=== PATIENT | female | born 1985 | race Caucasian/White ===

== ENCOUNTER → 2017-10-13 | Outpatient (CLI) | payer MEDICARE, OTHER ==
[~2017-10-13] MED LIST: ASPI-556 PO; ATOR40TA28 PO; DIVA500T52 PO; DSS100 PO; GLIP10 PO; LEVO200 PO; LISI-662 PO; LITH600 PO; METF500T4 PO; MULT1TAB69 PO; OLAN10TA3 PO; PANT40TA25 PO; PROP10TA73 PO; SITA100 PO
[2017-10-13 13:44] LABS: BASOPHILS % (AUTO) 0.2 % (0.0-2.0); EOSINOPHILS % (AUTO) 0.7 % (1.0-6.0); HEMATOCRIT 26.6 % (36-46); HEMOGLOBIN 8.9 g/dL (12.0-16.0); LYMPHOCYTES # (AUTO) 2.4 K/uL (1.0-4.8); LYMPHOCYTES % (AUTO) 23.2 % (22.0-44.0); MEAN CORPUSCULAR HEMOGLOBIN 29.6 pg (26.0-34.0); MEAN CORPUSCULAR HGB CONC 33.3 G/dL (31.0-37.0); MEAN CORPUSCULAR VOLUME 89 fL (80-100); MONOCYTES # (AUTO) 0.8 K/uL (0.1-1.0); MONOCYTES % (AUTO) 7.2 % (2.0-9.0); NEUTROPHILS # (AUTO) 7.2 K/uL (1.8-7.7); NEUTROPHILS % (AUTO) 68.7 % (40.0-70.0); PLATELET COUNT (AUTO) 332 K/uL (150-450); RED BLOOD CELL COUNT(AUTO) 2.99 MIL/uL (4.00-5.20); WHITE BLOOD COUNT (AUTO) 10.5 K/uL (4.5-11.0)
[2017-10-13 13:46] LABS: APPEARANCE,URINE CLEAR (CLEAR); GLUCOSE, URINE (UA) 100 mg/dL (NEGATIVE); KETONES,URINE NEGATIVE (NEGATIVE); LEUKOCYTE ESTERASE ,URINE NEGATIVE (NEGATIVE); OCCULT BLOOD,URINE MODERATE (NEGATIVE); PH,URINE 5.5 (5.0-8.0); PROTEIN,URINE SEE CONFIRM (NEGATIVE)
[2017-10-13 13:48] LABS: ADD UA MICROSCOPIC YES
[2017-10-13 14:01] LABS: SULFOSALICYLIC ACID,URINE 3+ (Negative)
[2017-10-13 14:02] LABS: SQUAMOUS EPITHELIAL CELL,UR Moderate /LPF (None Seen)
[2017-10-13 14:04] LABS: LITHIUM 0.94 mmol/L (0.60-1.20)
[2017-10-13 14:18] LABS: HEMOGLOBIN A1C 10.8 % (4.5-6.2)
[2017-10-13 15:00] LABS: ALANINE AMINOTRANSFERASE 11 U/L (12-78); ALBUMIN 2.5 g/dL (3.4-5.0); ANION GAP 7 mmol/L (8-16); ASPARTATE AMINOTRANSFERASE 11 U/L (15-37); BILIRUBIN,DIRECT < 0.05 mg/dL (0.00-0.20); BILIRUBIN,TOTAL 0.2 mg/dL (0.1-1.0); CARBON DIOXIDE 23 mmol/L (22-29); CHLORIDE 103 mmol/L (98-107); CHOL/HDL RATIO 3.7 (3.9-5.7); CREATININE 1.39 mg/dL (0.60-1.30); GLOMERULAR FILTR. RATE CALC 43 mL/min (>60); POTASSIUM 4.9 mmol/L (3.5-5.1); SODIUM SERUM 133 mmol/L (136-145); TOTAL PROTEIN, SERUM 6.6 g/dL (6.4-8.2); UREA NITROGEN, BLOOD 33 mg/dL (7-18); VALPROIC ACID 74 mcg/mL (50-100)
[2017-10-13 15:23] LABS: THYROID STIMULATING HORMONE 1.66 uIU/mL (0.36-3.74)
== END | disposition home or self-care (01) ==
LOC: LABPV 10:21
PROVIDERS: ATTEND Psychiatry & Neurology Psychiatry
DX: F31.9 Bipolar disorder, unspecified (principal)
CPT/HCPCS: 82248; 83036; 84443

== ENCOUNTER → 2018-04-07 | Outpatient (CLI) | payer MEDICARE, OTHER ==
[~2018-04-07] MED LIST changes: -METF500T4 PO; +METF500T6 PO
[2018-04-07 12:51] LABS: BASOPHILS % (AUTO) 0.3 % (0.0-2.0); EOSINOPHILS % (AUTO) 1.2 % (1.0-6.0); HEMATOCRIT 29.6 % (36-46); HEMOGLOBIN 9.8 g/dL (12.0-16.0); LYMPHOCYTES % (AUTO) 27.6 % (22.0-44.0); MEAN CORPUSCULAR HEMOGLOBIN 29.6 pg (26.0-34.0); MEAN CORPUSCULAR HGB CONC 33.1 G/dL (31.0-37.0); MEAN CORPUSCULAR VOLUME 89 fL (80-100); MONOCYTES # (AUTO) 0.8 K/uL (0.1-1.0); NEUTROPHILS % (AUTO) 63.9 % (40.0-70.0); PLATELET COUNT (AUTO) 292 K/uL (150-450); RED BLOOD CELL COUNT(AUTO) 3.32 MIL/uL (4.00-5.20); RED CELL DISTRIBUTION WIDTH 13.3 % (11.5-14.5)
[2018-04-07 12:59] LABS: HEMOGLOBIN A1C 8.8 % (4.5-6.2)
[2018-04-07 13:00] LABS: LITHIUM 0.57 mmol/L (0.60-1.20)
[2018-04-07 13:18] LABS: ALBUMIN 2.4 g/dL (3.4-5.0); BILIRUBIN,TOTAL 0.2 mg/dL (0.1-1.0); CALCIUM, TOTAL 8.9 mg/dL (8.8-10.5); CREATININE 1.56 mg/dL (0.60-1.30); POTASSIUM 4.9 mmol/L (3.5-5.1); THYROID STIMULATING HORMONE 1.33 uIU/mL (0.36-3.74); TOTAL PROTEIN, SERUM 6.7 g/dL (6.4-8.2)
[2018-04-07 13:30] LABS: CHOL/HDL RATIO 4.2 (3.9-5.7)
[2018-04-07 13:34] LABS: BILIRUBIN,DIRECT 0.1 mg/dL (0.00-0.20)
== END | disposition home or self-care (01) ==
LOC: LABPV 09:57
PROVIDERS: ATTEND Psychiatry & Neurology Psychiatry
DX: F31.9 Bipolar disorder, unspecified (principal); R79.89 Other specified abnormal findings of blood chemistry
CPT/HCPCS: 82248; 83036; 84443

== ENCOUNTER 2018-07-17 06:54 | Inpatient (IN) | payer MEDICARE, OTHER ==
[~2018-07-17] VITALS: Ht 165.1 cm; Wt 115.5 kg
[~2018-07-17 06:54] MED LIST changes: +METF-960 PO; -METF500T6 PO
[2018-07-17 07:13] LABS: GLUCOSE,POINT OF CARE 347 MG/DL (70-110)
[2018-07-17 07:42] LABS: BASOPHILS % (AUTO) 0.6 % (0.0-2.0); EOSINOPHILS % (AUTO) 0.5 % (1.0-6.0); LYMPHOCYTES # (AUTO) 2.7 K/uL (1.0-4.8); LYMPHOCYTES % (AUTO) 18.1 % (22.0-44.0); MEAN CORPUSCULAR HEMOGLOBIN 30.1 pg (26.0-34.0); MEAN CORPUSCULAR HGB CONC 32.3 G/dL (31.0-37.0); MEAN CORPUSCULAR VOLUME 93 fL (80-100); MONOCYTES # (AUTO) 1.9 K/uL (0.1-1.0); MONOCYTES % (AUTO) 12.9 % (2.0-9.0); NEUTROPHILS % (AUTO) 67.9 % (40.0-70.0); PLATELET COUNT (AUTO) 182 K/uL (150-450); RED CELL DISTRIBUTION WIDTH 14.4 % (11.5-14.5)
[2018-07-17] MEDS ORDERED: INSULIN REGULAR, HUMAN 100 UNITS/ML IVP ONE (07:45)
[2018-07-17 08:02] LABS: LITHIUM 1.73 mmol/L (0.60-1.20)
[2018-07-17 08:15] LABS: ALBUMIN 2.1 g/dL (3.4-5.0); BILIRUBIN,TOTAL 0.2 mg/dL (0.1-1.0); CALCIUM, TOTAL 8.7 mg/dL (8.8-10.5); CREATININE 2.21 mg/dL (0.60-1.30); POTASSIUM 5.3 mmol/L (3.5-5.1); TOTAL PROTEIN, SERUM 6.3 g/dL (6.4-8.2)
[2018-07-17 08:43] LABS: GLUCOSE,POINT OF CARE 291 MG/DL (70-110)
[2018-07-17] MEDS ORDERED: AZITHROMYCIN 500 MG/NS 250 ML IV ONE (08:45)
[2018-07-17] MEDS ORDERED: CefTRIAXone SODIUM 1 GM/VIAL IV ONE (08:45)
[2018-07-17] MEDS ORDERED: SODIUM CHLORIDE 0.9% 1,000 ML IV ONE (08:45)
[2018-07-17 09:58] LABS: BILIRUBIN,URINE NEGATIVE (NEGATIVE); GLUCOSE, URINE (UA) 250 mg/dL (NEGATIVE); KETONES,URINE NEGATIVE (NEGATIVE); LEUKOCYTE ESTERASE ,URINE NEGATIVE (NEGATIVE); NITRATE,URINE NEGATIVE (NEGATIVE); OCCULT BLOOD,URINE MODERATE (NEGATIVE); PROTEIN,URINE SEE CONFIRM (NEGATIVE); UROBILINOGEN,URINE 0.2 mg/dL (<=1.0)
[2018-07-17 10:02] LABS: APPEARANCE,URINE HAZY (CLEAR)
[2018-07-17 10:09] LABS: SULFOSALICYLIC ACID,URINE 3+ (Negative)
[2018-07-17 10:14] LABS: BACTERIA,URINE Rare /HPF (None Seen); SQUAMOUS EPITHELIAL CELL,UR Few /LPF (None Seen); WBC,URINE 0-2 /HPF (0-5)
[2018-07-17 10:15] LABS: AMORPHOUS SEDIMENT,UR Moderate /LPF (None Seen)
[2018-07-17 10:41] VITALS: BP 118/69
[2018-07-17] MEDS ORDERED: DEXTROSE 50%-WATER 25 GM/50 ML SYRINGE IVP PRN (12:00)
[2018-07-17] MEDS ORDERED: MAGNESIUM HYDROXIDE SUSPENSION 30 ML UDCUP PO PRN (12:00)
[2018-07-17] MEDS ORDERED: ONDANSETRON HCL 4 MG/2 ML VIAL IVP PRN (12:00)
[2018-07-17] MEDS ORDERED: BISACODYL 10 MG RECTAL RECTAL SUPPOSITORY PR PRN (12:00)
[2018-07-17] MEDS ORDERED: *CLINICAL-LEVOFLOXACIN IVPB DOSING CLINICAL ONE (12:00)
[2018-07-17] MEDS ORDERED: HYDROCODONE/ACETAMINOPHEN 5-325 MG TABLET PO PRN (12:00)
[2018-07-17] MEDS ORDERED: MORPHINE SULFATE 2 MG/ML SYRINGE IVP PRN (12:00)
[2018-07-17] MEDS ORDERED: ACET-784 PO (12:14)
[2018-07-17] MEDS ORDERED: SAXA2.5T PO (12:14)
[2018-07-17] MEDS ORDERED: LORA10TA7 PO (12:14)
[2018-07-17] MEDS ORDERED: FERR325T22 PO (12:14)
[2018-07-17] MEDS ORDERED: DIVA-78 PO (12:14)
[2018-07-17] MEDS: INSULIN LISPRO 100 UNITS/ML SQ PRN ×3 (12:18→22:18)
[2018-07-17] MEDS ORDERED: LEVOFLOXACIN 750 MG/D5% WATER 150 ML IV SCH (13:00)
[2018-07-17] MEDS: ACETAMINOPHEN 325 MG TABLET PO PRN (13:15)
[2018-07-17] MEDS: MULTIVITAMINS WITH MINERALS, THERAPEUTIC TABLET PO SCH (13:15)
[2018-07-17] MEDS ORDERED: SODIUM CHLORIDE 0.9% 100 ML ONE (13:21)
[2018-07-17 13:38] LABS: GLUCOMETER DEV NAME(LOC) 5S 2Q; GLUCOSE,POINT OF CARE 231 MG/DL (70-110)
[2018-07-17 15:09] VITALS: BP 131/66
[2018-07-17] MEDS ORDERED: HALOPERIDOL 5 MG TABLET PO ONE (15:15)
[2018-07-17] MEDS ORDERED: DiphenhydrAMINE HCL 25 MG CAPSULE PO ONE (15:15)
[2018-07-17] MEDS ORDERED: LORazepam 2 MG TABLET PO ONE (15:15)
[2018-07-17] MEDS: HEPARIN SODIUM,PORCINE 5,000 UNITS/ML VIAL SQ SCH ×2 (15:55→22:17)
[2018-07-17] MEDS: PROPRANOLOL HCL 10 MG TABLET PO SCH ×2 (15:55→20:37)
[2018-07-17 16:25] LABS: ABG A-A DIFF O2 100.6 mmHg (10-20.0); ABG BASE EXCESS -1.8 mmol/L (-2.0-3.0); ABG CARBOXYHEMOGLOBIN 0.9 % (0.0-1.5); ABG HCO3 22.9 mmol/L (22.0-26.0); ABG METHEMOGLOBIN 0.4 % (0.0-1.5); ABG OXYGEN SATURATION 93.7 % (95.0-98.0); ABG OXYHEMOGLOBIN 92.5 % (94.0-100.0); ABG PCO2 45 mmHg (35-45); ABG PH 7.346 (7.350-7.450); ABG TOTAL HEMOGLOBIN 8.4 G/dL (12.0-18.0); PO2, ARTERIAL BG 75.4 mmHg (92.0-100.0); SITE, BLOOD GAS RT RADIAL; SOURCE, BLOOD GAS ARTERIAL; TEMPERATURE, FAHRENHEIT, BG 98.6 FAHREN (96.0-98.6)
[2018-07-17 16:26] LABS: O2 DEVICE,BLOOD GAS CANNULA (ROOM AIR)
[2018-07-17] MEDS: GlipiZIDE 10 MG TABLET PO SCH (17:55)
[2018-07-17 19:13] VITALS: BP 132/71
[2018-07-17 20:13] LABS: GLUCOMETER DEV NAME(LOC) 5S 2Q; GLUCOSE,POINT OF CARE 251 MG/DL (70-110)
[2018-07-17] MEDS: DOCUSATE SODIUM 100 MG CAPSULE PO SCH (20:38)
[2018-07-17 23:26] VITALS: BP 140/70
[2018-07-18] MEDS: LORazepam 2 MG TABLET PO PRN ×3 (02:10→22:43)
[2018-07-18] MEDS: HALOPERIDOL 5 MG TABLET PO PRN ×2 (02:11→08:58)
[2018-07-18 03:36] VITALS: BP 135/79
[2018-07-18] MEDS: LEVOTHYROXINE SODIUM 125 MCG TABLET PO SCH (06:12)
[2018-07-18] MEDS: GlipiZIDE 10 MG TABLET PO SCH ×2 (06:12→17:52)
[2018-07-18] MEDS: INSULIN LISPRO 100 UNITS/ML SQ PRN ×4 (06:13→20:37)
[2018-07-18 06:48] LABS: BASOPHILS % (AUTO) 0.4 % (0.0-2.0); EOSINOPHILS % (AUTO) 0.2 % (1.0-6.0); HEMATOCRIT 24.8 % (36-46); HEMOGLOBIN 8.2 g/dL (12.0-16.0); LYMPHOCYTES # (AUTO) 1.9 K/uL (1.0-4.8); LYMPHOCYTES % (AUTO) 18.8 % (22.0-44.0); MEAN CORPUSCULAR HEMOGLOBIN 30.3 pg (26.0-34.0); MEAN CORPUSCULAR VOLUME 92 fL (80-100); MONOCYTES # (AUTO) 1.6 K/uL (0.1-1.0); MONOCYTES % (AUTO) 15.3 % (2.0-9.0); NEUTROPHILS # (AUTO) 6.6 K/uL (1.8-7.7); NEUTROPHILS % (AUTO) 65.3 % (40.0-70.0); PLATELET COUNT (AUTO) 145 K/uL (150-450); RED CELL DISTRIBUTION WIDTH 14.4 % (11.5-14.5)
[2018-07-18 07:05] LABS: CALCIUM, TOTAL 9.1 mg/dL (8.8-10.5); CREATININE 1.87 mg/dL (0.60-1.30); POTASSIUM 4.9 mmol/L (3.5-5.1)
[2018-07-18 07:29] LABS: HEMOGLOBIN A1C 10.7 % (4.5-6.2)
[2018-07-18 07:32] VITALS: BP 137/74
[2018-07-18] MEDS: PROPRANOLOL HCL 10 MG TABLET PO SCH ×3 (08:28→20:29)
[2018-07-18] MEDS: HEPARIN SODIUM,PORCINE 5,000 UNITS/ML VIAL SQ SCH ×3 (08:28→23:26)
[2018-07-18] MEDS: DOCUSATE SODIUM 100 MG CAPSULE PO SCH ×2 (08:28→20:29)
[2018-07-18] MEDS: ASPIRIN 81 MG CHEWABLE TABLET PO SCH (08:28)
[2018-07-18] MEDS: PANTOPRAZOLE SODIUM 40 MG DR TABLET PO SCH (08:28)
[2018-07-18] MEDS: ATORVASTATIN CALCIUM 40 MG TABLET PO SCH (08:28)
[2018-07-18] MEDS: MULTIVITAMINS WITH MINERALS, THERAPEUTIC TABLET PO SCH (08:28)
[2018-07-18] MEDS: LISINOPRIL 20 MG TABLET PO SCH (08:28)
[2018-07-18 11:32] VITALS: BP 141/63
[2018-07-18] MEDS ORDERED: HYDROCORTISONE 1% 30 GM OINTMENT TP PRN (13:00)
[2018-07-18] MEDS ORDERED: DEXTROSE 50%-WATER 25 GM/50 ML SYRINGE IVP PRN (13:00)
[2018-07-18] MEDS: LEVOFLOXACIN 750 MG/D5% WATER 150 ML IV SCH (13:12)
[2018-07-18 15:24] VITALS: BP 128/71
[2018-07-18 20:28] VITALS: BP 132/71
[2018-07-18] MEDS: DIVALPROEX SODIUM 500 MG ER TABLET PO SCH (20:29)
[2018-07-18 21:19] LABS: GLUCOMETER DEV NAME(LOC) 6N 2D; GLUCOSE,POINT OF CARE 229 MG/DL (70-110)
[2018-07-18] MEDS: ZOLPIDEM TARTRATE 5 MG TABLET PO PRN (22:43)
[2018-07-18 23:24] LABS: GLUCOMETER DEV NAME(LOC) 5S 2Q; GLUCOSE,POINT OF CARE 245 MG/DL (70-110)
[2018-07-18 23:24] LABS: GLUCOMETER DEV NAME(LOC) 5S 2Q; GLUCOSE,POINT OF CARE 221 MG/DL (70-110)
[2018-07-18 23:24] LABS: GLUCOMETER DEV NAME(LOC) 5S 2Q; GLUCOSE,POINT OF CARE 199 MG/DL (70-110)
[2018-07-18 23:40] VITALS: BP 145/80
[2018-07-19 04:16] VITALS: BP 154/82
[2018-07-19] MEDS: LORazepam 2 MG TABLET PO PRN ×2 (05:35→23:52)
[2018-07-19] MEDS: LEVOTHYROXINE SODIUM 125 MCG TABLET PO SCH (05:35)
[2018-07-19] MEDS: GlipiZIDE 10 MG TABLET PO SCH ×2 (05:36→17:32)
[2018-07-19] MEDS: INSULIN LISPRO 100 UNITS/ML SQ PRN ×4 (05:45→20:56)
[2018-07-19 06:49] LABS: GLUCOMETER DEV NAME(LOC) 6N 2D; GLUCOSE,POINT OF CARE 251 MG/DL (70-110)
[2018-07-19 07:21] VITALS: BP 144/74
[2018-07-19 07:23] LABS: BASOPHILS % (AUTO) 0.8 % (0.0-2.0); EOSINOPHILS % (AUTO) 0.7 % (1.0-6.0); HEMOGLOBIN 7.7 g/dL (12.0-16.0); LYMPHOCYTES # (AUTO) 2.1 K/uL (1.0-4.8); LYMPHOCYTES % (AUTO) 26.5 % (22.0-44.0); MEAN CORPUSCULAR HEMOGLOBIN 30.8 pg (26.0-34.0); MEAN CORPUSCULAR HGB CONC 33.5 G/dL (31.0-37.0); MEAN CORPUSCULAR VOLUME 92 fL (80-100); MONOCYTES % (AUTO) 12.6 % (2.0-9.0); NEUTROPHILS # (AUTO) 4.7 K/uL (1.8-7.7); NEUTROPHILS % (AUTO) 59.4 % (40.0-70.0); PLATELET COUNT (AUTO) 147 K/uL (150-450); RED CELL DISTRIBUTION WIDTH 14.6 % (11.5-14.5)
[2018-07-19] MEDS: HEPARIN SODIUM,PORCINE 5,000 UNITS/ML VIAL SQ SCH ×3 (09:12→23:52)
[2018-07-19] MEDS: PANTOPRAZOLE SODIUM 40 MG DR TABLET PO SCH (09:13)
[2018-07-19] MEDS: MULTIVITAMINS WITH MINERALS, THERAPEUTIC TABLET PO SCH (09:13)
[2018-07-19] MEDS: ATORVASTATIN CALCIUM 40 MG TABLET PO SCH (09:13)
[2018-07-19] MEDS: ASPIRIN 81 MG CHEWABLE TABLET PO SCH (09:15)
[2018-07-19] MEDS: PROPRANOLOL HCL 10 MG TABLET PO SCH ×3 (09:15→20:59)
[2018-07-19] MEDS: DOCUSATE SODIUM 100 MG CAPSULE PO SCH ×2 (09:15→20:58)
[2018-07-19] MEDS: LISINOPRIL 20 MG TABLET PO SCH (09:16)
[2018-07-19 11:32] VITALS: BP 137/88
[2018-07-19 12:58] LABS: GLUCOMETER DEV NAME(LOC) 6N 1E; GLUCOSE,POINT OF CARE 189 MG/DL (70-110)
[2018-07-19] MEDS: LEVOFLOXACIN 750 MG/D5% WATER 150 ML IV SCH (13:06)
[2018-07-19] MEDS ORDERED: SODIUM CHLORIDE 0.9% 500 ML IV ONE (14:23)
[2018-07-19 16:37] VITALS: BP 135/82
[2018-07-19] MEDS: HALOPERIDOL 5 MG TABLET PO PRN (18:46)
[2018-07-19 19:48] LABS: GLUCOMETER DEV NAME(LOC) 6N 1E; GLUCOSE,POINT OF CARE 383 MG/DL (70-110)
[2018-07-19 20:00] VITALS: BP 140/74
[2018-07-19] MEDS: DIVALPROEX SODIUM 500 MG ER TABLET PO SCH (20:59)
[2018-07-19] MEDS: ZOLPIDEM TARTRATE 5 MG TABLET PO PRN (21:02)
[2018-07-19 22:59] LABS: GLUCOMETER DEV NAME(LOC) 6N 1E; GLUCOSE,POINT OF CARE 358 MG/DL (70-110)
[2018-07-20] VITALS: BP 141/73
[2018-07-20] MEDS: HALOPERIDOL 5 MG TABLET PO PRN ×3 (01:30→20:26)
[2018-07-20 04:30] VITALS: BP 139/65
[2018-07-20 06:10] LABS: BASOPHILS % (AUTO) 0.7 % (0.0-2.0); EOSINOPHILS % (AUTO) 1.2 % (1.0-6.0); HEMATOCRIT 25.4 % (36-46); HEMOGLOBIN 8.4 g/dL (12.0-16.0); LYMPHOCYTES # (AUTO) 2.5 K/uL (1.0-4.8); LYMPHOCYTES % (AUTO) 29.1 % (22.0-44.0); MEAN CORPUSCULAR HEMOGLOBIN 30.7 pg (26.0-34.0); MEAN CORPUSCULAR HGB CONC 32.9 G/dL (31.0-37.0); MEAN CORPUSCULAR VOLUME 93 fL (80-100); MONOCYTES % (AUTO) 11.8 % (2.0-9.0); NEUTROPHILS # (AUTO) 4.8 K/uL (1.8-7.7); NEUTROPHILS % (AUTO) 57.2 % (40.0-70.0); PLATELET COUNT (AUTO) 183 K/uL (150-450); RED BLOOD CELL COUNT(AUTO) 2.72 MIL/uL (4.00-5.20); RED CELL DISTRIBUTION WIDTH 14.4 % (11.5-14.5)
[2018-07-20] MEDS: GlipiZIDE 10 MG TABLET PO SCH ×2 (06:23→17:12)
[2018-07-20] MEDS: LEVOTHYROXINE SODIUM 125 MCG TABLET PO SCH (06:23)
[2018-07-20] MEDS: INSULIN LISPRO 100 UNITS/ML SQ PRN ×4 (06:31→21:06)
[2018-07-20 07:49] VITALS: BP 151/83
[2018-07-20 08:19] LABS: GLUCOMETER DEV NAME(LOC) 6N 2D; GLUCOSE,POINT OF CARE 296 MG/DL (70-110)
[2018-07-20] MEDS: ASPIRIN 81 MG CHEWABLE TABLET PO SCH (09:21)
[2018-07-20] MEDS: ATORVASTATIN CALCIUM 40 MG TABLET PO SCH (09:21)
[2018-07-20] MEDS: DOCUSATE SODIUM 100 MG CAPSULE PO SCH ×2 (09:22→19:57)
[2018-07-20] MEDS: PANTOPRAZOLE SODIUM 40 MG DR TABLET PO SCH (09:22)
[2018-07-20] MEDS: PROPRANOLOL HCL 10 MG TABLET PO SCH ×3 (09:22→19:58)
[2018-07-20] MEDS: MULTIVITAMINS WITH MINERALS, THERAPEUTIC TABLET PO SCH (09:22)
[2018-07-20] MEDS: HEPARIN SODIUM,PORCINE 5,000 UNITS/ML VIAL SQ SCH ×2 (09:23→21:06)
[2018-07-20] MEDS: LEVOFLOXACIN 750 MG/D5% WATER 150 ML IV SCH (11:35)
[2018-07-20 12:03] VITALS: BP 144/79
[2018-07-20 13:23] LABS: GLUCOMETER DEV NAME(LOC) 6N 2D; GLUCOSE,POINT OF CARE 389 MG/DL (70-110)
[2018-07-20] MEDS ORDERED: SODIUM CHLORIDE 0.9% 500 ML IV ONE (13:31)
[2018-07-20] MEDS: LORazepam 2 MG TABLET PO PRN (14:40)
[2018-07-20 16:00] VITALS: BP 139/80
[2018-07-20 19:40] VITALS: BP 162/79
[2018-07-20] MEDS: DIVALPROEX SODIUM 500 MG ER TABLET PO SCH (19:58)
[2018-07-20] MEDS: ACETAMINOPHEN 325 MG TABLET PO PRN (20:04)
[2018-07-20 20:14] LABS: GLUCOMETER DEV NAME(LOC) 6N 2D; GLUCOSE,POINT OF CARE 383 MG/DL (70-110)
[2018-07-20] MEDS ORDERED: INSULIN GLARGINE,HUM.REC.ANLOG 100 UNITS/ML SQ SCH (21:30)
[2018-07-20 21:49] LABS: GLUCOMETER DEV NAME(LOC) 5N 2S; GLUCOSE,POINT OF CARE 239 MG/DL (70-110)
[2018-07-20 22:18] LABS: GLUCOMETER DEV NAME(LOC) 6N 2D; GLUCOSE,POINT OF CARE 523 MG/DL (70-110)
[2018-07-20] MEDS: ZOLPIDEM TARTRATE 5 MG TABLET PO PRN (22:49)
[2018-07-21] VITALS (7 sets, daily range): BP systolic 137–162; BP diastolic 72–97
[2018-07-21] MEDS: HALOPERIDOL 5 MG TABLET PO PRN ×3 (00:45→21:43)
[2018-07-21] MEDS: INSULIN LISPRO 100 UNITS/ML SQ PRN ×4 (06:09→20:21)
[2018-07-21] MEDS: GlipiZIDE 10 MG TABLET PO SCH (06:10)
[2018-07-21] MEDS: LEVOTHYROXINE SODIUM 125 MCG TABLET PO SCH (06:10)
[2018-07-21 06:49] LABS: GLUCOMETER DEV NAME(LOC) 6N 1E; GLUCOSE,POINT OF CARE 326 MG/DL (70-110)
[2018-07-21 07:19] LABS: BASOPHILS % (AUTO) 0.6 % (0.0-2.0); EOSINOPHILS % (AUTO) 1.1 % (1.0-6.0); HEMATOCRIT 23.2 % (36-46); HEMOGLOBIN 7.6 g/dL (12.0-16.0); LYMPHOCYTES # (AUTO) 2.8 K/uL (1.0-4.8); LYMPHOCYTES % (AUTO) 31.9 % (22.0-44.0); MEAN CORPUSCULAR HEMOGLOBIN 30.6 pg (26.0-34.0); MEAN CORPUSCULAR HGB CONC 32.9 G/dL (31.0-37.0); MEAN CORPUSCULAR VOLUME 93 fL (80-100); MONOCYTES % (AUTO) 11.5 % (2.0-9.0); NEUTROPHILS # (AUTO) 4.9 K/uL (1.8-7.7); NEUTROPHILS % (AUTO) 54.9 % (40.0-70.0); PLATELET COUNT (AUTO) 214 K/uL (150-450); RED BLOOD CELL COUNT(AUTO) 2.49 MIL/uL (4.00-5.20); RED CELL DISTRIBUTION WIDTH 14.5 % (11.5-14.5)
[2018-07-21 07:36] LABS: CALCIUM, TOTAL 9.1 mg/dL (8.8-10.5); CREATININE 2.07 mg/dL (0.60-1.30)
[2018-07-21] MEDS ORDERED: SODIUM POLYSTYRENE SULFONATE 15 GM/60 ML SUSPENSION BOTTLE PO ONE (08:00)
[2018-07-21] MEDS: PANTOPRAZOLE SODIUM 40 MG DR TABLET PO SCH (08:05)
[2018-07-21] MEDS: HEPARIN SODIUM,PORCINE 5,000 UNITS/ML VIAL SQ SCH ×2 (08:06→20:13)
[2018-07-21] MEDS: PROPRANOLOL HCL 10 MG TABLET PO SCH ×3 (08:06→20:13)
[2018-07-21] MEDS: LORazepam 2 MG TABLET PO PRN ×3 (08:06→23:48)
[2018-07-21] MEDS: MULTIVITAMINS WITH MINERALS, THERAPEUTIC TABLET PO SCH (08:06)
[2018-07-21] MEDS: ATORVASTATIN CALCIUM 40 MG TABLET PO SCH (08:13)
[2018-07-21] MEDS: DOCUSATE SODIUM 100 MG CAPSULE PO SCH ×2 (08:13→20:14)
[2018-07-21] MEDS: ASPIRIN 81 MG CHEWABLE TABLET PO SCH (08:13)
[2018-07-21] MEDS: INSULIN GLARGINE,HUM.REC.ANLOG 100 UNITS/ML SQ SCH ×2 (08:53→20:14)
[2018-07-21] MEDS: LEVOFLOXACIN 750 MG/D5% WATER 150 ML IV SCH (14:06)
[2018-07-21 18:09] LABS: GLUCOMETER DEV NAME(LOC) 6N 2D; GLUCOSE,POINT OF CARE 307 MG/DL (70-110)
[2018-07-21 18:09] LABS: GLUCOMETER DEV NAME(LOC) 6N 2D; GLUCOSE,POINT OF CARE 308 MG/DL (70-110)
[2018-07-21] MEDS: DIVALPROEX SODIUM 500 MG ER TABLET PO SCH (20:13)
[2018-07-21 21:09] LABS: GLUCOMETER DEV NAME(LOC) 6N 2D; GLUCOSE,POINT OF CARE 282 MG/DL (70-110)
[2018-07-22] MEDS: ZOLPIDEM TARTRATE 5 MG TABLET PO PRN
[2018-07-22 05:16] VITALS: BP 145/66
[2018-07-22] MEDS: INSULIN LISPRO 100 UNITS/ML SQ PRN ×2 (05:48→11:33)
[2018-07-22] MEDS: LEVOTHYROXINE SODIUM 125 MCG TABLET PO SCH (05:48)
[2018-07-22 06:32] LABS: CREATININE 1.93 mg/dL (0.60-1.30); POTASSIUM 5.2 mmol/L (3.5-5.1)
[2018-07-22 07:10] VITALS: BP 146/77
[2018-07-22] MEDS: MULTIVITAMINS WITH MINERALS, THERAPEUTIC TABLET PO SCH (08:44)
[2018-07-22] MEDS: DOCUSATE SODIUM 100 MG CAPSULE PO SCH (08:44)
[2018-07-22] MEDS: HEPARIN SODIUM,PORCINE 5,000 UNITS/ML VIAL SQ SCH (08:45)
[2018-07-22] MEDS: ASPIRIN 81 MG CHEWABLE TABLET PO SCH (08:45)
[2018-07-22] MEDS: ATORVASTATIN CALCIUM 40 MG TABLET PO SCH (08:45)
[2018-07-22] MEDS: PROPRANOLOL HCL 10 MG TABLET PO SCH ×2 (08:45→15:11)
[2018-07-22] MEDS: PANTOPRAZOLE SODIUM 40 MG DR TABLET PO SCH (08:45)
[2018-07-22] MEDS: INSULIN GLARGINE,HUM.REC.ANLOG 100 UNITS/ML SQ SCH (08:46)
[2018-07-22 10:55] LABS: THYROID STIMULATING HORMONE 10.91 uIU/mL (0.36-3.74)
[2018-07-22 12:28] VITALS: BP 131/87
[2018-07-22] MEDS: LEVOFLOXACIN 750 MG/D5% WATER 150 ML IV SCH (13:46)
[2018-07-22] MEDS: LORazepam 2 MG TABLET PO PRN (15:11)
[2018-07-22 16:05] VITALS: BP 112/57
[2018-07-22] MEDS ORDERED: INSULIN LISPRO 100 UNITS/ML SQ ONE (17:45)
[2018-07-22 19:20] VITALS: BP 145/67
[2018-07-22 20:03] LABS: GLUCOMETER DEV NAME(LOC) 6N 1E; GLUCOSE,POINT OF CARE 409 MG/DL (70-110)
[2018-07-22 20:14] LABS: GLUCOMETER DEV NAME(LOC) 6N 2D; GLUCOSE,POINT OF CARE 455 MG/DL (70-110)
[2018-07-22 20:14] LABS: GLUCOMETER DEV NAME(LOC) 6N 2D; GLUCOSE,POINT OF CARE 468 MG/DL (70-110)
[2018-07-22 20:14] LABS: GLUCOMETER DEV NAME(LOC) 6N 2D; GLUCOSE,POINT OF CARE 288 MG/DL (70-110)
[2018-07-22 20:14] LABS: GLUCOMETER DEV NAME(LOC) 6N 2D; GLUCOSE,POINT OF CARE 350 MG/DL (70-110)
[2018-07-22] MEDS ORDERED: INSULIN GLARGINE,HUM.REC.ANLOG 100 UNITS/ML SQ SCH ×2 (21:00)
== END 2018-07-22 19:38 | DRG 682 ==
LOC: EMS 06:54 → 5S 08:54 → 6N 07-18 18:40
PROVIDERS: ADMIT Internal Medicine; ATTEND Internal Medicine
DX: N17.9 Acute kidney failure, unspecified (principal); J18.9 Pneumonia, unspecified organism; J96.01 Acute respiratory failure with hypoxia; Z68.41 Body mass index [BMI] 40.0-44.9, adult; E78.5 Hyperlipidemia, unspecified; E11.65 Type 2 diabetes mellitus with hyperglycemia; D63.8 Anemia in other chronic diseases classified elsewhere; E03.9 Hypothyroidism, unspecified; E11.22 Type 2 diabetes mellitus with diabetic chronic kidney disease; E66.01 Morbid (severe) obesity due to excess calories; E78.00 Pure hypercholesterolemia, unspecified; E86.0 Dehydration; F25.9 Schizoaffective disorder, unspecified; F31.9 Bipolar disorder, unspecified; F41.9 Anxiety disorder, unspecified; I12.9 Hypertensive chronic kidney disease with stage 1 through stage 4 chronic kidney disease, or unspecified chronic kidney disease; N18.9 Chronic kidney disease, unspecified; R62.50 Unspecified lack of expected normal physiological development in childhood; Z79.4 Long term (current) use of insulin; Z79.899 Other long term (current) drug therapy
CPT/HCPCS: 82805; 83036; 83605; 84443; 87040; 93005; 93306; 93308; 96365; 96366; 96375; 97116; 97162; 97530; 99291; J0456; J0696; J1644; J1815; J1956; J7030; J7040; J7050

== ENCOUNTER 2018-07-29 12:33 | Inpatient (IN) | payer MEDICARE, MEDICAID ==
[~2018-07-29] VITALS: Ht 162.6 cm; Wt 111.6 kg
[~2018-07-29 12:33] MED LIST changes: +ACET-784 PO; +DIVA-78 PO; +FERR325T22 PO; -LISI-662 PO; +LORA10TA7 PO; -MULT1TAB69 PO; -PANT40TA25 PO; +SAXA2.5T PO; -SITA100 PO
[2018-07-29 13:24] LABS: GLUCOSE,POINT OF CARE 328 MG/DL (70-110)
[2018-07-29 13:54] LABS: BASOPHILS % (AUTO) 0.5 % (0.0-2.0); EOSINOPHILS % (AUTO) 0.5 % (1.0-6.0); HEMATOCRIT 29.2 % (36-46); HEMOGLOBIN 9.5 g/dL (12.0-16.0); LYMPHOCYTES # (AUTO) 2.5 K/uL (1.0-4.8); LYMPHOCYTES % (AUTO) 21.2 % (22.0-44.0); MEAN CORPUSCULAR HEMOGLOBIN 30.5 pg (26.0-34.0); MEAN CORPUSCULAR HGB CONC 32.5 G/dL (31.0-37.0); MEAN CORPUSCULAR VOLUME 94 fL (80-100); MONOCYTES % (AUTO) 8.3 % (2.0-9.0); NEUTROPHILS # (AUTO) 8.3 K/uL (1.8-7.7); NEUTROPHILS % (AUTO) 69.5 % (40.0-70.0); PLATELET COUNT (AUTO) 333 K/uL (150-450); RED BLOOD CELL COUNT(AUTO) 3.12 MIL/uL (4.00-5.20); RED CELL DISTRIBUTION WIDTH 15.8 % (11.5-14.5)
[2018-07-29 14:06] LABS: ANION GAP 10 mmol/L (8-16); CARBON DIOXIDE 23 mmol/L (22-29); CHLORIDE 99 mmol/L (98-107); CREATININE 2.53 mg/dL (0.60-1.30); GLOMERULAR FILTR. RATE CALC 22 mL/min (>60); GLUCOSE,RANDOM 323 mg/dL (70-110); POTASSIUM 5.3 mmol/L (3.5-5.1); SODIUM SERUM 132 mmol/L (136-145); UREA NITROGEN, BLOOD 52 mg/dL (7-18)
[2018-07-29 14:13] LABS: ALANINE AMINOTRANSFERASE 26 U/L (12-78); ALBUMIN 2.8 g/dL (3.4-5.0); ALKALINE PHOSPHATASE 91 U/L (46-116); ASPARTATE AMINOTRANSFERASE 26 U/L (15-37); BILIRUBIN,TOTAL 0.4 mg/dL (0.1-1.0); LITHIUM 0.71 mmol/L (0.60-1.20); TOTAL PROTEIN, SERUM 6.4 g/dL (6.4-8.2)
[2018-07-29] MEDS ORDERED: LORazepam 2 MG/ML VIAL IM ONE ×2 (14:15→16:45)
[2018-07-29] MEDS ORDERED: DiphenhydrAMINE HCL 50 MG/ML VIAL IM ONE (14:15)
[2018-07-29 14:29] LABS: VALPROIC ACID 40 mcg/mL (50-100)
[2018-07-29] MEDS ORDERED: SODIUM CHLORIDE 0.9% 1,000 ML IV ONE ×2 (16:15→22:30)
[2018-07-29 16:59] LABS: GLUCOSE,POINT OF CARE 290 MG/DL (70-110)
[2018-07-29 19:34] LABS: GLUCOSE,POINT OF CARE 331 MG/DL (70-110)
[2018-07-29] MEDS: ZOLPIDEM TARTRATE 10 MG TABLET PO PRN (20:55)
[2018-07-29] MEDS ORDERED: INSULIN REGULAR, HUMAN 100 UNITS/ML SQ ONE (21:15)
[2018-07-29 21:16] LABS: APPEARANCE,URINE CLOUDY (CLEAR); BILIRUBIN,URINE NEGATIVE (NEGATIVE); GLUCOSE, URINE (UA) 250 mg/dL (NEGATIVE); KETONES,URINE NEGATIVE (NEGATIVE); LEUKOCYTE ESTERASE ,URINE NEGATIVE (NEGATIVE); NITRATE,URINE NEGATIVE (NEGATIVE); OCCULT BLOOD,URINE LARGE (NEGATIVE); PROTEIN,URINE SEE CONFIRM (NEGATIVE); UROBILINOGEN,URINE 0.2 mg/dL (<=1.0)
[2018-07-29 21:22] LABS: AMPHET/METH SCREEN,URINE NEGATIVE (NEGATIVE); BARBITURATE SCREEN, URINE NEGATIVE (NEGATIVE); BENZODIAZEPINES SCREEN,URINE NEGATIVE (NEGATIVE); CANNABINOID SCREEN,URINE NEGATIVE (NEGATIVE); COCAINE SCREEN,URINE NEGATIVE (NEGATIVE); METHADONE SCREEN, URINE NEGATIVE (NEGATIVE); OPIATE SCREEN,URINE NEGATIVE (NEGATIVE)
[2018-07-29 21:28] LABS: GLUCOSE,POINT OF CARE 357 MG/DL (70-110)
[2018-07-29 21:29] LABS: PHENCYCLIDINE SCREEN,URINE NEGATIVE (NEGATIVE)
[2018-07-29 21:35] LABS: SULFOSALICYLIC ACID,URINE 4+ (Negative)
[2018-07-29 21:36] LABS: RBC,URINE 0-2 /HPF (0-2)
[2018-07-29 21:37] LABS: AMORPHOUS SEDIMENT,UR Few /LPF (None Seen); BACTERIA,URINE Moderate /HPF (None Seen); SQUAMOUS EPITHELIAL CELL,UR Rare /LPF (None Seen); WBC,URINE None Seen /HPF (0-5)
[2018-07-29 22:19] LABS: GLUCOSE,POINT OF CARE 381 MG/DL (70-110)
[2018-07-29] MEDS ORDERED: INSULIN REGULAR, HUMAN 100 UNITS/ML IVP ONE (22:30)
[2018-07-29 23:13] LABS: GLUCOSE,POINT OF CARE 297 MG/DL (70-110)
[2018-07-29] MEDS: HALOPERIDOL 5 MG TABLET PO PRN (23:41)
[2018-07-30 00:19] LABS: GLUCOSE,POINT OF CARE 244 MG/DL (70-110)
[2018-07-30 04:08] VITALS: BP 111/57
[2018-07-30] MEDS ORDERED: PNEUMOCOCCAL VACCINE POLYVALENT 0.5 ML VIAL [PPSV23] IM ONE (05:30)
[2018-07-30 05:49] LABS: GLUCOMETER DEV NAME(LOC) 3EI C; GLUCOSE,POINT OF CARE 214 MG/DL (70-110)
[2018-07-30] MEDS: LORazepam 2 MG TABLET PO PRN ×3 (06:48→16:24)
[2018-07-30] MEDS: HALOPERIDOL 5 MG TABLET PO PRN ×2 (06:48→12:15)
[2018-07-30] MEDS ORDERED: ACETAMINOPHEN 325 MG TABLET PO PRN (07:15)
[2018-07-30] MEDS ORDERED: MetFORMIN HCL 500 MG TABLET PO SCH (07:30)
[2018-07-30] MEDS ORDERED: DEXTROSE 50%-WATER 25 GM/50 ML SYRINGE IVP PRN (07:30)
[2018-07-30 08:30] VITALS: BP 122/84
[2018-07-30] MEDS ORDERED: DIVALPROEX SODIUM 500 MG DR TABLET PO SCH (09:00)
[2018-07-30] MEDS: ASPIRIN 81 MG CHEWABLE TABLET PO SCH (09:00)
[2018-07-30] MEDS: FERROUS SULFATE 325 MG EC TABLET PO SCH (10:16)
[2018-07-30] MEDS: LEVOTHYROXINE SODIUM 125 MCG TABLET PO SCH (10:16)
[2018-07-30] MEDS: PROPRANOLOL HCL 10 MG TABLET PO SCH ×3 (10:16→16:22)
[2018-07-30] MEDS: ATORVASTATIN CALCIUM 40 MG TABLET PO SCH (10:17)
[2018-07-30] MEDS: LORATADINE 10 MG TABLET PO SCH (10:17)
[2018-07-30] MEDS ORDERED: MAGNESIUM HYDROXIDE SUSPENSION 30 ML UDCUP PO PRN (10:30)
[2018-07-30] MEDS ORDERED: MAG HYDROX/AL HYDROX/SIMETH ES 30 ML SUSPENSION UDCUP PO PRN (10:30)
[2018-07-30] MEDS ORDERED: PETROLATUM,WHITE 71 GM JELLY TP PRN (10:30)
[2018-07-30] MEDS ORDERED: ALBUTEROL SULFATE HFA 90 MCG/PUFF 8 GM INHALER IH PRN (10:30)
[2018-07-30] MEDS ORDERED: IBUPROFEN 400 MG TABLET PO PRN (10:30)
[2018-07-30] MEDS ORDERED: LOPERAMIDE HCL 2 MG CAPSULE PO PRN (10:30)
[2018-07-30] MEDS ORDERED: ONDANSETRON HCL 4 MG TABLET PO PRN (10:30)
[2018-07-30] MEDS ORDERED: NICOTINE 14 MG/24 HOUR PATCH TD PRN (10:30)
[2018-07-30] MEDS ORDERED: GuaiFENesin/D-METHORPHAN [SUGAR-FREE] 200-20MG/10 ML SYRUP UDCUP PO PRN (10:30)
[2018-07-30] MEDS ORDERED: DOCUSATE SODIUM 100 MG CAPSULE PO PRN (10:30)
[2018-07-30] MEDS ORDERED: CloNIDine HCL 0.1 MG TABLET PO PRN (10:30)
[2018-07-30] MEDS ORDERED: LEVO125 PO (10:55)
[2018-07-30 11:45] LABS: GLUCOMETER DEV NAME(LOC) 3EX 1; GLUCOSE,POINT OF CARE 383 MG/DL (70-110)
[2018-07-30] MEDS: INSULIN LISPRO 100 UNITS/ML SQ PRN ×3 (11:47→22:10)
[2018-07-30 14:12] LABS: CALCIUM, TOTAL 9.3 mg/dL (8.8-10.5); CREATININE 2.27 mg/dL (0.60-1.30); POTASSIUM 5.1 mmol/L (3.5-5.1)
[2018-07-30 14:17] LABS: ALBUMIN 2.7 g/dL (3.4-5.0); BILIRUBIN,TOTAL 0.4 mg/dL (0.1-1.0); TOTAL PROTEIN, SERUM 6.8 g/dL (6.4-8.2)
[2018-07-30 16:17] VITALS: BP 119/78
[2018-07-30] MEDS: GlipiZIDE 10 MG TABLET PO SCH (16:22)
[2018-07-30 16:43] LABS: GLUCOMETER DEV NAME(LOC) 3EX 1; GLUCOSE,POINT OF CARE 377 MG/DL (70-110)
[2018-07-30] MEDS: INSULIN GLARGINE,HUM.REC.ANLOG 100 UNITS/ML SQ SCH (17:02)
[2018-07-30] MEDS: DIVALPROEX SODIUM 500 MG ER TABLET PO SCH (20:31)
[2018-07-30] MEDS: ZOLPIDEM TARTRATE 10 MG TABLET PO PRN (20:32)
[2018-07-30] MEDS: OLANZapine 7.5 MG TABLET PO SCH (20:32)
[2018-07-30 20:58] LABS: GLUCOMETER DEV NAME(LOC) 3EX 1; GLUCOSE,POINT OF CARE 281 MG/DL (70-110)
[2018-07-31] MEDS: LORazepam 2 MG TABLET PO PRN ×3 (04:07→20:22)
[2018-07-31 06:09] LABS: GLUCOMETER DEV NAME(LOC) 3EI C; GLUCOSE,POINT OF CARE 132 MG/DL (70-110)
[2018-07-31 06:24] LABS: CALCIUM, TOTAL 9.1 mg/dL (8.8-10.5); CREATININE 1.94 mg/dL (0.60-1.30); POTASSIUM 4.1 mmol/L (3.5-5.1); THYROID STIMULATING HORMONE 29.92 uIU/mL (0.36-3.74)
[2018-07-31] MEDS: FERROUS SULFATE 325 MG EC TABLET PO SCH (07:08)
[2018-07-31] MEDS: LEVOTHYROXINE SODIUM 125 MCG TABLET PO SCH (07:08)
[2018-07-31] MEDS: GlipiZIDE 10 MG TABLET PO SCH ×2 (07:08→16:07)
[2018-07-31] MEDS: ASPIRIN 81 MG CHEWABLE TABLET PO SCH (09:52)
[2018-07-31] MEDS: ATORVASTATIN CALCIUM 40 MG TABLET PO SCH (09:52)
[2018-07-31] MEDS: PROPRANOLOL HCL 10 MG TABLET PO SCH ×3 (09:52→16:07)
[2018-07-31] MEDS: LORATADINE 10 MG TABLET PO SCH (09:52)
[2018-07-31] MEDS: HALOPERIDOL 5 MG TABLET PO PRN (09:53)
[2018-07-31] MEDS: INSULIN GLARGINE,HUM.REC.ANLOG 100 UNITS/ML SQ SCH ×2 (10:11→17:14)
[2018-07-31 11:53] LABS: GLUCOMETER DEV NAME(LOC) 3EX 1; GLUCOSE,POINT OF CARE 216 MG/DL (70-110)
[2018-07-31] MEDS: INSULIN LISPRO 100 UNITS/ML SQ PRN ×3 (12:08→20:51)
[2018-07-31 13:26] VITALS: BP 145/69
[2018-07-31 14:27] LABS: FREE T4 (FREE THYROXINE) 0.79 ng/dL (0.76-1.46)
[2018-07-31 16:02] VITALS: BP 142/82
[2018-07-31 16:19] LABS: GLUCOMETER DEV NAME(LOC) 3EX 1; GLUCOSE,POINT OF CARE 212 MG/DL (70-110)
[2018-07-31] MEDS: ZOLPIDEM TARTRATE 10 MG TABLET PO PRN (20:22)
[2018-07-31] MEDS: OLANZapine 7.5 MG TABLET PO SCH (20:22)
[2018-07-31] MEDS: DIVALPROEX SODIUM 500 MG ER TABLET PO SCH (20:22)
[2018-07-31 20:34] LABS: GLUCOMETER DEV NAME(LOC) 3EX 1; GLUCOSE,POINT OF CARE 259 MG/DL (70-110)
[2018-08-01] MEDS: LORazepam 2 MG TABLET PO PRN ×4 (00:45→21:06)
[2018-08-01] MEDS: HALOPERIDOL 5 MG TABLET PO PRN ×3 (00:45→15:30)
[2018-08-01 06:19] LABS: GLUCOMETER DEV NAME(LOC) 3EI C; GLUCOSE,POINT OF CARE 159 MG/DL (70-110)
[2018-08-01] MEDS: FERROUS SULFATE 325 MG EC TABLET PO SCH (07:15)
[2018-08-01] MEDS: GlipiZIDE 10 MG TABLET PO SCH ×3 (07:15→16:27)
[2018-08-01] MEDS: LEVOTHYROXINE SODIUM 125 MCG TABLET PO SCH (07:15)
[2018-08-01] MEDS: LEVOTHYROXINE SODIUM 75 MCG TABLET PO SCH (07:15)
[2018-08-01] MEDS: INSULIN LISPRO 100 UNITS/ML SQ PRN ×5 (07:16→21:42)
[2018-08-01 08:35] VITALS: BP 135/73
[2018-08-01] MEDS: ASPIRIN 81 MG CHEWABLE TABLET PO SCH (08:41)
[2018-08-01] MEDS: ATORVASTATIN CALCIUM 40 MG TABLET PO SCH (08:42)
[2018-08-01] MEDS: PROPRANOLOL HCL 10 MG TABLET PO SCH ×3 (08:42→16:27)
[2018-08-01] MEDS: LORATADINE 10 MG TABLET PO SCH (08:42)
[2018-08-01] MEDS: INSULIN GLARGINE,HUM.REC.ANLOG 100 UNITS/ML SQ SCH ×2 (08:56→16:41)
[2018-08-01 11:24] LABS: GLUCOMETER DEV NAME(LOC) 3EX 1; GLUCOSE,POINT OF CARE 233 MG/DL (70-110)
[2018-08-01 16:25] VITALS: BP 138/84
[2018-08-01 16:39] LABS: GLUCOMETER DEV NAME(LOC) 3EX 1; GLUCOSE,POINT OF CARE 261 MG/DL (70-110)
[2018-08-01] MEDS: DIVALPROEX SODIUM 500 MG ER TABLET PO SCH (21:05)
[2018-08-01] MEDS: OLANZapine 7.5 MG TABLET PO SCH (21:06)
[2018-08-01] MEDS: ZOLPIDEM TARTRATE 10 MG TABLET PO PRN (21:06)
[2018-08-01] MEDS: NYSTATIN 30 GM CREAM TP SCH (21:20)
[2018-08-01 21:34] LABS: GLUCOMETER DEV NAME(LOC) 3EX 1; GLUCOSE,POINT OF CARE 286 MG/DL (70-110)
[2018-08-02 00:22] VITALS: BP 155/63
[2018-08-02] MEDS: LORazepam 2 MG TABLET PO PRN ×3 (01:20→17:08)
[2018-08-02] MEDS: HALOPERIDOL 5 MG TABLET PO PRN ×4 (01:20→21:43)
[2018-08-02 05:44] LABS: GLUCOMETER DEV NAME(LOC) 3EI C; GLUCOSE,POINT OF CARE 283 MG/DL (70-110)
[2018-08-02 06:02] LABS: BASOPHILS % (AUTO) 0.4 % (0.0-2.0); EOSINOPHILS % (AUTO) 2.6 % (1.0-6.0); HEMATOCRIT 27.3 % (36-46); HEMOGLOBIN 9.1 g/dL (12.0-16.0); LYMPHOCYTES # (AUTO) 2.4 K/uL (1.0-4.8); LYMPHOCYTES % (AUTO) 34.9 % (22.0-44.0); MEAN CORPUSCULAR HEMOGLOBIN 30.9 pg (26.0-34.0); MEAN CORPUSCULAR HGB CONC 33.3 G/dL (31.0-37.0); MEAN CORPUSCULAR VOLUME 93 fL (80-100); MONOCYTES # (AUTO) 0.4 K/uL (0.1-1.0); MONOCYTES % (AUTO) 6.3 % (2.0-9.0); NEUTROPHILS # (AUTO) 3.9 K/uL (1.8-7.7); NEUTROPHILS % (AUTO) 55.8 % (40.0-70.0); PLATELET COUNT (AUTO) 227 K/uL (150-450); RED BLOOD CELL COUNT(AUTO) 2.94 MIL/uL (4.00-5.20); RED CELL DISTRIBUTION WIDTH 15.5 % (11.5-14.5)
[2018-08-02 06:17] LABS: CALCIUM, TOTAL 9.2 mg/dL (8.8-10.5); CREATININE 1.6 mg/dL (0.60-1.30); POTASSIUM 4.3 mmol/L (3.5-5.1)
[2018-08-02 06:20] LABS: % IRON SATURATION 17.9 % (22-44)
[2018-08-02] MEDS: INSULIN LISPRO 100 UNITS/ML SQ PRN ×3 (06:28→17:27)
[2018-08-02] MEDS: LEVOTHYROXINE SODIUM 75 MCG TABLET PO SCH (06:35)
[2018-08-02] MEDS: LEVOTHYROXINE SODIUM 125 MCG TABLET PO SCH (06:35)
[2018-08-02] MEDS: GlipiZIDE 10 MG TABLET PO SCH ×2 (06:35→17:29)
[2018-08-02] MEDS: FERROUS SULFATE 325 MG EC TABLET PO SCH (06:35)
[2018-08-02 08:00] VITALS: BP 98/61
[2018-08-02] MEDS: ASPIRIN 81 MG CHEWABLE TABLET PO SCH (08:11)
[2018-08-02] MEDS: NYSTATIN 30 GM CREAM TP SCH ×2 (08:11→17:14)
[2018-08-02] MEDS: ATORVASTATIN CALCIUM 40 MG TABLET PO SCH (08:11)
[2018-08-02] MEDS: LORATADINE 10 MG TABLET PO SCH (08:11)
[2018-08-02] MEDS: PROPRANOLOL HCL 10 MG TABLET PO SCH ×4 (08:11→17:08)
[2018-08-02] MEDS: INSULIN GLARGINE,HUM.REC.ANLOG 100 UNITS/ML SQ SCH ×2 (09:45→17:28)
[2018-08-02 11:13] LABS: GLUCOMETER DEV NAME(LOC) 3EX 1; GLUCOSE,POINT OF CARE 303 MG/DL (70-110)
[2018-08-02 16:15] VITALS: BP 137/74
[2018-08-02 17:09] LABS: GLUCOMETER DEV NAME(LOC) 3EX 1; GLUCOSE,POINT OF CARE 415 MG/DL (70-110)
[2018-08-02] MEDS: ZINC OXIDE 16% PASTE 57 GM TUBE TP SCH (17:14)
[2018-08-02 17:24] LABS: GLUCOMETER DEV NAME(LOC) 3EX 1; GLUCOSE,POINT OF CARE 362 MG/DL (70-110)
[2018-08-02] MEDS: OLANZapine 7.5 MG TABLET PO SCH (21:04)
[2018-08-02] MEDS: DIVALPROEX SODIUM 500 MG ER TABLET PO SCH (21:04)
[2018-08-02] MEDS: ZOLPIDEM TARTRATE 10 MG TABLET PO PRN (21:06)
[2018-08-03] MEDS: LORazepam 2 MG TABLET PO PRN ×4 (02:17→23:02)
[2018-08-03 02:20] VITALS: BP 140/74
[2018-08-03 05:44] LABS: GLUCOMETER DEV NAME(LOC) 3EI C; GLUCOSE,POINT OF CARE 321 MG/DL (70-110)
[2018-08-03] MEDS: INSULIN LISPRO 100 UNITS/ML SQ PRN ×4 (06:40→23:05)
[2018-08-03] MEDS: GlipiZIDE 10 MG TABLET PO SCH ×2 (06:42→17:19)
[2018-08-03] MEDS: FERROUS SULFATE 325 MG EC TABLET PO SCH (06:43)
[2018-08-03] MEDS: LEVOTHYROXINE SODIUM 125 MCG TABLET PO SCH (06:43)
[2018-08-03] MEDS: LEVOTHYROXINE SODIUM 75 MCG TABLET PO SCH (06:43)
[2018-08-03] MEDS: LORATADINE 10 MG TABLET PO SCH (08:52)
[2018-08-03] MEDS: ATORVASTATIN CALCIUM 40 MG TABLET PO SCH (08:52)
[2018-08-03] MEDS: PROPRANOLOL HCL 10 MG TABLET PO SCH ×3 (08:52→17:19)
[2018-08-03] MEDS: ZINC OXIDE 16% PASTE 57 GM TUBE TP SCH (08:53)
[2018-08-03] MEDS: ASPIRIN 81 MG CHEWABLE TABLET PO SCH (08:53)
[2018-08-03] MEDS: NYSTATIN 30 GM CREAM TP SCH ×2 (08:54→17:20)
[2018-08-03] MEDS: HALOPERIDOL 5 MG TABLET PO PRN ×3 (08:56→23:02)
[2018-08-03] MEDS: INSULIN GLARGINE,HUM.REC.ANLOG 100 UNITS/ML SQ SCH ×2 (09:02→17:20)
[2018-08-03 10:52] VITALS: BP 125/67
[2018-08-03 11:34] LABS: GLUCOMETER DEV NAME(LOC) 3EX 1; GLUCOSE,POINT OF CARE 312 MG/DL (70-110)
[2018-08-03 16:12] VITALS: BP 133/78
[2018-08-03 16:19] LABS: GLUCOMETER DEV NAME(LOC) 3EX 1; GLUCOSE,POINT OF CARE 306 MG/DL (70-110)
[2018-08-03] MEDS: DIVALPROEX SODIUM 500 MG ER TABLET PO SCH (20:17)
[2018-08-03] MEDS: OLANZapine 7.5 MG TABLET PO SCH (20:17)
[2018-08-03 20:39] LABS: GLUCOMETER DEV NAME(LOC) 3EX 1; GLUCOSE,POINT OF CARE 347 MG/DL (70-110)
[2018-08-03] MEDS: ZOLPIDEM TARTRATE 10 MG TABLET PO PRN (21:06)
[2018-08-04 06:28] LABS: GLUCOMETER DEV NAME(LOC) 3EI C; GLUCOSE,POINT OF CARE 271 MG/DL (70-110)
[2018-08-04] MEDS: GlipiZIDE 10 MG TABLET PO SCH ×2 (06:58→17:00)
[2018-08-04] MEDS: LEVOTHYROXINE SODIUM 75 MCG TABLET PO SCH (06:58)
[2018-08-04] MEDS: LEVOTHYROXINE SODIUM 125 MCG TABLET PO SCH (06:58)
[2018-08-04] MEDS: FERROUS SULFATE 325 MG EC TABLET PO SCH (06:59)
[2018-08-04] MEDS: INSULIN LISPRO 100 UNITS/ML SQ PRN ×4 (07:13→21:08)
[2018-08-04 08:00] VITALS: BP 146/63
[2018-08-04] MEDS: LORATADINE 10 MG TABLET PO SCH (08:36)
[2018-08-04] MEDS: PROPRANOLOL HCL 10 MG TABLET PO SCH ×3 (08:36→18:38)
[2018-08-04] MEDS: ASPIRIN 81 MG CHEWABLE TABLET PO SCH (08:36)
[2018-08-04] MEDS: LORazepam 2 MG TABLET PO PRN (08:37)
[2018-08-04] MEDS: ATORVASTATIN CALCIUM 40 MG TABLET PO SCH (08:37)
[2018-08-04] MEDS: HALOPERIDOL 5 MG TABLET PO PRN (08:37)
[2018-08-04] MEDS: NYSTATIN 30 GM CREAM TP SCH ×2 (08:40→18:38)
[2018-08-04] MEDS: ZINC OXIDE 16% PASTE 57 GM TUBE TP SCH (08:40)
[2018-08-04] MEDS: INSULIN GLARGINE,HUM.REC.ANLOG 100 UNITS/ML SQ SCH ×2 (08:47→17:00)
[2018-08-04 11:33] LABS: GLUCOMETER DEV NAME(LOC) 3EX 1; GLUCOSE,POINT OF CARE 378 MG/DL (70-110)
[2018-08-04] MEDS: ACETAMINOPHEN 325 MG TABLET PO PRN (14:27)
[2018-08-04 14:28] VITALS: BP 138/69
[2018-08-04 17:40] LABS: GLUCOMETER DEV NAME(LOC) 3EX 1; GLUCOSE,POINT OF CARE 259 MG/DL (70-110)
[2018-08-04 18:36] VITALS: BP 145/65
[2018-08-04] MEDS: OLANZapine 7.5 MG TABLET PO SCH (20:07)
[2018-08-04] MEDS: DIVALPROEX SODIUM 500 MG ER TABLET PO SCH (20:08)
[2018-08-04 21:04] LABS: GLUCOMETER DEV NAME(LOC) 3EX 1; GLUCOSE,POINT OF CARE 264 MG/DL (70-110)
[2018-08-05] MEDS: ZOLPIDEM TARTRATE 10 MG TABLET PO PRN ×2 (03:04→20:36)
[2018-08-05] MEDS: LORazepam 2 MG TABLET PO PRN (03:40)
[2018-08-05 05:22] VITALS: BP 154/69
[2018-08-05 05:29] LABS: GLUCOMETER DEV NAME(LOC) 3EX 1; GLUCOSE,POINT OF CARE 209 MG/DL (70-110)
[2018-08-05 06:55] LABS: CALCIUM, TOTAL 9.3 mg/dL (8.8-10.5); CREATININE 1.7 mg/dL (0.60-1.30); POTASSIUM 4.9 mmol/L (3.5-5.1)
[2018-08-05] MEDS: FERROUS SULFATE 325 MG EC TABLET PO SCH (07:08)
[2018-08-05] MEDS: LEVOTHYROXINE SODIUM 125 MCG TABLET PO SCH (07:08)
[2018-08-05] MEDS: LEVOTHYROXINE SODIUM 75 MCG TABLET PO SCH (07:08)
[2018-08-05] MEDS: GlipiZIDE 10 MG TABLET PO SCH ×2 (07:08→18:39)
[2018-08-05] MEDS: INSULIN LISPRO 100 UNITS/ML SQ PRN ×3 (07:18→21:23)
[2018-08-05] MEDS: PROPRANOLOL HCL 10 MG TABLET PO SCH ×3 (08:49→18:40)
[2018-08-05] MEDS: ASPIRIN 81 MG CHEWABLE TABLET PO SCH (08:49)
[2018-08-05] MEDS: ATORVASTATIN CALCIUM 40 MG TABLET PO SCH (08:49)
[2018-08-05] MEDS: LORATADINE 10 MG TABLET PO SCH (08:49)
[2018-08-05] MEDS: ZINC OXIDE 16% PASTE 57 GM TUBE TP SCH (08:50)
[2018-08-05] MEDS: NYSTATIN 30 GM CREAM TP SCH ×2 (08:50→18:40)
[2018-08-05] MEDS: INSULIN GLARGINE,HUM.REC.ANLOG 100 UNITS/ML SQ SCH (08:52)
[2018-08-05 10:40] VITALS: BP 128/75
[2018-08-05] MEDS: ACETAMINOPHEN 325 MG TABLET PO PRN (10:40)
[2018-08-05 11:39] LABS: GLUCOMETER DEV NAME(LOC) 3EX 1; GLUCOSE,POINT OF CARE 364 MG/DL (70-110)
[2018-08-05 16:13] VITALS: BP 123/78
[2018-08-05 17:14] LABS: GLUCOMETER DEV NAME(LOC) 3EX 1; GLUCOSE,POINT OF CARE 406 MG/DL (70-110)
[2018-08-05] MEDS ORDERED: INSULIN LISPRO 100 UNITS/ML SQ ONE (17:30)
[2018-08-05] MEDS: DIVALPROEX SODIUM 500 MG ER TABLET PO SCH (20:34)
[2018-08-05] MEDS: OLANZapine 7.5 MG TABLET PO SCH (20:36)
[2018-08-05 21:03] LABS: GLUCOMETER DEV NAME(LOC) 3EX 1; GLUCOSE,POINT OF CARE 353 MG/DL (70-110)
[2018-08-06 00:15] VITALS: BP 126/82
[2018-08-06] MEDS: LORazepam 2 MG TABLET PO PRN ×2 (00:29→12:53)
[2018-08-06 05:59] LABS: GLUCOMETER DEV NAME(LOC) 3EI C; GLUCOSE,POINT OF CARE 229 MG/DL (70-110)
[2018-08-06] MEDS: INSULIN LISPRO 100 UNITS/ML SQ PRN ×4 (06:46→20:38)
[2018-08-06] MEDS: GlipiZIDE 10 MG TABLET PO SCH ×2 (07:07→16:29)
[2018-08-06] MEDS: LEVOTHYROXINE SODIUM 125 MCG TABLET PO SCH (07:07)
[2018-08-06] MEDS: LEVOTHYROXINE SODIUM 75 MCG TABLET PO SCH (07:07)
[2018-08-06 08:07] VITALS: BP 116/67
[2018-08-06 08:15] VITALS: BP 116/67
[2018-08-06] MEDS: ASPIRIN 81 MG CHEWABLE TABLET PO SCH (08:57)
[2018-08-06] MEDS: FERROUS SULFATE 325 MG EC TABLET PO SCH (08:58)
[2018-08-06] MEDS: ZINC OXIDE 16% PASTE 57 GM TUBE TP SCH (08:58)
[2018-08-06] MEDS: PROPRANOLOL HCL 10 MG TABLET PO SCH ×3 (08:58→16:29)
[2018-08-06] MEDS: LORATADINE 10 MG TABLET PO SCH (08:58)
[2018-08-06] MEDS: ATORVASTATIN CALCIUM 40 MG TABLET PO SCH (08:58)
[2018-08-06] MEDS: NYSTATIN 30 GM CREAM TP SCH ×2 (08:59→17:00)
[2018-08-06] MEDS ORDERED: INSULIN GLARGINE,HUM.REC.ANLOG 100 UNITS/ML SQ SCH (09:00)
[2018-08-06] MEDS: ACETAMINOPHEN 325 MG TABLET PO PRN (09:01)
[2018-08-06 11:18] LABS: GLUCOMETER DEV NAME(LOC) 3EX 1; GLUCOSE,POINT OF CARE 323 MG/DL (70-110)
[2018-08-06 13:08] VITALS: BP 123/73
[2018-08-06 16:14] VITALS: BP 144/76
[2018-08-06 16:17] VITALS: BP 144/76
[2018-08-06 16:34] LABS: GLUCOMETER DEV NAME(LOC) 3EX 1; GLUCOSE,POINT OF CARE 328 MG/DL (70-110)
[2018-08-06] MEDS: INSULIN GLARGINE,HUM.REC.ANLOG 100 UNITS/ML SQ SCH (16:57)
[2018-08-06] MEDS: DIVALPROEX SODIUM 500 MG ER TABLET PO SCH (20:32)
[2018-08-06] MEDS: OLANZapine 7.5 MG TABLET PO SCH (20:32)
[2018-08-06 20:39] LABS: GLUCOMETER DEV NAME(LOC) 3EX 1; GLUCOSE,POINT OF CARE 257 MG/DL (70-110)
[2018-08-06] MEDS: ZOLPIDEM TARTRATE 10 MG TABLET PO PRN (21:33)
[2018-08-07 00:39] VITALS: BP 153/96
[2018-08-07] MEDS: LORazepam 2 MG TABLET PO PRN ×3 (00:42→13:03)
[2018-08-07] MEDS: HALOPERIDOL 5 MG TABLET PO PRN (00:43)
[2018-08-07 05:34] LABS: GLUCOMETER DEV NAME(LOC) 3EI C; GLUCOSE,POINT OF CARE 136 MG/DL (70-110)
[2018-08-07] MEDS: FERROUS SULFATE 325 MG EC TABLET PO SCH (06:43)
[2018-08-07] MEDS: LEVOTHYROXINE SODIUM 75 MCG TABLET PO SCH (06:43)
[2018-08-07] MEDS: LEVOTHYROXINE SODIUM 125 MCG TABLET PO SCH (06:43)
[2018-08-07] MEDS: GlipiZIDE 10 MG TABLET PO SCH ×2 (06:43→16:43)
[2018-08-07 08:30] VITALS: BP_SYST 134; BP_DIAS 91; BP_DIAS 94
[2018-08-07] MEDS: ASPIRIN 81 MG CHEWABLE TABLET PO SCH (08:41)
[2018-08-07] MEDS: LORATADINE 10 MG TABLET PO SCH (08:41)
[2018-08-07] MEDS: ATORVASTATIN CALCIUM 40 MG TABLET PO SCH (08:41)
[2018-08-07] MEDS: PROPRANOLOL HCL 10 MG TABLET PO SCH ×3 (08:41→16:43)
[2018-08-07] MEDS: NYSTATIN 30 GM CREAM TP SCH ×2 (08:42→16:46)
[2018-08-07] MEDS: ZINC OXIDE 16% PASTE 57 GM TUBE TP SCH (08:42)
[2018-08-07 11:28] LABS: GLUCOMETER DEV NAME(LOC) 3EX 1; GLUCOSE,POINT OF CARE 233 MG/DL (70-110)
[2018-08-07] MEDS: INSULIN LISPRO 100 UNITS/ML SQ PRN ×3 (11:28→20:02)
[2018-08-07] MEDS: INSULIN GLARGINE,HUM.REC.ANLOG 100 UNITS/ML SQ SCH ×2 (11:37→16:45)
[2018-08-07 17:06] VITALS: BP 143/87
[2018-08-07 17:14] LABS: GLUCOMETER DEV NAME(LOC) 3EX 1; GLUCOSE,POINT OF CARE 274 MG/DL (70-110)
[2018-08-07 20:14] LABS: GLUCOMETER DEV NAME(LOC) 3EX 1; GLUCOSE,POINT OF CARE 252 MG/DL (70-110)
[2018-08-07] MEDS: DIVALPROEX SODIUM 500 MG ER TABLET PO SCH (20:27)
[2018-08-07] MEDS: OLANZapine 7.5 MG TABLET PO SCH (20:30)
[2018-08-07] MEDS: ZOLPIDEM TARTRATE 10 MG TABLET PO PRN (21:37)
[2018-08-07] MEDS ORDERED: GLIP10 PO (22:15)
[2018-08-07] MEDS ORDERED: INSLAN SQ (22:15)
[2018-08-07] MEDS ORDERED: FERR-89 PO (22:15)
[2018-08-07] MEDS ORDERED: OLAN7.5T2 PO (22:15)
[2018-08-07] MEDS ORDERED: NYST30CR9 TP (22:19)
[2018-08-07] MEDS ORDERED: ZINC28OI TP (22:19)
[2018-08-08 00:05] VITALS: BP 152/91
[2018-08-08] MEDS: LORazepam 2 MG TABLET PO PRN (00:17)
[2018-08-08] MEDS: ACETAMINOPHEN 325 MG TABLET PO PRN (00:17)
[2018-08-08] MEDS: HALOPERIDOL 5 MG TABLET PO PRN (01:51)
[2018-08-08 06:40] LABS: GLUCOMETER DEV NAME(LOC) 3EI C; GLUCOSE,POINT OF CARE 100 MG/DL (70-110)
[2018-08-08] MEDS: FERROUS SULFATE 325 MG EC TABLET PO SCH (06:48)
[2018-08-08] MEDS: GlipiZIDE 10 MG TABLET PO SCH (06:48)
[2018-08-08] MEDS: LEVOTHYROXINE SODIUM 125 MCG TABLET PO SCH (06:48)
[2018-08-08] MEDS: LEVOTHYROXINE SODIUM 75 MCG TABLET PO SCH (06:48)
[2018-08-08 08:00] VITALS: BP 125/79
[2018-08-08] MEDS: ATORVASTATIN CALCIUM 40 MG TABLET PO SCH (08:23)
[2018-08-08] MEDS: ASPIRIN 81 MG CHEWABLE TABLET PO SCH (08:23)
[2018-08-08] MEDS: PROPRANOLOL HCL 10 MG TABLET PO SCH (08:23)
[2018-08-08] MEDS: LORATADINE 10 MG TABLET PO SCH (08:23)
[2018-08-08] MEDS: ZINC OXIDE 16% PASTE 57 GM TUBE TP SCH (08:24)
[2018-08-08] MEDS: NYSTATIN 30 GM CREAM TP SCH (08:24)
[2018-08-08] MEDS: INSULIN GLARGINE,HUM.REC.ANLOG 100 UNITS/ML SQ SCH (09:55)
[2018-08-08] MEDS: INSULIN LISPRO 100 UNITS/ML SQ PRN (11:21)
[2018-08-08 11:34] LABS: GLUCOMETER DEV NAME(LOC) 3EX 1; GLUCOSE,POINT OF CARE 198 MG/DL (70-110)
== END 2018-08-08 12:15 | disposition home or self-care (01) | DRG 885 ==
LOC: EMS 12:35 → UNDOADMIN 22:00 → 3EX 22:00
PROVIDERS: ATTEND Psychiatry & Neurology Psychiatry
DX: F31.9 Bipolar disorder, unspecified (principal); N17.9 Acute kidney failure, unspecified; E11.65 Type 2 diabetes mellitus with hyperglycemia; Z68.41 Body mass index [BMI] 40.0-44.9, adult; F20.9 Schizophrenia, unspecified; K59.09 Other constipation; E03.9 Hypothyroidism, unspecified; B37.9 Candidiasis, unspecified; B36.9 Superficial mycosis, unspecified; E78.5 Hyperlipidemia, unspecified; F41.9 Anxiety disorder, unspecified; E66.3 Overweight; I10 Essential (primary) hypertension; J30.9 Allergic rhinitis, unspecified; D72.829 Elevated white blood cell count, unspecified; D64.9 Anemia, unspecified; Z79.899 Other long term (current) drug therapy; Z79.1 Long term (current) use of non-steroidal anti-inflammatories (NSAID); Z79.2 Long term (current) use of antibiotics
CPT/HCPCS: 82728; 83036; 83540; 83550; 84439; 84443; 87081; 87086; 96372; 97110; 97116; 97162; 97530; 99285; G0480; J1200; J1815; J2060; J7030

== ENCOUNTER 2021-12-15 11:11 | Inpatient (IN) | payer MEDICARE, OTHER ==
[~2021-12-15] VITALS: Ht 162.6 cm; Wt 114.0 kg
[~2021-12-15 11:11] MED LIST changes: -ACET-784 PO; -DIVA-78 PO; +DIVA-80 PO; -DIVA500T52 PO; -DSS100 PO; +FERR-89 PO; -FERR325T22 PO; +INSLAN SQ; +LEVO125 PO; -LEVO200 PO; -LITH600 PO; -METF-960 PO; +NYST30CR9 TP; -OLAN10TA3 PO; +OLAN7.5T22 PO; -SAXA2.5T PO; +ZINC28OI TP
[2021-12-15] MEDS ORDERED: ATOR20TA86 PO (11:50)
[2021-12-15] MEDS ORDERED: LEVO200 PO (11:51)
[2021-12-15] MEDS ORDERED: LOSA-370 PO (11:51)
[2021-12-15] MEDS ORDERED: GLIP10 PO (11:52)
[2021-12-15] MEDS ORDERED: VALP250S23 PO (11:55)
[2021-12-15] MEDS ORDERED: METF-1211 PO (11:55)
[2021-12-15] MEDS ORDERED: OLAN7.5T22 PO (11:56)
[2021-12-15] MEDS ORDERED: FERR-89 PO (11:57)
[2021-12-15] MEDS ORDERED: SODIUM CHLORIDE 0.9% 1,000 ML IV ONE (12:00)
[2021-12-15 12:25] LABS: BASOPHILS % (AUTO) 0.9 % (0.0-2.0); EOSINOPHILS % (AUTO) 3.3 % (1.0-6.0); HEMOGLOBIN 7.1 g/dL (12.0-16.0); LYMPHOCYTES # (AUTO) 1.2 K/uL (1.0-4.8); LYMPHOCYTES % (AUTO) 22.5 % (22.0-44.0); MEAN CORPUSCULAR HEMOGLOBIN 29.8 pg (26.0-34.0); MEAN CORPUSCULAR HGB CONC 32.2 G/dL (31.0-37.0); MEAN CORPUSCULAR VOLUME 93 fL (80-100); MONOCYTES # (AUTO) 0.8 K/uL (0.1-1.0); MONOCYTES % (AUTO) 14.6 % (2.0-9.0); NEUTROPHILS % (AUTO) 58.7 % (40.0-70.0); PLATELET COUNT (AUTO) 235 K/uL (150-450); RED BLOOD CELL COUNT(AUTO) 2.38 MIL/uL (4.00-5.20); RED CELL DISTRIBUTION WIDTH 14.8 % (11.5-14.5)
[2021-12-15 12:48] LABS: ALBUMIN 1.6 g/dL (3.4-5.0); BILIRUBIN,TOTAL 0.3 mg/dL (0.1-1.0); CALCIUM, TOTAL 8.7 mg/dL (8.8-10.5); CREATININE 4.46 mg/dL (0.60-1.30); TOTAL PROTEIN, SERUM 6.3 g/dL (6.4-8.2)
[2021-12-15 12:53] LABS: POTASSIUM 6.1 mmol/L (3.5-5.1)
[2021-12-15] MEDS ORDERED: INSULIN REGULAR, HUMAN 100 UNITS/ML IVP ONE (13:00)
[2021-12-15] MEDS ORDERED: ACETAMINOPHEN 325 MG TABLET PO PRN (13:15)
[2021-12-15] MEDS ORDERED: BISACODYL 10 MG RECTAL RECTAL SUPPOSITORY PR PRN (13:15)
[2021-12-15] MEDS ORDERED: DEXTROSE 50%-WATER 25 GM/50 ML SYRINGE IVP PRN (13:15)
[2021-12-15] MEDS ORDERED: ONDANSETRON HCL 4 MG/2 ML VIAL IVP PRN (13:15)
[2021-12-15] MEDS ORDERED: SODIUM ZIRCONIUM CYCLOSILICATE 5 GM POWDER PACKET PO ONE (14:00)
[2021-12-15] MEDS: SODIUM CHLORIDE 0.9% 1,000 ML IV SCH ×2 (14:07→22:51)
[2021-12-15] MEDS: INSULIN GLARGINE,HUM.REC.ANLOG 100 UNITS/ML SQ SCH (14:08)
[2021-12-15] MEDS: OxyCODONE HCL/ACETAMINOPHEN 5-325 MG TABLET PO PRN (14:09)
[2021-12-15 15:36] LABS: COVID AG,FIA SOURCE NASOPHARYNGEAL
[2021-12-15 16:51] LABS: CALCIUM, TOTAL 8.7 mg/dL (8.8-10.5); CREATININE 4.32 mg/dL (0.60-1.30)
[2021-12-15 16:59] LABS: POTASSIUM 5.8 mmol/L (3.5-5.1)
[2021-12-15 19:36] LABS: APPEARANCE,URINE CLEAR (CLEAR); BILIRUBIN,URINE NEGATIVE (NEGATIVE); GLUCOSE, URINE (UA) >=1000 mg/dL (NEGATIVE); KETONES,URINE NEGATIVE (NEGATIVE); LEUKOCYTE ESTERASE ,URINE NEGATIVE (NEGATIVE); NITRATE,URINE NEGATIVE (NEGATIVE); OCCULT BLOOD,URINE MODERATE (NEGATIVE); PH,URINE 5.5 (5.0-8.0); PROTEIN,URINE SEE CONFIRM (NEGATIVE); UROBILINOGEN,URINE 0.2 mg/dL (<=1.0)
[2021-12-15 19:39] LABS: SULFOSALICYLIC ACID,URINE 4+ (Negative)
[2021-12-15 19:40] LABS: BACTERIA,URINE Rare /HPF (None Seen); WBC,URINE 0-2 /HPF (0-5)
[2021-12-15] MEDS: HEPARIN SODIUM,PORCINE 5,000 UNITS/ML VIAL SQ SCH (20:28)
[2021-12-15] MEDS: INSULIN LISPRO 100 UNITS/ML SQ PRN (20:28)
[2021-12-15 20:41] LABS: GLUCOMETER DEV NAME(LOC) ERT.5; GLUCOSE,POINT OF CARE 344 MG/DL (70-110)
[2021-12-15] MEDS: DOCUSATE SODIUM 100 MG CAPSULE PO SCH (21:00)
[2021-12-15] MEDS: LORazepam 1 MG TABLET PO PRN (22:51)
[2021-12-15 23:08] LABS: CREATININE,URINE RANDOM 27.3 mg/dL (30.0-125.0)
[2021-12-16 07:07] LABS: % IRON SATURATION 22.4 % (22-44)
[2021-12-16 07:18] LABS: CALCIUM, TOTAL 8.9 mg/dL (8.8-10.5); CREATININE 4.01 mg/dL (0.60-1.30); POTASSIUM 5.2 mmol/L (3.5-5.1)
[2021-12-16 07:46] LABS: BASOPHILS % (AUTO) 0.8 % (0.0-2.0); EOSINOPHILS % (AUTO) 4.7 % (1.0-6.0); HEMATOCRIT 22.4 % (36-46); HEMOGLOBIN 7.5 g/dL (12.0-16.0); LYMPHOCYTES # (AUTO) 1.5 K/uL (1.0-4.8); LYMPHOCYTES % (AUTO) 26.4 % (22.0-44.0); MEAN CORPUSCULAR HEMOGLOBIN 30.1 pg (26.0-34.0); MEAN CORPUSCULAR HGB CONC 33.4 G/dL (31.0-37.0); MEAN CORPUSCULAR VOLUME 90 fL (80-100); MONOCYTES # (AUTO) 0.8 K/uL (0.1-1.0); MONOCYTES % (AUTO) 14.1 % (2.0-9.0); NEUTROPHILS # (AUTO) 3.1 K/uL (1.8-7.7); PLATELET COUNT (AUTO) 250 K/uL (150-450); RED BLOOD CELL COUNT(AUTO) 2.48 MIL/uL (4.00-5.20); RED CELL DISTRIBUTION WIDTH 15.2 % (11.5-14.5)
[2021-12-16] MEDS: DOCUSATE SODIUM 100 MG CAPSULE PO SCH ×2 (08:36→21:21)
[2021-12-16] MEDS: FAMOTIDINE 20 MG TABLET PO SCH (08:37)
[2021-12-16] MEDS: HEPARIN SODIUM,PORCINE 5,000 UNITS/ML VIAL SQ SCH ×2 (08:37→21:21)
[2021-12-16] MEDS: INSULIN GLARGINE,HUM.REC.ANLOG 100 UNITS/ML SQ SCH (09:14)
[2021-12-16] MEDS: INSULIN LISPRO 100 UNITS/ML SQ PRN ×4 (09:14→21:22)
[2021-12-16 09:16] LABS: GLUCOMETER DEV NAME(LOC) ERT.5; GLUCOSE,POINT OF CARE 205 MG/DL (70-110)
[2021-12-16] MEDS: SODIUM CHLORIDE 0.9% 1,000 ML IV SCH ×2 (09:30→21:25)
[2021-12-16 13:31] LABS: GLUCOMETER DEV NAME(LOC) 5S.2B; GLUCOSE,POINT OF CARE 210 MG/DL (70-110)
[2021-12-16 15:22] VITALS: BP 152/89
[2021-12-16] MEDS ORDERED: EPOETIN ALFA 10,000 UNITS/ML VIAL SQ ONE (17:00)
[2021-12-16 20:00] VITALS: BP 157/85
[2021-12-16] MEDS: CITRIC ACID/SODIUM CITRATE 30 ML SOLUTION UDCUP PO SCH (21:21)
[2021-12-16] MEDS: OxyCODONE HCL/ACETAMINOPHEN 5-325 MG TABLET PO PRN (21:21)
[2021-12-16] MEDS ORDERED: HydrALAZINE HCL 20 MG/ML VIAL IVP PRN (22:00)
[2021-12-16] MEDS: LORazepam 1 MG TABLET PO PRN (22:11)
[2021-12-16 23:17] LABS: GLUCOMETER DEV NAME(LOC) 5S.2B; GLUCOSE,POINT OF CARE 217 MG/DL (70-110)
[2021-12-16 23:25] VITALS: BP 150/79
[2021-12-17 00:37] LABS: GLUCOMETER DEV NAME(LOC) 5N.1C; GLUCOSE,POINT OF CARE 241 MG/DL (70-110)
[2021-12-17 04:30] VITALS: BP 125/72
[2021-12-17] MEDS: LEVOTHYROXINE SODIUM 200 MCG TABLET PO SCH (06:01)
[2021-12-17] MEDS: SODIUM CHLORIDE 0.9% 1,000 ML IV SCH ×2 (06:01→15:24)
[2021-12-17] MEDS: INSULIN LISPRO 100 UNITS/ML SQ PRN ×4 (06:06→20:24)
[2021-12-17 07:25] VITALS: BP 132/77
[2021-12-17] MEDS: DOCUSATE SODIUM 100 MG CAPSULE PO SCH ×2 (08:10→20:18)
[2021-12-17] MEDS: HEPARIN SODIUM,PORCINE 5,000 UNITS/ML VIAL SQ SCH ×2 (08:10→20:18)
[2021-12-17] MEDS: SODIUM ZIRCONIUM CYCLOSILICATE 5 GM POWDER PACKET PO SCH (08:10)
[2021-12-17] MEDS: FAMOTIDINE 20 MG TABLET PO SCH (08:10)
[2021-12-17] MEDS: INSULIN GLARGINE,HUM.REC.ANLOG 100 UNITS/ML SQ SCH (08:12)
[2021-12-17] MEDS: CITRIC ACID/SODIUM CITRATE 30 ML SOLUTION UDCUP PO SCH ×2 (08:20→20:18)
[2021-12-17 11:18] VITALS: BP 142/70
[2021-12-17 11:47] LABS: BASOPHILS % (AUTO) 0.6 % (0.0-2.0); EOSINOPHILS % (AUTO) 3.6 % (1.0-6.0); HEMATOCRIT 24.1 % (36-46); HEMOGLOBIN 7.9 g/dL (12.0-16.0); LYMPHOCYTES # (AUTO) 1.5 K/uL (1.0-4.8); LYMPHOCYTES % (AUTO) 21.3 % (22.0-44.0); MEAN CORPUSCULAR HEMOGLOBIN 29.9 pg (26.0-34.0); MEAN CORPUSCULAR HGB CONC 32.7 G/dL (31.0-37.0); MEAN CORPUSCULAR VOLUME 92 fL (80-100); MONOCYTES # (AUTO) 0.9 K/uL (0.1-1.0); MONOCYTES % (AUTO) 13.1 % (2.0-9.0); NEUTROPHILS # (AUTO) 4.2 K/uL (1.8-7.7); NEUTROPHILS % (AUTO) 61.4 % (40.0-70.0); PLATELET COUNT (AUTO) 274 K/uL (150-450); RED BLOOD CELL COUNT(AUTO) 2.63 MIL/uL (4.00-5.20); RED CELL DISTRIBUTION WIDTH 15.4 % (11.5-14.5)
[2021-12-17 12:17] LABS: GLUCOMETER DEV NAME(LOC) 5S.1; GLUCOSE,POINT OF CARE 222 MG/DL (70-110)
[2021-12-17 12:39] LABS: CREATININE 4.03 mg/dL (0.60-1.30); POTASSIUM 5.4 mmol/L (3.5-5.1)
[2021-12-17 12:47] LABS: GLUCOMETER DEV NAME(LOC) 5S.2B; GLUCOSE,POINT OF CARE 179 MG/DL (70-110)
[2021-12-17 15:56] VITALS: BP 148/69
[2021-12-17 19:31] VITALS: BP 140/76
[2021-12-17] MEDS: LORazepam 1 MG TABLET PO PRN (20:18)
[2021-12-18] VITALS (7 sets, daily range): BP systolic 103–158; BP diastolic 58–87
[2021-12-18] MEDS: SODIUM CHLORIDE 0.9% 1,000 ML IV SCH ×2 (04:25→13:59)
[2021-12-18] MEDS: LORazepam 1 MG TABLET PO PRN (04:25)
[2021-12-18] MEDS: OxyCODONE HCL/ACETAMINOPHEN 5-325 MG TABLET PO PRN (04:25)
[2021-12-18] MEDS: LEVOTHYROXINE SODIUM 200 MCG TABLET PO SCH (06:02)
[2021-12-18] MEDS: INSULIN LISPRO 100 UNITS/ML SQ PRN ×4 (06:04→20:16)
[2021-12-18 07:17] LABS: GLUCOMETER DEV NAME(LOC) 5S.1; GLUCOSE,POINT OF CARE 219 MG/DL (70-110)
[2021-12-18 07:17] LABS: GLUCOMETER DEV NAME(LOC) 5S.1; GLUCOSE,POINT OF CARE 227 MG/DL (70-110)
[2021-12-18 07:17] LABS: GLUCOMETER DEV NAME(LOC) 5S.1; GLUCOSE,POINT OF CARE 182 MG/DL (70-110)
[2021-12-18 07:53] LABS: BASOPHILS % (AUTO) 0.7 % (0.0-2.0); EOSINOPHILS % (AUTO) 3.2 % (1.0-6.0); HEMATOCRIT 24.5 % (36-46); HEMOGLOBIN 8.2 g/dL (12.0-16.0); LYMPHOCYTES # (AUTO) 2.5 K/uL (1.0-4.8); LYMPHOCYTES % (AUTO) 25.6 % (22.0-44.0); MEAN CORPUSCULAR HEMOGLOBIN 30.4 pg (26.0-34.0); MEAN CORPUSCULAR HGB CONC 33.3 G/dL (31.0-37.0); MEAN CORPUSCULAR VOLUME 92 fL (80-100); MONOCYTES # (AUTO) 1.3 K/uL (0.1-1.0); MONOCYTES % (AUTO) 13.8 % (2.0-9.0); NEUTROPHILS # (AUTO) 5.5 K/uL (1.8-7.7); NEUTROPHILS % (AUTO) 56.7 % (40.0-70.0); PLATELET COUNT (AUTO) 325 K/uL (150-450); RED BLOOD CELL COUNT(AUTO) 2.68 MIL/uL (4.00-5.20); RED CELL DISTRIBUTION WIDTH 15.9 % (11.5-14.5)
[2021-12-18 08:12] LABS: PHOSPHORUS 3.9 mg/dL (2.5-4.9)
[2021-12-18 08:42] LABS: CALCIUM, TOTAL 9.2 mg/dL (8.8-10.5); CREATININE 3.86 mg/dL (0.60-1.30)
[2021-12-18] MEDS: DOCUSATE SODIUM 100 MG CAPSULE PO SCH ×3 (09:00→20:14)
[2021-12-18] MEDS: CITRIC ACID/SODIUM CITRATE 30 ML SOLUTION UDCUP PO SCH ×2 (09:46→20:14)
[2021-12-18] MEDS: FAMOTIDINE 20 MG TABLET PO SCH (09:46)
[2021-12-18] MEDS: HEPARIN SODIUM,PORCINE 5,000 UNITS/ML VIAL SQ SCH ×2 (09:47→20:14)
[2021-12-18] MEDS: INSULIN GLARGINE,HUM.REC.ANLOG 100 UNITS/ML SQ SCH (09:49)
[2021-12-18] MEDS: SODIUM ZIRCONIUM CYCLOSILICATE 5 GM POWDER PACKET PO SCH (11:52)
[2021-12-18 17:52] LABS: GLUCOMETER DEV NAME(LOC) 5N.3; GLUCOSE,POINT OF CARE 169 MG/DL (70-110)
[2021-12-18 23:36] LABS: GLUCOMETER DEV NAME(LOC) 5S.1; GLUCOSE,POINT OF CARE 215 MG/DL (70-110)
[2021-12-19] MEDS: LORazepam 1 MG TABLET PO PRN (00:01)
[2021-12-19] MEDS: SODIUM CHLORIDE 0.9% 1,000 ML IV SCH ×2 (00:01→10:50)
[2021-12-19] MEDS: LEVOTHYROXINE SODIUM 200 MCG TABLET PO SCH (05:49)
[2021-12-19] MEDS: OxyCODONE HCL/ACETAMINOPHEN 5-325 MG TABLET PO PRN (05:50)
[2021-12-19] MEDS: INSULIN LISPRO 100 UNITS/ML SQ PRN ×4 (06:09→21:59)
[2021-12-19 06:10] VITALS: BP 149/85
[2021-12-19 07:32] VITALS: BP 138/76
[2021-12-19] MEDS: SODIUM ZIRCONIUM CYCLOSILICATE 5 GM POWDER PACKET PO SCH (10:01)
[2021-12-19] MEDS: HEPARIN SODIUM,PORCINE 5,000 UNITS/ML VIAL SQ SCH ×2 (10:02→21:48)
[2021-12-19] MEDS: FAMOTIDINE 20 MG TABLET PO SCH (10:02)
[2021-12-19] MEDS: CITRIC ACID/SODIUM CITRATE 30 ML SOLUTION UDCUP PO SCH ×2 (10:02→21:48)
[2021-12-19] MEDS: DOCUSATE SODIUM 100 MG CAPSULE PO SCH ×2 (10:02→21:50)
[2021-12-19] MEDS: INSULIN GLARGINE,HUM.REC.ANLOG 100 UNITS/ML SQ SCH (10:05)
[2021-12-19 12:27] LABS: GLUCOMETER DEV NAME(LOC) 5N.3; GLUCOSE,POINT OF CARE 184 MG/DL (70-110)
[2021-12-19 12:27] LABS: GLUCOMETER DEV NAME(LOC) 5N.3; GLUCOSE,POINT OF CARE 174 MG/DL (70-110)
[2021-12-19 12:44] VITALS: BP 142/78
[2021-12-19 17:12] VITALS: BP 144/88
[2021-12-19 18:16] LABS: GLUCOMETER DEV NAME(LOC) 5S.1; GLUCOSE,POINT OF CARE 192 MG/DL (70-110)
[2021-12-19 18:17] LABS: GLUCOMETER DEV NAME(LOC) 5S.1; GLUCOSE,POINT OF CARE 208 MG/DL (70-110)
[2021-12-19] MEDS ORDERED: VALPROIC ACID 250 MG CAPSULE PO SCH (21:00)
[2021-12-19] MEDS ORDERED: OLANZapine 5 MG RAPDIS TABLET PO SCH (21:00)
[2021-12-19 21:46] VITALS: BP 147/76
[2021-12-20 05:30] VITALS: BP 128/77
[2021-12-20] MEDS: LEVOTHYROXINE SODIUM 200 MCG TABLET PO SCH (06:27)
[2021-12-20] MEDS: INSULIN LISPRO 100 UNITS/ML SQ PRN (06:33)
[2021-12-20 06:40] LABS: CALCIUM, TOTAL 8.7 mg/dL (8.8-10.5); CREATININE 3.96 mg/dL (0.60-1.30); MAGNESIUM 1.8 mg/dL (1.80-2.40); PHOSPHORUS 3.8 mg/dL (2.5-4.9); POTASSIUM 4.4 mmol/L (3.5-5.1)
[2021-12-20 06:52] LABS: HEMATOCRIT 21.2 % (36-46); MEAN CORPUSCULAR HEMOGLOBIN 29.9 pg (26.0-34.0); MEAN CORPUSCULAR HGB CONC 32.9 G/dL (31.0-37.0); MEAN CORPUSCULAR VOLUME 91 fL (80-100); PLATELET COUNT (AUTO) 339 K/uL (150-450); RED BLOOD CELL COUNT(AUTO) 2.33 MIL/uL (4.00-5.20); RED CELL DISTRIBUTION WIDTH 15.5 % (11.5-14.5)
[2021-12-20] MEDS: DOCUSATE SODIUM 100 MG CAPSULE PO SCH (07:59)
[2021-12-20] MEDS: FAMOTIDINE 20 MG TABLET PO SCH (07:59)
[2021-12-20 08:00] VITALS: BP 126/65
[2021-12-20] MEDS: CITRIC ACID/SODIUM CITRATE 30 ML SOLUTION UDCUP PO SCH (08:00)
[2021-12-20] MEDS: HEPARIN SODIUM,PORCINE 5,000 UNITS/ML VIAL SQ SCH (08:00)
[2021-12-20] MEDS: SODIUM ZIRCONIUM CYCLOSILICATE 5 GM POWDER PACKET PO SCH (08:00)
[2021-12-20] MEDS: INSULIN GLARGINE,HUM.REC.ANLOG 100 UNITS/ML SQ SCH (08:02)
[2021-12-20 08:11] LABS: GLUCOMETER DEV NAME(LOC) 5N.1C; GLUCOSE,POINT OF CARE 168 MG/DL (70-110)
[2021-12-20 08:11] LABS: GLUCOMETER DEV NAME(LOC) 5N.1C; GLUCOSE,POINT OF CARE 186 MG/DL (70-110)
[2021-12-20 08:58] LABS: BAND NEUTROPHILS % (MANUAL) 4 % (0-5); EOSINOPHILS % (MANUAL) 1 % (1-6); LYMPHOCYTES % (MANUAL) 28 % (22-44); MONOCYTES % (MANUAL) 8 % (2-9); SEGMENTED NEUTROPHILS % 59 % (40-70)
[2021-12-20 11:44] VITALS: BP 139/74
[2021-12-21 06:07] LABS: GLUCOMETER DEV NAME(LOC) 5N.1C; GLUCOSE,POINT OF CARE 201 MG/DL (70-110)
== END 2021-12-20 14:40 | DRG 683 ==
LOC: EMS 11:24 → 5S 12-16 10:35
PROVIDERS: ADMIT Internal Medicine; ATTEND Internal Medicine
DX: N17.9 Acute kidney failure, unspecified (principal); E87.2 Acidosis; Z68.41 Body mass index [BMI] 40.0-44.9, adult; E87.5 Hyperkalemia; E88.09 Other disorders of plasma-protein metabolism, not elsewhere classified; F31.9 Bipolar disorder, unspecified; I12.9 Hypertensive chronic kidney disease with stage 1 through stage 4 chronic kidney disease, or unspecified chronic kidney disease; N18.9 Chronic kidney disease, unspecified; G40.909 Epilepsy, unspecified, not intractable, without status epilepticus; E66.01 Morbid (severe) obesity due to excess calories; E78.5 Hyperlipidemia, unspecified; E11.22 Type 2 diabetes mellitus with diabetic chronic kidney disease; E11.65 Type 2 diabetes mellitus with hyperglycemia; E03.9 Hypothyroidism, unspecified; D63.1 Anemia in chronic kidney disease; F22 Delusional disorders; E78.00 Pure hypercholesterolemia, unspecified; Z20.822 Contact with and (suspected) exposure to COVID-19; N11.9 Chronic tubulo-interstitial nephritis, unspecified; Z82.49 Family history of ischemic heart disease and other diseases of the circulatory system; Z83.3 Family history of diabetes mellitus; Z82.5 Family history of asthma and other chronic lower respiratory diseases; Z91.19 Patient's noncompliance with other medical treatment and regimen
CPT/HCPCS: 76770; 80048; 80053; 80164; 81001; 81002; 82570; 82728; 82962; 83540; 83550; 83735; 83970; 84100; 84156; 84300; 84443; 84540; 85007; 85025; 85027; 97116; 97162; 97530; 99285; J0360; J0885; J1644; J1815; J7030; Q9967

== ENCOUNTER 2022-03-11 11:39 | Inpatient (IN) | payer MEDICARE, OTHER ==
[~2022-03-11] VITALS: Ht 165.1 cm; Wt 98.6 kg
[2022-03-11] VITALS (14 sets, daily range): BP systolic 155–190; BP diastolic 70–101
[~2022-03-11 11:39] MED LIST changes: +ACET-2247 PO; +ASPI-1444 PO; -ASPI-556 PO; +ASPI81 PO; +ATOR20TA86 PO; -ATOR40TA28 PO; +BICIT30L PO; -DIVA-80 PO; +EPOE10003 SQ; -FERR-89 PO; +FERR325T27 PO; +GABA-1216 PO; -GLIP10 PO; +INSU100V SQ; +LABE100T51 PO; -LEVO125 PO; +LEVO75 PO; +LORA-999 PO; +MELA3TAB89 PO; +NACL1 PO; -NYST30CR9 TP; +VALP250C48 PO; -ZINC28OI TP; +ZINC56.713 TP
[2022-03-11 13:09] LABS: BASOPHILS % (AUTO) 0.6 % (0.0-2.0); EOSINOPHILS % (AUTO) 2.2 % (1.0-6.0); HEMATOCRIT 21.6 % (36-46); LYMPHOCYTES % (AUTO) 29.3 % (22.0-44.0); MEAN CORPUSCULAR HGB CONC 31.7 G/dL (31.0-37.0); MEAN CORPUSCULAR VOLUME 88 fL (80-100); MONOCYTES # (AUTO) 0.7 K/uL (0.1-1.0); MONOCYTES % (AUTO) 9.5 % (2.0-9.0); NEUTROPHILS % (AUTO) 58.4 % (40.0-70.0); PLATELET COUNT (AUTO) 360 K/uL (150-450); RED BLOOD CELL COUNT(AUTO) 2.44 MIL/uL (4.00-5.20); RED CELL DISTRIBUTION WIDTH 15.8 % (11.5-14.5)
[2022-03-11 13:12] LABS: CALCIUM, TOTAL 9.4 mg/dL (8.8-10.5); CREATININE 5.24 mg/dL (0.60-1.30); HEMOGLOBIN 6.8 g/dL (12.0-16.0); POTASSIUM 5.1 mmol/L (3.5-5.1)
[2022-03-11 13:19] LABS: ALBUMIN 2.1 g/dL (3.4-5.0); BILIRUBIN,TOTAL 0.2 mg/dL (0.1-1.0); TOTAL PROTEIN, SERUM 6.6 g/dL (6.4-8.2)
[2022-03-11] MEDS ORDERED: ACETAMINOPHEN 325 MG TABLET PO PRN (14:00)
[2022-03-11] MEDS ORDERED: ONDANSETRON HCL 4 MG/2 ML VIAL IVP PRN (14:15)
[2022-03-11] MEDS ORDERED: AmLODIPine BESYLATE 10 MG TABLET PO SCH (14:30)
[2022-03-11] MEDS ORDERED: LOSARTAN POTASSIUM 25 MG TABLET PO SCH (14:30)
[2022-03-11] MEDS ORDERED: DEXTROSE 50%-WATER 25 GM/50 ML SYRINGE IVP PRN (14:30)
[2022-03-11] MEDS ORDERED: CloNIDine HCL 0.1 MG TABLET PO PRN (14:30)
[2022-03-11 14:35] LABS: % IRON SATURATION 9.2 % (22-44)
[2022-03-11 14:43] LABS: COVID AG,FIA SOURCE NASAL SWAB
[2022-03-11] MEDS: FUROSEMIDE 20 MG/2 ML VIAL IVP SCH (15:50)
[2022-03-11] MEDS ORDERED: LOSARTAN POTASSIUM 50 MG TABLET PO ONE (18:00)
[2022-03-11] MEDS: AmLODIPine BESYLATE 10 MG TABLET PO SCH (20:02)
[2022-03-11] MEDS: LOSARTAN POTASSIUM 50 MG TABLET PO SCH (20:03)
[2022-03-11] MEDS: DOCUSATE SODIUM 100 MG CAPSULE PO SCH (20:43)
[2022-03-11] MEDS: ACETAMINOPHEN 325 MG TABLET PO PRN (20:52)
[2022-03-11] MEDS ORDERED: HEPARIN SODIUM,PORCINE 5,000 UNITS/ML VIAL SQ SCH (21:00)
[2022-03-11] MEDS ORDERED: SODIUM CHLORIDE 0.9% 250 ML IV ONE (21:41)
[2022-03-11] MEDS: SOD FERRIC GLUC COMPLX/SUCROSE 125 MG in SODIUM CHLORIDE 0.9% 100 ML IV SCH (22:25)
[2022-03-11 23:12] LABS: HEMATOCRIT 26.6 % (36-46); HEMOGLOBIN 8.6 g/dL (12.0-16.0)
[2022-03-11] MEDS: OLANZapine 5 MG TABLET PO SCH (23:40)
[2022-03-12] MEDS: ACETAMINOPHEN 325 MG TABLET PO PRN ×3 (02:35→16:46)
[2022-03-12] MEDS: PANTOPRAZOLE SODIUM 80 MG in SODIUM CHLORIDE 0.9% 100 ML IV SCH ×2 (02:43→05:17)
[2022-03-12 03:11] VITALS: BP 148/82
[2022-03-12 08:27] VITALS: BP 161/79
[2022-03-12] MEDS: INSULIN GLARGINE,HUM.REC.ANLOG 100 UNITS/ML SQ SCH (08:49)
[2022-03-12] MEDS: FAMOTIDINE 20 MG TABLET PO SCH (08:50)
[2022-03-12] MEDS: LOSARTAN POTASSIUM 50 MG TABLET PO SCH ×2 (08:50→20:56)
[2022-03-12] MEDS: DOCUSATE SODIUM 100 MG CAPSULE PO SCH ×2 (08:50→20:55)
[2022-03-12] MEDS: AmLODIPine BESYLATE 10 MG TABLET PO SCH ×2 (08:50→20:56)
[2022-03-12] MEDS: FUROSEMIDE 20 MG/2 ML VIAL IVP SCH (08:51)
[2022-03-12 09:47] LABS: BASOPHILS % (AUTO) 0.7 % (0.0-2.0); EOSINOPHILS % (AUTO) 2.2 % (1.0-6.0); HEMATOCRIT 29.2 % (36-46); HEMOGLOBIN 9.4 g/dL (12.0-16.0); LYMPHOCYTES # (AUTO) 1.7 K/uL (1.0-4.8); LYMPHOCYTES % (AUTO) 25.4 % (22.0-44.0); MEAN CORPUSCULAR HEMOGLOBIN 28.4 pg (26.0-34.0); MEAN CORPUSCULAR HGB CONC 32.2 G/dL (31.0-37.0); MEAN CORPUSCULAR VOLUME 88 fL (80-100); MONOCYTES # (AUTO) 0.5 K/uL (0.1-1.0); MONOCYTES % (AUTO) 7.6 % (2.0-9.0); NEUTROPHILS # (AUTO) 4.4 K/uL (1.8-7.7); NEUTROPHILS % (AUTO) 64.1 % (40.0-70.0); PLATELET COUNT (AUTO) 391 K/uL (150-450); RED BLOOD CELL COUNT(AUTO) 3.31 MIL/uL (4.00-5.20); RED CELL DISTRIBUTION WIDTH 15.7 % (11.5-14.5)
[2022-03-12] MEDS: INSULIN LISPRO 100 UNITS/ML SQ PRN ×3 (12:04→21:09)
[2022-03-12 15:00] VITALS: BP 147/63
[2022-03-12] MEDS: SOD FERRIC GLUC COMPLX/SUCROSE 125 MG in SODIUM CHLORIDE 0.9% 100 ML IV SCH (16:46)
[2022-03-12 17:44] LABS: HEMATOCRIT 26.2 % (36-46); HEMOGLOBIN 8.6 g/dL (12.0-16.0)
[2022-03-12] MEDS ORDERED: EPOETIN ALFA 10,000 UNITS/ML VIAL SQ ONE (18:00)
[2022-03-12 19:52] VITALS: BP 129/52
[2022-03-12] MEDS: OLANZapine 5 MG TABLET PO SCH (20:55)
[2022-03-12] MEDS: PANTOPRAZOLE SODIUM 40 MG DR TABLET PO SCH (20:56)
[2022-03-12] MEDS: SODIUM BICARBONATE 650 MG TABLET PO SCH (20:56)
[2022-03-12 23:46] LABS: GLUCOMETER DEV NAME(LOC) 6N.1; GLUCOSE,POINT OF CARE 251 MG/DL (70-110)
[2022-03-12 23:46] LABS: GLUCOMETER DEV NAME(LOC) 6N.1; GLUCOSE,POINT OF CARE 233 MG/DL (70-110)
[2022-03-12 23:46] LABS: GLUCOMETER DEV NAME(LOC) 6N.2; GLUCOSE,POINT OF CARE 203 MG/DL (70-110)
[2022-03-13] MEDS: ACETAMINOPHEN 325 MG TABLET PO PRN (03:48)
[2022-03-13 04:07] VITALS: BP 129/59
[2022-03-13] MEDS: INSULIN LISPRO 100 UNITS/ML SQ PRN ×4 (06:02→20:20)
[2022-03-13 07:46] LABS: GLUCOMETER DEV NAME(LOC) 6N.2; GLUCOSE,POINT OF CARE 163 MG/DL (70-110)
[2022-03-13 08:53] LABS: HEMOGLOBIN 8.2 g/dL (12.0-16.0)
[2022-03-13] MEDS: PANTOPRAZOLE SODIUM 40 MG DR TABLET PO SCH ×2 (09:52→20:08)
[2022-03-13] MEDS: SODIUM BICARBONATE 650 MG TABLET PO SCH ×2 (09:52→20:07)
[2022-03-13] MEDS: DOCUSATE SODIUM 100 MG CAPSULE PO SCH ×2 (09:52→20:07)
[2022-03-13] MEDS: AmLODIPine BESYLATE 10 MG TABLET PO SCH ×2 (09:52→20:08)
[2022-03-13] MEDS: FAMOTIDINE 20 MG TABLET PO SCH (09:53)
[2022-03-13] MEDS: FUROSEMIDE 20 MG/2 ML VIAL IVP SCH (09:53)
[2022-03-13] MEDS: LOSARTAN POTASSIUM 50 MG TABLET PO SCH (09:53)
[2022-03-13] MEDS: INSULIN GLARGINE,HUM.REC.ANLOG 100 UNITS/ML SQ SCH (09:55)
[2022-03-13 11:33] VITALS: BP 147/71
[2022-03-13 12:51] LABS: GLUCOMETER DEV NAME(LOC) 6N.1; GLUCOSE,POINT OF CARE 201 MG/DL (70-110)
[2022-03-13] MEDS: GABAPENTIN 100 MG CAPSULE PO SCH ×2 (13:51→20:07)
[2022-03-13 16:14] VITALS: BP 147/79
[2022-03-13] MEDS: SOD FERRIC GLUC COMPLX/SUCROSE 125 MG in SODIUM CHLORIDE 0.9% 100 ML IV SCH (18:07)
[2022-03-13 19:28] VITALS: BP 136/70
[2022-03-13 19:56] LABS: GLUCOMETER DEV NAME(LOC) 6N.2; GLUCOSE,POINT OF CARE 247 MG/DL (70-110)
[2022-03-13] MEDS: OLANZapine 5 MG TABLET PO SCH (20:08)
[2022-03-14 04:45] VITALS: BP 146/68
[2022-03-14] MEDS: ACETAMINOPHEN 325 MG TABLET PO PRN ×3 (05:50→16:32)
[2022-03-14] MEDS: INSULIN LISPRO 100 UNITS/ML SQ PRN ×4 (05:51→21:02)
[2022-03-14 06:06] LABS: GLUCOMETER DEV NAME(LOC) 6N.1; GLUCOSE,POINT OF CARE 253 MG/DL (70-110)
[2022-03-14 07:20] LABS: BASOPHILS % (AUTO) 0.9 % (0.0-2.0); EOSINOPHILS % (AUTO) 1.8 % (1.0-6.0); HEMATOCRIT 26.3 % (36-46); HEMOGLOBIN 8.7 g/dL (12.0-16.0); LYMPHOCYTES # (AUTO) 1.9 K/uL (1.0-4.8); MEAN CORPUSCULAR HEMOGLOBIN 29.1 pg (26.0-34.0); MEAN CORPUSCULAR HGB CONC 33.1 G/dL (31.0-37.0); MEAN CORPUSCULAR VOLUME 88 fL (80-100); MONOCYTES # (AUTO) 0.8 K/uL (0.1-1.0); MONOCYTES % (AUTO) 8.1 % (2.0-9.0); NEUTROPHILS # (AUTO) 7.1 K/uL (1.8-7.7); NEUTROPHILS % (AUTO) 70.2 % (40.0-70.0); PLATELET COUNT (AUTO) 413 K/uL (150-450); RED BLOOD CELL COUNT(AUTO) 2.99 MIL/uL (4.00-5.20); RED CELL DISTRIBUTION WIDTH 15.9 % (11.5-14.5)
[2022-03-14 08:44] VITALS: BP 140/82
[2022-03-14] MEDS: SODIUM BICARBONATE 650 MG TABLET PO SCH ×2 (09:40→20:51)
[2022-03-14] MEDS: DOCUSATE SODIUM 100 MG CAPSULE PO SCH ×2 (09:40→20:51)
[2022-03-14] MEDS: FAMOTIDINE 20 MG TABLET PO SCH (09:40)
[2022-03-14] MEDS: FUROSEMIDE 20 MG/2 ML VIAL IVP SCH ×2 (09:40→20:52)
[2022-03-14] MEDS: AmLODIPine BESYLATE 10 MG TABLET PO SCH ×2 (09:40→20:51)
[2022-03-14] MEDS: PANTOPRAZOLE SODIUM 40 MG DR TABLET PO SCH ×2 (09:40→20:51)
[2022-03-14] MEDS: GABAPENTIN 100 MG CAPSULE PO SCH ×2 (09:41→20:52)
[2022-03-14] MEDS: DIVALPROEX SODIUM 250 MG DR TABLET PO SCH ×2 (09:42→20:52)
[2022-03-14] MEDS: INSULIN GLARGINE,HUM.REC.ANLOG 100 UNITS/ML SQ SCH (09:49)
[2022-03-14 09:51] LABS: CALCIUM, TOTAL 9.8 mg/dL (8.8-10.5); CREATININE 5.04 mg/dL (0.60-1.30); POTASSIUM 5.2 mmol/L (3.5-5.1)
[2022-03-14] MEDS: SODIUM ZIRCONIUM CYCLOSILICATE 5 GM POWDER PACKET PO SCH (12:08)
[2022-03-14 15:30] VITALS: BP 138/80
[2022-03-14 15:41] LABS: GLUCOMETER DEV NAME(LOC) 6N.1; GLUCOSE,POINT OF CARE 150 MG/DL (70-110)
[2022-03-14] MEDS: SOD FERRIC GLUC COMPLX/SUCROSE 125 MG in SODIUM CHLORIDE 0.9% 100 ML IV SCH (17:12)
[2022-03-14 19:56] LABS: GLUCOMETER DEV NAME(LOC) 6N.2; GLUCOSE,POINT OF CARE 193 MG/DL (70-110)
[2022-03-14 19:56] LABS: GLUCOMETER DEV NAME(LOC) 6N.2; GLUCOSE,POINT OF CARE 159 MG/DL (70-110)
[2022-03-14 20:00] VITALS: BP 140/75
[2022-03-14] MEDS: OLANZapine 5 MG TABLET PO SCH (20:51)
[2022-03-14 23:46] LABS: GLUCOMETER DEV NAME(LOC) 6N.2; GLUCOSE,POINT OF CARE 197 MG/DL (70-110)
[2022-03-15 05:00] VITALS: BP 142/74
[2022-03-15] MEDS: INSULIN LISPRO 100 UNITS/ML SQ PRN ×2 (06:09→12:10)
[2022-03-15 06:41] LABS: GLUCOMETER DEV NAME(LOC) 6N.2; GLUCOSE,POINT OF CARE 156 MG/DL (70-110)
[2022-03-15 09:02] VITALS: BP 155/77
[2022-03-15] MEDS: DIVALPROEX SODIUM 250 MG DR TABLET PO SCH (09:38)
[2022-03-15] MEDS: AmLODIPine BESYLATE 10 MG TABLET PO SCH (09:38)
[2022-03-15] MEDS: GABAPENTIN 100 MG CAPSULE PO SCH (09:38)
[2022-03-15] MEDS: FUROSEMIDE 20 MG/2 ML VIAL IVP SCH (09:38)
[2022-03-15] MEDS: SODIUM ZIRCONIUM CYCLOSILICATE 5 GM POWDER PACKET PO SCH (09:38)
[2022-03-15] MEDS: DOCUSATE SODIUM 100 MG CAPSULE PO SCH (09:38)
[2022-03-15] MEDS: SODIUM BICARBONATE 650 MG TABLET PO SCH (09:38)
[2022-03-15] MEDS: PANTOPRAZOLE SODIUM 40 MG DR TABLET PO SCH (09:39)
[2022-03-15] MEDS: FAMOTIDINE 20 MG TABLET PO SCH (09:42)
[2022-03-15] MEDS: INSULIN GLARGINE,HUM.REC.ANLOG 100 UNITS/ML SQ SCH (10:03)
[2022-03-15 13:46] LABS: GLUCOMETER DEV NAME(LOC) 6N.2; GLUCOSE,POINT OF CARE 190 MG/DL (70-110)
[2022-03-15 15:01] VITALS: BP 137/79
== END 2022-03-15 15:05 | DRG 683 ==
LOC: EMS 11:45 → 6N 16:17
PROVIDERS: ADMIT Internal Medicine; ATTEND Internal Medicine
PROC: 30233N1 Transfusion of Nonautologous Red Blood Cells into Peripheral Vein, Percutaneous Approach (ICD-10-PCS; principal; 2022-03-11)
DX: I12.0 Hypertensive chronic kidney disease with stage 5 chronic kidney disease or end stage renal disease (principal); E44.0 Moderate protein-calorie malnutrition; N11.9 Chronic tubulo-interstitial nephritis, unspecified; N17.9 Acute kidney failure, unspecified; N18.5 Chronic kidney disease, stage 5; E87.5 Hyperkalemia; E11.65 Type 2 diabetes mellitus with hyperglycemia; Z68.36 Body mass index [BMI] 36.0-36.9, adult; E03.9 Hypothyroidism, unspecified; E78.00 Pure hypercholesterolemia, unspecified; F31.9 Bipolar disorder, unspecified; M79.89 Other specified soft tissue disorders; R62.50 Unspecified lack of expected normal physiological development in childhood; E11.22 Type 2 diabetes mellitus with diabetic chronic kidney disease; D63.1 Anemia in chronic kidney disease; E11.40 Type 2 diabetes mellitus with diabetic neuropathy, unspecified; E66.01 Morbid (severe) obesity due to excess calories; Z20.822 Contact with and (suspected) exposure to COVID-19; Z82.49 Family history of ischemic heart disease and other diseases of the circulatory system; Z82.5 Family history of asthma and other chronic lower respiratory diseases; Z83.3 Family history of diabetes mellitus; Z79.4 Long term (current) use of insulin; Z79.82 Long term (current) use of aspirin
CPT/HCPCS: 36430; 71045; 80048; 80053; 80164; 82271; 82962; 83540; 83550; 84443; 84703; 85014; 85018; 85025; 86850; 86900; 86901; 86923; 87081; 93970; 97116; 97162; 97530; 99291; C9113; G0238; J0885; J1815; J1940; J2916; J7050; P9016; Q9967; 36415-L1; 36415-TC

== ENCOUNTER 2022-07-15 21:19 | Inpatient (IN) | payer MEDICARE, OTHER ==
[~2022-07-15] VITALS: Ht 165.1 cm; Wt 101.9 kg
[~2022-07-15 21:19] MED LIST changes: +AMLO-257 PO; -ASPI81 PO; -ATOR20TA86 PO; -BICIT30L PO; +CLON-441 PO; +DOCU50LI25 RC; -EPOE10003 SQ; +FAMO10TA39 PO; -FERR325T27 PO; +HEPA500018 SQ; -INSLAN SQ; -LABE100T51 PO; +LACT10SO10 PO; -LORA10TA7 PO; -MELA3TAB89 PO; -NACL1 PO; -OLAN7.5T22 PO; -PROP10TA73 PO; -ZINC56.713 TP
[2022-07-15] MEDS ORDERED: SENN8.6T90 PO (21:48)
[2022-07-15 22:22] LABS: BASOPHILS % (AUTO) 0.9 % (0.0-2.0); EOSINOPHILS % (AUTO) 3.3 % (1.0-6.0); HEMATOCRIT 24.2 % (36-46); LYMPHOCYTES # (AUTO) 1.2 K/uL (1.0-4.8); LYMPHOCYTES % (AUTO) 20.7 % (22.0-44.0); MEAN CORPUSCULAR HEMOGLOBIN 27.5 pg (26.0-34.0); MEAN CORPUSCULAR HGB CONC 32.9 G/dL (31.0-37.0); MEAN CORPUSCULAR VOLUME 84 fL (80-100); MONOCYTES # (AUTO) 0.7 K/uL (0.1-1.0); MONOCYTES % (AUTO) 12.2 % (2.0-9.0); NEUTROPHILS # (AUTO) 3.7 K/uL (1.8-7.7); NEUTROPHILS % (AUTO) 62.9 % (40.0-70.0); PLATELET COUNT (AUTO) 409 K/uL (150-450); RED BLOOD CELL COUNT(AUTO) 2.89 MIL/uL (4.00-5.20); RED CELL DISTRIBUTION WIDTH 17.8 % (11.5-14.5)
[2022-07-15 22:32] LABS: ANION GAP 13 mmol/L (8-16); CALCIUM, TOTAL 8.9 mg/dL (8.8-10.5); CARBON DIOXIDE 22 mmol/L (22-29); CHLORIDE 100 mmol/L (98-107); CREATININE 5.56 mg/dL (0.60-1.30); GLUCOSE,RANDOM 165 mg/dL (70-110); POTASSIUM 3.5 mmol/L (3.5-5.1); SODIUM SERUM 135 mmol/L (136-145); UREA NITROGEN, BLOOD 65 mg/dL (7-18)
[2022-07-15 22:33] LABS: GLOMERULAR FILTR. RATE CALC 9 mL/min (>60)
[2022-07-15 22:48] LABS: ALANINE AMINOTRANSFERASE 13 U/L (12-78); ALBUMIN 2.4 g/dL (3.4-5.0); ALKALINE PHOSPHATASE 85 U/L (46-116); ASPARTATE AMINOTRANSFERASE 12 U/L (15-37); BILIRUBIN,TOTAL 0.2 mg/dL (0.1-1.0); HCG,QUANTITATIVE < 1 mIU/mL (0-6); THYROID STIMULATING HORMONE 42.82 uIU/mL (0.36-3.74); VALPROIC ACID 16 mcg/mL (50-100)
[2022-07-15 23:18] LABS: COVID AG,FIA SOURCE NASOPHARYNGEAL
[2022-07-16] MEDS ORDERED: ONDANSETRON HCL 4 MG/2 ML VIAL IVP PRN (00:15)
[2022-07-16] MEDS ORDERED: ACETAMINOPHEN 325 MG TABLET PO PRN (00:15)
[2022-07-16] MEDS ORDERED: 0.9% SODIUM CHLORIDE 10 ML SYRINGE IVP PRN (00:15)
[2022-07-16 01:25] VITALS: BP 142/72
[2022-07-16 04:13] VITALS: BP 124/67
[2022-07-16] MEDS ORDERED: DEXTROSE 50%-WATER 25 GM/50 ML SYRINGE IVP PRN (07:45)
[2022-07-16] MEDS ORDERED: ALBUTEROL SULFATE 2.5 MG/0.5 ML NEB SOLUTION NEB PRN (07:45)
[2022-07-16 08:00] VITALS: BP 135/65
[2022-07-16] MEDS: LEVOTHYROXINE SODIUM 125 MCG TABLET PO SCH (08:17)
[2022-07-16] MEDS: HEPARIN SODIUM,PORCINE 5,000 UNITS/ML VIAL SQ SCH ×2 (08:17→15:30)
[2022-07-16] MEDS: FAMOTIDINE 20 MG TABLET PO SCH (08:18)
[2022-07-16] MEDS: DOCUSATE SODIUM 100 MG CAPSULE PO SCH ×2 (08:18→20:09)
[2022-07-16] MEDS: ACETAMINOPHEN 325 MG TABLET PO PRN ×3 (08:20→20:09)
[2022-07-16] MEDS: INSULIN LISPRO 100 UNITS/ML SQ PRN ×3 (11:48→20:10)
[2022-07-16 15:47] VITALS: BP 156/78
[2022-07-16 16:21] LABS: GLUCOMETER DEV NAME(LOC) 6N.2; GLUCOSE,POINT OF CARE 222 MG/DL (70-110)
[2022-07-16 19:35] VITALS: BP 159/74
[2022-07-16 20:06] LABS: GLUCOMETER DEV NAME(LOC) 6N.2; GLUCOSE,POINT OF CARE 156 MG/DL (70-110)
[2022-07-16 23:36] LABS: GLUCOMETER DEV NAME(LOC) 6N.1; GLUCOSE,POINT OF CARE 200 MG/DL (70-110)
[2022-07-16 23:59] LABS: APPEARANCE,URINE CLEAR (CLEAR); BILIRUBIN,URINE NEGATIVE (NEGATIVE); GLUCOSE, URINE (UA) TRACE mg/dL (NEGATIVE); KETONES,URINE NEGATIVE (NEGATIVE); LEUKOCYTE ESTERASE ,URINE NEGATIVE (NEGATIVE); NITRATE,URINE NEGATIVE (NEGATIVE); OCCULT BLOOD,URINE MODERATE (NEGATIVE); PROTEIN,URINE 100-200,SEE CONFIRM mg/dL (NEGATIVE); SPECIFIC GRAVITIY, URINE 1.006 (1.003-1.030); UROBILINOGEN,URINE <=1.0 mg/dL (<=1.0)
[2022-07-17 00:09] LABS: SULFOSALICYLIC ACID,URINE 2+ (Negative)
[2022-07-17 00:10] LABS: BACTERIA,URINE None Seen /HPF (None Seen); SQUAMOUS EPITHELIAL CELL,UR Rare /LPF (None Seen); WBC,URINE 0-2 /HPF (0-5)
[2022-07-17] MEDS ORDERED: PIPERACILLIN SODIUM/TAZOBACTAM 2.25 GM in DEXTROSE 5%-WATER 50 ML IV ONE (01:00)
[2022-07-17] MEDS ORDERED: SODIUM CHLORIDE 0.9% 500 ML IV ONE (01:15)
[2022-07-17] MEDS: HEPARIN SODIUM,PORCINE 5,000 UNITS/ML VIAL SQ SCH ×3 (01:42→17:35)
[2022-07-17] MEDS: ACETAMINOPHEN 325 MG TABLET PO PRN ×2 (01:42→10:31)
[2022-07-17] MEDS: ONDANSETRON HCL 4 MG/2 ML VIAL IVP PRN (01:42)
[2022-07-17 04:00] VITALS: BP 142/67
[2022-07-17] MEDS: LEVOTHYROXINE SODIUM 125 MCG TABLET PO SCH (05:56)
[2022-07-17 05:57] LABS: CALCIUM, TOTAL 8.2 mg/dL (8.8-10.5); CREATININE 5.7 mg/dL (0.60-1.30); PHOSPHORUS 4.3 mg/dL (2.5-4.9); POTASSIUM 3.5 mmol/L (3.5-5.1)
[2022-07-17 06:04] LABS: % IRON SATURATION 16.6 % (22-44)
[2022-07-17 06:42] LABS: GLUCOMETER DEV NAME(LOC) 6N.1; GLUCOSE,POINT OF CARE 129 MG/DL (70-110)
[2022-07-17 08:43] VITALS: BP 170/77
[2022-07-17] MEDS: EPOETIN ALFA 10,000 UNITS/ML VIAL SQ SCH (08:54)
[2022-07-17] MEDS: FAMOTIDINE 20 MG TABLET PO SCH (08:54)
[2022-07-17] MEDS: DOCUSATE SODIUM 100 MG CAPSULE PO SCH ×2 (08:58→21:00)
[2022-07-17] MEDS: CloNIDine HCL 0.1 MG TABLET PO PRN (10:33)
[2022-07-17] MEDS: INSULIN LISPRO 100 UNITS/ML SQ PRN ×3 (12:14→20:24)
[2022-07-17] MEDS ORDERED: SENN8.6T90 PO (12:17)
[2022-07-17] MEDS ORDERED: DOCU-385 PO (12:18)
[2022-07-17] MEDS: SOD FERRIC GLUC COMPLX/SUCROSE 125 MG in SODIUM CHLORIDE 0.9% 100 ML IV SCH (13:56)
[2022-07-17] MEDS: FUROSEMIDE 40 MG/4 ML VIAL IVP SCH (13:56)
[2022-07-17 15:21] LABS: GLUCOMETER DEV NAME(LOC) 6N.1; GLUCOSE,POINT OF CARE 160 MG/DL (70-110)
[2022-07-17 16:48] VITALS: BP 142/84
[2022-07-17 19:41] VITALS: BP 142/71
[2022-07-17 23:56] LABS: GLUCOMETER DEV NAME(LOC) 6N.1; GLUCOSE,POINT OF CARE 145 MG/DL (70-110)
[2022-07-17 23:57] LABS: GLUCOMETER DEV NAME(LOC) 6N.1; GLUCOSE,POINT OF CARE 150 MG/DL (70-110)
[2022-07-18] MEDS: MELATONIN 5 MG TABLET PO PRN ×2 (00:12→20:51)
[2022-07-18] MEDS: HEPARIN SODIUM,PORCINE 5,000 UNITS/ML VIAL SQ SCH ×4 (00:12→23:12)
[2022-07-18] MEDS ORDERED: BENZONATATE 100 MG CAPSULE PO PRN (05:00)
[2022-07-18 05:01] VITALS: BP 164/73
[2022-07-18] MEDS: LEVOTHYROXINE SODIUM 125 MCG TABLET PO SCH (05:36)
[2022-07-18] MEDS: CloNIDine HCL 0.1 MG TABLET PO PRN ×2 (05:37→09:16)
[2022-07-18 06:51] LABS: BASOPHILS % (AUTO) 0.4 % (0.0-2.0); EOSINOPHILS % (AUTO) 0.4 % (1.0-6.0); HEMATOCRIT 21.7 % (36-46); HEMOGLOBIN 7.1 g/dL (12.0-16.0); LYMPHOCYTES # (AUTO) 1.9 K/uL (1.0-4.8); LYMPHOCYTES % (AUTO) 28.6 % (22.0-44.0); MEAN CORPUSCULAR HEMOGLOBIN 27.9 pg (26.0-34.0); MEAN CORPUSCULAR HGB CONC 32.8 G/dL (31.0-37.0); MEAN CORPUSCULAR VOLUME 85 fL (80-100); MONOCYTES % (AUTO) 14.4 % (2.0-9.0); NEUTROPHILS # (AUTO) 3.7 K/uL (1.8-7.7); NEUTROPHILS % (AUTO) 56.2 % (40.0-70.0); PLATELET COUNT (AUTO) 335 K/uL (150-450); RED BLOOD CELL COUNT(AUTO) 2.55 MIL/uL (4.00-5.20)
[2022-07-18 07:06] LABS: GLUCOMETER DEV NAME(LOC) 6N.1; GLUCOSE,POINT OF CARE 120 MG/DL (70-110)
[2022-07-18 07:12] LABS: CALCIUM, TOTAL 8.6 mg/dL (8.8-10.5); CREATININE 5.89 mg/dL (0.60-1.30); MAGNESIUM 2.1 mg/dL (1.80-2.40); PHOSPHORUS 4.9 mg/dL (2.5-4.9); POTASSIUM 3.7 mmol/L (3.5-5.1)
[2022-07-18 08:00] VITALS: BP 156/79
[2022-07-18] MEDS: DOCUSATE SODIUM 100 MG CAPSULE PO SCH ×3 (09:00→21:00)
[2022-07-18] MEDS: FAMOTIDINE 20 MG TABLET PO SCH (09:16)
[2022-07-18] MEDS: FUROSEMIDE 40 MG/4 ML VIAL IVP SCH (09:16)
[2022-07-18] MEDS: ACETAMINOPHEN 325 MG TABLET PO PRN (12:39)
[2022-07-18] MEDS: INSULIN LISPRO 100 UNITS/ML SQ PRN ×3 (12:44→20:54)
[2022-07-18 13:36] LABS: GLUCOMETER DEV NAME(LOC) 6N.2; GLUCOSE,POINT OF CARE 207 MG/DL (70-110)
[2022-07-18] MEDS: SOD FERRIC GLUC COMPLX/SUCROSE 125 MG in SODIUM CHLORIDE 0.9% 100 ML IV SCH (15:21)
[2022-07-18 15:36] VITALS: BP 149/71
[2022-07-18 18:56] LABS: GLUCOMETER DEV NAME(LOC) 6N.2; GLUCOSE,POINT OF CARE 177 MG/DL (70-110)
[2022-07-18 20:00] VITALS: BP 141/73
[2022-07-19 04:09] VITALS: BP 145/69
[2022-07-19] MEDS: LEVOTHYROXINE SODIUM 125 MCG TABLET PO SCH (06:21)
[2022-07-19 06:43] LABS: BASOPHILS % (AUTO) 0.7 % (0.0-2.0); EOSINOPHILS % (AUTO) 1.9 % (1.0-6.0); HEMATOCRIT 22.3 % (36-46); HEMOGLOBIN 7.3 g/dL (12.0-16.0); LYMPHOCYTES # (AUTO) 2.2 K/uL (1.0-4.8); LYMPHOCYTES % (AUTO) 34.9 % (22.0-44.0); MEAN CORPUSCULAR HEMOGLOBIN 27.9 pg (26.0-34.0); MEAN CORPUSCULAR HGB CONC 32.7 G/dL (31.0-37.0); MEAN CORPUSCULAR VOLUME 85 fL (80-100); MONOCYTES # (AUTO) 0.7 K/uL (0.1-1.0); MONOCYTES % (AUTO) 11.5 % (2.0-9.0); NEUTROPHILS # (AUTO) 3.2 K/uL (1.8-7.7); PLATELET COUNT (AUTO) 319 K/uL (150-450); RED BLOOD CELL COUNT(AUTO) 2.61 MIL/uL (4.00-5.20); RED CELL DISTRIBUTION WIDTH 18.3 % (11.5-14.5)
[2022-07-19 06:59] LABS: BILIRUBIN,TOTAL 0.2 mg/dL (0.1-1.0); CALCIUM, TOTAL 8.5 mg/dL (8.8-10.5); CREATININE 5.9 mg/dL (0.60-1.30); POTASSIUM 3.6 mmol/L (3.5-5.1); TOTAL PROTEIN, SERUM 5.9 g/dL (6.4-8.2)
[2022-07-19 07:36] LABS: GLUCOMETER DEV NAME(LOC) 6N.1; GLUCOSE,POINT OF CARE 169 MG/DL (70-110)
[2022-07-19 07:36] LABS: GLUCOMETER DEV NAME(LOC) 6N.2; GLUCOSE,POINT OF CARE 138 MG/DL (70-110)
[2022-07-19 08:19] VITALS: BP 161/71
[2022-07-19] MEDS: FUROSEMIDE 40 MG/4 ML VIAL IVP SCH (08:44)
[2022-07-19] MEDS: HEPARIN SODIUM,PORCINE 5,000 UNITS/ML VIAL SQ SCH ×3 (08:44→23:47)
[2022-07-19] MEDS: FAMOTIDINE 20 MG TABLET PO SCH (08:45)
[2022-07-19] MEDS: DOCUSATE SODIUM 100 MG CAPSULE PO SCH ×2 (08:45→21:00)
[2022-07-19] MEDS: CloNIDine HCL 0.1 MG TABLET PO PRN ×2 (08:47→17:46)
[2022-07-19] MEDS: ACETAMINOPHEN 325 MG TABLET PO PRN ×2 (09:12→14:53)
[2022-07-19] MEDS: INSULIN LISPRO 100 UNITS/ML SQ PRN ×3 (11:10→20:26)
[2022-07-19 12:55] LABS: GLUCOMETER DEV NAME(LOC) 6N.1; GLUCOSE,POINT OF CARE 195 MG/DL (70-110)
[2022-07-19] MEDS: SOD FERRIC GLUC COMPLX/SUCROSE 125 MG in SODIUM CHLORIDE 0.9% 100 ML IV SCH (14:52)
[2022-07-19 15:47] VITALS: BP 166/82
[2022-07-19 19:51] VITALS: BP 158/75
[2022-07-19] MEDS: MELATONIN 5 MG TABLET PO PRN (20:35)
[2022-07-20 03:41] LABS: GLUCOMETER DEV NAME(LOC) 6N.2; GLUCOSE,POINT OF CARE 178 MG/DL (70-110)
[2022-07-20 03:41] LABS: GLUCOMETER DEV NAME(LOC) 6N.2; GLUCOSE,POINT OF CARE 203 MG/DL (70-110)
[2022-07-20 05:00] VITALS: BP 145/82
[2022-07-20 05:38] LABS: CREATININE,URINE 24.5 mg/dL (30.0-125.0)
[2022-07-20] MEDS: LEVOTHYROXINE SODIUM 125 MCG TABLET PO SCH (05:52)
[2022-07-20] MEDS: INSULIN LISPRO 100 UNITS/ML SQ PRN ×4 (05:56→21:10)
[2022-07-20 07:21] LABS: BASOPHILS % (AUTO) 0.4 % (0.0-2.0); EOSINOPHILS % (AUTO) 2.5 % (1.0-6.0); HEMATOCRIT 22.4 % (36-46); HEMOGLOBIN 7.3 g/dL (12.0-16.0); LYMPHOCYTES # (AUTO) 1.7 K/uL (1.0-4.8); LYMPHOCYTES % (AUTO) 29.2 % (22.0-44.0); MEAN CORPUSCULAR HEMOGLOBIN 27.7 pg (26.0-34.0); MEAN CORPUSCULAR HGB CONC 32.6 G/dL (31.0-37.0); MEAN CORPUSCULAR VOLUME 85 fL (80-100); MONOCYTES # (AUTO) 0.6 K/uL (0.1-1.0); MONOCYTES % (AUTO) 9.5 % (2.0-9.0); NEUTROPHILS # (AUTO) 3.5 K/uL (1.8-7.7); NEUTROPHILS % (AUTO) 58.4 % (40.0-70.0); PLATELET COUNT (AUTO) 362 K/uL (150-450); RED BLOOD CELL COUNT(AUTO) 2.64 MIL/uL (4.00-5.20); RED CELL DISTRIBUTION WIDTH 18.4 % (11.5-14.5)
[2022-07-20 07:41] LABS: CALCIUM, TOTAL 8.7 mg/dL (8.8-10.5); CREATININE 5.59 mg/dL (0.60-1.30); MAGNESIUM 2.2 mg/dL (1.80-2.40); PHOSPHORUS 4.3 mg/dL (2.5-4.9); POTASSIUM 3.7 mmol/L (3.5-5.1)
[2022-07-20 07:47] LABS: CREATININE,SERUM FOR CRCL 5.9 mg/dL (0.60-1.30)
[2022-07-20 08:00] VITALS: BP 184/85
[2022-07-20] MEDS: HEPARIN SODIUM,PORCINE 5,000 UNITS/ML VIAL SQ SCH ×3 (09:03→23:48)
[2022-07-20] MEDS: DOCUSATE SODIUM 100 MG CAPSULE PO SCH ×2 (09:03→20:53)
[2022-07-20] MEDS: FAMOTIDINE 20 MG TABLET PO SCH (09:03)
[2022-07-20] MEDS: FUROSEMIDE 40 MG/4 ML VIAL IVP SCH (09:03)
[2022-07-20] MEDS: ACETAMINOPHEN 325 MG TABLET PO PRN (09:04)
[2022-07-20] MEDS: EPOETIN ALFA 10,000 UNITS/ML VIAL SQ SCH (09:04)
[2022-07-20] MEDS: CloNIDine HCL 0.1 MG TABLET PO PRN (09:19)
[2022-07-20 13:56] LABS: GLUCOMETER DEV NAME(LOC) 6N.2; GLUCOSE,POINT OF CARE 143 MG/DL (70-110)
[2022-07-20 13:56] LABS: GLUCOMETER DEV NAME(LOC) 6N.2; GLUCOSE,POINT OF CARE 218 MG/DL (70-110)
[2022-07-20] MEDS ORDERED: SODIUM CHLORIDE 0.9% 250 ML IV ONE (14:55)
[2022-07-20] MEDS: SOD FERRIC GLUC COMPLX/SUCROSE 125 MG in SODIUM CHLORIDE 0.9% 100 ML IV SCH ×2 (15:07→17:16)
[2022-07-20] MEDS: ONDANSETRON HCL 4 MG/2 ML VIAL IVP PRN (15:08)
[2022-07-20 16:00] VITALS: BP 173/83
[2022-07-20 20:56] VITALS: BP 168/81
[2022-07-20] MEDS ORDERED: OLANZapine 7.5 MG TABLET PO SCH (21:00)
[2022-07-20 22:21] LABS: GLUCOMETER DEV NAME(LOC) 6N.2; GLUCOSE,POINT OF CARE 158 MG/DL (70-110)
[2022-07-20 23:41] LABS: GLUCOMETER DEV NAME(LOC) 6N.1; GLUCOSE,POINT OF CARE 207 MG/DL (70-110)
[2022-07-21] MEDS: CloNIDine HCL 0.1 MG TABLET PO PRN (00:10)
[2022-07-21] MEDS: MELATONIN 5 MG TABLET PO PRN (02:03)
[2022-07-21 05:28] VITALS: BP 181/79
[2022-07-21] MEDS ORDERED: AmLODIPine BESYLATE 10 MG TABLET PO ONE (06:00)
[2022-07-21] MEDS: HydrALAZINE HCL 25 MG TABLET PO SCH ×2 (06:11→16:58)
[2022-07-21] MEDS: LEVOTHYROXINE SODIUM 125 MCG TABLET PO SCH (06:12)
[2022-07-21] MEDS: INSULIN LISPRO 100 UNITS/ML SQ PRN ×3 (06:23→17:15)
[2022-07-21 07:06] LABS: GLUCOMETER DEV NAME(LOC) 6N.2; GLUCOSE,POINT OF CARE 180 MG/DL (70-110)
[2022-07-21 08:00] VITALS: BP 154/78
[2022-07-21] MEDS: FAMOTIDINE 20 MG TABLET PO SCH (08:52)
[2022-07-21] MEDS: HEPARIN SODIUM,PORCINE 5,000 UNITS/ML VIAL SQ SCH ×2 (08:52→16:58)
[2022-07-21] MEDS: DOCUSATE SODIUM 100 MG CAPSULE PO SCH (08:52)
[2022-07-21] MEDS: FUROSEMIDE 40 MG/4 ML VIAL IVP SCH (08:52)
[2022-07-21] MEDS: ACETAMINOPHEN 325 MG TABLET PO PRN (11:40)
[2022-07-21 13:16] LABS: GLUCOMETER DEV NAME(LOC) 6N.2; GLUCOSE,POINT OF CARE 221 MG/DL (70-110)
[2022-07-21] MEDS ORDERED: SODI650T33 PO (13:17)
[2022-07-21] MEDS ORDERED: OLAN7.5T22 PO (13:18)
[2022-07-21] MEDS ORDERED: ACET-2247 PO (13:18)
[2022-07-21] MEDS ORDERED: CLON0.1T2 PO (13:19)
[2022-07-21] MEDS ORDERED: MELA5TAB40 PO (13:19)
[2022-07-21] MEDS ORDERED: AUD NEB (13:19)
[2022-07-21] MEDS ORDERED: INSU100V SQ (13:20)
[2022-07-21 16:00] VITALS: BP 148/74
[2022-07-21 17:25] VITALS: BP 148/74
[2022-07-21] MEDS ORDERED: SODIUM BICARBONATE 650 MG TABLET PO SCH (21:00)
[2022-07-21 22:31] LABS: GLUCOMETER DEV NAME(LOC) 6N.2; GLUCOSE,POINT OF CARE 249 MG/DL (70-110)
[2022-07-22] MEDS ORDERED: AmLODIPine BESYLATE 10 MG TABLET PO SCH (09:00)
[2022-07-22] MEDS ORDERED: FUROSEMIDE 40 MG TABLET PO SCH (09:00)
== END 2022-07-21 17:30 | DRG 177 ==
LOC: EMS 21:21 → 6N 07-16 01:06 → EMS 07-16 01:10
PROVIDERS: ADMIT Internal Medicine; ATTEND Internal Medicine
DX: U07.1 COVID-19 (principal); N18.6 End stage renal disease; N17.9 Acute kidney failure, unspecified; I12.0 Hypertensive chronic kidney disease with stage 5 chronic kidney disease or end stage renal disease; E44.0 Moderate protein-calorie malnutrition; D63.1 Anemia in chronic kidney disease; E03.9 Hypothyroidism, unspecified; E11.22 Type 2 diabetes mellitus with diabetic chronic kidney disease; E11.319 Type 2 diabetes mellitus with unspecified diabetic retinopathy without macular edema; E78.00 Pure hypercholesterolemia, unspecified; F20.9 Schizophrenia, unspecified; F31.9 Bipolar disorder, unspecified; E66.01 Morbid (severe) obesity due to excess calories; F99 Mental disorder, not otherwise specified; G40.909 Epilepsy, unspecified, not intractable, without status epilepticus; Z79.4 Long term (current) use of insulin; Z79.82 Long term (current) use of aspirin; Z82.49 Family history of ischemic heart disease and other diseases of the circulatory system; Z82.5 Family history of asthma and other chronic lower respiratory diseases; Z83.3 Family history of diabetes mellitus; Z68.37 Body mass index [BMI] 37.0-37.9, adult
CPT/HCPCS: 71045; 80048; 80053; 80164; 81001; 81002; 81050; 82575; 82962; 83540; 83550; 83735; 84100; 84156; 84166; 84300; 84439; 84443; 84540; 84702; 85025; 87040; 87081; 93970; 97116; 97162; 97530; 99285; J0885; J1644; J1940; J2405; J2543; J2916; J7040; J7050; J7060; Q9967; 36415-L1; 36415-TC

== ENCOUNTER 2022-08-10 10:18 | Inpatient (IN) | payer MEDICARE, OTHER ==
[~2022-08-10] VITALS: Ht 165.1 cm; Wt 91.4 kg
[~2022-08-10 10:18] MED LIST changes: -AMLO-257 PO; -ASPI-1444 PO; +AUD NEB; -DOCU50LI25 RC; -FAMO10TA39 PO; -GABA-1216 PO; -HEPA500018 SQ; -LACT10SO10 PO; -LEVO75 PO; -LORA-999 PO; +MELA5TAB40 PO; +OLAN7.5T22 PO; +SODI650T33 PO; -VALP250C48 PO
[2022-08-10 10:46] LABS: GLUCOMETER DEV NAME(LOC) ERT.5; GLUCOSE,POINT OF CARE 203 MG/DL (70-110)
[2022-08-10 11:56] LABS: BASOPHILS % (AUTO) 0.7 % (0.0-2.0); EOSINOPHILS % (AUTO) 1.5 % (1.0-6.0); HEMOGLOBIN 10.1 g/dL (12.0-16.0); LYMPHOCYTES # (AUTO) 1.5 K/uL (1.0-4.8); LYMPHOCYTES % (AUTO) 15.2 % (22.0-44.0); MEAN CORPUSCULAR HEMOGLOBIN 27.7 pg (26.0-34.0); MEAN CORPUSCULAR HGB CONC 31.4 G/dL (31.0-37.0); MEAN CORPUSCULAR VOLUME 88 fL (80-100); MONOCYTES # (AUTO) 0.5 K/uL (0.1-1.0); MONOCYTES % (AUTO) 5.2 % (2.0-9.0); NEUTROPHILS # (AUTO) 7.5 K/uL (1.8-7.7); NEUTROPHILS % (AUTO) 77.4 % (40.0-70.0); PLATELET COUNT (AUTO) 278 K/uL (150-450); RED BLOOD CELL COUNT(AUTO) 3.64 MIL/uL (4.00-5.20); RED CELL DISTRIBUTION WIDTH 18.8 % (11.5-14.5)
[2022-08-10 12:11] LABS: ANION GAP 11 mmol/L (8-16); CALCIUM, TOTAL 9.3 mg/dL (8.8-10.5); CARBON DIOXIDE 26 mmol/L (22-29); CHLORIDE 101 mmol/L (98-107); CREATININE 5.69 mg/dL (0.60-1.30); GLOMERULAR FILTR. RATE CALC 8 mL/min (>60); GLUCOSE,RANDOM 244 mg/dL (70-110); POTASSIUM 4.5 mmol/L (3.5-5.1); SODIUM SERUM 138 mmol/L (136-145); UREA NITROGEN, BLOOD 65 mg/dL (7-18)
[2022-08-10 12:26] LABS: APPEARANCE,URINE CLEAR (CLEAR); BILIRUBIN,URINE NEGATIVE (NEGATIVE); GLUCOSE, URINE (UA) 150-200 mg/dL (NEGATIVE); KETONES,URINE NEGATIVE (NEGATIVE); LEUKOCYTE ESTERASE ,URINE NEGATIVE (NEGATIVE); NITRATE,URINE NEGATIVE (NEGATIVE); OCCULT BLOOD,URINE SMALL (NEGATIVE); PROTEIN,URINE 300-600,SEE CONFIRM mg/dL (NEGATIVE); SPECIFIC GRAVITIY, URINE 1.008 (1.003-1.030); UROBILINOGEN,URINE <=1.0 mg/dL (<=1.0)
[2022-08-10] MEDS ORDERED: ONDANSETRON HCL 4 MG/2 ML VIAL IVP ONE (12:30)
[2022-08-10] MEDS ORDERED: ACETAMINOPHEN 1000 MG/ISO-OSM 100 ML IV ONE (12:30)
[2022-08-10 12:31] LABS: AMPHET/METH SCREEN,URINE NEGATIVE (NEGATIVE); BARBITURATE SCREEN, URINE NEGATIVE (NEGATIVE); BENZODIAZEPINES SCREEN,URINE NEGATIVE (NEGATIVE); CANNABINOID SCREEN,URINE NEGATIVE (NEGATIVE); COCAINE SCREEN,URINE NEGATIVE (NEGATIVE); METHADONE SCREEN, URINE NEGATIVE (NEGATIVE); OPIATE SCREEN,URINE NEGATIVE (NEGATIVE)
[2022-08-10 12:32] LABS: PHENCYCLIDINE SCREEN,URINE NEGATIVE (NEGATIVE)
[2022-08-10 12:36] LABS: ALANINE AMINOTRANSFERASE 10 U/L (12-78); ALBUMIN 2.4 g/dL (3.4-5.0); ALKALINE PHOSPHATASE 96 U/L (46-116); ASPARTATE AMINOTRANSFERASE 13 U/L (15-37); BILIRUBIN,TOTAL 0.3 mg/dL (0.1-1.0); CREATINE KINASE, TOTAL ONLY 221 U/L (26-192); TOTAL PROTEIN, SERUM 6.6 g/dL (6.4-8.2)
[2022-08-10 12:47] LABS: BACTERIA,URINE Few /HPF (None Seen); RBC,URINE 0-2 /HPF (0-2); SQUAMOUS EPITHELIAL CELL,UR Few /LPF (None Seen); SULFOSALICYLIC ACID,URINE 3+ (Negative); WBC,URINE None Seen /HPF (0-5)
[2022-08-10] MEDS ORDERED: PROP10TA72 PO (12:59)
[2022-08-10] MEDS ORDERED: VALP250S10 PO (12:59)
[2022-08-10] MEDS ORDERED: INSU100I26 SQ (12:59)
[2022-08-10] MEDS ORDERED: LOSA-381 PO (12:59)
[2022-08-10] MEDS ORDERED: LEVO150T11 PO (12:59)
[2022-08-10] MEDS ORDERED: ATOR20TA65 PO (12:59)
[2022-08-10] MEDS ORDERED: ASPI-1444 PO (12:59)
[2022-08-10] MEDS ORDERED: SODI10PO2 PO (12:59)
[2022-08-10] MEDS ORDERED: ACETAMINOPHEN 325 MG TABLET PO PRN (13:00)
[2022-08-10] MEDS ORDERED: ONDANSETRON HCL 4 MG/2 ML VIAL IVP PRN (13:00)
[2022-08-10 13:17] LABS: COVID AG,FIA SOURCE NASOPHARYNGEAL
[2022-08-10] MEDS ORDERED: CloNIDine HCL 0.1 MG TABLET PO PRN (15:45)
[2022-08-10] MEDS ORDERED: DOXY-354 PO (16:22)
[2022-08-10] MEDS ORDERED: LACT10SO10 PO (16:22)
[2022-08-10] MEDS ORDERED: BACL10TA PO (16:22)
[2022-08-10] MEDS ORDERED: DOCU-385 PO (16:22)
[2022-08-10] MEDS ORDERED: SENN8.8S18 PO (16:24)
[2022-08-10] MEDS ORDERED: FOLI0.8T22 PO (16:24)
[2022-08-10] MEDS ORDERED: HYDR25TA84 PO (16:24)
[2022-08-10] MEDS ORDERED: TRAM50TA4 PO (16:24)
[2022-08-10 20:37] VITALS: BP 161/89
[2022-08-10] MEDS: SODIUM BICARBONATE 650 MG TABLET PO SCH (21:40)
[2022-08-10] MEDS: PROPRANOLOL HCL 10 MG TABLET PO SCH (21:40)
[2022-08-10 23:35] VITALS: BP 146/90
[2022-08-11 04:12] VITALS: BP 156/84
[2022-08-11] MEDS: LEVOTHYROXINE SODIUM 150 MCG TABLET PO SCH (06:22)
[2022-08-11 07:15] VITALS: BP 126/90
[2022-08-11] MEDS: SODIUM BICARBONATE 650 MG TABLET PO SCH ×2 (08:41→21:36)
[2022-08-11] MEDS: ATORVASTATIN CALCIUM 20 MG TABLET PO SCH (08:42)
[2022-08-11] MEDS: PROPRANOLOL HCL 10 MG TABLET PO SCH ×3 (08:42→21:35)
[2022-08-11] MEDS: LOSARTAN POTASSIUM 25 MG TABLET PO SCH (08:42)
[2022-08-11] MEDS: ASPIRIN 81 MG DR TABLET PO SCH (08:42)
[2022-08-11 14:20] VITALS: BP 156/90
[2022-08-11 15:05] VITALS: BP 150/87
[2022-08-11] MEDS ORDERED: DEXTROSE 50%-WATER 25 GM/50 ML SYRINGE IVP PRN (17:15)
[2022-08-11] MEDS ORDERED: EPOETIN ALFA 10,000 UNITS/ML VIAL SQ SCH (17:30)
[2022-08-11] MEDS: INSULIN LISPRO 100 UNITS/ML SQ PRN ×2 (17:36→21:40)
[2022-08-11 17:51] LABS: GLUCOMETER DEV NAME(LOC) 5S.2B; GLUCOSE,POINT OF CARE 344 MG/DL (70-110)
[2022-08-11] MEDS: IRON SUCROSE COMPLEX 100 MG in SODIUM CHLORIDE 0.9% 100 ML IV SCH (18:20)
[2022-08-11 20:15] VITALS: BP 151/79
[2022-08-11] MEDS: DIVALPROEX SODIUM 250 MG ER TABLET PO SCH (21:35)
[2022-08-11] MEDS: GABAPENTIN 100 MG CAPSULE PO SCH (21:36)
[2022-08-11] MEDS: INSULIN GLARGINE,HUM.REC.ANLOG 100 UNITS/ML SQ SCH (21:39)
[2022-08-11 22:46] LABS: GLUCOMETER DEV NAME(LOC) 5S.2B; GLUCOSE,POINT OF CARE 300 MG/DL (70-110)
[2022-08-12] VITALS (7 sets, daily range): BP systolic 136–161; BP diastolic 60–76
[2022-08-12] MEDS: LEVOTHYROXINE SODIUM 150 MCG TABLET PO SCH (06:00)
[2022-08-12] MEDS: INSULIN LISPRO 100 UNITS/ML SQ PRN ×3 (06:01→20:39)
[2022-08-12 07:03] LABS: CALCIUM, TOTAL 8.5 mg/dL (8.8-10.5); CREATININE 5.73 mg/dL (0.60-1.30); POTASSIUM 4.1 mmol/L (3.5-5.1)
[2022-08-12 07:23] LABS: HEMOGLOBIN A1C 6.7 % (3.8-5.6)
[2022-08-12] MEDS: ATORVASTATIN CALCIUM 20 MG TABLET PO SCH (09:03)
[2022-08-12] MEDS: SODIUM BICARBONATE 650 MG TABLET PO SCH ×2 (09:03→20:29)
[2022-08-12] MEDS: DIVALPROEX SODIUM 250 MG ER TABLET PO SCH ×3 (09:03→20:29)
[2022-08-12] MEDS: PROPRANOLOL HCL 10 MG TABLET PO SCH ×3 (09:03→20:29)
[2022-08-12] MEDS: LOSARTAN POTASSIUM 25 MG TABLET PO SCH (09:03)
[2022-08-12] MEDS: ASPIRIN 81 MG DR TABLET PO SCH (09:04)
[2022-08-12] MEDS: LACTULOSE 20 GM/30 ML SOLUTION UDCUP PO SCH (11:34)
[2022-08-12] MEDS: IRON SUCROSE COMPLEX 100 MG in SODIUM CHLORIDE 0.9% 100 ML IV SCH (18:19)
[2022-08-12] MEDS: GABAPENTIN 100 MG CAPSULE PO SCH (20:29)
[2022-08-12] MEDS: OLANZapine 7.5 MG TABLET PO SCH (20:29)
[2022-08-12] MEDS: MELATONIN 5 MG TABLET PO PRN (20:29)
[2022-08-12] MEDS: INSULIN GLARGINE,HUM.REC.ANLOG 100 UNITS/ML SQ SCH (20:38)
[2022-08-13 00:36] LABS: GLUCOMETER DEV NAME(LOC) 5S.1B; GLUCOSE,POINT OF CARE 234 MG/DL (70-110)
[2022-08-13 00:36] LABS: GLUCOMETER DEV NAME(LOC) 5S.2B; GLUCOSE,POINT OF CARE 240 MG/DL (70-110)
[2022-08-13 00:36] LABS: GLUCOMETER DEV NAME(LOC) 5S.1B; GLUCOSE,POINT OF CARE 234 MG/DL (70-110)
[2022-08-13 00:36] LABS: GLUCOMETER DEV NAME(LOC) 5S.2B; GLUCOSE,POINT OF CARE 156 MG/DL (70-110)
[2022-08-13 04:59] VITALS: BP 141/79
[2022-08-13] MEDS: LEVOTHYROXINE SODIUM 150 MCG TABLET PO SCH (06:20)
[2022-08-13] MEDS: INSULIN LISPRO 100 UNITS/ML SQ PRN ×3 (06:22→21:05)
[2022-08-13 07:30] VITALS: BP 158/80
[2022-08-13 08:16] LABS: GLUCOMETER DEV NAME(LOC) 5S.2B; GLUCOSE,POINT OF CARE 180 MG/DL (70-110)
[2022-08-13] MEDS: ASPIRIN 81 MG DR TABLET PO SCH (09:07)
[2022-08-13] MEDS: LACTULOSE 20 GM/30 ML SOLUTION UDCUP PO SCH (09:07)
[2022-08-13] MEDS: SODIUM BICARBONATE 650 MG TABLET PO SCH ×2 (09:07→21:08)
[2022-08-13] MEDS: ATORVASTATIN CALCIUM 20 MG TABLET PO SCH (09:09)
[2022-08-13] MEDS: PROPRANOLOL HCL 10 MG TABLET PO SCH ×3 (09:09→21:07)
[2022-08-13] MEDS: DIVALPROEX SODIUM 250 MG ER TABLET PO SCH ×3 (09:09→21:08)
[2022-08-13] MEDS: LOSARTAN POTASSIUM 25 MG TABLET PO SCH (09:09)
[2022-08-13] MEDS ORDERED: ETHYL ALCOHOL 62% ANTISEPTIC NASAL SANITIZER 0.6 ML AMPUL NASAL ONE (10:15)
[2022-08-13] MEDS ORDERED: SODIUM CHLORIDE 0.9% 1,000 ML ONE (10:18)
[2022-08-13] MEDS ORDERED: SODIUM CHLORIDE 0.9% 1,000 ML IV ONE (10:30)
[2022-08-13 11:16] VITALS: BP 149/69
[2022-08-13] MEDS ORDERED: KETAMINE HCL 50 MG/ML 10 ML VIAL IVP ONE (12:00)
[2022-08-13] MEDS ORDERED: HEPARIN SODIUM,PORCINE 1,000 UNITS/ML 10 ML VIAL IVP ONE (12:00)
[2022-08-13] MEDS ORDERED: FentaNYL CITRATE PF 100 MCG/2 ML VIAL IVP ONE (12:00)
[2022-08-13] MEDS ORDERED: PROPOFOL 1% 20 ML VIAL IVP ONE (12:00)
[2022-08-13] MEDS ORDERED: MIDAZOLAM HCL 2 MG/2 ML VIAL IVP ONE (12:00)
[2022-08-13] MEDS ORDERED: LIDOCAINE/PF 1% 30 ML VIAL ONE (12:10)
[2022-08-13 12:26] LABS: GLUCOMETER DEV NAME(LOC) SDS.; GLUCOSE,POINT OF CARE 176 MG/DL (70-110)
[2022-08-13] MEDS ORDERED: HYDROmorphone 2 MG/ML VIAL IVP PRN ×2 (13:30→21:00)
[2022-08-13] MEDS ORDERED: MEPERIDINE-PF 25 MG/ML VIAL IVP PRN (13:30)
[2022-08-13] MEDS ORDERED: FentaNYL CITRATE PF 100 MCG/2 ML VIAL IVP PRN (13:30)
[2022-08-13 15:15] VITALS: BP 158/83
[2022-08-13] MEDS ORDERED: ONDANSETRON HCL 4 MG/2 ML VIAL IVP PRN (16:15)
[2022-08-13 17:16] LABS: GLUCOMETER DEV NAME(LOC) 5S.2B; GLUCOSE,POINT OF CARE 179 MG/DL (70-110)
[2022-08-13] MEDS: IRON SUCROSE COMPLEX 100 MG in SODIUM CHLORIDE 0.9% 100 ML IV SCH (17:34)
[2022-08-13 19:26] VITALS: BP 144/77
[2022-08-13] MEDS: OXYGEN THERAPY IH SCH (20:02)
[2022-08-13 20:46] LABS: GLUCOMETER DEV NAME(LOC) 5S.1B; GLUCOSE,POINT OF CARE 172 MG/DL (70-110)
[2022-08-13] MEDS ORDERED: HYDROCODONE/ACETAMINOPHEN 5-325 MG TABLET PO PRN (21:00)
[2022-08-13] MEDS ORDERED: NALOXONE HCL 1 MG/ML 2 ML SYRINGE IVP PRN (21:00)
[2022-08-13] MEDS ORDERED: ACETAMINOPHEN 325 MG TABLET PO PRN (21:00)
[2022-08-13] MEDS: INSULIN GLARGINE,HUM.REC.ANLOG 100 UNITS/ML SQ SCH (21:05)
[2022-08-13] MEDS: OLANZapine 7.5 MG TABLET PO SCH (21:08)
[2022-08-13] MEDS: GABAPENTIN 100 MG CAPSULE PO SCH (21:08)
[2022-08-13] MEDS: MELATONIN 5 MG TABLET PO PRN (21:10)
[2022-08-13 22:01] LABS: GLUCOMETER DEV NAME(LOC) 5S.2B; GLUCOSE,POINT OF CARE 189 MG/DL (70-110)
[2022-08-14 00:22] VITALS: BP 138/76
[2022-08-14 04:05] VITALS: BP 121/68
[2022-08-14] MEDS: LEVOTHYROXINE SODIUM 150 MCG TABLET PO SCH (06:09)
[2022-08-14] MEDS: INSULIN LISPRO 100 UNITS/ML SQ PRN ×2 (06:11→12:21)
[2022-08-14] MEDS: OXYGEN THERAPY IH SCH (08:00)
[2022-08-14 08:20] VITALS: BP 126/75
[2022-08-14] MEDS: ASPIRIN 81 MG DR TABLET PO SCH (08:20)
[2022-08-14] MEDS: SODIUM BICARBONATE 650 MG TABLET PO SCH (08:20)
[2022-08-14] MEDS: PROPRANOLOL HCL 10 MG TABLET PO SCH (08:20)
[2022-08-14] MEDS: LOSARTAN POTASSIUM 25 MG TABLET PO SCH (08:20)
[2022-08-14] MEDS: LACTULOSE 20 GM/30 ML SOLUTION UDCUP PO SCH (08:20)
[2022-08-14] MEDS: DIVALPROEX SODIUM 250 MG ER TABLET PO SCH (08:20)
[2022-08-14] MEDS: ATORVASTATIN CALCIUM 20 MG TABLET PO SCH (08:21)
[2022-08-14 11:52] VITALS: BP 138/75
[2022-08-14 12:54] LABS: BASOPHILS % (AUTO) 0.4 % (0.0-2.0); EOSINOPHILS % (AUTO) 2.9 % (1.0-6.0); HEMATOCRIT 29.4 % (36-46); HEMOGLOBIN 9.2 g/dL (12.0-16.0); LYMPHOCYTES # (AUTO) 2.5 K/uL (1.0-4.8); LYMPHOCYTES % (AUTO) 26.1 % (22.0-44.0); MEAN CORPUSCULAR HEMOGLOBIN 27.6 pg (26.0-34.0); MEAN CORPUSCULAR HGB CONC 31.2 G/dL (31.0-37.0); MEAN CORPUSCULAR VOLUME 89 fL (80-100); MONOCYTES # (AUTO) 0.4 K/uL (0.1-1.0); MONOCYTES % (AUTO) 4.6 % (2.0-9.0); NEUTROPHILS # (AUTO) 6.4 K/uL (1.8-7.7); PLATELET COUNT (AUTO) 325 K/uL (150-450); RED BLOOD CELL COUNT(AUTO) 3.32 MIL/uL (4.00-5.20); RED CELL DISTRIBUTION WIDTH 18.5 % (11.5-14.5)
[2022-08-14 13:02] LABS: CALCIUM, TOTAL 8.9 mg/dL (8.8-10.5); CREATININE 5.9 mg/dL (0.60-1.30)
[2022-08-14 13:15] LABS: ALBUMIN 1.9 g/dL (3.4-5.0); BILIRUBIN,TOTAL 0.2 mg/dL (0.1-1.0); FREE T4 (FREE THYROXINE) 0.6 ng/dL (0.76-1.46); TOTAL PROTEIN, SERUM 6.6 g/dL (6.4-8.2)
[2022-08-14 14:24] LABS: THYROID STIMULATING HORMONE 327.05 uIU/mL (0.36-3.74)
[2022-08-14] MEDS ORDERED: ASPI-1450 PO (15:29)
[2022-08-14] MEDS ORDERED: ATOR20TA86 PO (15:29)
[2022-08-14] MEDS ORDERED: DIVA-85 PO (15:38)
[2022-08-14] MEDS ORDERED: EPOE10003 SQ (15:39)
[2022-08-14] MEDS ORDERED: GABA-1216 PO (15:39)
[2022-08-14] MEDS ORDERED: INSLAN SQ (15:40)
[2022-08-14] MEDS ORDERED: LOSA-381 PO (15:41)
[2022-08-14] MEDS ORDERED: LEVO150 PO (15:41)
[2022-08-14] MEDS ORDERED: PROP10TA73 PO (15:42)
[2022-08-14] MEDS ORDERED: INSU100V SQ (15:45)
[2022-08-14 17:26] LABS: GLUCOMETER DEV NAME(LOC) 5S.1B; GLUCOSE,POINT OF CARE 233 MG/DL (70-110)
[2022-08-14 17:31] LABS: GLUCOMETER DEV NAME(LOC) 5S.2B; GLUCOSE,POINT OF CARE 172 MG/DL (70-110)
== END 2022-08-14 17:27 | DRG 673 ==
LOC: EMS 10:23 → 5S 18:46
PROVIDERS: ADMIT Hospitalist; ATTEND Hospitalist
PROC: 03180ZD Bypass Left Brachial Artery to Upper Arm Vein, Open Approach (ICD-10-PCS; principal; 2022-08-13 13:00)
DX: I12.0 Hypertensive chronic kidney disease with stage 5 chronic kidney disease or end stage renal disease (principal); N18.6 End stage renal disease; G40.909 Epilepsy, unspecified, not intractable, without status epilepticus; E11.22 Type 2 diabetes mellitus with diabetic chronic kidney disease; D63.1 Anemia in chronic kidney disease; Z20.822 Contact with and (suspected) exposure to COVID-19; E03.9 Hypothyroidism, unspecified; E78.00 Pure hypercholesterolemia, unspecified; F20.9 Schizophrenia, unspecified; F31.9 Bipolar disorder, unspecified; E11.65 Type 2 diabetes mellitus with hyperglycemia; N25.0 Renal osteodystrophy; E11.319 Type 2 diabetes mellitus with unspecified diabetic retinopathy without macular edema; E78.5 Hyperlipidemia, unspecified; E11.21 Type 2 diabetes mellitus with diabetic nephropathy; Z82.49 Family history of ischemic heart disease and other diseases of the circulatory system; Z82.5 Family history of asthma and other chronic lower respiratory diseases; Z83.3 Family history of diabetes mellitus; Z99.2 Dependence on renal dialysis; Z91.013 Allergy to seafood
CPT/HCPCS: 51701; 70450; 71045; 80048; 80053; 81001; 81002; 82140; 82550; 82948; 82962; 83036; 83970; 84100; 84439; 84443; 84484; 84703; 85025; 87081; 93005; 95816; 99291; G0480; J0131; J0690; J0885; J1644; J1756; J1815; J2250; J2405; J2704; J3010; J3490; J7030; J7050; Q9967; 36415-L1; 36415-TC; Z7610

== ENCOUNTER 2022-08-17 10:17 | Emergency (ER) | payer MEDICARE, OTHER ==
[~2022-08-17] VITALS: Ht 167.6 cm; Wt 106.8 kg
[~2022-08-17 10:17] MED LIST changes: +ASPI-1450 PO; +ATOR20TA86 PO; +BACL10TA PO; +DIVA-85 PO; +DOCU-385 PO; +EPOE10003 SQ; +FOLI0.8T22 PO; +GABA-1216 PO; +HYDR25TA84 PO; +INSLAN SQ; +LACT10SO10 PO; +LEVO150 PO; +LOSA-381 PO; +PROP10TA73 PO; +SENN8.8S18 PO; +TRAM50TA4 PO
[2022-08-17 13:03] LABS: BASOPHILS % (AUTO) 0.8 % (0.0-2.0); EOSINOPHILS % (AUTO) 2.5 % (1.0-6.0); HEMATOCRIT 32.7 % (36-46); HEMOGLOBIN 10.2 g/dL (12.0-16.0); LYMPHOCYTES # (AUTO) 1.9 K/uL (1.0-4.8); LYMPHOCYTES % (AUTO) 23.5 % (22.0-44.0); MEAN CORPUSCULAR HEMOGLOBIN 27.5 pg (26.0-34.0); MEAN CORPUSCULAR HGB CONC 31.2 G/dL (31.0-37.0); MEAN CORPUSCULAR VOLUME 88 fL (80-100); MONOCYTES # (AUTO) 0.3 K/uL (0.1-1.0); MONOCYTES % (AUTO) 3.7 % (2.0-9.0); NEUTROPHILS # (AUTO) 5.7 K/uL (1.8-7.7); NEUTROPHILS % (AUTO) 69.5 % (40.0-70.0); PLATELET COUNT (AUTO) 412 K/uL (150-450); RED CELL DISTRIBUTION WIDTH 18.1 % (11.5-14.5)
[2022-08-17 13:22] LABS: BILIRUBIN,TOTAL 0.2 mg/dL (0.1-1.0); CALCIUM, TOTAL 9.1 mg/dL (8.8-10.5); CREATININE 5.53 mg/dL (0.60-1.30); TOTAL PROTEIN, SERUM 6.7 g/dL (6.4-8.2)
[2022-08-17 13:24] LABS: POTASSIUM 6.2 mmol/L (3.5-5.1)
[2022-08-17] MEDS ORDERED: SODIUM POLYSTYRENE SULFONATE 15 GM/60 ML SUSPENSION BOTTLE PO ONE (13:45)
[2022-08-17] MEDS ORDERED: DEXTROSE 50%-WATER 25 GM/50 ML SYRINGE IVP ONE (13:45)
[2022-08-17] MEDS ORDERED: INSULIN REGULAR, HUMAN 100 UNITS/ML IVP ONE (13:45)
[2022-08-17 15:48] VITALS: BP 120/76
[2022-08-17 16:49] LABS: CALCIUM, TOTAL 9.1 mg/dL (8.8-10.5); CREATININE 5.59 mg/dL (0.60-1.30); POTASSIUM 5.6 mmol/L (3.5-5.1)
== END 2022-08-17 17:55 | disposition home or self-care (01) ==
LOC: EMS 10:41
DX: E87.5 Hyperkalemia (principal); E11.22 Type 2 diabetes mellitus with diabetic chronic kidney disease; N18.5 Chronic kidney disease, stage 5; F31.9 Bipolar disorder, unspecified; E78.00 Pure hypercholesterolemia, unspecified; E03.9 Hypothyroidism, unspecified; R62.50 Unspecified lack of expected normal physiological development in childhood; F20.9 Schizophrenia, unspecified; Z91.018 Allergy to other foods
CPT/HCPCS: 99285; 96374; 71045; 96375; 80053; 83880; 84484; 85025; 36415; 93005; 80048; J1815

== ENCOUNTER 2022-08-22 11:40 | Inpatient (IN) | payer MEDICARE, OTHER ==
[~2022-08-22] VITALS: Ht 167.6 cm; Wt 93.0 kg
[~2022-08-22 11:40] MED LIST changes: +TRAM-559 PO; -TRAM50TA4 PO
[2022-08-22 13:13] LABS: BASOPHILS % (AUTO) 0.7 % (0.0-2.0); HEMATOCRIT 32.2 % (36-46); HEMOGLOBIN 10.3 g/dL (12.0-16.0); LYMPHOCYTES # (AUTO) 1.4 K/uL (1.0-4.8); LYMPHOCYTES % (AUTO) 12.7 % (22.0-44.0); MEAN CORPUSCULAR HEMOGLOBIN 27.9 pg (26.0-34.0); MEAN CORPUSCULAR HGB CONC 32.1 G/dL (31.0-37.0); MEAN CORPUSCULAR VOLUME 87 fL (80-100); MONOCYTES # (AUTO) 0.3 K/uL (0.1-1.0); NEUTROPHILS # (AUTO) 9.3 K/uL (1.8-7.7); NEUTROPHILS % (AUTO) 82.6 % (40.0-70.0); PLATELET COUNT (AUTO) 398 K/uL (150-450); RED BLOOD CELL COUNT(AUTO) 3.71 MIL/uL (4.00-5.20)
[2022-08-22 14:34] LABS: ALBUMIN 2.3 g/dL (3.4-5.0); BILIRUBIN,TOTAL 0.2 mg/dL (0.1-1.0); CALCIUM, TOTAL 8.5 mg/dL (8.8-10.5); CREATININE 5.11 mg/dL (0.60-1.30); POTASSIUM 5.6 mmol/L (3.5-5.1); TOTAL PROTEIN, SERUM 6.7 g/dL (6.4-8.2)
[2022-08-22] MEDS ORDERED: LORazepam 2 MG/ML VIAL IVP ONE (14:45)
[2022-08-22 14:55] LABS: COVID AG,FIA SOURCE NASAL SWAB
[2022-08-22] MEDS ORDERED: DEXTROSE 50%-WATER 25 GM/50 ML SYRINGE IVP ONE (15:00)
[2022-08-22] MEDS ORDERED: SODIUM ZIRCONIUM CYCLOSILICATE 5 GM POWDER PACKET PO ONE (15:00)
[2022-08-22] MEDS ORDERED: CALCIUM GLUCONATE 1,000 MG in DEXTROSE 5%-WATER 50 ML IV ONE (15:00)
[2022-08-22] MEDS ORDERED: INSULIN REGULAR, HUMAN 100 UNITS/ML IVP ONE (15:00)
[2022-08-22] MEDS ORDERED: SODIUM CHLORIDE 0.9% 1,000 ML IV ONE (15:00)
[2022-08-22] MEDS ORDERED: OxyCODONE HCL/ACETAMINOPHEN 5-325 MG TABLET PO PRN (15:30)
[2022-08-22] MEDS ORDERED: ONDANSETRON HCL 4 MG/2 ML VIAL IVP PRN (15:30)
[2022-08-22] MEDS ORDERED: DEXTROSE 50%-WATER 25 GM/50 ML SYRINGE IVP PRN (15:30)
[2022-08-22] MEDS ORDERED: HEPARIN SODIUM,PORCINE 5,000 UNITS/ML VIAL SQ SCH (16:00)
[2022-08-22] MEDS ORDERED: PANTOPRAZOLE SODIUM 40 MG DR TABLET PO SCH (21:00)
[2022-08-22] MEDS: PANTOPRAZOLE SODIUM 40 MG/VIAL IVP SCH (21:23)
[2022-08-22] MEDS: LORazepam 1 MG TABLET PO PRN (21:23)
[2022-08-22] MEDS: DOCUSATE SODIUM 100 MG CAPSULE PO SCH (21:24)
[2022-08-22 22:11] LABS: GLUCOMETER DEV NAME(LOC) ERT.5; GLUCOSE,POINT OF CARE 159 MG/DL (70-110)
[2022-08-22 22:53] VITALS: BP 164/86
[2022-08-22] MEDS: LORazepam 2 MG/ML VIAL IVP PRN (23:55)
[2022-08-23 04:15] VITALS: BP 100/69
[2022-08-23] MEDS: INSULIN LISPRO 100 UNITS/ML SQ PRN ×3 (07:03→22:30)
[2022-08-23 07:41] VITALS: BP 124/68
[2022-08-23] MEDS ORDERED: EPOETIN ALFA 10,000 UNITS/ML VIAL SQ ONE (08:00)
[2022-08-23] MEDS ORDERED: SODIUM ZIRCONIUM CYCLOSILICATE 5 GM POWDER PACKET PO ONE (08:00)
[2022-08-23] MEDS: DOCUSATE SODIUM 100 MG CAPSULE PO SCH ×2 (08:11→20:29)
[2022-08-23] MEDS: LEVOTHYROXINE SODIUM 200 MCG TABLET PO SCH (08:11)
[2022-08-23] MEDS: PANTOPRAZOLE SODIUM 40 MG/VIAL IVP SCH ×2 (08:28→21:00)
[2022-08-23 08:41] LABS: GLUCOMETER DEV NAME(LOC) 5N.1C; GLUCOSE,POINT OF CARE 146 MG/DL (70-110)
[2022-08-23] MEDS: LORazepam 1 MG TABLET PO PRN ×2 (10:35→17:13)
[2022-08-23 14:51] LABS: CALCIUM, TOTAL 8.2 mg/dL (8.8-10.5); CREATININE 5.34 mg/dL (0.60-1.30); MAGNESIUM 2.3 mg/dL (1.80-2.40); POTASSIUM 5.8 mmol/L (3.5-5.1)
[2022-08-23] MEDS ORDERED: ONDANSETRON HCL 4 MG/2 ML VIAL PO PRN (15:30)
[2022-08-23 15:32] VITALS: BP 99/60
[2022-08-23] MEDS: SODIUM BICARBONATE 650 MG TABLET PO SCH ×2 (15:39→20:29)
[2022-08-23 20:00] VITALS: BP 105/66
[2022-08-24] VITALS (9 sets, daily range): BP systolic 91–126; BP diastolic 46–71
[2022-08-24 03:06] LABS: GLUCOMETER DEV NAME(LOC) 5N.3; GLUCOSE,POINT OF CARE 167 MG/DL (70-110)
[2022-08-24 03:06] LABS: GLUCOMETER DEV NAME(LOC) 5N.3; GLUCOSE,POINT OF CARE 140 MG/DL (70-110)
[2022-08-24] MEDS: LORazepam 1 MG TABLET PO PRN (04:30)
[2022-08-24 06:16] LABS: GLUCOMETER DEV NAME(LOC) 5N.3; GLUCOSE,POINT OF CARE 105 MG/DL (70-110)
[2022-08-24] MEDS: LEVOTHYROXINE SODIUM 200 MCG TABLET PO SCH (06:16)
[2022-08-24 06:51] LABS: GLUCOMETER DEV NAME(LOC) 5S.1B; GLUCOSE,POINT OF CARE 145 MG/DL (70-110)
[2022-08-24] MEDS: PANTOPRAZOLE SODIUM 40 MG/VIAL IVP SCH ×2 (09:54→21:48)
[2022-08-24] MEDS: SODIUM BICARBONATE 650 MG TABLET PO SCH ×2 (09:54→21:48)
[2022-08-24] MEDS: DOCUSATE SODIUM 100 MG CAPSULE PO SCH ×2 (09:55→21:48)
[2022-08-24] MEDS: SODIUM CHLORIDE 1 GM TABLET PO SCH ×3 (10:00→21:48)
[2022-08-24] MEDS: SODIUM ZIRCONIUM CYCLOSILICATE 5 GM POWDER PACKET PO SCH (10:00)
[2022-08-24] MEDS: LORazepam 2 MG/ML VIAL IVP PRN ×2 (13:06→21:49)
[2022-08-24 16:17] LABS: PROTHROMBIN TIME 10.7 SEC (9.4-11.6)
[2022-08-24 17:29] LABS: PLATELET COUNT (AUTO) 172 K/uL (150-450)
[2022-08-24 17:31] LABS: MEAN CORPUSCULAR HEMOGLOBIN 29.2 pg (26.0-34.0); MEAN CORPUSCULAR HGB CONC 32.7 G/dL (31.0-37.0); MEAN CORPUSCULAR VOLUME 89 fL (80-100); RED BLOOD CELL COUNT(AUTO) 1.45 MIL/uL (4.00-5.20); RED CELL DISTRIBUTION WIDTH 18.7 % (11.5-14.5)
[2022-08-24 17:42] LABS: CALCIUM, TOTAL 7.5 mg/dL (8.8-10.5); CREATININE 5.54 mg/dL (0.60-1.30); POTASSIUM 4.6 mmol/L (3.5-5.1)
[2022-08-24 17:50] LABS: HEMATOCRIT 12.9 % (36-46); HEMOGLOBIN 4.2 g/dL (12.0-16.0)
[2022-08-24 18:04] LABS: BAND NEUTROPHILS % (MANUAL) 9 % (0-5); EOSINOPHILS % (MANUAL) 1 % (1-6); LYMPHOCYTES % (MANUAL) 30 % (22-44); MONOCYTES % (MANUAL) 4 % (2-9); SEGMENTED NEUTROPHILS % 56 % (40-70)
[2022-08-24 19:01] LABS: GLUCOMETER DEV NAME(LOC) 5S.1B; GLUCOSE,POINT OF CARE 139 MG/DL (70-110)
[2022-08-24 21:51] LABS: GLUCOMETER DEV NAME(LOC) 5S.1B; GLUCOSE,POINT OF CARE 164 MG/DL (70-110)
[2022-08-24] MEDS: INSULIN LISPRO 100 UNITS/ML SQ PRN (22:03)
[2022-08-24] MEDS ORDERED: SODIUM CHLORIDE 0.9% 250 ML IV ONE (22:22)
[2022-08-25] VITALS (20 sets, daily range): BP systolic 67–144; BP diastolic 38–79
[2022-08-25 01:06] LABS: GLUCOMETER DEV NAME(LOC) 5N.3; GLUCOSE,POINT OF CARE 134 MG/DL (70-110)
[2022-08-25] MEDS: LEVOTHYROXINE SODIUM 200 MCG TABLET PO SCH (05:49)
[2022-08-25 06:11] LABS: GLUCOMETER DEV NAME(LOC) 5N.3; GLUCOSE,POINT OF CARE 123 MG/DL (70-110)
[2022-08-25 07:29] LABS: CREATININE,URINE RANDOM 165.7 mg/dL (30.0-125.0)
[2022-08-25] MEDS: SODIUM CHLORIDE 1 GM TABLET PO SCH (08:48)
[2022-08-25] MEDS: DOCUSATE SODIUM 100 MG CAPSULE PO SCH ×2 (08:49→21:00)
[2022-08-25] MEDS: PANTOPRAZOLE SODIUM 40 MG/VIAL IVP SCH ×2 (08:49→21:29)
[2022-08-25] MEDS: SODIUM ZIRCONIUM CYCLOSILICATE 5 GM POWDER PACKET PO SCH (08:49)
[2022-08-25] MEDS: SODIUM BICARBONATE 650 MG TABLET PO SCH ×2 (08:50→21:00)
[2022-08-25 09:27] LABS: BASOPHILS % (AUTO) 0.6 % (0.0-2.0); EOSINOPHILS % (AUTO) 0.1 % (1.0-6.0); LYMPHOCYTES # (AUTO) 1.2 K/uL (1.0-4.8); LYMPHOCYTES % (AUTO) 11.7 % (22.0-44.0); MEAN CORPUSCULAR HEMOGLOBIN 28.3 pg (26.0-34.0); MEAN CORPUSCULAR HGB CONC 32.9 G/dL (31.0-37.0); MEAN CORPUSCULAR VOLUME 86 fL (80-100); MONOCYTES # (AUTO) 0.5 K/uL (0.1-1.0); MONOCYTES % (AUTO) 4.5 % (2.0-9.0); NEUTROPHILS # (AUTO) 8.7 K/uL (1.8-7.7); NEUTROPHILS % (AUTO) 83.1 % (40.0-70.0); PLATELET COUNT (AUTO) 168 K/uL (150-450); RED BLOOD CELL COUNT(AUTO) 1.84 MIL/uL (4.00-5.20); RED CELL DISTRIBUTION WIDTH 17.6 % (11.5-14.5)
[2022-08-25 09:31] LABS: HEMATOCRIT 15.8 % (36-46); HEMOGLOBIN 5.2 g/dL (12.0-16.0)
[2022-08-25 09:38] LABS: BILIRUBIN,TOTAL 0.3 mg/dL (0.1-1.0); CALCIUM, TOTAL 7.6 mg/dL (8.8-10.5); CREATININE 5.6 mg/dL (0.60-1.30); POTASSIUM 4.9 mmol/L (3.5-5.1); TOTAL PROTEIN, SERUM 5.3 g/dL (6.4-8.2)
[2022-08-25] MEDS: SODIUM CHLORIDE 3% 500 ML IV SCH (10:00)
[2022-08-25] MEDS: ALBUMIN HUMAN 25%-25GM/100ML 100 ML IV SCH ×2 (11:28→22:32)
[2022-08-25] MEDS: INSULIN LISPRO 100 UNITS/ML SQ PRN (11:58)
[2022-08-25 12:11] LABS: GLUCOMETER DEV NAME(LOC) 5S.1B; GLUCOSE,POINT OF CARE 148 MG/DL (70-110)
[2022-08-25] MEDS ORDERED: SODIUM CHLORIDE 0.9% 250 ML IV ONE ×2 (14:05→14:15)
[2022-08-25] MEDS ORDERED: HEPARIN SODIUM,PORCINE 1,000 UNITS/ML VIAL IVP ONE (17:32)
[2022-08-25] MEDS ORDERED: SODIUM CHLORIDE 0.9% 500 ML IV ONE (17:52)
[2022-08-25] MEDS: OLANZapine 10 MG TABLET PO SCH (21:29)
[2022-08-25] MEDS: LORazepam 2 MG/ML VIAL IVP PRN (21:29)
[2022-08-26] VITALS (13 sets, daily range): BP systolic 79–133; BP diastolic 36–60
[2022-08-26 00:01] LABS: GLUCOSE,POINT OF CARE 130 MG/DL (70-110)
[2022-08-26 00:02] LABS: GLUCOSE,POINT OF CARE 130 MG/DL (70-110)
[2022-08-26 05:43] LABS: BASOPHILS % (AUTO) 0.3 % (0.0-2.0); EOSINOPHILS % (AUTO) 0.2 % (1.0-6.0); LYMPHOCYTES # (AUTO) 1.3 K/uL (1.0-4.8); LYMPHOCYTES % (AUTO) 13.9 % (22.0-44.0); MEAN CORPUSCULAR HEMOGLOBIN 29.9 pg (26.0-34.0); MEAN CORPUSCULAR HGB CONC 34.4 G/dL (31.0-37.0); MEAN CORPUSCULAR VOLUME 87 fL (80-100); MONOCYTES # (AUTO) 0.6 K/uL (0.1-1.0); MONOCYTES % (AUTO) 6.8 % (2.0-9.0); NEUTROPHILS # (AUTO) 7.1 K/uL (1.8-7.7); NEUTROPHILS % (AUTO) 78.8 % (40.0-70.0); PLATELET COUNT (AUTO) 121 K/uL (150-450); RED BLOOD CELL COUNT(AUTO) 2.05 MIL/uL (4.00-5.20); RED CELL DISTRIBUTION WIDTH 16.1 % (11.5-14.5)
[2022-08-26] MEDS ORDERED: SODIUM CHLORIDE 0.9% 500 ML IV ONE (05:48)
[2022-08-26 05:55] LABS: HEMATOCRIT 17.8 % (36-46); HEMOGLOBIN 6.1 g/dL (12.0-16.0)
[2022-08-26] MEDS: SODIUM CHLORIDE 3% 500 ML IV SCH (06:09)
[2022-08-26] MEDS: LEVOTHYROXINE SODIUM 200 MCG TABLET PO SCH (06:20)
[2022-08-26 08:10] LABS: GLUCOSE,POINT OF CARE 96 MG/DL (70-110)
[2022-08-26] MEDS: ALBUMIN HUMAN 25%-25GM/100ML 100 ML IV SCH ×2 (08:59→22:10)
[2022-08-26] MEDS: SODIUM BICARBONATE 650 MG TABLET PO SCH ×2 (09:00→21:00)
[2022-08-26] MEDS: SODIUM ZIRCONIUM CYCLOSILICATE 5 GM POWDER PACKET PO SCH (09:00)
[2022-08-26] MEDS: PANTOPRAZOLE SODIUM 40 MG/VIAL IVP SCH (09:00)
[2022-08-26] MEDS: DOCUSATE SODIUM 100 MG CAPSULE PO SCH ×2 (09:00→21:00)
[2022-08-26] MEDS: LORazepam 2 MG/ML VIAL IVP PRN ×2 (09:00→17:09)
[2022-08-26] MEDS ORDERED: SODIUM CHLORIDE 0.9% 250 ML IV ONE ×3 (11:14→12:26)
[2022-08-26] MEDS ORDERED: DESMOPRESSIN ACETATE 4 MCG/ML VIAL IVP ONE (11:15)
[2022-08-26] MEDS ORDERED: DESMOPRESSIN ACETATE 20 MCG in SODIUM CHLORIDE 0.9% 50 ML IV ONE (11:30)
[2022-08-26] MEDS: IRON DEXTRAN COMPLEX 100 MG in SODIUM CHLORIDE 0.9% 100 ML IV SCH (11:45)
[2022-08-26] MEDS ORDERED: PROPOFOL 1% 20 ML VIAL IVP ONE (12:00)
[2022-08-26] MEDS ORDERED: LIDOCAINE/PF 2% 5 ML VIAL IM ONE (12:00)
[2022-08-26 16:15] LABS: BILIRUBIN,DIRECT 0.1 mg/dL (0.00-0.20); BILIRUBIN,TOTAL 0.4 mg/dL (0.1-1.0); CALCIUM, TOTAL 7.2 mg/dL (8.8-10.5); CREATININE 5.63 mg/dL (0.60-1.30); POTASSIUM 4.7 mmol/L (3.5-5.1)
[2022-08-26] MEDS ORDERED: BUMETANIDE 0.25 MG/ML 4 ML VIAL IVP ONE (16:45)
[2022-08-26 18:31] LABS: GLUCOSE,POINT OF CARE 86 MG/DL (70-110)
[2022-08-26 18:31] LABS: GLUCOSE,POINT OF CARE 81 MG/DL (70-110)
[2022-08-26 19:44] LABS: BASOPHILS % (AUTO) 0.4 % (0.0-2.0); EOSINOPHILS % (AUTO) 0.1 % (1.0-6.0); LYMPHOCYTES # (AUTO) 0.4 K/uL (1.0-4.8); LYMPHOCYTES % (AUTO) 12.7 % (22.0-44.0); MEAN CORPUSCULAR HEMOGLOBIN 29.3 pg (26.0-34.0); MEAN CORPUSCULAR HGB CONC 33.3 G/dL (31.0-37.0); MEAN CORPUSCULAR VOLUME 88 fL (80-100); MONOCYTES # (AUTO) 0.2 K/uL (0.1-1.0); NEUTROPHILS # (AUTO) 2.6 K/uL (1.8-7.7); NEUTROPHILS % (AUTO) 81.8 % (40.0-70.0); PLATELET COUNT (AUTO) 118 K/uL (150-450); RED BLOOD CELL COUNT(AUTO) 2.35 MIL/uL (4.00-5.20); RED CELL DISTRIBUTION WIDTH 16.9 % (11.5-14.5)
[2022-08-26 20:25] LABS: HEMATOCRIT 20.7 % (36-46); HEMOGLOBIN 6.9 g/dL (12.0-16.0)
[2022-08-26] MEDS: OLANZapine 10 MG TABLET PO SCH (21:00)
[2022-08-26 23:31] LABS: GLUCOSE,POINT OF CARE 84 MG/DL (70-110)
[2022-08-27] VITALS (21 sets, daily range): BP systolic 93–166; BP diastolic 48–98
[2022-08-27 06:02] LABS: BASOPHILS % (AUTO) 0.2 % (0.0-2.0); EOSINOPHILS % (AUTO) 0.2 % (1.0-6.0); LYMPHOCYTES # (AUTO) 0.7 K/uL (1.0-4.8); LYMPHOCYTES % (AUTO) 14.4 % (22.0-44.0); MEAN CORPUSCULAR HEMOGLOBIN 29.1 pg (26.0-34.0); MEAN CORPUSCULAR HGB CONC 33.8 G/dL (31.0-37.0); MEAN CORPUSCULAR VOLUME 86 fL (80-100); MONOCYTES # (AUTO) 0.2 K/uL (0.1-1.0); MONOCYTES % (AUTO) 4.4 % (2.0-9.0); NEUTROPHILS # (AUTO) 3.9 K/uL (1.8-7.7); NEUTROPHILS % (AUTO) 80.8 % (40.0-70.0); PLATELET COUNT (AUTO) 104 K/uL (150-450); RED BLOOD CELL COUNT(AUTO) 2.42 MIL/uL (4.00-5.20); RED CELL DISTRIBUTION WIDTH 16.6 % (11.5-14.5)
[2022-08-27 06:05] LABS: INR 1.2 (0.9-1.1); PROTHROMBIN TIME 12.4 SEC (9.4-11.6)
[2022-08-27 06:15] LABS: HEMATOCRIT 20.8 % (36-46)
[2022-08-27] MEDS: LEVOTHYROXINE SODIUM 200 MCG TABLET PO SCH (06:30)
[2022-08-27] MEDS: PANTOPRAZOLE SODIUM 40 MG/VIAL IVP SCH (08:30)
[2022-08-27] MEDS: DOCUSATE SODIUM 100 MG CAPSULE PO SCH ×2 (08:32→21:00)
[2022-08-27] MEDS: SODIUM ZIRCONIUM CYCLOSILICATE 5 GM POWDER PACKET PO SCH (08:32)
[2022-08-27] MEDS: SODIUM BICARBONATE 650 MG TABLET PO SCH ×2 (08:33→21:00)
[2022-08-27 09:12] LABS: CALCIUM, TOTAL 7.1 mg/dL (8.8-10.5); CREATININE 5.78 mg/dL (0.60-1.30); POTASSIUM 4.9 mmol/L (3.5-5.1)
[2022-08-27] MEDS ORDERED: FentaNYL CITRATE PF 100 MCG/2 ML VIAL IVP ONE ×2 (09:15→10:15)
[2022-08-27] MEDS ORDERED: MIDAZOLAM HCL 2 MG/2 ML VIAL IVP ONE ×2 (09:15→10:15)
[2022-08-27] MEDS ORDERED: KETAMINE HCL 50 MG/ML 10 ML VIAL IVP ONE (09:15)
[2022-08-27] MEDS ORDERED: LEVOTHYROXINE SODIUM 100 MCG VIAL IVP ONE (10:30)
[2022-08-27] MEDS: ALBUMIN HUMAN 25%-25GM/100ML 100 ML IV SCH ×2 (10:48→22:31)
[2022-08-27] MEDS ORDERED: SODIUM CHLORIDE 0.9% 250 ML IV ONE (11:05)
[2022-08-27] MEDS: IRON DEXTRAN COMPLEX 100 MG in SODIUM CHLORIDE 0.9% 100 ML IV SCH (11:08)
[2022-08-27 11:11] LABS: GLUCOSE,POINT OF CARE 80 MG/DL (70-110)
[2022-08-27 18:26] LABS: GLUCOSE,POINT OF CARE 76 MG/DL (70-110)
[2022-08-27] MEDS: VALPROATE SODIUM 250 MG in DEXTROSE 5%-WATER 50 ML IV SCH (18:39)
[2022-08-27 19:21] LABS: GLUCOSE,POINT OF CARE 84 MG/DL (70-110)
[2022-08-27] MEDS: OLANZapine 10 MG TABLET PO SCH (21:00)
[2022-08-27 21:45] LABS: BASOPHILS % (AUTO) 0.3 % (0.0-2.0); EOSINOPHILS % (AUTO) 0.5 % (1.0-6.0); LYMPHOCYTES # (AUTO) 0.7 K/uL (1.0-4.8); LYMPHOCYTES % (AUTO) 12.8 % (22.0-44.0); MEAN CORPUSCULAR HEMOGLOBIN 29.2 pg (26.0-34.0); MEAN CORPUSCULAR HGB CONC 33.5 G/dL (31.0-37.0); MEAN CORPUSCULAR VOLUME 87 fL (80-100); MONOCYTES # (AUTO) 0.2 K/uL (0.1-1.0); MONOCYTES % (AUTO) 3.8 % (2.0-9.0); NEUTROPHILS # (AUTO) 4.5 K/uL (1.8-7.7); NEUTROPHILS % (AUTO) 82.6 % (40.0-70.0); PLATELET COUNT (AUTO) 96 K/uL (150-450); RED BLOOD CELL COUNT(AUTO) 2.25 MIL/uL (4.00-5.20)
[2022-08-27 21:46] LABS: GLUCOSE,POINT OF CARE 80 MG/DL (70-110)
[2022-08-27 21:58] LABS: HEMATOCRIT 19.5 % (36-46); HEMOGLOBIN 6.6 g/dL (12.0-16.0)
[2022-08-28] VITALS (18 sets, daily range): BP systolic 122–175; BP diastolic 59–98
[2022-08-28] MEDS: VALPROATE SODIUM 250 MG in DEXTROSE 5%-WATER 50 ML IV SCH ×3 (02:26→18:12)
[2022-08-28 05:26] LABS: BASOPHILS % (AUTO) 0.4 % (0.0-2.0); EOSINOPHILS % (AUTO) 0.6 % (1.0-6.0); HEMATOCRIT 21.6 % (36-46); HEMOGLOBIN 7.3 g/dL (12.0-16.0); LYMPHOCYTES # (AUTO) 0.9 K/uL (1.0-4.8); LYMPHOCYTES % (AUTO) 14.7 % (22.0-44.0); MEAN CORPUSCULAR HEMOGLOBIN 29.1 pg (26.0-34.0); MEAN CORPUSCULAR HGB CONC 33.9 G/dL (31.0-37.0); MEAN CORPUSCULAR VOLUME 86 fL (80-100); MONOCYTES # (AUTO) 0.2 K/uL (0.1-1.0); MONOCYTES % (AUTO) 3.6 % (2.0-9.0); NEUTROPHILS # (AUTO) 4.9 K/uL (1.8-7.7); NEUTROPHILS % (AUTO) 80.7 % (40.0-70.0); PLATELET COUNT (AUTO) 106 K/uL (150-450); RED BLOOD CELL COUNT(AUTO) 2.52 MIL/uL (4.00-5.20); RED CELL DISTRIBUTION WIDTH 16.6 % (11.5-14.5)
[2022-08-28 05:37] LABS: CALCIUM, TOTAL 7.8 mg/dL (8.8-10.5); CREATININE 4.13 mg/dL (0.60-1.30)
[2022-08-28 07:06] LABS: GLUCOSE,POINT OF CARE 84 MG/DL (70-110)
[2022-08-28] MEDS: DOCUSATE SODIUM 100 MG CAPSULE PO SCH ×2 (08:24→21:26)
[2022-08-28] MEDS: PANTOPRAZOLE SODIUM 40 MG/VIAL IVP SCH (08:24)
[2022-08-28] MEDS: SODIUM ZIRCONIUM CYCLOSILICATE 5 GM POWDER PACKET PO SCH (08:25)
[2022-08-28] MEDS: ALBUMIN HUMAN 25%-25GM/100ML 100 ML IV SCH ×2 (10:43→21:26)
[2022-08-28] MEDS: EPOETIN ALFA 10,000 UNITS/ML 2 ML VIAL SQ SCH (11:19)
[2022-08-28] MEDS: IRON DEXTRAN COMPLEX 100 MG in SODIUM CHLORIDE 0.9% 100 ML IV SCH (11:19)
[2022-08-28 11:42] LABS: PATHOLOGY REVIEW, DIFF YES
[2022-08-28] MEDS ORDERED: DESMOPRESSIN ACETATE 20 MCG in SODIUM CHLORIDE 0.9% 50 ML IV ONE (11:45)
[2022-08-28 12:07] LABS: GLUCOSE,POINT OF CARE 96 MG/DL (70-110)
[2022-08-28 16:02] LABS: HEMATOCRIT 22.6 % (36-46); HEMOGLOBIN 7.7 g/dL (12.0-16.0)
[2022-08-28 17:57] LABS: GLUCOSE,POINT OF CARE 85 MG/DL (70-110)
[2022-08-28] MEDS: OLANZapine 10 MG TABLET PO SCH (21:26)
[2022-08-28] MEDS ORDERED: SODIUM CHLORIDE 0.9% 250 ML IV ONE (21:28)
[2022-08-29] VITALS: BP 151/79
[2022-08-29] MEDS: VALPROATE SODIUM 250 MG in DEXTROSE 5%-WATER 50 ML IV SCH ×3 (02:33→17:39)
[2022-08-29 04:00] VITALS: BP 146/78
[2022-08-29 05:19] LABS: HEMATOCRIT 21.9 % (36-46); HEMOGLOBIN 7.5 g/dL (12.0-16.0)
[2022-08-29 06:16] LABS: GLUCOSE,POINT OF CARE 122 MG/DL (70-110)
[2022-08-29 08:00] VITALS: BP 148/79
[2022-08-29] MEDS: PANTOPRAZOLE SODIUM 40 MG/VIAL IVP SCH (08:25)
[2022-08-29] MEDS: DOCUSATE SODIUM 100 MG CAPSULE PO SCH ×2 (08:25→21:00)
[2022-08-29] MEDS: SODIUM ZIRCONIUM CYCLOSILICATE 5 GM POWDER PACKET PO SCH (08:26)
[2022-08-29] MEDS ORDERED: SODIUM CHLORIDE 0.9% 2,000 ML ONE (08:45)
[2022-08-29] MEDS: ALBUMIN HUMAN 25%-25GM/100ML 100 ML IV SCH (10:24)
[2022-08-29] MEDS: IRON DEXTRAN COMPLEX 100 MG in SODIUM CHLORIDE 0.9% 100 ML IV SCH (10:24)
[2022-08-29] MEDS: INSULIN LISPRO 100 UNITS/ML SQ PRN ×3 (11:24→22:05)
[2022-08-29 12:00] VITALS: BP 161/85
[2022-08-29 13:11] LABS: CALCIUM, TOTAL 8.4 mg/dL (8.8-10.5); CREATININE 3.34 mg/dL (0.60-1.30); PHOSPHORUS 4.2 mg/dL (2.5-4.9); POTASSIUM 3.5 mmol/L (3.5-5.1)
[2022-08-29] MEDS: FUROSEMIDE 40 MG/4 ML VIAL IVP SCH (14:21)
[2022-08-29] MEDS: VITAMIN B COMP/VIT C/FOLIC ACID CAPSULE PO SCH (14:22)
[2022-08-29 16:00] VITALS: BP 183/83
[2022-08-29 19:01] LABS: GLUCOSE,POINT OF CARE 180 MG/DL (70-110)
[2022-08-29 19:01] LABS: GLUCOSE,POINT OF CARE 178 MG/DL (70-110)
[2022-08-29 19:06] LABS: GLUCOSE,POINT OF CARE 123 MG/DL (70-110)
[2022-08-29 20:08] VITALS: BP 159/69
[2022-08-29] MEDS: OLANZapine 10 MG TABLET PO SCH (22:03)
[2022-08-29] MEDS ORDERED: SODIUM CHLORIDE 0.9% 250 ML IV ONE (23:27)
[2022-08-30] VITALS (21 sets, daily range): BP systolic 138–159; BP diastolic 76–93
[2022-08-30] MEDS: VALPROATE SODIUM 250 MG in DEXTROSE 5%-WATER 50 ML IV SCH ×3 (02:48→21:54)
[2022-08-30] MEDS: ACETAMINOPHEN 325 MG TABLET PO PRN (03:46)
[2022-08-30 06:48] LABS: BASOPHILS % (AUTO) 0.9 % (0.0-2.0); EOSINOPHILS % (AUTO) 1.1 % (1.0-6.0); LYMPHOCYTES # (AUTO) 1.7 K/uL (1.0-4.8); LYMPHOCYTES % (AUTO) 15.6 % (22.0-44.0); MEAN CORPUSCULAR HEMOGLOBIN 29.6 pg (26.0-34.0); MEAN CORPUSCULAR HGB CONC 33.4 G/dL (31.0-37.0); MEAN CORPUSCULAR VOLUME 89 fL (80-100); MONOCYTES # (AUTO) 0.3 K/uL (0.1-1.0); MONOCYTES % (AUTO) 2.5 % (2.0-9.0); NEUTROPHILS # (AUTO) 8.7 K/uL (1.8-7.7); NEUTROPHILS % (AUTO) 79.9 % (40.0-70.0); PLATELET COUNT (AUTO) 106 K/uL (150-450); RED BLOOD CELL COUNT(AUTO) 2.35 MIL/uL (4.00-5.20); RED CELL DISTRIBUTION WIDTH 17.6 % (11.5-14.5)
[2022-08-30 07:02] LABS: HEMATOCRIT 20.8 % (36-46)
[2022-08-30 07:11] LABS: CALCIUM, TOTAL 8.7 mg/dL (8.8-10.5); CREATININE 3.69 mg/dL (0.60-1.30); MAGNESIUM 1.7 mg/dL (1.80-2.40); PHOSPHORUS 3.8 mg/dL (2.5-4.9); POTASSIUM 3.5 mmol/L (3.5-5.1)
[2022-08-30 07:19] LABS: ALBUMIN 2.5 g/dL (3.4-5.0); CALCIUM, TOTAL 8.7 mg/dL (8.8-10.5); CREATININE 3.61 mg/dL (0.60-1.30); POTASSIUM 3.5 mmol/L (3.5-5.1); TOTAL PROTEIN, SERUM 5.3 g/dL (6.4-8.2)
[2022-08-30] MEDS: FUROSEMIDE 40 MG/4 ML VIAL IVP SCH (09:26)
[2022-08-30] MEDS: PANTOPRAZOLE SODIUM 40 MG/VIAL IVP SCH (09:26)
[2022-08-30] MEDS: DOCUSATE SODIUM 100 MG CAPSULE PO SCH ×2 (09:29→21:48)
[2022-08-30] MEDS: VITAMIN B COMP/VIT C/FOLIC ACID CAPSULE PO SCH (09:29)
[2022-08-30] MEDS: IRON DEXTRAN COMPLEX 100 MG in SODIUM CHLORIDE 0.9% 100 ML IV SCH (12:19)
[2022-08-30 13:41] LABS: HEMATOCRIT 24.2 % (36-46); HEMOGLOBIN 7.9 g/dL (12.0-16.0)
[2022-08-30] MEDS ORDERED: SODIUM CHLORIDE 0.9% 250 ML IV ONE (14:41)
[2022-08-30] MEDS ORDERED: HEPARIN SODIUM,PORCINE 1,000 UNITS/ML VIAL IVCATH ONE ×2 (16:30)
[2022-08-30] MEDS ORDERED: HEPARIN SODIUM,PORCINE 1,000 UNITS/ML VIAL IVP ONE (18:38)
[2022-08-30] MEDS: OLANZapine 10 MG TABLET PO SCH (21:48)
[2022-08-30] MEDS: INSULIN LISPRO 100 UNITS/ML SQ PRN (22:44)
[2022-08-31 05:17] VITALS: BP 142/70
[2022-08-31] MEDS: VALPROATE SODIUM 250 MG in DEXTROSE 5%-WATER 50 ML IV SCH ×3 (06:26→22:42)
[2022-08-31 07:27] LABS: BASOPHILS % (AUTO) 0.3 % (0.0-2.0); EOSINOPHILS % (AUTO) 2.2 % (1.0-6.0); HEMATOCRIT 25.1 % (36-46); HEMOGLOBIN 8.3 g/dL (12.0-16.0); LYMPHOCYTES # (AUTO) 1.4 K/uL (1.0-4.8); LYMPHOCYTES % (AUTO) 14.7 % (22.0-44.0); MEAN CORPUSCULAR HEMOGLOBIN 29.9 pg (26.0-34.0); MEAN CORPUSCULAR HGB CONC 33.1 G/dL (31.0-37.0); MEAN CORPUSCULAR VOLUME 90 fL (80-100); MONOCYTES # (AUTO) 0.4 K/uL (0.1-1.0); MONOCYTES % (AUTO) 3.9 % (2.0-9.0); NEUTROPHILS # (AUTO) 7.5 K/uL (1.8-7.7); NEUTROPHILS % (AUTO) 78.9 % (40.0-70.0); PLATELET COUNT (AUTO) 95 K/uL (150-450); RED BLOOD CELL COUNT(AUTO) 2.79 MIL/uL (4.00-5.20)
[2022-08-31 07:54] LABS: CREATININE 3.01 mg/dL (0.60-1.30); POTASSIUM 3.4 mmol/L (3.5-5.1)
[2022-08-31 07:55] LABS: ALBUMIN 2.3 g/dL (3.4-5.0); BILIRUBIN,TOTAL 0.8 mg/dL (0.1-1.0); CALCIUM, TOTAL 8.6 mg/dL (8.8-10.5); TOTAL PROTEIN, SERUM 5.5 g/dL (6.4-8.2)
[2022-08-31 08:25] VITALS: BP 181/81
[2022-08-31] MEDS: FUROSEMIDE 40 MG/4 ML VIAL IVP SCH (09:09)
[2022-08-31] MEDS: CloNIDine HCL 0.1 MG TABLET PO PRN (09:09)
[2022-08-31] MEDS: PANTOPRAZOLE SODIUM 40 MG/VIAL IVP SCH (09:10)
[2022-08-31] MEDS: VITAMIN B COMP/VIT C/FOLIC ACID CAPSULE PO SCH (09:10)
[2022-08-31] MEDS: DOCUSATE SODIUM 100 MG CAPSULE PO SCH ×2 (09:10→20:17)
[2022-08-31] MEDS: EPOETIN ALFA 10,000 UNITS/ML 2 ML VIAL SQ SCH (09:12)
[2022-08-31] MEDS ORDERED: SODIUM CHLORIDE 0.9% 0 ML ONE (11:19)
[2022-08-31 11:58] VITALS: BP 158/82
[2022-08-31] MEDS ORDERED: SODIUM CHLORIDE 0.9% 1,000 ML IV ONE (12:00)
[2022-08-31] MEDS: INSULIN LISPRO 100 UNITS/ML SQ PRN ×2 (17:45→20:21)
[2022-08-31 19:54] VITALS: BP 154/88
[2022-08-31] MEDS: OLANZapine 10 MG TABLET PO SCH (20:17)
[2022-08-31] MEDS: ACETAMINOPHEN 325 MG TABLET PO PRN (20:18)
[2022-08-31 23:56] VITALS: BP 159/80
[2022-09-01] VITALS (16 sets, daily range): BP systolic 145–193; BP diastolic 73–101
[2022-09-01] MEDS: LORazepam 1 MG TABLET PO PRN ×2 (00:15→22:44)
[2022-09-01] MEDS ORDERED: SODIUM CHLORIDE 0.9% 250 ML IV ONE (04:56)
[2022-09-01] MEDS: CloNIDine HCL 0.1 MG TABLET PO PRN ×2 (05:20→19:56)
[2022-09-01] MEDS: INSULIN LISPRO 100 UNITS/ML SQ PRN ×2 (06:06→11:53)
[2022-09-01] MEDS: VALPROATE SODIUM 250 MG in DEXTROSE 5%-WATER 50 ML IV SCH ×3 (06:06→22:00)
[2022-09-01 07:22] LABS: BASOPHILS % (AUTO) 0.7 % (0.0-2.0); EOSINOPHILS % (AUTO) 2.4 % (1.0-6.0); HEMATOCRIT 29.2 % (36-46); HEMOGLOBIN 9.6 g/dL (12.0-16.0); LYMPHOCYTES % (AUTO) 21.8 % (22.0-44.0); MEAN CORPUSCULAR HEMOGLOBIN 29.9 pg (26.0-34.0); MEAN CORPUSCULAR HGB CONC 32.8 G/dL (31.0-37.0); MEAN CORPUSCULAR VOLUME 91 fL (80-100); MONOCYTES # (AUTO) 0.4 K/uL (0.1-1.0); MONOCYTES % (AUTO) 4.1 % (2.0-9.0); NEUTROPHILS # (AUTO) 6.6 K/uL (1.8-7.7); RED CELL DISTRIBUTION WIDTH 17.3 % (11.5-14.5)
[2022-09-01 08:08] LABS: ALBUMIN 2.4 g/dL (3.4-5.0); BILIRUBIN,TOTAL 0.7 mg/dL (0.1-1.0); CREATININE 3.59 mg/dL (0.60-1.30); POTASSIUM 3.6 mmol/L (3.5-5.1); TOTAL PROTEIN, SERUM 5.9 g/dL (6.4-8.2)
[2022-09-01 08:16] LABS: PLATELET COUNT (AUTO) 114 K/uL (150-450)
[2022-09-01] MEDS: FUROSEMIDE 40 MG/4 ML VIAL IVP SCH (08:55)
[2022-09-01] MEDS: VITAMIN B COMP/VIT C/FOLIC ACID CAPSULE PO SCH (08:55)
[2022-09-01] MEDS: PANTOPRAZOLE SODIUM 40 MG/VIAL IVP SCH (08:55)
[2022-09-01] MEDS: DOCUSATE SODIUM 100 MG CAPSULE PO SCH ×2 (08:55→19:56)
[2022-09-01] MEDS: LORazepam 2 MG/ML VIAL IVP PRN (12:50)
[2022-09-01] MEDS ORDERED: HEPARIN SODIUM,PORCINE 1,000 UNITS/ML VIAL IVCATH ONE ×2 (18:30)
[2022-09-01 18:43] LABS: GLUCOMETER DEV NAME(LOC) 5N.3; GLUCOSE,POINT OF CARE 142 MG/DL (70-110)
[2022-09-01] MEDS: OLANZapine 10 MG TABLET PO SCH (19:56)
[2022-09-01 21:18] LABS: GLUCOMETER DEV NAME(LOC) 5S.1B; GLUCOSE,POINT OF CARE 179 MG/DL (70-110)
[2022-09-01 21:19] LABS: GLUCOMETER DEV NAME(LOC) 5S.1B; GLUCOSE,POINT OF CARE 162 MG/DL (70-110)
[2022-09-01 21:19] LABS: GLUCOMETER DEV NAME(LOC) 5S.1B; GLUCOSE,POINT OF CARE 177 MG/DL (70-110)
[2022-09-01 21:19] LABS: GLUCOMETER DEV NAME(LOC) 5S.1B; GLUCOSE,POINT OF CARE 127 MG/DL (70-110)
[2022-09-01 21:19] LABS: GLUCOMETER DEV NAME(LOC) 5N.1C; GLUCOSE,POINT OF CARE 132 MG/DL (70-110)
[2022-09-01 21:20] LABS: GLUCOMETER DEV NAME(LOC) 5N.1C; GLUCOSE,POINT OF CARE 184 MG/DL (70-110)
[2022-09-01 21:20] LABS: GLUCOMETER DEV NAME(LOC) 5S.1B; GLUCOSE,POINT OF CARE 131 MG/DL (70-110)
[2022-09-01 21:20] LABS: GLUCOMETER DEV NAME(LOC) 5S.1B; GLUCOSE,POINT OF CARE 141 MG/DL (70-110)
[2022-09-01 21:20] LABS: GLUCOMETER DEV NAME(LOC) 5N.1C; GLUCOSE,POINT OF CARE 153 MG/DL (70-110)
[2022-09-01 21:22] LABS: GLUCOMETER DEV NAME(LOC) 5S.1B; GLUCOSE,POINT OF CARE 104 MG/DL (70-110)
[2022-09-02] MEDS: OLANZapine 5 MG TABLET PO PRN (00:08)
[2022-09-02] MEDS ORDERED: DIVALPROEX SODIUM 250 MG ER TABLET PO ONE ×2 (00:15→06:00)
[2022-09-02] MEDS ORDERED: VALPROIC ACID 250 MG CAPSULE PO ONE ×2 (00:30→06:00)
[2022-09-02] MEDS ORDERED: HALOPERIDOL LACTATE 5 MG/ML VIAL IM ONE (02:15)
[2022-09-02] MEDS ORDERED: LORazepam 2 MG/ML VIAL IVP ONE (02:15)
[2022-09-02] MEDS ORDERED: DiphenhydrAMINE HCL 50 MG/ML VIAL IVP ONE (02:15)
[2022-09-02] MEDS ORDERED: LORazepam 2 MG/ML VIAL IM ONE (02:45)
[2022-09-02] MEDS ORDERED: DiphenhydrAMINE HCL 50 MG/ML VIAL IM ONE (02:45)
[2022-09-02 04:01] LABS: HEMATOCRIT 28.6 % (36-46); HEMOGLOBIN 9.5 g/dL (12.0-16.0)
[2022-09-02 04:48] VITALS: BP 176/80
[2022-09-02] MEDS: VALPROATE SODIUM 250 MG in DEXTROSE 5%-WATER 50 ML IV SCH ×3 (05:57→21:16)
[2022-09-02 05:58] VITALS: BP 163/92
[2022-09-02] MEDS: CloNIDine HCL 0.1 MG TABLET PO PRN ×2 (06:14→15:44)
[2022-09-02 08:56] VITALS: BP 194/99
[2022-09-02] MEDS: PANTOPRAZOLE SODIUM 40 MG/VIAL IVP SCH (09:00)
[2022-09-02] MEDS: FUROSEMIDE 40 MG/4 ML VIAL IVP SCH (09:00)
[2022-09-02] MEDS: DOCUSATE SODIUM 100 MG CAPSULE PO SCH ×2 (10:07→20:05)
[2022-09-02] MEDS: VITAMIN B COMP/VIT C/FOLIC ACID CAPSULE PO SCH (10:07)
[2022-09-02] MEDS: EPOETIN ALFA 10,000 UNITS/ML 2 ML VIAL SQ SCH (10:08)
[2022-09-02 12:00] VITALS: BP 183/101
[2022-09-02] MEDS: INSULIN LISPRO 100 UNITS/ML SQ PRN ×2 (12:37→17:51)
[2022-09-02] MEDS: AmLODIPine BESYLATE 5 MG TABLET PO SCH (17:48)
[2022-09-02 19:45] VITALS: BP 139/65
[2022-09-02] MEDS: LORazepam 1 MG TABLET PO PRN (20:05)
[2022-09-02] MEDS: OLANZapine 10 MG TABLET PO SCH (20:05)
[2022-09-02] MEDS: FUROSEMIDE 40 MG TABLET PO SCH (20:05)
[2022-09-03 00:19] VITALS: BP 153/93
[2022-09-03] MEDS: VALPROATE SODIUM 250 MG in DEXTROSE 5%-WATER 50 ML IV SCH ×2 (05:06→14:00)
[2022-09-03 05:17] VITALS: BP 149/75
[2022-09-03 07:30] LABS: CALCIUM, TOTAL 9.5 mg/dL (8.8-10.5); CREATININE 3.15 mg/dL (0.60-1.30); PHOSPHORUS 2.4 mg/dL (2.5-4.9); POTASSIUM 3.5 mmol/L (3.5-5.1)
[2022-09-03 07:35] VITALS: BP 148/90
[2022-09-03] MEDS: VITAMIN B COMP/VIT C/FOLIC ACID CAPSULE PO SCH (07:58)
[2022-09-03] MEDS: DOCUSATE SODIUM 100 MG CAPSULE PO SCH ×2 (07:58→20:07)
[2022-09-03] MEDS: FUROSEMIDE 40 MG TABLET PO SCH (07:58)
[2022-09-03] MEDS: PANTOPRAZOLE SODIUM 40 MG/VIAL IVP SCH (07:59)
[2022-09-03] MEDS: AmLODIPine BESYLATE 5 MG TABLET PO SCH (07:59)
[2022-09-03 11:04] VITALS: BP 144/88
[2022-09-03] MEDS ORDERED: VALPROATE SODIUM 250 MG in DEXTROSE 5%-WATER 50 ML IV SCH (14:45)
[2022-09-03 16:12] VITALS: BP 140/83
[2022-09-03] MEDS: DIVALPROEX SODIUM 250 MG ER TABLET PO SCH (20:07)
[2022-09-03] MEDS: FUROSEMIDE 80 MG TABLET PO SCH (20:08)
[2022-09-03] MEDS: GABAPENTIN 100 MG CAPSULE PO SCH (20:09)
[2022-09-03] MEDS: MELATONIN 5 MG TABLET PO PRN (20:09)
[2022-09-03] MEDS: BACLOFEN 10 MG TABLET PO SCH (20:09)
[2022-09-03] MEDS: OLANZapine 10 MG TABLET PO SCH (20:09)
[2022-09-03] MEDS: INSULIN GLARGINE,HUM.REC.ANLOG 100 UNITS/ML SQ SCH (20:12)
[2022-09-03 20:41] VITALS: BP 182/91
[2022-09-04] VITALS (17 sets, daily range): BP systolic 107–165; BP diastolic 52–93
[2022-09-04] MEDS: LORazepam 1 MG TABLET PO PRN ×2 (04:49→20:52)
[2022-09-04] MEDS: LEVOTHYROXINE SODIUM 200 MCG TABLET PO SCH (06:18)
[2022-09-04] MEDS ORDERED: SODIUM CHLORIDE 0.9% 1,000 ML ONE (07:53)
[2022-09-04] MEDS ORDERED: SODIUM CHLORIDE 0.9% 1,000 ML IV ONE (08:00)
[2022-09-04] MEDS ORDERED: MEPERIDINE-PF 25 MG/ML VIAL IVP PRN (09:00)
[2022-09-04] MEDS ORDERED: HYDROmorphone HCL 2 MG/ML SYRINGE IVP PRN (09:00)
[2022-09-04] MEDS ORDERED: FentaNYL CITRATE PF 100 MCG/2 ML VIAL IVP PRN (09:00)
[2022-09-04] MEDS ORDERED: ASPIRIN 81 MG CHEWABLE TABLET PO SCH (09:00)
[2022-09-04] MEDS ORDERED: LIDOCAINE/PF 1% 30 ML VIAL ONE (09:47)
[2022-09-04] MEDS ORDERED: LIDOCAINE 2%/EPI 1:200,000/PF 20 ML VIAL ONE (09:47)
[2022-09-04] MEDS ORDERED: HEPARIN SODIUM,PORCINE 10,000 UNITS/ML VIAL IV ONE (10:00)
[2022-09-04 13:00] LABS: CALCIUM, TOTAL 9.4 mg/dL (8.8-10.5); CREATININE 3.97 mg/dL (0.60-1.30); MAGNESIUM 1.8 mg/dL (1.80-2.40); PHOSPHORUS 3.3 mg/dL (2.5-4.9); POTASSIUM 3.4 mmol/L (3.5-5.1)
[2022-09-04] MEDS: PANTOPRAZOLE SODIUM 40 MG/VIAL IVP SCH (14:26)
[2022-09-04] MEDS: GABAPENTIN 100 MG CAPSULE PO SCH ×2 (14:26→20:50)
[2022-09-04] MEDS: VITAMIN B COMP/VIT C/FOLIC ACID CAPSULE PO SCH (14:26)
[2022-09-04] MEDS: ATORVASTATIN CALCIUM 20 MG TABLET PO SCH (14:27)
[2022-09-04] MEDS: FUROSEMIDE 80 MG TABLET PO SCH ×2 (14:27→20:52)
[2022-09-04] MEDS: AmLODIPine BESYLATE 5 MG TABLET PO SCH (14:27)
[2022-09-04] MEDS: DIVALPROEX SODIUM 250 MG ER TABLET PO SCH ×3 (14:28→20:50)
[2022-09-04] MEDS: BACLOFEN 10 MG TABLET PO SCH ×3 (14:28→20:50)
[2022-09-04] MEDS: DOCUSATE SODIUM 100 MG CAPSULE PO SCH ×2 (14:30→20:50)
[2022-09-04] MEDS: EPOETIN ALFA 10,000 UNITS/ML 2 ML VIAL SQ SCH (14:31)
[2022-09-04] MEDS ORDERED: HEPARIN SODIUM,PORCINE 1,000 UNITS/ML VIAL IVCATH ONE ×2 (18:45)
[2022-09-04] MEDS: OLANZapine 10 MG TABLET PO SCH (20:50)
[2022-09-04] MEDS: INSULIN GLARGINE,HUM.REC.ANLOG 100 UNITS/ML SQ SCH (20:58)
[2022-09-04] MEDS: OXYGEN THERAPY IH SCH (20:59)
[2022-09-05 04:02] VITALS: BP 139/51
[2022-09-05] MEDS ORDERED: FentaNYL CITRATE PF 100 MCG/2 ML VIAL IVP ONE (05:44)
[2022-09-05] MEDS ORDERED: MIDAZOLAM HCL 2 MG/2 ML VIAL IVP ONE (05:44)
[2022-09-05 08:05] VITALS: BP 126/57
[2022-09-05] MEDS: GABAPENTIN 100 MG CAPSULE PO SCH ×2 (08:09→21:00)
[2022-09-05] MEDS: VITAMIN B COMP/VIT C/FOLIC ACID CAPSULE PO SCH (08:09)
[2022-09-05] MEDS: DOCUSATE SODIUM 100 MG CAPSULE PO SCH ×2 (08:10→21:00)
[2022-09-05] MEDS: DIVALPROEX SODIUM 250 MG ER TABLET PO SCH ×3 (08:10→21:00)
[2022-09-05] MEDS: LEVOTHYROXINE SODIUM 200 MCG TABLET PO SCH (08:10)
[2022-09-05] MEDS: ATORVASTATIN CALCIUM 20 MG TABLET PO SCH (08:10)
[2022-09-05] MEDS: BACLOFEN 10 MG TABLET PO SCH ×3 (08:10→21:00)
[2022-09-05] MEDS: AmLODIPine BESYLATE 5 MG TABLET PO SCH (08:10)
[2022-09-05] MEDS: OXYGEN THERAPY IH SCH ×2 (08:18→21:36)
[2022-09-05] MEDS: FUROSEMIDE 80 MG TABLET PO SCH ×2 (08:30→21:00)
[2022-09-05] MEDS: PANTOPRAZOLE SODIUM 40 MG/VIAL IVP SCH (08:30)
[2022-09-05 12:03] VITALS: BP 108/54
[2022-09-05 16:15] VITALS: BP 123/55
[2022-09-05] MEDS ORDERED: PROPOFOL 1% 20 ML VIAL IVP ONE (16:22)
[2022-09-05] MEDS ORDERED: HEPARIN SODIUM,PORCINE 1,000 UNITS/ML 10 ML VIAL IVP ONE (16:22)
[2022-09-05] MEDS ORDERED: HEPARIN SODIUM,PORCINE 1,000 UNITS/ML VIAL IVP ONE (16:25)
[2022-09-05] MEDS: INSULIN LISPRO 100 UNITS/ML SQ PRN (17:19)
[2022-09-05 19:42] VITALS: BP 129/61
[2022-09-05] MEDS: INSULIN GLARGINE,HUM.REC.ANLOG 100 UNITS/ML SQ SCH (20:49)
[2022-09-05] MEDS: OLANZapine 10 MG TABLET PO SCH (21:00)
[2022-09-05] MEDS: LORazepam 2 MG/ML VIAL IVP PRN (23:33)
[2022-09-05 23:53] VITALS: BP 137/64
[2022-09-06 03:43] VITALS: BP 123/64
[2022-09-06 04:37] LABS: GLUCOMETER DEV NAME(LOC) 5S.2B; GLUCOSE,POINT OF CARE 168 MG/DL (70-110)
[2022-09-06 04:38] LABS: GLUCOMETER DEV NAME(LOC) 5S.2B; GLUCOSE,POINT OF CARE 136 MG/DL (70-110)
[2022-09-06 04:38] LABS: GLUCOMETER DEV NAME(LOC) 5S.2B; GLUCOSE,POINT OF CARE 124 MG/DL (70-110)
[2022-09-06 04:39] LABS: GLUCOMETER DEV NAME(LOC) 5S.2B; GLUCOSE,POINT OF CARE 131 MG/DL (70-110)
[2022-09-06 04:39] LABS: GLUCOMETER DEV NAME(LOC) 5S.2B; GLUCOSE,POINT OF CARE 88 MG/DL (70-110)
[2022-09-06 04:39] LABS: GLUCOMETER DEV NAME(LOC) 5S.2B; GLUCOSE,POINT OF CARE 77 MG/DL (70-110)
[2022-09-06] MEDS: LEVOTHYROXINE SODIUM 200 MCG TABLET PO SCH (06:30)
[2022-09-06 07:50] VITALS: BP 139/70
[2022-09-06] MEDS: ATORVASTATIN CALCIUM 20 MG TABLET PO SCH (07:54)
[2022-09-06] MEDS: FUROSEMIDE 80 MG TABLET PO SCH ×2 (07:55→19:53)
[2022-09-06] MEDS: AmLODIPine BESYLATE 5 MG TABLET PO SCH (07:56)
[2022-09-06] MEDS: DOCUSATE SODIUM 100 MG CAPSULE PO SCH ×2 (07:56→19:53)
[2022-09-06] MEDS: GABAPENTIN 100 MG CAPSULE PO SCH ×2 (07:56→19:53)
[2022-09-06] MEDS: DIVALPROEX SODIUM 250 MG ER TABLET PO SCH ×3 (07:56→19:54)
[2022-09-06] MEDS: VITAMIN B COMP/VIT C/FOLIC ACID CAPSULE PO SCH (07:56)
[2022-09-06] MEDS: PANTOPRAZOLE SODIUM 40 MG/VIAL IVP SCH (07:57)
[2022-09-06] MEDS: OXYGEN THERAPY IH SCH ×2 (07:57→19:54)
[2022-09-06] MEDS: BACLOFEN 10 MG TABLET PO SCH ×3 (07:57→19:54)
[2022-09-06 11:47] VITALS: BP 107/62
[2022-09-06] MEDS: INSULIN LISPRO 100 UNITS/ML SQ PRN ×3 (12:05→19:52)
[2022-09-06 12:47] LABS: GLUCOMETER DEV NAME(LOC) 5S.1B; GLUCOSE,POINT OF CARE 144 MG/DL (70-110)
[2022-09-06 12:47] LABS: GLUCOMETER DEV NAME(LOC) 5S.1B; GLUCOSE,POINT OF CARE 155 MG/DL (70-110)
[2022-09-06 12:48] LABS: GLUCOMETER DEV NAME(LOC) 5S.1B; GLUCOSE,POINT OF CARE 166 MG/DL (70-110)
[2022-09-06 12:48] LABS: GLUCOMETER DEV NAME(LOC) 5S.1B; GLUCOSE,POINT OF CARE 135 MG/DL (70-110)
[2022-09-06 12:49] LABS: GLUCOMETER DEV NAME(LOC) 5S.1B; GLUCOSE,POINT OF CARE 93 MG/DL (70-110)
[2022-09-06 12:49] LABS: GLUCOMETER DEV NAME(LOC) 5S.1B; GLUCOSE,POINT OF CARE 114 MG/DL (70-110)
[2022-09-06 12:49] LABS: GLUCOMETER DEV NAME(LOC) 5S.1B; GLUCOSE,POINT OF CARE 123 MG/DL (70-110)
[2022-09-06 16:26] VITALS: BP 150/74
[2022-09-06] MEDS: MELATONIN 5 MG TABLET PO PRN (19:53)
[2022-09-06] MEDS: INSULIN GLARGINE,HUM.REC.ANLOG 100 UNITS/ML SQ SCH (19:53)
[2022-09-06] MEDS: OLANZapine 10 MG TABLET PO SCH (19:54)
[2022-09-06 20:55] VITALS: BP 152/71
[2022-09-06] MEDS: LORazepam 2 MG/ML VIAL IVP PRN (21:39)
[2022-09-07] VITALS (14 sets, daily range): BP systolic 109–186; BP diastolic 53–99
[2022-09-07] MEDS ORDERED: LEVOTHYROXINE SODIUM 125 MCG TABLET PO SCH (06:30)
[2022-09-07] MEDS: OXYGEN THERAPY IH SCH (08:00)
[2022-09-07] MEDS: DIVALPROEX SODIUM 250 MG ER TABLET PO SCH ×3 (09:00→21:17)
[2022-09-07] MEDS: VITAMIN B COMP/VIT C/FOLIC ACID CAPSULE PO SCH (09:00)
[2022-09-07] MEDS: DOCUSATE SODIUM 100 MG CAPSULE PO SCH ×2 (09:00→21:16)
[2022-09-07] MEDS: GABAPENTIN 100 MG CAPSULE PO SCH ×2 (09:00→21:17)
[2022-09-07] MEDS: ATORVASTATIN CALCIUM 20 MG TABLET PO SCH (09:00)
[2022-09-07] MEDS: AmLODIPine BESYLATE 5 MG TABLET PO SCH (09:00)
[2022-09-07] MEDS: FUROSEMIDE 80 MG TABLET PO SCH ×2 (09:00→21:16)
[2022-09-07] MEDS: PANTOPRAZOLE SODIUM 40 MG/VIAL IVP SCH (09:24)
[2022-09-07] MEDS: EPOETIN ALFA 10,000 UNITS/ML 2 ML VIAL SQ SCH (09:26)
[2022-09-07 10:51] LABS: CALCIUM, TOTAL 6.7 mg/dL (8.8-10.5); CREATININE 3.88 mg/dL (0.60-1.30); POTASSIUM 3.6 mmol/L (3.5-5.1)
[2022-09-07] MEDS: LEVOTHYROXINE SODIUM 100 MCG VIAL IVP SCH (12:18)
[2022-09-07 13:00] LABS: ABG BASE EXCESS 1.9 mmol/L (-2.0-3.0); ABG CARBOXYHEMOGLOBIN 1.2 % (0.0-1.5); ABG HCO3 25.4 mmol/L (22.0-26.0); ABG METHEMOGLOBIN 0.2 % (0.0-1.5); ABG OXYHEMOGLOBIN 81.8 % (94.0-100.0); ABG PCO2 53 mmHg (35-45); ABG PH 7.338 (7.350-7.450); ABG TOTAL HEMOGLOBIN 9.5 G/dL (12.0-18.0); SOURCE, BLOOD GAS ARTERIAL; TEMPERATURE, FAHRENHEIT, BG 97.5 FAHREN (96.0-98.6)
[2022-09-07 13:05] LABS: ABG A-A DIFF O2 39.9 mmHg (10-20.0); O2 DEVICE,BLOOD GAS ROOM AIR (ROOM AIR); SITE, BLOOD GAS RT RADIAL
[2022-09-07] MEDS ORDERED: SODIUM CHLORIDE 0.9% 2,000 ML ONE (15:27)
[2022-09-07 16:10] LABS: ABG BASE EXCESS 4.5 mmol/L (-2.0-3.0); ABG CARBOXYHEMOGLOBIN 0.5 % (0.0-1.5); ABG HCO3 27.9 mmol/L (22.0-26.0); ABG METHEMOGLOBIN 0.4 % (0.0-1.5); ABG OXYGEN CONTENT 12.6 mL/dL (15.0-23.0); ABG OXYGEN SATURATION 99.3 % (95.0-98.0); ABG OXYHEMOGLOBIN 98.4 % (94.0-100.0); ABG PCO2 53 mmHg (35-45); ABG PH 7.365 (7.350-7.450); ABG TOTAL HEMOGLOBIN 8.8 G/dL (12.0-18.0); PO2, ARTERIAL BG 165.1 mmHg (92.0-100.0); SOURCE, BLOOD GAS ARTERIAL; TEMPERATURE, FAHRENHEIT, BG 97.6 FAHREN (96.0-98.6)
[2022-09-07 16:11] LABS: O2 DEVICE,BLOOD GAS CANNULA (ROOM AIR); SITE, BLOOD GAS LFT BRACHIAL
[2022-09-07 17:22] LABS: GLUCOMETER DEV NAME(LOC) 5N.1C; GLUCOSE,POINT OF CARE 141 MG/DL (70-110)
[2022-09-07 17:23] LABS: GLUCOMETER DEV NAME(LOC) 5N.1C; GLUCOSE,POINT OF CARE 84 MG/DL (70-110)
[2022-09-07 17:24] LABS: GLUCOMETER DEV NAME(LOC) 5N.1C; GLUCOSE,POINT OF CARE 146 MG/DL (70-110)
[2022-09-07 17:24] LABS: GLUCOMETER DEV NAME(LOC) 5N.1C; GLUCOSE,POINT OF CARE 120 MG/DL (70-110)
[2022-09-07 17:24] LABS: GLUCOMETER DEV NAME(LOC) 5N.1C; GLUCOSE,POINT OF CARE 160 MG/DL (70-110)
[2022-09-07 17:25] LABS: GLUCOMETER DEV NAME(LOC) 5N.1C; GLUCOSE,POINT OF CARE 133 MG/DL (70-110)
[2022-09-07 17:25] LABS: GLUCOMETER DEV NAME(LOC) 5N.1C; GLUCOSE,POINT OF CARE 133 MG/DL (70-110)
[2022-09-07] MEDS: OLANZapine 5 MG TABLET PO PRN (21:16)
[2022-09-07] MEDS: OLANZapine 10 MG TABLET PO SCH (21:30)
[2022-09-07] MEDS: INSULIN GLARGINE,HUM.REC.ANLOG 100 UNITS/ML SQ SCH (21:31)
[2022-09-07] MEDS: LORazepam 2 MG/ML VIAL IVP PRN (22:51)
[2022-09-08 00:28] VITALS: BP 148/68
[2022-09-08 05:09] VITALS: BP 140/62
[2022-09-08 09:00] VITALS: BP 136/64
[2022-09-08] MEDS: VITAMIN B COMP/VIT C/FOLIC ACID CAPSULE PO SCH (09:11)
[2022-09-08] MEDS: DOCUSATE SODIUM 100 MG CAPSULE PO SCH ×2 (09:11→20:44)
[2022-09-08] MEDS: FUROSEMIDE 80 MG TABLET PO SCH ×2 (09:11→20:44)
[2022-09-08] MEDS: GABAPENTIN 100 MG CAPSULE PO SCH ×2 (09:11→20:44)
[2022-09-08] MEDS: ATORVASTATIN CALCIUM 20 MG TABLET PO SCH (09:11)
[2022-09-08] MEDS: DIVALPROEX SODIUM 250 MG ER TABLET PO SCH ×3 (09:11→20:43)
[2022-09-08] MEDS: AmLODIPine BESYLATE 5 MG TABLET PO SCH (09:11)
[2022-09-08] MEDS: LEVOTHYROXINE SODIUM 100 MCG VIAL IVP SCH (09:11)
[2022-09-08] MEDS: PANTOPRAZOLE SODIUM 40 MG/VIAL IVP SCH (09:12)
[2022-09-08] MEDS: OXYGEN THERAPY IH SCH (10:44)
[2022-09-08 11:21] VITALS: BP 128/64
[2022-09-08] MEDS: INSULIN LISPRO 100 UNITS/ML SQ PRN (11:37)
[2022-09-08] MEDS ORDERED: HEPARIN SODIUM,PORCINE 1,000 UNITS/ML VIAL IVP ONE (12:00)
[2022-09-08] MEDS: DOXERCALCIFEROL 4 MCG/2 ML VIAL IVP SCH (13:21)
[2022-09-08 19:59] VITALS: BP 128/68
[2022-09-08] MEDS: OLANZapine 10 MG TABLET PO SCH (20:44)
[2022-09-08] MEDS: INSULIN GLARGINE,HUM.REC.ANLOG 100 UNITS/ML SQ SCH (21:00)
[2022-09-09] VITALS (15 sets, daily range): BP systolic 120–148; BP diastolic 66–89
[2022-09-09 05:34] LABS: GLUCOMETER DEV NAME(LOC) 5N.3; GLUCOSE,POINT OF CARE 212 MG/DL (70-110)
[2022-09-09 05:34] LABS: GLUCOMETER DEV NAME(LOC) 5N.3; GLUCOSE,POINT OF CARE 179 MG/DL (70-110)
[2022-09-09 05:35] LABS: GLUCOMETER DEV NAME(LOC) 5S.2B; GLUCOSE,POINT OF CARE 138 MG/DL (70-110)
[2022-09-09 05:35] LABS: GLUCOMETER DEV NAME(LOC) 5N.3; GLUCOSE,POINT OF CARE 97 MG/DL (70-110)
[2022-09-09 05:35] LABS: GLUCOMETER DEV NAME(LOC) 5S.2B; GLUCOSE,POINT OF CARE 113 MG/DL (70-110)
[2022-09-09 05:36] LABS: GLUCOMETER DEV NAME(LOC) 5S.2B; GLUCOSE,POINT OF CARE 81 MG/DL (70-110)
[2022-09-09 05:36] LABS: GLUCOMETER DEV NAME(LOC) 5S.2B; GLUCOSE,POINT OF CARE 178 MG/DL (70-110)
[2022-09-09 06:27] LABS: GLUCOMETER DEV NAME(LOC) 5S.1B; GLUCOSE,POINT OF CARE 87 MG/DL (70-110)
[2022-09-09 06:27] LABS: GLUCOMETER DEV NAME(LOC) 5S.1B; GLUCOSE,POINT OF CARE 125 MG/DL (70-110)
[2022-09-09 06:27] LABS: GLUCOMETER DEV NAME(LOC) 5S.1B; GLUCOSE,POINT OF CARE 114 MG/DL (70-110)
[2022-09-09 07:08] LABS: BASOPHILS % (AUTO) 1.2 % (0.0-2.0); EOSINOPHILS % (AUTO) 1.6 % (1.0-6.0); HEMATOCRIT 26.4 % (36-46); HEMOGLOBIN 8.7 g/dL (12.0-16.0); LYMPHOCYTES # (AUTO) 2.4 K/uL (1.0-4.8); LYMPHOCYTES % (AUTO) 33.6 % (22.0-44.0); MEAN CORPUSCULAR HEMOGLOBIN 30.4 pg (26.0-34.0); MEAN CORPUSCULAR HGB CONC 33.1 G/dL (31.0-37.0); MEAN CORPUSCULAR VOLUME 92 fL (80-100); MONOCYTES # (AUTO) 0.5 K/uL (0.1-1.0); MONOCYTES % (AUTO) 7.5 % (2.0-9.0); NEUTROPHILS % (AUTO) 56.1 % (40.0-70.0); PLATELET COUNT (AUTO) 395 K/uL (150-450); RED BLOOD CELL COUNT(AUTO) 2.87 MIL/uL (4.00-5.20); RED CELL DISTRIBUTION WIDTH 17.4 % (11.5-14.5)
[2022-09-09 07:22] LABS: CALCIUM, TOTAL 9.1 mg/dL (8.8-10.5); CREATININE 4.18 mg/dL (0.60-1.30)
[2022-09-09] MEDS: AmLODIPine BESYLATE 5 MG TABLET PO SCH (09:00)
[2022-09-09] MEDS: FUROSEMIDE 80 MG TABLET PO SCH ×2 (09:00→20:29)
[2022-09-09] MEDS: DOCUSATE SODIUM 100 MG CAPSULE PO SCH ×2 (09:00→20:29)
[2022-09-09] MEDS: VITAMIN B COMP/VIT C/FOLIC ACID CAPSULE PO SCH (09:24)
[2022-09-09] MEDS: DIVALPROEX SODIUM 250 MG ER TABLET PO SCH ×3 (09:24→20:29)
[2022-09-09] MEDS: ATORVASTATIN CALCIUM 20 MG TABLET PO SCH (09:24)
[2022-09-09] MEDS: GABAPENTIN 100 MG CAPSULE PO SCH ×2 (09:25→20:30)
[2022-09-09] MEDS: DOXERCALCIFEROL 4 MCG/2 ML VIAL IVP SCH (09:25)
[2022-09-09] MEDS: PANTOPRAZOLE SODIUM 40 MG/VIAL IVP SCH (09:25)
[2022-09-09] MEDS: OXYGEN THERAPY IH SCH ×2 (09:26→20:31)
[2022-09-09] MEDS: LEVOTHYROXINE SODIUM 100 MCG VIAL IVP SCH (09:26)
[2022-09-09] MEDS: EPOETIN ALFA 10,000 UNITS/ML 2 ML VIAL SQ SCH (09:30)
[2022-09-09] MEDS ORDERED: HEPARIN SODIUM,PORCINE 1,000 UNITS/ML VIAL IVP ONE (11:12)
[2022-09-09] MEDS ORDERED: HEPARIN SODIUM,PORCINE 1,000 UNITS/ML VIAL IVCATH ONE ×2 (12:45)
[2022-09-09] MEDS ORDERED: HEPARIN SODIUM,PORCINE 5,000 UNITS/ML VIAL ONE (15:23)
[2022-09-09] MEDS ORDERED: SODIUM CHLORIDE 0.9% 100 ML ONE (15:24)
[2022-09-09] MEDS ORDERED: LIDOCAINE/PF 1% 30 ML VIAL ONE (15:24)
[2022-09-09] MEDS ORDERED: SODIUM CHLORIDE 0.9% 20 ML ONE (15:24)
[2022-09-09] MEDS ORDERED: SODIUM CHLORIDE 0.9% 0 ML IV ONE (15:24)
[2022-09-09] MEDS ORDERED: VANCOMYCIN HCL 1 GM/VIAL ONE (15:24)
[2022-09-09] MEDS ORDERED: SODIUM CHLORIDE 0.9% 1,000 ML ONE (15:47)
[2022-09-09 19:21] LABS: GLUCOMETER DEV NAME(LOC) 5S.2B; GLUCOSE,POINT OF CARE 103 MG/DL (70-110)
[2022-09-09] MEDS: LACTULOSE 20 GM/30 ML SOLUTION UDCUP PO SCH (20:27)
[2022-09-09] MEDS: MELATONIN 5 MG TABLET PO PRN (20:29)
[2022-09-09] MEDS: OLANZapine 10 MG TABLET PO SCH (20:30)
[2022-09-09] MEDS: INSULIN GLARGINE,HUM.REC.ANLOG 100 UNITS/ML SQ SCH (21:11)
[2022-09-10] VITALS (7 sets, daily range): BP systolic 112–138; BP diastolic 67–76
[2022-09-10 07:06] LABS: GLUCOMETER DEV NAME(LOC) 5S.1B; GLUCOSE,POINT OF CARE 94 MG/DL (70-110)
[2022-09-10 07:07] LABS: GLUCOMETER DEV NAME(LOC) 5S.1B; GLUCOSE,POINT OF CARE 123 MG/DL (70-110)
[2022-09-10 07:07] LABS: GLUCOMETER DEV NAME(LOC) 5S.1B; GLUCOSE,POINT OF CARE 131 MG/DL (70-110)
[2022-09-10 07:17] LABS: CALCIUM, TOTAL 9.1 mg/dL (8.8-10.5); CREATININE 2.93 mg/dL (0.60-1.30); PHOSPHORUS 3.2 mg/dL (2.5-4.9); POTASSIUM 3.7 mmol/L (3.5-5.1)
[2022-09-10] MEDS: DOCUSATE SODIUM 100 MG CAPSULE PO SCH ×2 (08:25→21:08)
[2022-09-10] MEDS: OXYGEN THERAPY IH SCH ×2 (08:32→20:54)
[2022-09-10] MEDS: LEVOTHYROXINE SODIUM 100 MCG VIAL IVP SCH (08:33)
[2022-09-10] MEDS: LACTULOSE 20 GM/30 ML SOLUTION UDCUP PO SCH ×2 (08:33→21:08)
[2022-09-10] MEDS: PANTOPRAZOLE SODIUM 40 MG/VIAL IVP SCH (08:33)
[2022-09-10] MEDS: VITAMIN B COMP/VIT C/FOLIC ACID CAPSULE PO SCH (08:34)
[2022-09-10] MEDS: ATORVASTATIN CALCIUM 20 MG TABLET PO SCH (08:34)
[2022-09-10] MEDS: DIVALPROEX SODIUM 250 MG ER TABLET PO SCH ×3 (08:34→21:08)
[2022-09-10] MEDS: GABAPENTIN 100 MG CAPSULE PO SCH ×2 (08:34→21:08)
[2022-09-10] MEDS: FUROSEMIDE 80 MG TABLET PO SCH ×2 (08:34→21:08)
[2022-09-10] MEDS: AmLODIPine BESYLATE 5 MG TABLET PO SCH (08:35)
[2022-09-10] MEDS: DOXERCALCIFEROL 4 MCG/2 ML VIAL IVP SCH (09:06)
[2022-09-10] MEDS: INSULIN LISPRO 100 UNITS/ML SQ PRN ×2 (11:58→17:19)
[2022-09-10 12:41] LABS: GLUCOMETER DEV NAME(LOC) 5S.1B; GLUCOSE,POINT OF CARE 179 MG/DL (70-110)
[2022-09-10] MEDS: ACETAMINOPHEN 325 MG TABLET PO PRN (15:49)
[2022-09-10 17:51] LABS: GLUCOMETER DEV NAME(LOC) 5S.2B; GLUCOSE,POINT OF CARE 141 MG/DL (70-110)
[2022-09-10] MEDS: OLANZapine 10 MG TABLET PO SCH (21:08)
[2022-09-10] MEDS: INSULIN GLARGINE,HUM.REC.ANLOG 100 UNITS/ML SQ SCH (21:14)
[2022-09-10] MEDS: MELATONIN 5 MG TABLET PO PRN (23:16)
[2022-09-10] MEDS: OLANZapine 5 MG TABLET PO PRN (23:17)
[2022-09-11] VITALS (17 sets, daily range): BP systolic 100–151; BP diastolic 60–81
[2022-09-11 03:11] LABS: GLUCOMETER DEV NAME(LOC) 5S.1B; GLUCOSE,POINT OF CARE 113 MG/DL (70-110)
[2022-09-11 06:11] LABS: GLUCOMETER DEV NAME(LOC) 5S.1B; GLUCOSE,POINT OF CARE 108 MG/DL (70-110)
[2022-09-11] MEDS: PANTOPRAZOLE SODIUM 40 MG/VIAL IVP SCH (08:21)
[2022-09-11] MEDS: LEVOTHYROXINE SODIUM 100 MCG VIAL IVP SCH (08:21)
[2022-09-11] MEDS: AmLODIPine BESYLATE 5 MG TABLET PO SCH (09:00)
[2022-09-11] MEDS: FUROSEMIDE 80 MG TABLET PO SCH ×2 (10:36→20:26)
[2022-09-11] MEDS: VITAMIN B COMP/VIT C/FOLIC ACID CAPSULE PO SCH (10:36)
[2022-09-11] MEDS: ATORVASTATIN CALCIUM 20 MG TABLET PO SCH (10:36)
[2022-09-11] MEDS: DOXERCALCIFEROL 4 MCG/2 ML VIAL IVP SCH (10:37)
[2022-09-11] MEDS: OXYGEN THERAPY IH SCH ×2 (10:39→20:29)
[2022-09-11] MEDS: GABAPENTIN 100 MG CAPSULE PO SCH ×2 (10:39→20:29)
[2022-09-11] MEDS ORDERED: HEPARIN SODIUM,PORCINE 1,000 UNITS/ML VIAL IVCATH ONE ×2 (12:45)
[2022-09-11] MEDS: DIVALPROEX SODIUM 250 MG ER TABLET PO SCH ×3 (14:54→23:02)
[2022-09-11] MEDS: LACTULOSE 20 GM/30 ML SOLUTION UDCUP PO SCH ×2 (14:54→20:26)
[2022-09-11] MEDS: DOCUSATE SODIUM 100 MG CAPSULE PO SCH ×2 (14:55→20:29)
[2022-09-11] MEDS: EPOETIN ALFA 10,000 UNITS/ML 2 ML VIAL SQ SCH (14:55)
[2022-09-11] MEDS: INSULIN LISPRO 100 UNITS/ML SQ PRN ×3 (15:00→20:38)
[2022-09-11] MEDS ORDERED: HEPARIN SODIUM,PORCINE 1,000 UNITS/ML VIAL IVP ONE (16:35)
[2022-09-11 17:32] LABS: GLUCOMETER DEV NAME(LOC) 5S.2B; GLUCOSE,POINT OF CARE 163 MG/DL (70-110)
[2022-09-11 18:16] LABS: GLUCOMETER DEV NAME(LOC) 5S.2B; GLUCOSE,POINT OF CARE 146 MG/DL (70-110)
[2022-09-11] MEDS: OLANZapine 10 MG TABLET PO SCH (20:28)
[2022-09-11] MEDS: MELATONIN 5 MG TABLET PO PRN (20:30)
[2022-09-11] MEDS: INSULIN GLARGINE,HUM.REC.ANLOG 100 UNITS/ML SQ SCH (20:38)
[2022-09-11] MEDS: OLANZapine 5 MG TABLET PO PRN (23:04)
[2022-09-12 00:51] LABS: GLUCOMETER DEV NAME(LOC) 5S.2B; GLUCOSE,POINT OF CARE 150 MG/DL (70-110)
[2022-09-12 03:18] VITALS: BP 123/70
[2022-09-12 07:33] LABS: CALCIUM, TOTAL 9.5 mg/dL (8.8-10.5); CREATININE 2.74 mg/dL (0.60-1.30); POTASSIUM 3.9 mmol/L (3.5-5.1)
[2022-09-12 08:28] VITALS: BP 119/41
[2022-09-12] MEDS: LEVOTHYROXINE SODIUM 100 MCG VIAL IVP SCH (08:29)
[2022-09-12] MEDS: OXYGEN THERAPY IH SCH ×2 (08:29→21:03)
[2022-09-12] MEDS: PANTOPRAZOLE SODIUM 40 MG/VIAL IVP SCH (08:29)
[2022-09-12] MEDS: LACTULOSE 20 GM/30 ML SOLUTION UDCUP PO SCH ×2 (08:30→21:03)
[2022-09-12] MEDS: DIVALPROEX SODIUM 250 MG ER TABLET PO SCH ×3 (08:30→21:04)
[2022-09-12] MEDS: ATORVASTATIN CALCIUM 20 MG TABLET PO SCH (08:30)
[2022-09-12] MEDS: VITAMIN B COMP/VIT C/FOLIC ACID CAPSULE PO SCH (08:30)
[2022-09-12] MEDS: DOCUSATE SODIUM 100 MG CAPSULE PO SCH ×2 (08:30→21:03)
[2022-09-12] MEDS: AmLODIPine BESYLATE 5 MG TABLET PO SCH (08:31)
[2022-09-12] MEDS: GABAPENTIN 100 MG CAPSULE PO SCH ×2 (08:34→21:04)
[2022-09-12] MEDS: DOXERCALCIFEROL 4 MCG/2 ML VIAL IVP SCH (10:38)
[2022-09-12] MEDS: FUROSEMIDE 80 MG TABLET PO SCH ×2 (10:38→21:03)
[2022-09-12] MEDS: INSULIN LISPRO 100 UNITS/ML SQ PRN ×2 (12:01→23:00)
[2022-09-12 12:59] VITALS: BP 128/58
[2022-09-12 16:38] VITALS: BP 148/82
[2022-09-12] MEDS: BISACODYL 5 MG EC TABLET PO SCH (16:51)
[2022-09-12 17:51] LABS: GLUCOMETER DEV NAME(LOC) 5S.2B; GLUCOSE,POINT OF CARE 188 MG/DL (70-110)
[2022-09-12 18:41] LABS: GLUCOMETER DEV NAME(LOC) 5N.3; GLUCOSE,POINT OF CARE 110 MG/DL (70-110)
[2022-09-12 18:41] LABS: GLUCOMETER DEV NAME(LOC) 5N.3; GLUCOSE,POINT OF CARE 187 MG/DL (70-110)
[2022-09-12 19:10] VITALS: BP 124/64
[2022-09-12] MEDS: OLANZapine 10 MG TABLET PO SCH (21:04)
[2022-09-12] MEDS: INSULIN GLARGINE,HUM.REC.ANLOG 100 UNITS/ML SQ SCH (23:01)
[2022-09-12 23:45] VITALS: BP 133/72
[2022-09-13 03:30] VITALS: BP 135/64
[2022-09-13] MEDS: ACETAMINOPHEN 325 MG TABLET PO PRN (04:07)
[2022-09-13 08:00] VITALS: BP 124/71
[2022-09-13] MEDS: OXYGEN THERAPY IH SCH ×2 (08:23→20:50)
[2022-09-13] MEDS: LACTULOSE 20 GM/30 ML SOLUTION UDCUP PO SCH ×2 (09:19→20:50)
[2022-09-13] MEDS: FUROSEMIDE 80 MG TABLET PO SCH ×2 (09:19→20:49)
[2022-09-13] MEDS: DIVALPROEX SODIUM 250 MG ER TABLET PO SCH ×3 (09:20→20:49)
[2022-09-13] MEDS: VITAMIN B COMP/VIT C/FOLIC ACID CAPSULE PO SCH (09:20)
[2022-09-13] MEDS: DOCUSATE SODIUM 100 MG CAPSULE PO SCH ×2 (09:21→20:49)
[2022-09-13] MEDS: BISACODYL 5 MG EC TABLET PO SCH (09:21)
[2022-09-13] MEDS: GABAPENTIN 100 MG CAPSULE PO SCH ×2 (09:22→20:49)
[2022-09-13] MEDS: AmLODIPine BESYLATE 5 MG TABLET PO SCH (09:23)
[2022-09-13] MEDS: PANTOPRAZOLE SODIUM 40 MG/VIAL IVP SCH (09:26)
[2022-09-13] MEDS: DOXERCALCIFEROL 4 MCG/2 ML VIAL IVP SCH (09:27)
[2022-09-13] MEDS: LEVOTHYROXINE SODIUM 100 MCG VIAL IVP SCH (09:28)
[2022-09-13] MEDS: ATORVASTATIN CALCIUM 20 MG TABLET PO SCH (10:06)
[2022-09-13 12:11] VITALS: BP 144/72
[2022-09-13 16:12] VITALS: BP 142/73
[2022-09-13] MEDS ORDERED: SODIUM CHLORIDE 0.9% 100 ML ONE (16:18)
[2022-09-13] MEDS ORDERED: IOHEXOL 300 MG/ML 100 ML VIAL ONE (16:18)
[2022-09-13] MEDS: INSULIN LISPRO 100 UNITS/ML SQ PRN ×2 (18:06→21:06)
[2022-09-13 20:39] VITALS: BP 167/84
[2022-09-13] MEDS: OLANZapine 10 MG TABLET PO SCH (20:49)
[2022-09-13] MEDS: MELATONIN 5 MG TABLET PO PRN (20:59)
[2022-09-13] MEDS: INSULIN GLARGINE,HUM.REC.ANLOG 100 UNITS/ML SQ SCH (21:05)
[2022-09-14] VITALS (15 sets, daily range): BP systolic 100–152; BP diastolic 39–104
[2022-09-14] MEDS: ACETAMINOPHEN 325 MG TABLET PO PRN ×2 (02:13→15:42)
[2022-09-14 06:26] LABS: GLUCOMETER DEV NAME(LOC) 5S.2B; GLUCOSE,POINT OF CARE 145 MG/DL (70-110)
[2022-09-14 06:26] LABS: GLUCOMETER DEV NAME(LOC) 5S.2B; GLUCOSE,POINT OF CARE 110 MG/DL (70-110)
[2022-09-14 06:27] LABS: GLUCOMETER DEV NAME(LOC) 5S.2B; GLUCOSE,POINT OF CARE 133 MG/DL (70-110)
[2022-09-14 07:26] LABS: GLUCOMETER DEV NAME(LOC) 5N.3; GLUCOSE,POINT OF CARE 161 MG/DL (70-110)
[2022-09-14 07:30] LABS: GLUCOMETER DEV NAME(LOC) 5N.3; GLUCOSE,POINT OF CARE 182 MG/DL (70-110)
[2022-09-14 07:30] LABS: GLUCOMETER DEV NAME(LOC) 5N.3; GLUCOSE,POINT OF CARE 105 MG/DL (70-110)
[2022-09-14] MEDS: VITAMIN B COMP/VIT C/FOLIC ACID CAPSULE PO SCH (09:04)
[2022-09-14] MEDS: DIVALPROEX SODIUM 250 MG ER TABLET PO SCH ×3 (09:04→21:05)
[2022-09-14] MEDS: OXYGEN THERAPY IH SCH ×2 (09:04→21:06)
[2022-09-14] MEDS: LACTULOSE 20 GM/30 ML SOLUTION UDCUP PO SCH ×2 (09:04→21:05)
[2022-09-14] MEDS: GABAPENTIN 100 MG CAPSULE PO SCH ×2 (09:04→21:04)
[2022-09-14] MEDS: DOCUSATE SODIUM 100 MG CAPSULE PO SCH ×2 (09:04→21:04)
[2022-09-14] MEDS: AmLODIPine BESYLATE 5 MG TABLET PO SCH (09:04)
[2022-09-14] MEDS: ATORVASTATIN CALCIUM 20 MG TABLET PO SCH (09:04)
[2022-09-14] MEDS: PANTOPRAZOLE SODIUM 40 MG/VIAL IVP SCH (09:05)
[2022-09-14] MEDS: DOXERCALCIFEROL 4 MCG/2 ML VIAL IVP SCH (09:05)
[2022-09-14] MEDS: FUROSEMIDE 80 MG TABLET PO SCH ×2 (09:05→21:04)
[2022-09-14] MEDS: LEVOTHYROXINE SODIUM 100 MCG VIAL IVP SCH (09:06)
[2022-09-14] MEDS: EPOETIN ALFA 10,000 UNITS/ML 2 ML VIAL SQ SCH (09:14)
[2022-09-14] MEDS: SENNA 218 MG/5 ML LIQUID ORAL.SYG PO PRN (17:03)
[2022-09-14] MEDS: INSULIN LISPRO 100 UNITS/ML SQ PRN ×2 (17:12→21:29)
[2022-09-14] MEDS: OLANZapine 10 MG TABLET PO SCH (21:04)
[2022-09-14] MEDS: INSULIN GLARGINE,HUM.REC.ANLOG 100 UNITS/ML SQ SCH (21:28)
[2022-09-14] MEDS: MELATONIN 5 MG TABLET PO PRN (21:29)
[2022-09-14] MEDS ORDERED: HEPARIN SODIUM,PORCINE 1,000 UNITS/ML VIAL IVP ONE (21:54)
[2022-09-15 00:29] VITALS: BP 112/57
[2022-09-15 02:06] LABS: GLUCOMETER DEV NAME(LOC) 5S.1B; GLUCOSE,POINT OF CARE 172 MG/DL (70-110)
[2022-09-15] MEDS: OLANZapine 5 MG TABLET PO PRN (04:12)
[2022-09-15 05:52] VITALS: BP 129/71
[2022-09-15] MEDS: ACETAMINOPHEN 325 MG TABLET PO PRN ×2 (05:52→14:08)
[2022-09-15 06:40] LABS: FREE T4 (FREE THYROXINE) 0.91 ng/dL (0.76-1.46); THYROID STIMULATING HORMONE 48.43 uIU/mL (0.36-3.74)
[2022-09-15 07:08] VITALS: BP 111/41
[2022-09-15] MEDS: GABAPENTIN 100 MG CAPSULE PO SCH ×2 (08:15→20:47)
[2022-09-15] MEDS: VITAMIN B COMP/VIT C/FOLIC ACID CAPSULE PO SCH (08:15)
[2022-09-15] MEDS: DOCUSATE SODIUM 100 MG CAPSULE PO SCH ×2 (08:15→20:47)
[2022-09-15] MEDS: LACTULOSE 20 GM/30 ML SOLUTION UDCUP PO SCH ×2 (08:15→20:50)
[2022-09-15] MEDS: ATORVASTATIN CALCIUM 20 MG TABLET PO SCH (08:16)
[2022-09-15] MEDS: AmLODIPine BESYLATE 5 MG TABLET PO SCH (08:16)
[2022-09-15] MEDS: LEVOTHYROXINE SODIUM 100 MCG VIAL IVP SCH (08:16)
[2022-09-15] MEDS: OXYGEN THERAPY IH SCH ×2 (08:17→20:04)
[2022-09-15] MEDS: DIVALPROEX SODIUM 250 MG ER TABLET PO SCH ×3 (08:17→20:47)
[2022-09-15] MEDS: PANTOPRAZOLE SODIUM 40 MG/VIAL IVP SCH (08:17)
[2022-09-15] MEDS: FUROSEMIDE 80 MG TABLET PO SCH ×2 (08:17→20:47)
[2022-09-15] MEDS: DOXERCALCIFEROL 4 MCG/2 ML VIAL IVP SCH (08:17)
[2022-09-15 12:20] VITALS: BP 132/74
[2022-09-15 15:15] VITALS: BP 115/63
[2022-09-15] MEDS: INSULIN LISPRO 100 UNITS/ML SQ PRN ×2 (16:56→20:45)
[2022-09-15 17:21] LABS: GLUCOMETER DEV NAME(LOC) 5S.1B; GLUCOSE,POINT OF CARE 158 MG/DL (70-110)
[2022-09-15 19:18] VITALS: BP 129/71
[2022-09-15] MEDS: INSULIN GLARGINE,HUM.REC.ANLOG 100 UNITS/ML SQ SCH (20:44)
[2022-09-15] MEDS: MELATONIN 5 MG TABLET PO PRN (20:47)
[2022-09-15] MEDS: OLANZapine 10 MG TABLET PO SCH (20:47)
[2022-09-16] VITALS (16 sets, daily range): BP systolic 97–140; BP diastolic 37–70
[2022-09-16] MEDS: ACETAMINOPHEN 325 MG TABLET PO PRN ×2 (00:14→20:11)
[2022-09-16 06:37] LABS: GLUCOMETER DEV NAME(LOC) 5S.1B; GLUCOSE,POINT OF CARE 153 MG/DL (70-110)
[2022-09-16] MEDS: VITAMIN B COMP/VIT C/FOLIC ACID CAPSULE PO SCH (08:29)
[2022-09-16] MEDS: FUROSEMIDE 80 MG TABLET PO SCH ×2 (08:30→20:10)
[2022-09-16] MEDS: DOCUSATE SODIUM 100 MG CAPSULE PO SCH ×2 (08:30→20:10)
[2022-09-16] MEDS: DOXERCALCIFEROL 4 MCG/2 ML VIAL IVP SCH (08:30)
[2022-09-16] MEDS: DIVALPROEX SODIUM 250 MG ER TABLET PO SCH ×3 (08:31→20:11)
[2022-09-16] MEDS: ATORVASTATIN CALCIUM 20 MG TABLET PO SCH (08:31)
[2022-09-16] MEDS: AmLODIPine BESYLATE 5 MG TABLET PO SCH (08:32)
[2022-09-16] MEDS: GABAPENTIN 100 MG CAPSULE PO SCH ×2 (08:32→20:10)
[2022-09-16] MEDS: LACTULOSE 20 GM/30 ML SOLUTION UDCUP PO SCH ×2 (08:33→20:26)
[2022-09-16] MEDS: LEVOTHYROXINE SODIUM 100 MCG VIAL IVP SCH (08:33)
[2022-09-16] MEDS: PANTOPRAZOLE SODIUM 40 MG/VIAL IVP SCH (08:34)
[2022-09-16] MEDS: EPOETIN ALFA 10,000 UNITS/ML 2 ML VIAL SQ SCH (08:36)
[2022-09-16] MEDS: OXYGEN THERAPY IH SCH ×2 (08:36→20:27)
[2022-09-16] MEDS ORDERED: SODIUM CHLORIDE 0.9% 2,000 ML ONE (09:19)
[2022-09-16] MEDS ORDERED: HEPARIN SODIUM,PORCINE 1,000 UNITS/ML VIAL IVCATH ONE ×2 (10:45)
[2022-09-16] MEDS ORDERED: DiphenhydrAMINE HCL 50 MG/ML VIAL IVP PRN (10:45)
[2022-09-16] MEDS ORDERED: DiphenhydrAMINE HCL 50 MG/ML VIAL IVP ONE (16:45)
[2022-09-16] MEDS ORDERED: HEPARIN SODIUM,PORCINE 1,000 UNITS/ML VIAL IVP ONE (16:45)
[2022-09-16] MEDS: MELATONIN 5 MG TABLET PO PRN (20:10)
[2022-09-16] MEDS: OLANZapine 10 MG TABLET PO SCH (20:11)
[2022-09-16] MEDS: OLANZapine 5 MG TABLET PO PRN (20:12)
[2022-09-16] MEDS: INSULIN GLARGINE,HUM.REC.ANLOG 100 UNITS/ML SQ SCH (20:22)
[2022-09-16] MEDS: INSULIN LISPRO 100 UNITS/ML SQ PRN (20:26)
[2022-09-16 20:56] LABS: GLUCOMETER DEV NAME(LOC) 5S.2B; GLUCOSE,POINT OF CARE 106 MG/DL (70-110)
[2022-09-16] MEDS ORDERED: ZOLPIDEM TARTRATE 5 MG TABLET PO ONE (22:00)
[2022-09-17 00:28] VITALS: BP 127/71
[2022-09-17 04:03] VITALS: BP 142/71
[2022-09-17 07:47] VITALS: BP 148/90
[2022-09-17] MEDS: OXYGEN THERAPY IH SCH ×2 (08:42→19:58)
[2022-09-17] MEDS: GABAPENTIN 100 MG CAPSULE PO SCH ×2 (08:43→20:04)
[2022-09-17] MEDS: DOCUSATE SODIUM 100 MG CAPSULE PO SCH ×2 (08:43→20:04)
[2022-09-17] MEDS: AmLODIPine BESYLATE 5 MG TABLET PO SCH (08:44)
[2022-09-17] MEDS: FUROSEMIDE 80 MG TABLET PO SCH ×2 (08:44→20:03)
[2022-09-17] MEDS: VITAMIN B COMP/VIT C/FOLIC ACID CAPSULE PO SCH (08:44)
[2022-09-17] MEDS: ATORVASTATIN CALCIUM 20 MG TABLET PO SCH (08:45)
[2022-09-17] MEDS: LACTULOSE 20 GM/30 ML SOLUTION UDCUP PO SCH ×2 (08:45→20:03)
[2022-09-17] MEDS: LEVOTHYROXINE SODIUM 100 MCG VIAL IVP SCH (08:45)
[2022-09-17] MEDS: DIVALPROEX SODIUM 250 MG ER TABLET PO SCH ×3 (08:45→20:03)
[2022-09-17] MEDS: PANTOPRAZOLE SODIUM 40 MG/VIAL IVP SCH (08:45)
[2022-09-17] MEDS: DOXERCALCIFEROL 4 MCG/2 ML VIAL IVP SCH (09:00)
[2022-09-17 09:51] LABS: GLUCOMETER DEV NAME(LOC) 5N.1C; GLUCOSE,POINT OF CARE 73 MG/DL (70-110)
[2022-09-17 11:23] VITALS: BP 125/70
[2022-09-17 15:13] VITALS: BP 141/75
[2022-09-17] MEDS: OLANZapine 10 MG TABLET PO SCH (20:03)
[2022-09-17] MEDS: MELATONIN 5 MG TABLET PO PRN (20:04)
[2022-09-17] MEDS: ACETAMINOPHEN 325 MG TABLET PO PRN (20:04)
[2022-09-17 20:41] VITALS: BP 139/71
[2022-09-17] MEDS: INSULIN GLARGINE,HUM.REC.ANLOG 100 UNITS/ML SQ SCH (21:00)
[2022-09-17 22:26] LABS: GLUCOMETER DEV NAME(LOC) 5N.1C; GLUCOSE,POINT OF CARE 127 MG/DL (70-110)
[2022-09-17] MEDS ORDERED: ZOLPIDEM TARTRATE 5 MG TABLET PO ONE (23:30)
[2022-09-17] MEDS: OLANZapine 5 MG TABLET PO PRN (23:39)
[2022-09-18 00:03] VITALS: BP 135/69
[2022-09-18 04:56] VITALS: BP 146/47
[2022-09-18 07:16] LABS: GLUCOMETER DEV NAME(LOC) 5N.1C; GLUCOSE,POINT OF CARE 108 MG/DL (70-110)
[2022-09-18 07:52] VITALS: BP 136/60
[2022-09-18 08:09] LABS: BASOPHILS % (AUTO) 0.6 % (0.0-2.0); EOSINOPHILS % (AUTO) 2.4 % (1.0-6.0); HEMATOCRIT 28.9 % (36-46); HEMOGLOBIN 9.5 g/dL (12.0-16.0); LYMPHOCYTES # (AUTO) 1.4 K/uL (1.0-4.8); LYMPHOCYTES % (AUTO) 17.9 % (22.0-44.0); MEAN CORPUSCULAR HEMOGLOBIN 29.7 pg (26.0-34.0); MEAN CORPUSCULAR HGB CONC 32.7 G/dL (31.0-37.0); MEAN CORPUSCULAR VOLUME 91 fL (80-100); MONOCYTES % (AUTO) 12.7 % (2.0-9.0); NEUTROPHILS # (AUTO) 5.2 K/uL (1.8-7.7); NEUTROPHILS % (AUTO) 66.4 % (40.0-70.0); PLATELET COUNT (AUTO) 224 K/uL (150-450); RED BLOOD CELL COUNT(AUTO) 3.18 MIL/uL (4.00-5.20); RED CELL DISTRIBUTION WIDTH 18.2 % (11.5-14.5)
[2022-09-18 08:12] LABS: CREATININE 4.76 mg/dL (0.60-1.30); POTASSIUM 4.4 mmol/L (3.5-5.1)
[2022-09-18] MEDS: OXYGEN THERAPY IH SCH ×2 (08:21→21:36)
[2022-09-18] MEDS: LACTULOSE 20 GM/30 ML SOLUTION UDCUP PO SCH ×2 (08:24→21:37)
[2022-09-18] MEDS: FUROSEMIDE 80 MG TABLET PO SCH ×2 (08:25→21:37)
[2022-09-18] MEDS: VITAMIN B COMP/VIT C/FOLIC ACID CAPSULE PO SCH (08:25)
[2022-09-18] MEDS: DOCUSATE SODIUM 100 MG CAPSULE PO SCH ×2 (08:26→21:39)
[2022-09-18] MEDS: AmLODIPine BESYLATE 5 MG TABLET PO SCH (08:26)
[2022-09-18] MEDS: GABAPENTIN 100 MG CAPSULE PO SCH ×2 (08:26→21:38)
[2022-09-18] MEDS: DIVALPROEX SODIUM 250 MG ER TABLET PO SCH ×3 (08:26→21:37)
[2022-09-18] MEDS: ATORVASTATIN CALCIUM 20 MG TABLET PO SCH (08:26)
[2022-09-18] MEDS: PANTOPRAZOLE SODIUM 40 MG/VIAL IVP SCH (08:27)
[2022-09-18] MEDS: LEVOTHYROXINE SODIUM 100 MCG VIAL IVP SCH (08:28)
[2022-09-18] MEDS ORDERED: DiphenhydrAMINE HCL 25 MG/10 ML SOLUTION UDCUP PO ONE (09:45)
[2022-09-18 11:34] VITALS: BP 155/79
[2022-09-18] MEDS: EPOETIN ALFA 10,000 UNITS/ML 2 ML VIAL SQ SCH (11:37)
[2022-09-18] MEDS: DOXERCALCIFEROL 4 MCG/2 ML VIAL IVP SCH (11:40)
[2022-09-18] MEDS ORDERED: SODIUM CHLORIDE 0.9% 1,000 ML ONE (11:54)
[2022-09-18] MEDS ORDERED: SODIUM CHLORIDE 0.9% 0 ML ONE ×2 (13:46→13:47)
[2022-09-18] MEDS ORDERED: LIDOCAINE/PF 1% 30 ML VIAL ONE (13:46)
[2022-09-18] MEDS ORDERED: VANCOMYCIN HCL 1 GM/VIAL ONE (13:46)
[2022-09-18] MEDS ORDERED: HEPARIN SODIUM,PORCINE 5,000 UNITS/ML VIAL ONE (13:46)
[2022-09-18] MEDS ORDERED: SODIUM CHLORIDE 0.9% 1,000 ML IV ONE (14:00)
[2022-09-18 19:20] VITALS: BP 147/69
[2022-09-18] MEDS: DiphenhydrAMINE HCL 25 MG CAPSULE PO PRN (21:36)
[2022-09-18] MEDS: OLANZapine 10 MG TABLET PO SCH (21:36)
[2022-09-18] MEDS: ACETAMINOPHEN 325 MG TABLET PO PRN (21:37)
[2022-09-18] MEDS: MELATONIN 5 MG TABLET PO PRN (21:38)
[2022-09-18] MEDS: INSULIN GLARGINE,HUM.REC.ANLOG 100 UNITS/ML SQ SCH (21:50)
[2022-09-18] MEDS: INSULIN LISPRO 100 UNITS/ML SQ PRN (21:50)
[2022-09-18 23:40] VITALS: BP 132/64
[2022-09-18 23:56] LABS: GLUCOMETER DEV NAME(LOC) 5N.1C; GLUCOSE,POINT OF CARE 205 MG/DL (70-110)
[2022-09-19] VITALS (13 sets, daily range): BP systolic 132–164; BP diastolic 46–85
[2022-09-19] MEDS: OLANZapine 5 MG TABLET PO PRN ×2 (01:24→20:46)
[2022-09-19] MEDS: ACETAMINOPHEN 325 MG TABLET PO PRN ×2 (01:25→10:07)
[2022-09-19] MEDS ORDERED: FentaNYL CITRATE PF 100 MCG/2 ML VIAL IVP ONE (05:29)
[2022-09-19] MEDS ORDERED: ONDANSETRON HCL 4 MG/2 ML VIAL IVP ONE (05:29)
[2022-09-19] MEDS ORDERED: PROPOFOL 1% 20 ML VIAL IVP ONE (05:29)
[2022-09-19] MEDS ORDERED: MIDAZOLAM HCL 2 MG/2 ML VIAL IVP ONE (05:29)
[2022-09-19] MEDS ORDERED: 0.9% SODIUM CHLORIDE 10 ML VIAL IVP ONE (05:29)
[2022-09-19] MEDS ORDERED: DEXAMETHASONE SOD PHOS 4 MG/ML VIAL IVP ONE (05:29)
[2022-09-19] MEDS ORDERED: HEPARIN SODIUM,PORCINE 1,000 UNITS/ML 10 ML VIAL IVP ONE (05:29)
[2022-09-19] MEDS ORDERED: LIDOCAINE/PF 2% 5 ML VIAL IM ONE (05:29)
[2022-09-19] MEDS ORDERED: GuaiFENesin/D-METHORPHAN [SUGAR-FREE] 200-20MG/10 ML SYRUP UDCUP PO SCH (08:00)
[2022-09-19] MEDS: DIVALPROEX SODIUM 250 MG ER TABLET PO SCH ×3 (08:41→21:25)
[2022-09-19] MEDS: GABAPENTIN 100 MG CAPSULE PO SCH ×2 (08:41→20:42)
[2022-09-19] MEDS: VITAMIN B COMP/VIT C/FOLIC ACID CAPSULE PO SCH (08:41)
[2022-09-19] MEDS: DOCUSATE SODIUM 100 MG CAPSULE PO SCH ×2 (08:42→20:42)
[2022-09-19] MEDS: ATORVASTATIN CALCIUM 20 MG TABLET PO SCH (08:42)
[2022-09-19] MEDS: AmLODIPine BESYLATE 5 MG TABLET PO SCH (08:42)
[2022-09-19] MEDS: FUROSEMIDE 80 MG TABLET PO SCH ×2 (08:43→21:25)
[2022-09-19] MEDS: LACTULOSE 20 GM/30 ML SOLUTION UDCUP PO SCH ×2 (08:43→20:42)
[2022-09-19] MEDS: PANTOPRAZOLE SODIUM 40 MG/VIAL IVP SCH (08:44)
[2022-09-19] MEDS: OXYGEN THERAPY IH SCH ×2 (08:46→21:22)
[2022-09-19] MEDS: DOXERCALCIFEROL 4 MCG/2 ML VIAL IVP SCH (08:48)
[2022-09-19] MEDS: LEVOTHYROXINE SODIUM 100 MCG VIAL IVP SCH (08:51)
[2022-09-19] MEDS: DiphenhydrAMINE HCL 25 MG CAPSULE PO PRN ×3 (10:07→20:42)
[2022-09-19] MEDS ORDERED: HEPARIN SODIUM,PORCINE 1,000 UNITS/ML VIAL IVCATH ONE ×2 (13:15)
[2022-09-19] MEDS: INSULIN LISPRO 100 UNITS/ML SQ PRN ×2 (14:06→20:42)
[2022-09-19] MEDS ORDERED: HEPARIN SODIUM,PORCINE 1,000 UNITS/ML VIAL IVP ONE (14:37)
[2022-09-19] MEDS: MELATONIN 5 MG TABLET PO PRN (20:42)
[2022-09-19] MEDS: GuaiFENesin/D-METHORPHAN [SUGAR-FREE] 200-20MG/10 ML SYRUP UDCUP PO PRN (20:44)
[2022-09-19] MEDS: OLANZapine 10 MG TABLET PO SCH (20:47)
[2022-09-19] MEDS: INSULIN GLARGINE,HUM.REC.ANLOG 100 UNITS/ML SQ SCH (20:49)
[2022-09-19 23:11] LABS: GLUCOMETER DEV NAME(LOC) 5S.1B; GLUCOSE,POINT OF CARE 154 MG/DL (70-110)
[2022-09-20] VITALS (7 sets, daily range): BP systolic 140–156; BP diastolic 70–85
[2022-09-20] MEDS: OXYGEN THERAPY IH SCH ×2 (08:00→20:00)
[2022-09-20 08:16] LABS: GLUCOMETER DEV NAME(LOC) 5S.1B; GLUCOSE,POINT OF CARE 126 MG/DL (70-110)
[2022-09-20] MEDS: ACETAMINOPHEN 325 MG TABLET PO PRN (08:26)
[2022-09-20] MEDS: DIVALPROEX SODIUM 250 MG ER TABLET PO SCH ×3 (08:27→21:07)
[2022-09-20] MEDS: ATORVASTATIN CALCIUM 20 MG TABLET PO SCH (08:27)
[2022-09-20] MEDS: DiphenhydrAMINE HCL 25 MG CAPSULE PO PRN ×2 (08:28→21:06)
[2022-09-20] MEDS: VITAMIN B COMP/VIT C/FOLIC ACID CAPSULE PO SCH (08:28)
[2022-09-20] MEDS: FUROSEMIDE 80 MG TABLET PO SCH ×2 (08:28→21:07)
[2022-09-20] MEDS: GABAPENTIN 100 MG CAPSULE PO SCH ×2 (08:28→21:06)
[2022-09-20] MEDS: AmLODIPine BESYLATE 5 MG TABLET PO SCH (08:28)
[2022-09-20] MEDS: DOXERCALCIFEROL 4 MCG/2 ML VIAL IVP SCH (08:29)
[2022-09-20] MEDS: PANTOPRAZOLE SODIUM 40 MG/VIAL IVP SCH (08:31)
[2022-09-20] MEDS: LEVOTHYROXINE SODIUM 100 MCG VIAL IVP SCH (08:36)
[2022-09-20] MEDS: DOCUSATE SODIUM 100 MG CAPSULE PO SCH ×2 (08:37→21:10)
[2022-09-20] MEDS: LACTULOSE 20 GM/30 ML SOLUTION UDCUP PO SCH ×2 (08:37→21:10)
[2022-09-20 08:51] LABS: GLUCOMETER DEV NAME(LOC) 5N.1C; GLUCOSE,POINT OF CARE 160 MG/DL (70-110)
[2022-09-20 08:51] LABS: GLUCOMETER DEV NAME(LOC) 5N.1C; GLUCOSE,POINT OF CARE 168 MG/DL (70-110)
[2022-09-20] MEDS: OLANZapine 5 MG TABLET PO PRN ×2 (11:51→21:07)
[2022-09-20] MEDS: INSULIN LISPRO 100 UNITS/ML SQ PRN ×2 (12:11→21:05)
[2022-09-20 12:31] LABS: GLUCOMETER DEV NAME(LOC) 5S.1B; GLUCOSE,POINT OF CARE 168 MG/DL (70-110)
[2022-09-20] MEDS: MELATONIN 5 MG TABLET PO PRN (21:06)
[2022-09-20] MEDS: CloNIDine HCL 0.1 MG TABLET PO PRN (21:06)
[2022-09-20] MEDS: GuaiFENesin/D-METHORPHAN [SUGAR-FREE] 200-20MG/10 ML SYRUP UDCUP PO PRN (21:10)
[2022-09-20] MEDS: OLANZapine 10 MG TABLET PO SCH (22:29)
[2022-09-20] MEDS: INSULIN GLARGINE,HUM.REC.ANLOG 100 UNITS/ML SQ SCH (22:32)
[2022-09-21 04:34] VITALS: BP 157/77
[2022-09-21 06:17] LABS: GLUCOMETER DEV NAME(LOC) 5S.1B; GLUCOSE,POINT OF CARE 112 MG/DL (70-110)
[2022-09-21 06:17] LABS: GLUCOMETER DEV NAME(LOC) 5S.1B; GLUCOSE,POINT OF CARE 164 MG/DL (70-110)
[2022-09-21 06:17] LABS: GLUCOMETER DEV NAME(LOC) 5S.1B; GLUCOSE,POINT OF CARE 140 MG/DL (70-110)
[2022-09-21 07:15] VITALS: BP 151/75
[2022-09-21] MEDS: LACTULOSE 20 GM/30 ML SOLUTION UDCUP PO SCH ×2 (09:09→20:36)
[2022-09-21] MEDS: PANTOPRAZOLE SODIUM 40 MG/VIAL IVP SCH (09:09)
[2022-09-21] MEDS: VITAMIN B COMP/VIT C/FOLIC ACID CAPSULE PO SCH (09:10)
[2022-09-21] MEDS: FUROSEMIDE 80 MG TABLET PO SCH ×2 (09:10→20:10)
[2022-09-21] MEDS: AmLODIPine BESYLATE 5 MG TABLET PO SCH (09:11)
[2022-09-21] MEDS: ATORVASTATIN CALCIUM 20 MG TABLET PO SCH (09:11)
[2022-09-21] MEDS: DIVALPROEX SODIUM 250 MG ER TABLET PO SCH ×3 (09:11→20:11)
[2022-09-21] MEDS: OXYGEN THERAPY IH SCH (09:12)
[2022-09-21] MEDS: GABAPENTIN 100 MG CAPSULE PO SCH ×2 (09:12→20:10)
[2022-09-21] MEDS: DOCUSATE SODIUM 100 MG CAPSULE PO SCH ×2 (09:12→20:10)
[2022-09-21] MEDS: EPOETIN ALFA 10,000 UNITS/ML 2 ML VIAL SQ SCH (09:12)
[2022-09-21] MEDS: LEVOTHYROXINE SODIUM 100 MCG VIAL IVP SCH (09:13)
[2022-09-21] MEDS: DOXERCALCIFEROL 4 MCG/2 ML VIAL IVP SCH (09:14)
[2022-09-21] MEDS: DiphenhydrAMINE HCL 25 MG CAPSULE PO PRN ×2 (09:17→23:02)
[2022-09-21] MEDS: GuaiFENesin/D-METHORPHAN [SUGAR-FREE] 200-20MG/10 ML SYRUP UDCUP PO PRN (09:49)
[2022-09-21 11:04] VITALS: BP 150/82
[2022-09-21 12:41] LABS: GLUCOMETER DEV NAME(LOC) 5S.1B; GLUCOSE,POINT OF CARE 99 MG/DL (70-110)
[2022-09-21] MEDS: ACETAMINOPHEN 325 MG TABLET PO PRN ×2 (13:25→21:15)
[2022-09-21] MEDS: INSULIN LISPRO 100 UNITS/ML SQ PRN ×2 (17:18→20:14)
[2022-09-21 19:40] VITALS: BP 147/73
[2022-09-21] MEDS: OLANZapine 10 MG TABLET PO SCH (20:10)
[2022-09-21] MEDS: INSULIN GLARGINE,HUM.REC.ANLOG 100 UNITS/ML SQ SCH (20:12)
[2022-09-21 23:31] VITALS: BP 139/75
[2022-09-22] VITALS (14 sets, daily range): BP systolic 143–163; BP diastolic 42–89
[2022-09-22 06:27] LABS: BASOPHILS % (AUTO) 0.5 % (0.0-2.0); EOSINOPHILS % (AUTO) 2.1 % (1.0-6.0); HEMOGLOBIN 9.3 g/dL (12.0-16.0); LYMPHOCYTES # (AUTO) 2.6 K/uL (1.0-4.8); LYMPHOCYTES % (AUTO) 17.2 % (22.0-44.0); MEAN CORPUSCULAR HEMOGLOBIN 29.4 pg (26.0-34.0); MEAN CORPUSCULAR HGB CONC 32.2 G/dL (31.0-37.0); MEAN CORPUSCULAR VOLUME 91 fL (80-100); MONOCYTES # (AUTO) 1.5 K/uL (0.1-1.0); MONOCYTES % (AUTO) 10.1 % (2.0-9.0); NEUTROPHILS # (AUTO) 10.7 K/uL (1.8-7.7); NEUTROPHILS % (AUTO) 70.1 % (40.0-70.0); PLATELET COUNT (AUTO) 415 K/uL (150-450); RED BLOOD CELL COUNT(AUTO) 3.18 MIL/uL (4.00-5.20); RED CELL DISTRIBUTION WIDTH 18.2 % (11.5-14.5)
[2022-09-22 06:45] LABS: CALCIUM, TOTAL 9.4 mg/dL (8.8-10.5); CREATININE 4.73 mg/dL (0.60-1.30); MAGNESIUM 1.4 mg/dL (1.80-2.40); PHOSPHORUS 4.7 mg/dL (2.5-4.9); POTASSIUM 4.3 mmol/L (3.5-5.1)
[2022-09-22] MEDS: LACTULOSE 20 GM/30 ML SOLUTION UDCUP PO SCH ×2 (08:57→21:00)
[2022-09-22] MEDS: LEVOTHYROXINE SODIUM 100 MCG VIAL IVP SCH (08:57)
[2022-09-22] MEDS: PANTOPRAZOLE SODIUM 40 MG/VIAL IVP SCH (08:59)
[2022-09-22] MEDS: VITAMIN B COMP/VIT C/FOLIC ACID CAPSULE PO SCH (08:59)
[2022-09-22] MEDS: AmLODIPine BESYLATE 5 MG TABLET PO SCH (08:59)
[2022-09-22] MEDS: FUROSEMIDE 80 MG TABLET PO SCH ×2 (08:59→21:01)
[2022-09-22] MEDS: DIVALPROEX SODIUM 250 MG ER TABLET PO SCH ×3 (09:00→21:02)
[2022-09-22] MEDS: DOCUSATE SODIUM 100 MG CAPSULE PO SCH ×2 (09:00→21:01)
[2022-09-22] MEDS: GABAPENTIN 100 MG CAPSULE PO SCH ×2 (09:00→21:02)
[2022-09-22] MEDS: ATORVASTATIN CALCIUM 20 MG TABLET PO SCH (09:00)
[2022-09-22] MEDS ORDERED: SODIUM CHLORIDE 0.9% 2,000 ML ONE (09:03)
[2022-09-22] MEDS: DiphenhydrAMINE HCL 25 MG CAPSULE PO PRN ×2 (09:05→15:21)
[2022-09-22] MEDS: ACETAMINOPHEN 325 MG TABLET PO PRN (09:06)
[2022-09-22] MEDS: DOXERCALCIFEROL 4 MCG/2 ML VIAL IVP SCH (12:00)
[2022-09-22 20:11] LABS: GLUCOMETER DEV NAME(LOC) 5N.1C; GLUCOSE,POINT OF CARE 107 MG/DL (70-110)
[2022-09-22 20:11] LABS: GLUCOMETER DEV NAME(LOC) 5N.1C; GLUCOSE,POINT OF CARE 130 MG/DL (70-110)
[2022-09-22 20:11] LABS: GLUCOMETER DEV NAME(LOC) 5N.1C; GLUCOSE,POINT OF CARE 135 MG/DL (70-110)
[2022-09-22] MEDS: MELATONIN 5 MG TABLET PO PRN (21:01)
[2022-09-22] MEDS: OLANZapine 10 MG TABLET PO SCH (21:01)
[2022-09-22] MEDS: INSULIN GLARGINE,HUM.REC.ANLOG 100 UNITS/ML SQ SCH (21:03)
[2022-09-22 23:46] LABS: GLUCOMETER DEV NAME(LOC) 5S.1B; GLUCOSE,POINT OF CARE 140 MG/DL (70-110)
[2022-09-23] VITALS (7 sets, daily range): BP systolic 135–164; BP diastolic 66–90
[2022-09-23] MEDS: OLANZapine 5 MG TABLET PO PRN (01:21)
[2022-09-23] MEDS: GuaiFENesin/D-METHORPHAN [SUGAR-FREE] 200-20MG/10 ML SYRUP UDCUP PO PRN ×2 (01:21→09:36)
[2022-09-23] MEDS: DOCUSATE SODIUM 100 MG CAPSULE PO SCH ×2 (09:00→21:00)
[2022-09-23] MEDS: PANTOPRAZOLE SODIUM 40 MG/VIAL IVP SCH ×2 (09:00→09:39)
[2022-09-23] MEDS: LEVOTHYROXINE SODIUM 100 MCG VIAL IVP SCH ×2 (09:00→09:39)
[2022-09-23] MEDS: LACTULOSE 20 GM/30 ML SOLUTION UDCUP PO SCH ×2 (09:00→21:00)
[2022-09-23 09:21] LABS: GLUCOMETER DEV NAME(LOC) 5N.1C; GLUCOSE,POINT OF CARE 65 MG/DL (70-110)
[2022-09-23 09:21] LABS: GLUCOMETER DEV NAME(LOC) 5N.1C; GLUCOSE,POINT OF CARE 83 MG/DL (70-110)
[2022-09-23 09:21] LABS: GLUCOMETER DEV NAME(LOC) 5N.1C; GLUCOSE,POINT OF CARE 67 MG/DL (70-110)
[2022-09-23] MEDS: DIVALPROEX SODIUM 250 MG ER TABLET PO SCH ×3 (09:35→21:12)
[2022-09-23] MEDS: AmLODIPine BESYLATE 5 MG TABLET PO SCH (09:36)
[2022-09-23] MEDS: GABAPENTIN 100 MG CAPSULE PO SCH ×2 (09:36→21:12)
[2022-09-23] MEDS: FUROSEMIDE 80 MG TABLET PO SCH ×2 (09:36→21:12)
[2022-09-23] MEDS: ATORVASTATIN CALCIUM 20 MG TABLET PO SCH (09:36)
[2022-09-23] MEDS: VITAMIN B COMP/VIT C/FOLIC ACID CAPSULE PO SCH (09:36)
[2022-09-23] MEDS: DOXERCALCIFEROL 4 MCG/2 ML VIAL IVP SCH ×2 (09:37→10:00)
[2022-09-23] MEDS: EPOETIN ALFA 10,000 UNITS/ML 2 ML VIAL SQ SCH (09:44)
[2022-09-23] MEDS: OLANZapine 10 MG TABLET PO SCH (21:12)
[2022-09-23] MEDS: INSULIN GLARGINE,HUM.REC.ANLOG 100 UNITS/ML SQ SCH (21:13)
[2022-09-23] MEDS: DiphenhydrAMINE HCL 25 MG CAPSULE PO PRN (21:13)
[2022-09-23] MEDS: CloNIDine HCL 0.1 MG TABLET PO PRN (23:35)
[2022-09-23] MEDS: ACETAMINOPHEN 325 MG TABLET PO PRN (23:53)
[2022-09-24] VITALS (16 sets, daily range): BP systolic 133–169; BP diastolic 67–92
[2022-09-24 06:15] LABS: BASOPHILS % (AUTO) 0.9 % (0.0-2.0); EOSINOPHILS % (AUTO) 1.1 % (1.0-6.0); HEMATOCRIT 27.6 % (36-46); HEMOGLOBIN 9.1 g/dL (12.0-16.0); LYMPHOCYTES # (AUTO) 2.7 K/uL (1.0-4.8); LYMPHOCYTES % (AUTO) 20.6 % (22.0-44.0); MEAN CORPUSCULAR HEMOGLOBIN 29.8 pg (26.0-34.0); MEAN CORPUSCULAR HGB CONC 32.8 G/dL (31.0-37.0); MEAN CORPUSCULAR VOLUME 91 fL (80-100); MONOCYTES # (AUTO) 1.2 K/uL (0.1-1.0); MONOCYTES % (AUTO) 8.9 % (2.0-9.0); NEUTROPHILS # (AUTO) 9.1 K/uL (1.8-7.7); NEUTROPHILS % (AUTO) 68.5 % (40.0-70.0); PLATELET COUNT (AUTO) 432 K/uL (150-450); RED BLOOD CELL COUNT(AUTO) 3.04 MIL/uL (4.00-5.20); RED CELL DISTRIBUTION WIDTH 18.9 % (11.5-14.5)
[2022-09-24 06:22] LABS: ALBUMIN 2.1 g/dL (3.4-5.0); BILIRUBIN,TOTAL 0.7 mg/dL (0.1-1.0); CALCIUM, TOTAL 8.9 mg/dL (8.8-10.5); CREATININE 3.74 mg/dL (0.60-1.30); POTASSIUM 4.4 mmol/L (3.5-5.1); TOTAL PROTEIN, SERUM 6.2 g/dL (6.4-8.2)
[2022-09-24 06:27] LABS: GLUCOMETER DEV NAME(LOC) 5N.1C; GLUCOSE,POINT OF CARE 149 MG/DL (70-110)
[2022-09-24] MEDS: FUROSEMIDE 80 MG TABLET PO SCH ×2 (08:44→21:07)
[2022-09-24] MEDS: LACTULOSE 20 GM/30 ML SOLUTION UDCUP PO SCH ×2 (08:44→21:00)
[2022-09-24] MEDS: GABAPENTIN 100 MG CAPSULE PO SCH ×2 (08:45→21:07)
[2022-09-24] MEDS: DOCUSATE SODIUM 100 MG CAPSULE PO SCH ×2 (08:45→21:00)
[2022-09-24] MEDS: DIVALPROEX SODIUM 250 MG ER TABLET PO SCH ×3 (08:45→21:07)
[2022-09-24] MEDS: AmLODIPine BESYLATE 5 MG TABLET PO SCH (08:46)
[2022-09-24] MEDS: ATORVASTATIN CALCIUM 20 MG TABLET PO SCH (08:46)
[2022-09-24] MEDS: VITAMIN B COMP/VIT C/FOLIC ACID CAPSULE PO SCH (08:46)
[2022-09-24] MEDS: DOXERCALCIFEROL 4 MCG/2 ML VIAL IVP SCH (08:47)
[2022-09-24] MEDS: PANTOPRAZOLE SODIUM 40 MG/VIAL IVP SCH (08:48)
[2022-09-24] MEDS: LEVOTHYROXINE SODIUM 100 MCG VIAL IVP SCH (08:48)
[2022-09-24] MEDS: DiphenhydrAMINE HCL 25 MG CAPSULE PO PRN ×2 (08:49→21:10)
[2022-09-24] MEDS: INSULIN LISPRO 100 UNITS/ML SQ PRN (12:16)
[2022-09-24] MEDS: GuaiFENesin/D-METHORPHAN [SUGAR-FREE] 200-20MG/10 ML SYRUP UDCUP PO PRN (14:55)
[2022-09-24] MEDS: LEVOTHYROXINE SODIUM 150 MCG TABLET PO SCH (14:56)
[2022-09-24] MEDS ORDERED: SODIUM CHLORIDE 0.9% 1,000 ML ONE (15:27)
[2022-09-24 17:37] LABS: GLUCOMETER DEV NAME(LOC) 5N.1C; GLUCOSE,POINT OF CARE 149 MG/DL (70-110)
[2022-09-24] MEDS: INSULIN GLARGINE,HUM.REC.ANLOG 100 UNITS/ML SQ SCH (21:00)
[2022-09-24] MEDS: OLANZapine 10 MG TABLET PO SCH (21:07)
[2022-09-24 21:16] LABS: GLUCOMETER DEV NAME(LOC) 5N.1C; GLUCOSE,POINT OF CARE 126 MG/DL (70-110)
[2022-09-25] MEDS: MELATONIN 5 MG TABLET PO PRN ×2 (00:44→20:49)
[2022-09-25 04:24] VITALS: BP 147/76
[2022-09-25] MEDS: LEVOTHYROXINE SODIUM 150 MCG TABLET PO SCH (06:11)
[2022-09-25] MEDS: INSULIN LISPRO 100 UNITS/ML SQ PRN ×4 (06:12→20:51)
[2022-09-25 06:24] LABS: BASOPHILS % (AUTO) 0.9 % (0.0-2.0); EOSINOPHILS % (AUTO) 0.8 % (1.0-6.0); HEMATOCRIT 26.6 % (36-46); HEMOGLOBIN 8.8 g/dL (12.0-16.0); MEAN CORPUSCULAR HEMOGLOBIN 30.3 pg (26.0-34.0); MEAN CORPUSCULAR HGB CONC 33.1 G/dL (31.0-37.0); MEAN CORPUSCULAR VOLUME 92 fL (80-100); MONOCYTES % (AUTO) 8.4 % (2.0-9.0); NEUTROPHILS # (AUTO) 9.1 K/uL (1.8-7.7); NEUTROPHILS % (AUTO) 73.9 % (40.0-70.0); PLATELET COUNT (AUTO) 395 K/uL (150-450); RED BLOOD CELL COUNT(AUTO) 2.91 MIL/uL (4.00-5.20); RED CELL DISTRIBUTION WIDTH 18.6 % (11.5-14.5)
[2022-09-25 06:52] LABS: ALBUMIN 2.1 g/dL (3.4-5.0); BILIRUBIN,TOTAL 0.6 mg/dL (0.1-1.0); CALCIUM, TOTAL 8.8 mg/dL (8.8-10.5); CREATININE 2.76 mg/dL (0.60-1.30); POTASSIUM 4.1 mmol/L (3.5-5.1)
[2022-09-25] MEDS: GABAPENTIN 100 MG CAPSULE PO SCH ×2 (08:07→20:49)
[2022-09-25] MEDS: VITAMIN B COMP/VIT C/FOLIC ACID CAPSULE PO SCH (08:07)
[2022-09-25] MEDS: ATORVASTATIN CALCIUM 20 MG TABLET PO SCH (08:07)
[2022-09-25] MEDS: FUROSEMIDE 80 MG TABLET PO SCH ×2 (08:07→20:49)
[2022-09-25] MEDS: DIVALPROEX SODIUM 250 MG ER TABLET PO SCH ×3 (08:07→20:49)
[2022-09-25] MEDS: DOCUSATE SODIUM 100 MG CAPSULE PO SCH ×2 (08:08→20:47)
[2022-09-25] MEDS: PANTOPRAZOLE SODIUM 40 MG DR TABLET PO SCH (08:08)
[2022-09-25] MEDS: LACTULOSE 20 GM/30 ML SOLUTION UDCUP PO SCH ×2 (08:08→20:47)
[2022-09-25] MEDS: AmLODIPine BESYLATE 5 MG TABLET PO SCH (08:08)
[2022-09-25] MEDS: EPOETIN ALFA 10,000 UNITS/ML VIAL SQ SCH (08:14)
[2022-09-25 08:15] VITALS: BP 140/82
[2022-09-25] MEDS: DOXERCALCIFEROL 4 MCG/2 ML VIAL IVP SCH (08:15)
[2022-09-25 09:30] VITALS: BP 142/83
[2022-09-25 12:20] VITALS: BP 139/85
[2022-09-25 12:26] LABS: GLUCOMETER DEV NAME(LOC) 5N.1C; GLUCOSE,POINT OF CARE 172 MG/DL (70-110)
[2022-09-25 15:59] VITALS: BP 141/80
[2022-09-25] MEDS ORDERED: HEPARIN SODIUM,PORCINE 1,000 UNITS/ML VIAL IVP ONE (16:44)
[2022-09-25 17:26] LABS: GLUCOMETER DEV NAME(LOC) 5S.2B; GLUCOSE,POINT OF CARE 185 MG/DL (70-110)
[2022-09-25 19:59] VITALS: BP 136/68
[2022-09-25 20:01] LABS: GLUCOMETER DEV NAME(LOC) 5N.1C; GLUCOSE,POINT OF CARE 294 MG/DL (70-110)
[2022-09-25] MEDS: OLANZapine 10 MG TABLET PO SCH (20:49)
[2022-09-25] MEDS: INSULIN GLARGINE,HUM.REC.ANLOG 100 UNITS/ML SQ SCH (20:50)
[2022-09-26] VITALS (14 sets, daily range): BP systolic 149–177; BP diastolic 78–99
[2022-09-26] MEDS: DiphenhydrAMINE HCL 25 MG CAPSULE PO PRN ×2 (01:49→09:16)
[2022-09-26 04:36] LABS: GLUCOMETER DEV NAME(LOC) 5N.1C; GLUCOSE,POINT OF CARE 253 MG/DL (70-110)
[2022-09-26] MEDS: LEVOTHYROXINE SODIUM 150 MCG TABLET PO SCH (06:01)
[2022-09-26] MEDS: INSULIN LISPRO 100 UNITS/ML SQ PRN ×4 (06:03→21:33)
[2022-09-26 06:46] LABS: GLUCOMETER DEV NAME(LOC) 5N.1C; GLUCOSE,POINT OF CARE 179 MG/DL (70-110)
[2022-09-26] MEDS: DOCUSATE SODIUM 100 MG CAPSULE PO SCH ×2 (08:06→21:33)
[2022-09-26] MEDS: FUROSEMIDE 80 MG TABLET PO SCH ×2 (08:06→21:33)
[2022-09-26] MEDS: VITAMIN B COMP/VIT C/FOLIC ACID CAPSULE PO SCH (08:06)
[2022-09-26] MEDS: DIVALPROEX SODIUM 250 MG ER TABLET PO SCH ×3 (08:06→21:33)
[2022-09-26] MEDS: AmLODIPine BESYLATE 5 MG TABLET PO SCH (08:07)
[2022-09-26] MEDS: ATORVASTATIN CALCIUM 20 MG TABLET PO SCH (08:07)
[2022-09-26] MEDS: GABAPENTIN 100 MG CAPSULE PO SCH ×2 (08:07→21:33)
[2022-09-26] MEDS: LACTULOSE 20 GM/30 ML SOLUTION UDCUP PO SCH ×2 (08:07→21:33)
[2022-09-26] MEDS: PANTOPRAZOLE SODIUM 40 MG DR TABLET PO SCH (08:07)
[2022-09-26 09:35] LABS: BASOPHILS % (AUTO) 0.7 % (0.0-2.0); HEMATOCRIT 28.2 % (36-46); LYMPHOCYTES # (AUTO) 2.7 K/uL (1.0-4.8); MEAN CORPUSCULAR HEMOGLOBIN 29.7 pg (26.0-34.0); MEAN CORPUSCULAR VOLUME 93 fL (80-100); MONOCYTES # (AUTO) 0.9 K/uL (0.1-1.0); MONOCYTES % (AUTO) 7.5 % (2.0-9.0); NEUTROPHILS # (AUTO) 8.5 K/uL (1.8-7.7); NEUTROPHILS % (AUTO) 68.8 % (40.0-70.0); PLATELET COUNT (AUTO) 393 K/uL (150-450); RED BLOOD CELL COUNT(AUTO) 3.04 MIL/uL (4.00-5.20); RED CELL DISTRIBUTION WIDTH 19.4 % (11.5-14.5)
[2022-09-26 09:54] LABS: CALCIUM, TOTAL 9.2 mg/dL (8.8-10.5); CREATININE 3.4 mg/dL (0.60-1.30); POTASSIUM 4.5 mmol/L (3.5-5.1)
[2022-09-26 09:59] LABS: ALBUMIN 2.2 g/dL (3.4-5.0); BILIRUBIN,TOTAL 0.6 mg/dL (0.1-1.0); TOTAL PROTEIN, SERUM 6.4 g/dL (6.4-8.2)
[2022-09-26] MEDS ORDERED: SODIUM CHLORIDE 0.9% 2,000 ML ONE (11:27)
[2022-09-26] MEDS ORDERED: HEPARIN SODIUM,PORCINE 1,000 UNITS/ML VIAL IVP ONE (12:00)
[2022-09-26 14:17] LABS: GLUCOMETER DEV NAME(LOC) 5S.1B; GLUCOSE,POINT OF CARE 212 MG/DL (70-110)
[2022-09-26] MEDS ORDERED: HEPARIN SODIUM,PORCINE 1,000 UNITS/ML VIAL IVCATH ONE ×2 (20:15)
[2022-09-26] MEDS: INSULIN GLARGINE,HUM.REC.ANLOG 100 UNITS/ML SQ SCH (21:32)
[2022-09-26] MEDS: OLANZapine 10 MG TABLET PO SCH (21:33)
[2022-09-26] MEDS: MELATONIN 5 MG TABLET PO PRN (21:34)
[2022-09-27 00:15] VITALS: BP 156/75
[2022-09-27] MEDS: DiphenhydrAMINE HCL 25 MG CAPSULE PO PRN (03:16)
[2022-09-27 06:00] VITALS: BP 168/78
[2022-09-27] MEDS: LEVOTHYROXINE SODIUM 150 MCG TABLET PO SCH (06:14)
[2022-09-27] MEDS: INSULIN LISPRO 100 UNITS/ML SQ PRN ×4 (06:16→21:33)
[2022-09-27 06:46] LABS: GLUCOMETER DEV NAME(LOC) 5S.1B; GLUCOSE,POINT OF CARE 168 MG/DL (70-110)
[2022-09-27 06:47] LABS: GLUCOMETER DEV NAME(LOC) 5S.1B; GLUCOSE,POINT OF CARE 219 MG/DL (70-110)
[2022-09-27 07:16] LABS: BASOPHILS % (AUTO) 0.5 % (0.0-2.0); EOSINOPHILS % (AUTO) 1.4 % (1.0-6.0); HEMATOCRIT 29.2 % (36-46); HEMOGLOBIN 9.5 g/dL (12.0-16.0); LYMPHOCYTES # (AUTO) 2.3 K/uL (1.0-4.8); LYMPHOCYTES % (AUTO) 17.6 % (22.0-44.0); MEAN CORPUSCULAR HEMOGLOBIN 30.3 pg (26.0-34.0); MEAN CORPUSCULAR HGB CONC 32.6 G/dL (31.0-37.0); MEAN CORPUSCULAR VOLUME 93 fL (80-100); MONOCYTES # (AUTO) 0.9 K/uL (0.1-1.0); MONOCYTES % (AUTO) 6.9 % (2.0-9.0); NEUTROPHILS # (AUTO) 9.8 K/uL (1.8-7.7); NEUTROPHILS % (AUTO) 73.6 % (40.0-70.0); PLATELET COUNT (AUTO) 400 K/uL (150-450); RED BLOOD CELL COUNT(AUTO) 3.14 MIL/uL (4.00-5.20); RED CELL DISTRIBUTION WIDTH 19.3 % (11.5-14.5)
[2022-09-27 07:35] VITALS: BP 161/80
[2022-09-27 07:52] LABS: ALBUMIN 2.2 g/dL (3.4-5.0); BILIRUBIN,TOTAL 0.5 mg/dL (0.1-1.0); CALCIUM, TOTAL 8.8 mg/dL (8.8-10.5); CREATININE 2.62 mg/dL (0.60-1.30); POTASSIUM 4.5 mmol/L (3.5-5.1); TOTAL PROTEIN, SERUM 6.5 g/dL (6.4-8.2)
[2022-09-27] MEDS: PANTOPRAZOLE SODIUM 40 MG DR TABLET PO SCH (10:35)
[2022-09-27] MEDS: CloNIDine HCL 0.1 MG TABLET PO PRN (10:35)
[2022-09-27] MEDS: VITAMIN B COMP/VIT C/FOLIC ACID CAPSULE PO SCH (10:35)
[2022-09-27] MEDS: FUROSEMIDE 80 MG TABLET PO SCH ×2 (10:35→21:26)
[2022-09-27] MEDS: AmLODIPine BESYLATE 5 MG TABLET PO SCH (10:35)
[2022-09-27] MEDS: DOCUSATE SODIUM 100 MG CAPSULE PO SCH ×2 (10:36→21:26)
[2022-09-27] MEDS: GABAPENTIN 100 MG CAPSULE PO SCH ×2 (10:36→21:26)
[2022-09-27] MEDS: DIVALPROEX SODIUM 250 MG ER TABLET PO SCH ×3 (10:36→21:26)
[2022-09-27] MEDS: ATORVASTATIN CALCIUM 20 MG TABLET PO SCH (10:36)
[2022-09-27] MEDS: LACTULOSE 20 GM/30 ML SOLUTION UDCUP PO SCH ×2 (10:38→21:26)
[2022-09-27 12:26] VITALS: BP 151/69
[2022-09-27 12:41] LABS: GLUCOMETER DEV NAME(LOC) 5S.1B; GLUCOSE,POINT OF CARE 190 MG/DL (70-110)
[2022-09-27 16:04] VITALS: BP 143/68
[2022-09-27 20:04] VITALS: BP 151/67
[2022-09-27] MEDS: MELATONIN 5 MG TABLET PO PRN (21:26)
[2022-09-27] MEDS: OLANZapine 10 MG TABLET PO SCH (21:26)
[2022-09-27] MEDS: INSULIN GLARGINE,HUM.REC.ANLOG 100 UNITS/ML SQ SCH (21:33)
[2022-09-27 22:01] LABS: GLUCOMETER DEV NAME(LOC) 5S.1B; GLUCOSE,POINT OF CARE 243 MG/DL (70-110)
[2022-09-28 00:24] VITALS: BP 138/76
[2022-09-28 04:05] VITALS: BP 142/80
[2022-09-28] MEDS: LEVOTHYROXINE SODIUM 150 MCG TABLET PO SCH (05:47)
[2022-09-28] MEDS: INSULIN LISPRO 100 UNITS/ML SQ PRN ×3 (05:52→20:34)
[2022-09-28 06:23] LABS: FREE T4 (FREE THYROXINE) 0.81 ng/dL (0.76-1.46); THYROID STIMULATING HORMONE 104.66 uIU/mL (0.36-3.74)
[2022-09-28 07:38] VITALS: BP 132/74
[2022-09-28] MEDS: AmLODIPine BESYLATE 10 MG TABLET PO SCH (08:04)
[2022-09-28] MEDS: PANTOPRAZOLE SODIUM 40 MG DR TABLET PO SCH (08:04)
[2022-09-28] MEDS: FUROSEMIDE 80 MG TABLET PO SCH ×2 (08:04→20:26)
[2022-09-28] MEDS: LACTULOSE 20 GM/30 ML SOLUTION UDCUP PO SCH ×2 (08:04→20:27)
[2022-09-28] MEDS: DIVALPROEX SODIUM 250 MG ER TABLET PO SCH ×3 (08:04→20:26)
[2022-09-28] MEDS: VITAMIN B COMP/VIT C/FOLIC ACID CAPSULE PO SCH (08:04)
[2022-09-28] MEDS: GABAPENTIN 100 MG CAPSULE PO SCH ×2 (08:04→21:17)
[2022-09-28] MEDS: DOCUSATE SODIUM 100 MG CAPSULE PO SCH ×2 (08:05→20:26)
[2022-09-28] MEDS: ATORVASTATIN CALCIUM 20 MG TABLET PO SCH (08:05)
[2022-09-28] MEDS: EPOETIN ALFA 10,000 UNITS/ML VIAL SQ SCH (08:06)
[2022-09-28 11:26] LABS: GLUCOMETER DEV NAME(LOC) 5N.1C; GLUCOSE,POINT OF CARE 142 MG/DL (70-110)
[2022-09-28 11:35] VITALS: BP 135/83
[2022-09-28 14:06] LABS: GLUCOMETER DEV NAME(LOC) 5N.1C; GLUCOSE,POINT OF CARE 103 MG/DL (70-110)
[2022-09-28 15:35] VITALS: BP 148/74
[2022-09-28] MEDS: OLANZapine 5 MG TABLET PO PRN (17:40)
[2022-09-28] MEDS: INSULIN GLARGINE,HUM.REC.ANLOG 100 UNITS/ML SQ SCH (20:35)
[2022-09-28 20:39] VITALS: BP 141/96
[2022-09-28 21:11] LABS: GLUCOMETER DEV NAME(LOC) 6N.1; GLUCOSE,POINT OF CARE 223 MG/DL (70-110)
[2022-09-28] MEDS: OLANZapine 10 MG TABLET PO SCH (21:17)
[2022-09-28 21:42] LABS: APPEARANCE,URINE CLEAR (CLEAR); BILIRUBIN,URINE NEGATIVE (NEGATIVE); GLUCOSE, URINE (UA) 70-100 mg/dL (NEGATIVE); KETONES,URINE NEGATIVE (NEGATIVE); LEUKOCYTE ESTERASE ,URINE MODERATE (NEGATIVE); NITRATE,URINE NEGATIVE (NEGATIVE); OCCULT BLOOD,URINE SMALL (NEGATIVE); PROTEIN,URINE 300-600,SEE CONFIRM mg/dL (NEGATIVE); SPECIFIC GRAVITIY, URINE 1.006 (1.003-1.030); UROBILINOGEN,URINE <=1.0 mg/dL (<=1.0)
[2022-09-28 21:51] LABS: BACTERIA,URINE Few /HPF (None Seen); SQUAMOUS EPITHELIAL CELL,UR Few /LPF (None Seen)
[2022-09-28 21:52] LABS: SULFOSALICYLIC ACID,URINE 3+ (Negative)
[2022-09-28] MEDS: MELATONIN 5 MG TABLET PO PRN (22:06)
[2022-09-29] VITALS (12 sets, daily range): BP systolic 138–157; BP diastolic 61–99
[2022-09-29] MEDS: LEVOTHYROXINE SODIUM 200 MCG TABLET PO SCH (05:46)
[2022-09-29 07:03] LABS: BASOPHILS % (AUTO) 0.7 % (0.0-2.0); EOSINOPHILS % (AUTO) 1.5 % (1.0-6.0); HEMATOCRIT 30.8 % (36-46); HEMOGLOBIN 9.8 g/dL (12.0-16.0); LYMPHOCYTES # (AUTO) 2.4 K/uL (1.0-4.8); LYMPHOCYTES % (AUTO) 17.1 % (22.0-44.0); MEAN CORPUSCULAR HEMOGLOBIN 29.9 pg (26.0-34.0); MEAN CORPUSCULAR HGB CONC 31.9 G/dL (31.0-37.0); MEAN CORPUSCULAR VOLUME 94 fL (80-100); MONOCYTES # (AUTO) 0.9 K/uL (0.1-1.0); MONOCYTES % (AUTO) 6.5 % (2.0-9.0); NEUTROPHILS # (AUTO) 10.4 K/uL (1.8-7.7); NEUTROPHILS % (AUTO) 74.2 % (40.0-70.0); PLATELET COUNT (AUTO) 330 K/uL (150-450); RED BLOOD CELL COUNT(AUTO) 3.28 MIL/uL (4.00-5.20); RED CELL DISTRIBUTION WIDTH 19.1 % (11.5-14.5)
[2022-09-29 07:06] LABS: GLUCOMETER DEV NAME(LOC) 6N.2B; GLUCOSE,POINT OF CARE 137 MG/DL (70-110)
[2022-09-29 07:28] LABS: ALBUMIN 2.3 g/dL (3.4-5.0); BILIRUBIN,TOTAL 0.5 mg/dL (0.1-1.0); CALCIUM, TOTAL 9.2 mg/dL (8.8-10.5); CREATININE 4.03 mg/dL (0.60-1.30); POTASSIUM 5.2 mmol/L (3.5-5.1); TOTAL PROTEIN, SERUM 6.3 g/dL (6.4-8.2)
[2022-09-29] MEDS: AmLODIPine BESYLATE 10 MG TABLET PO SCH (09:00)
[2022-09-29] MEDS: FUROSEMIDE 80 MG TABLET PO SCH ×2 (09:00→20:06)
[2022-09-29] MEDS: DOCUSATE SODIUM 100 MG CAPSULE PO SCH ×2 (09:06→20:06)
[2022-09-29] MEDS: ATORVASTATIN CALCIUM 20 MG TABLET PO SCH (09:06)
[2022-09-29] MEDS: SENNA 218 MG/5 ML LIQUID ORAL.SYG PO PRN (09:09)
[2022-09-29] MEDS: PANTOPRAZOLE SODIUM 40 MG DR TABLET PO SCH (09:09)
[2022-09-29] MEDS: FOLIC ACID/VIT B COMPLEX AND C TABLET PO SCH (09:10)
[2022-09-29] MEDS: DIVALPROEX SODIUM 250 MG ER TABLET PO SCH ×3 (09:11→20:07)
[2022-09-29] MEDS: GABAPENTIN 100 MG CAPSULE PO SCH ×2 (09:11→20:07)
[2022-09-29] MEDS: LACTULOSE 20 GM/30 ML SOLUTION UDCUP PO SCH ×2 (09:12→20:08)
[2022-09-29] MEDS ORDERED: SODIUM CHLORIDE 0.9% 1,000 ML ONE (11:02)
[2022-09-29] MEDS ORDERED: HEPARIN SODIUM,PORCINE 1,000 UNITS/ML VIAL IVP ONE (12:00)
[2022-09-29] MEDS: DiphenhydrAMINE HCL 25 MG CAPSULE PO PRN (12:42)
[2022-09-29] MEDS ORDERED: HEPARIN SODIUM,PORCINE 1,000 UNITS/ML VIAL IVCATH ONE ×2 (12:45)
[2022-09-29] MEDS: INSULIN LISPRO 100 UNITS/ML SQ PRN ×2 (17:14→20:17)
[2022-09-29 19:26] LABS: GLUCOMETER DEV NAME(LOC) 6N.1; GLUCOSE,POINT OF CARE 122 MG/DL (70-110)
[2022-09-29 19:26] LABS: GLUCOMETER DEV NAME(LOC) 6N.1; GLUCOSE,POINT OF CARE 160 MG/DL (70-110)
[2022-09-29] MEDS: OLANZapine 10 MG TABLET PO SCH (20:07)
[2022-09-29] MEDS: MELATONIN 5 MG TABLET PO PRN (20:12)
[2022-09-29] MEDS: INSULIN GLARGINE,HUM.REC.ANLOG 100 UNITS/ML SQ SCH (20:21)
[2022-09-29] MEDS: ACETAMINOPHEN 325 MG TABLET PO PRN (21:14)
[2022-09-30] MEDS ORDERED: SENNOSIDES 8.8 MG/5 ML SYRUP UDCUP PO PRN
[2022-09-30 05:08] VITALS: BP 142/72
[2022-09-30] MEDS: LEVOTHYROXINE SODIUM 200 MCG TABLET PO SCH (05:51)
[2022-09-30] MEDS: ACETAMINOPHEN 325 MG TABLET PO PRN (05:52)
[2022-09-30 06:36] LABS: GLUCOMETER DEV NAME(LOC) 6N.1; GLUCOSE,POINT OF CARE 183 MG/DL (70-110)
[2022-09-30 07:56] LABS: GLUCOMETER DEV NAME(LOC) 6N.1; GLUCOSE,POINT OF CARE 115 MG/DL (70-110)
[2022-09-30 08:04] VITALS: BP 136/73
[2022-09-30] MEDS: AmLODIPine BESYLATE 10 MG TABLET PO SCH (08:43)
[2022-09-30] MEDS: ATORVASTATIN CALCIUM 20 MG TABLET PO SCH (08:43)
[2022-09-30] MEDS: DOCUSATE SODIUM 100 MG CAPSULE PO SCH (08:43)
[2022-09-30] MEDS: PANTOPRAZOLE SODIUM 40 MG DR TABLET PO SCH (08:43)
[2022-09-30] MEDS: LACTULOSE 20 GM/30 ML SOLUTION UDCUP PO SCH (08:43)
[2022-09-30] MEDS: GABAPENTIN 100 MG CAPSULE PO SCH (08:43)
[2022-09-30] MEDS: DIVALPROEX SODIUM 250 MG ER TABLET PO SCH ×2 (08:44→16:32)
[2022-09-30] MEDS: FOLIC ACID/VIT B COMPLEX AND C TABLET PO SCH (08:44)
[2022-09-30] MEDS: FUROSEMIDE 80 MG TABLET PO SCH (08:44)
[2022-09-30] MEDS: EPOETIN ALFA 10,000 UNITS/ML VIAL SQ SCH (08:46)
[2022-09-30] MEDS: OLANZapine 5 MG TABLET PO PRN (10:47)
[2022-09-30] MEDS: INSULIN LISPRO 100 UNITS/ML SQ PRN ×2 (12:00→16:54)
[2022-09-30 15:10] LABS: COVID AG,FIA SOURCE NASAL SWAB
[2022-09-30 16:04] VITALS: BP 134/77
[2022-09-30] MEDS ORDERED: AMLO-258 PO (17:20)
[2022-09-30] MEDS ORDERED: FURO80 PO (17:22)
[2022-09-30] MEDS ORDERED: PANT-31 PO (17:23)
[2022-09-30] MEDS ORDERED: DIPH25 PO (17:24)
[2022-09-30] MEDS ORDERED: GUAIFDM PO (17:25)
[2022-09-30] MEDS ORDERED: ONDA-104 PO (17:26)
[2022-09-30 22:41] LABS: GLUCOMETER DEV NAME(LOC) 6N.2B; GLUCOSE,POINT OF CARE 160 MG/DL (70-110)
[2022-09-30 22:42] LABS: GLUCOMETER DEV NAME(LOC) 6N.1; GLUCOSE,POINT OF CARE 166 MG/DL (70-110)
[2022-09-30 23:46] LABS: GLUCOMETER DEV NAME(LOC) 5S.1B; GLUCOSE,POINT OF CARE 179 MG/DL (70-110)
== END 2022-09-30 17:10 | disposition psychiatric hospital, planned readmission (93) | DRG 673 ==
LOC: EMS 11:42 → 5S 22:15 → ICU 08-25 15:25 → 5S 08-29 18:02 → 6S 09-28 17:55
PROVIDERS: ADMIT Internal Medicine; ATTEND Internal Medicine
PROC: 30233N1 Transfusion of Nonautologous Red Blood Cells into Peripheral Vein, Percutaneous Approach (ICD-10-PCS; 2022-08-24)
PROC: 05HY33Z Insertion of Infusion Device into Upper Vein, Percutaneous Approach (ICD-10-PCS; 2022-08-25)
PROC: 02HV33Z Insertion of Infusion Device into Superior Vena Cava, Percutaneous Approach (ICD-10-PCS; 2022-08-26)
PROC: B5181ZA Fluoroscopy of Superior Vena Cava using Low Osmolar Contrast, Guidance (ICD-10-PCS; 2022-08-26)
PROC: 0DB78ZX Excision of Stomach, Pylorus, Via Natural or Artificial Opening Endoscopic, Diagnostic (ICD-10-PCS; 2022-08-26)
PROC: 0JH63XZ Insertion of Tunneled Vascular Access Device into Chest Subcutaneous Tissue and Fascia, Percutaneous Approach (ICD-10-PCS; principal; 2022-08-26 05:55)
PROC: 06HY33Z Insertion of Infusion Device into Lower Vein, Percutaneous Approach (ICD-10-PCS; 2022-08-27)
PROC: B54BZZA Ultrasonography of Right Lower Extremity Veins, Guidance (ICD-10-PCS; 2022-08-27)
PROC: 5A1D70Z Performance of Urinary Filtration, Intermittent, Less than 6 Hours Per Day (ICD-10-PCS; 2022-08-27)
PROC: 5A1D70Z Performance of Urinary Filtration, Intermittent, Less than 6 Hours Per Day (ICD-10-PCS; 2022-08-28)
PROC: 5A1D70Z Performance of Urinary Filtration, Intermittent, Less than 6 Hours Per Day (ICD-10-PCS; 2022-08-30)
PROC: 4A0004Z Measurement of Central Nervous Electrical Activity, Open Approach (ICD-10-PCS; 2022-08-31)
PROC: 5A1D70Z Performance of Urinary Filtration, Intermittent, Less than 6 Hours Per Day (ICD-10-PCS; 2022-09-01)
PROC: 5A1D70Z Performance of Urinary Filtration, Intermittent, Less than 6 Hours Per Day (ICD-10-PCS; 2022-09-04)
PROC: 5A0935A Assistance with Respiratory Ventilation, Less than 24 Consecutive Hours, High Flow/Velocity Cannula (ICD-10-PCS; 2022-09-07)
PROC: 5A09357 Assistance with Respiratory Ventilation, Less than 24 Consecutive Hours, Continuous Positive Airway Pressure (ICD-10-PCS; 2022-09-07)
PROC: 5A1D70Z Performance of Urinary Filtration, Intermittent, Less than 6 Hours Per Day (ICD-10-PCS; 2022-09-07)
PROC: 5A0935A Assistance with Respiratory Ventilation, Less than 24 Consecutive Hours, High Flow/Velocity Cannula (ICD-10-PCS; 2022-09-08)
PROC: 5A0935A Assistance with Respiratory Ventilation, Less than 24 Consecutive Hours, High Flow/Velocity Cannula (ICD-10-PCS; 2022-09-09)
PROC: 5A1D70Z Performance of Urinary Filtration, Intermittent, Less than 6 Hours Per Day (ICD-10-PCS; 2022-09-10)
PROC: 5A1D70Z Performance of Urinary Filtration, Intermittent, Less than 6 Hours Per Day (ICD-10-PCS; 2022-09-14)
PROC: 5A1D70Z Performance of Urinary Filtration, Intermittent, Less than 6 Hours Per Day (ICD-10-PCS; 2022-09-16)
PROC: 03160ZD Bypass Left Axillary Artery to Upper Arm Vein, Open Approach (ICD-10-PCS; 2022-09-18)
PROC: 5A1D70Z Performance of Urinary Filtration, Intermittent, Less than 6 Hours Per Day (ICD-10-PCS; 2022-09-19)
PROC: 5A1D70Z Performance of Urinary Filtration, Intermittent, Less than 6 Hours Per Day (ICD-10-PCS; 2022-09-22)
PROC: 5A1D70Z Performance of Urinary Filtration, Intermittent, Less than 6 Hours Per Day (ICD-10-PCS; 2022-09-24)
PROC: 5A1D70Z Performance of Urinary Filtration, Intermittent, Less than 6 Hours Per Day (ICD-10-PCS; 2022-09-26)
PROC: 5A1D70Z Performance of Urinary Filtration, Intermittent, Less than 6 Hours Per Day (ICD-10-PCS; 2022-09-29)
DX: I12.0 Hypertensive chronic kidney disease with stage 5 chronic kidney disease or end stage renal disease (principal); N18.6 End stage renal disease; E87.1 Hypo-osmolality and hyponatremia; N12 Tubulo-interstitial nephritis, not specified as acute or chronic; N25.81 Secondary hyperparathyroidism of renal origin; E72.20 Disorder of urea cycle metabolism, unspecified; E44.1 Mild protein-calorie malnutrition; S30.1XXA Contusion of abdominal wall, initial encounter; K76.82 Hepatic encephalopathy; K29.70 Gastritis, unspecified, without bleeding; F20.9 Schizophrenia, unspecified; E87.5 Hyperkalemia; D63.1 Anemia in chronic kidney disease; E03.9 Hypothyroidism, unspecified; E83.39 Other disorders of phosphorus metabolism; E11.22 Type 2 diabetes mellitus with diabetic chronic kidney disease; Z79.4 Long term (current) use of insulin; Z20.822 Contact with and (suspected) exposure to COVID-19; G40.909 Epilepsy, unspecified, not intractable, without status epilepticus; E11.43 Type 2 diabetes mellitus with diabetic autonomic (poly)neuropathy; K31.84 Gastroparesis; E11.319 Type 2 diabetes mellitus with unspecified diabetic retinopathy without macular edema; R09.02 Hypoxemia; Z99.2 Dependence on renal dialysis; E83.52 Hypercalcemia; E78.5 Hyperlipidemia, unspecified; F31.9 Bipolar disorder, unspecified; Z91.013 Allergy to seafood; R62.50 Unspecified lack of expected normal physiological development in childhood; D63.8 Anemia in other chronic diseases classified elsewhere; E66.9 Obesity, unspecified; Z68.33 Body mass index [BMI] 33.0-33.9, adult; N25.0 Renal osteodystrophy; N94.89 Other specified conditions associated with female genital organs and menstrual cycle; Z79.899 Other long term (current) drug therapy
CPT/HCPCS: 36245; 36561; 36569; 36600; 71045; 71046; 73700; 74176; 74177; 76000; 76937; 80048; 80053; 81001; 81002; 82140; 82247; 82248; 82570; 82805; 82962; 83010; 83615; 83735; 83880; 83935; 83970; 84100; 84145; 84295; 84300; 84439; 84443; 84484; 84702; 85014; 85018; 85025; 85045; 85610; 85730; 86850; 86900; 86901; 86923; 87081; 87086; 87340; 90935; 92526; 92610; 93005; 95816; 97110; 97112; 97116; 97163; 97166; 97530; 97535; 99285; C9113; G0378; J0610; J0690; J0885; J1100; J1200; J1270; J1630; J1644; J1750; J1815; J1940; J2060; J2250; J2405; J2597; J2704; J3010; J3370; J3490; J7030; J7040; J7050; J7060; P9016; P9046; Q9967; 36415-L1; 36415-TC; C1716; Z7610

== ENCOUNTER 2022-09-30 17:15 | Inpatient (IN) | payer MEDICARE, MEDICAID ==
[~2022-09-30] VITALS: Ht 165.1 cm; Wt 82.0 kg
[~2022-09-30 17:15] MED LIST changes: -SENN8.8S18 PO; +SENN8.8S31 PO
[2022-09-30] MEDS ORDERED: AMLO-258 PO (17:20)
[2022-09-30] MEDS ORDERED: FURO80 PO (17:22)
[2022-09-30] MEDS ORDERED: PANT-31 PO (17:23)
[2022-09-30] MEDS ORDERED: DIPH25 PO (17:24)
[2022-09-30] MEDS ORDERED: GUAIFDM PO (17:25)
[2022-09-30] MEDS ORDERED: ONDA-104 PO (17:26)
[2022-09-30 18:33] VITALS: BP 172/89
[2022-09-30] MEDS: LORazepam 2 MG TABLET PO PRN (20:39)
[2022-09-30] MEDS: HALOPERIDOL 5 MG TABLET PO PRN (20:39)
[2022-09-30] MEDS ORDERED: DEXTROSE 50%-WATER 25 GM/50 ML SYRINGE IVP PRN ×2 (21:15→21:30)
[2022-09-30 21:41] LABS: GLUCOMETER DEV NAME(LOC) 3E.I 2; GLUCOSE,POINT OF CARE 217 MG/DL (70-110)
[2022-09-30] MEDS: INSULIN GLARGINE,HUM.REC.ANLOG 100 UNITS/ML SQ SCH (21:45)
[2022-09-30] MEDS: INSULIN LISPRO 100 UNITS/ML SQ PRN (21:50)
[2022-09-30] MEDS ORDERED: BENZOCAINE/MENTHOL LOZENGE PO PRN (22:00)
[2022-09-30] MEDS ORDERED: CloNIDine HCL 0.1 MG TABLET PO PRN (22:00)
[2022-09-30] MEDS ORDERED: ONDANSETRON HCL 4 MG TABLET PO PRN (22:00)
[2022-09-30] MEDS ORDERED: PETROLATUM,WHITE 28 GM JELLY TP PRN (22:00)
[2022-09-30] MEDS ORDERED: ALBUTEROL SULFATE HFA 90 MCG/PUFF 8 GM INHALER IH PRN (22:00)
[2022-09-30] MEDS ORDERED: BACITRACIN 28 GM OINTMENT TP PRN (22:00)
[2022-09-30] MEDS ORDERED: OMEPRAZOLE 20 MG CAPSULE PO PRN (22:00)
[2022-10-01] VITALS (9 sets, daily range): BP systolic 124–158; BP diastolic 67–81
[2022-10-01] MEDS: LEVOTHYROXINE SODIUM 200 MCG TABLET PO SCH (06:25)
[2022-10-01 06:27] LABS: GLUCOMETER DEV NAME(LOC) 3E.I 2; GLUCOSE,POINT OF CARE 156 MG/DL (70-110)
[2022-10-01] MEDS: INSULIN LISPRO 100 UNITS/ML SQ PRN ×2 (06:36→20:50)
[2022-10-01 07:43] LABS: BASOPHILS % (AUTO) 0.5 % (0.0-2.0); EOSINOPHILS % (AUTO) 1.9 % (1.0-6.0); HEMATOCRIT 33.3 % (36-46); HEMOGLOBIN 10.8 g/dL (12.0-16.0); LYMPHOCYTES # (AUTO) 1.6 K/uL (1.0-4.8); LYMPHOCYTES % (AUTO) 14.1 % (22.0-44.0); MEAN CORPUSCULAR HGB CONC 32.5 G/dL (31.0-37.0); MEAN CORPUSCULAR VOLUME 92 fL (80-100); MONOCYTES # (AUTO) 0.8 K/uL (0.1-1.0); MONOCYTES % (AUTO) 7.3 % (2.0-9.0); NEUTROPHILS # (AUTO) 8.8 K/uL (1.8-7.7); NEUTROPHILS % (AUTO) 76.2 % (40.0-70.0); PLATELET COUNT (AUTO) 292 K/uL (150-450); RED BLOOD CELL COUNT(AUTO) 3.61 MIL/uL (4.00-5.20); RED CELL DISTRIBUTION WIDTH 19.6 % (11.5-14.5)
[2022-10-01 07:54] LABS: ALBUMIN 2.4 g/dL (3.4-5.0); BILIRUBIN,TOTAL 0.5 mg/dL (0.1-1.0); CALCIUM, TOTAL 9.2 mg/dL (8.8-10.5); CHOL/HDL RATIO 4.4 (3.9-5.7); CREATININE 3.77 mg/dL (0.60-1.30); POTASSIUM 4.7 mmol/L (3.5-5.1); TOTAL PROTEIN, SERUM 6.7 g/dL (6.4-8.2)
[2022-10-01] MEDS: FUROSEMIDE 80 MG TABLET PO SCH ×2 (08:54→16:16)
[2022-10-01] MEDS: ATORVASTATIN CALCIUM 20 MG TABLET PO SCH (08:54)
[2022-10-01] MEDS: AmLODIPine BESYLATE 10 MG TABLET PO SCH (08:54)
[2022-10-01] MEDS: PANTOPRAZOLE SODIUM 40 MG DR TABLET PO SCH (08:54)
[2022-10-01] MEDS: DOCUSATE SODIUM 100 MG CAPSULE PO SCH ×2 (08:54→16:16)
[2022-10-01] MEDS: HALOPERIDOL 5 MG TABLET PO PRN ×2 (08:55→20:48)
[2022-10-01] MEDS: LORazepam 2 MG TABLET PO PRN ×2 (08:55→20:48)
[2022-10-01] MEDS: FOLIC ACID/VIT B COMPLEX AND C TABLET PO SCH (09:13)
[2022-10-01 17:01] LABS: GLUCOMETER DEV NAME(LOC) 3EX.2; GLUCOSE,POINT OF CARE 128 MG/DL (70-110)
[2022-10-01] MEDS: INSULIN GLARGINE,HUM.REC.ANLOG 100 UNITS/ML SQ SCH (20:49)
[2022-10-01 20:56] LABS: GLUCOMETER DEV NAME(LOC) 3E.I 2; GLUCOSE,POINT OF CARE 236 MG/DL (70-110)
[2022-10-02 05:11] LABS: GLUCOMETER DEV NAME(LOC) 3E.I 2; GLUCOSE,POINT OF CARE 195 MG/DL (70-110)
[2022-10-02] MEDS: LORazepam 2 MG TABLET PO PRN ×3 (05:14→20:04)
[2022-10-02] MEDS: INSULIN LISPRO 100 UNITS/ML SQ PRN ×4 (06:31→21:00)
[2022-10-02] MEDS: LEVOTHYROXINE SODIUM 200 MCG TABLET PO SCH (07:00)
[2022-10-02] MEDS: AmLODIPine BESYLATE 10 MG TABLET PO SCH (08:43)
[2022-10-02] MEDS: DOCUSATE SODIUM 100 MG CAPSULE PO SCH ×2 (08:43→17:20)
[2022-10-02] MEDS: FUROSEMIDE 80 MG TABLET PO SCH ×2 (08:43→17:20)
[2022-10-02] MEDS: FOLIC ACID/VIT B COMPLEX AND C TABLET PO SCH (08:43)
[2022-10-02] MEDS: ATORVASTATIN CALCIUM 20 MG TABLET PO SCH (08:43)
[2022-10-02] MEDS: PANTOPRAZOLE SODIUM 40 MG DR TABLET PO SCH (08:43)
[2022-10-02 08:46] VITALS: BP 166/77
[2022-10-02] MEDS: EPOETIN ALFA 10,000 UNITS/ML VIAL SQ SCH (09:12)
[2022-10-02 12:07] LABS: GLUCOMETER DEV NAME(LOC) 3EX.2; GLUCOSE,POINT OF CARE 188 MG/DL (70-110)
[2022-10-02 16:08] VITALS: BP 161/74
[2022-10-02 17:41] LABS: GLUCOMETER DEV NAME(LOC) 3EX.2; GLUCOSE,POINT OF CARE 209 MG/DL (70-110)
[2022-10-02] MEDS: ZOLPIDEM TARTRATE 10 MG TABLET PO PRN (20:04)
[2022-10-02 20:25] LABS: GLUCOMETER DEV NAME(LOC) 3E.I 2; GLUCOSE,POINT OF CARE 234 MG/DL (70-110)
[2022-10-02] MEDS: INSULIN GLARGINE,HUM.REC.ANLOG 100 UNITS/ML SQ SCH (21:01)
[2022-10-02] MEDS: NYSTATIN 30 GM CREAM TP SCH (21:08)
[2022-10-03] VITALS (13 sets, daily range): BP systolic 136–180; BP diastolic 74–87
[2022-10-03] MEDS: LEVOTHYROXINE SODIUM 200 MCG TABLET PO SCH (06:14)
[2022-10-03 06:16] LABS: GLUCOMETER DEV NAME(LOC) 3E.I 2; GLUCOSE,POINT OF CARE 119 MG/DL (70-110)
[2022-10-03] MEDS: LOPERAMIDE HCL 2 MG CAPSULE PO PRN ×2 (08:28→14:36)
[2022-10-03] MEDS: DOCUSATE SODIUM 100 MG CAPSULE PO SCH ×2 (09:00→16:07)
[2022-10-03] MEDS ORDERED: HEPARIN SODIUM,PORCINE 1,000 UNITS/ML VIAL IVCATH ONE ×2 (13:00)
[2022-10-03] MEDS: PANTOPRAZOLE SODIUM 40 MG DR TABLET PO SCH (14:36)
[2022-10-03] MEDS: ATORVASTATIN CALCIUM 20 MG TABLET PO SCH (14:38)
[2022-10-03] MEDS: AmLODIPine BESYLATE 10 MG TABLET PO SCH (14:38)
[2022-10-03] MEDS: FOLIC ACID/VIT B COMPLEX AND C TABLET PO SCH (14:38)
[2022-10-03] MEDS: DIVALPROEX SODIUM 250 MG DR TABLET PO SCH ×2 (14:39→16:07)
[2022-10-03] MEDS: FUROSEMIDE 80 MG TABLET PO SCH ×2 (14:39→16:07)
[2022-10-03] MEDS: NYSTATIN 30 GM CREAM TP SCH ×2 (14:40→16:07)
[2022-10-03] MEDS: INSULIN LISPRO 100 UNITS/ML SQ PRN ×3 (14:41→20:42)
[2022-10-03 14:46] LABS: GLUCOMETER DEV NAME(LOC) 3E.I 2; GLUCOSE,POINT OF CARE 160 MG/DL (70-110)
[2022-10-03] MEDS ORDERED: HEPARIN SODIUM,PORCINE 1,000 UNITS/ML VIAL IVP ONE (16:05)
[2022-10-03 17:11] LABS: GLUCOMETER DEV NAME(LOC) 3E.I 2; GLUCOSE,POINT OF CARE 198 MG/DL (70-110)
[2022-10-03] MEDS: LORazepam 2 MG TABLET PO PRN (20:42)
[2022-10-03] MEDS: HALOPERIDOL 5 MG TABLET PO PRN (20:42)
[2022-10-03] MEDS: INSULIN GLARGINE,HUM.REC.ANLOG 100 UNITS/ML SQ SCH (20:44)
[2022-10-03 20:56] LABS: GLUCOMETER DEV NAME(LOC) 3E.I 2; GLUCOSE,POINT OF CARE 229 MG/DL (70-110)
[2022-10-03] MEDS: ZOLPIDEM TARTRATE 10 MG TABLET PO PRN (23:10)
[2022-10-04 05:15] VITALS: BP 154/76
[2022-10-04] MEDS: LEVOTHYROXINE SODIUM 200 MCG TABLET PO SCH (06:19)
[2022-10-04 06:21] LABS: GLUCOMETER DEV NAME(LOC) 3E.I 2; GLUCOSE,POINT OF CARE 109 MG/DL (70-110)
[2022-10-04 07:27] LABS: EOSINOPHILS % (AUTO) 3.6 % (1.0-6.0); HEMATOCRIT 31.5 % (36-46); HEMOGLOBIN 10.3 g/dL (12.0-16.0); LYMPHOCYTES # (AUTO) 2.1 K/uL (1.0-4.8); MEAN CORPUSCULAR HEMOGLOBIN 30.5 pg (26.0-34.0); MEAN CORPUSCULAR HGB CONC 32.8 G/dL (31.0-37.0); MEAN CORPUSCULAR VOLUME 93 fL (80-100); MONOCYTES # (AUTO) 0.8 K/uL (0.1-1.0); MONOCYTES % (AUTO) 7.6 % (2.0-9.0); NEUTROPHILS # (AUTO) 6.6 K/uL (1.8-7.7); NEUTROPHILS % (AUTO) 66.8 % (40.0-70.0); PLATELET COUNT (AUTO) 222 K/uL (150-450); RED BLOOD CELL COUNT(AUTO) 3.38 MIL/uL (4.00-5.20); RED CELL DISTRIBUTION WIDTH 18.8 % (11.5-14.5)
[2022-10-04 08:20] VITALS: BP 170/81
[2022-10-04] MEDS: PANTOPRAZOLE SODIUM 40 MG DR TABLET PO SCH (08:33)
[2022-10-04] MEDS: AmLODIPine BESYLATE 10 MG TABLET PO SCH (08:34)
[2022-10-04] MEDS: DIVALPROEX SODIUM 250 MG DR TABLET PO SCH ×2 (08:35→16:32)
[2022-10-04] MEDS: FUROSEMIDE 80 MG TABLET PO SCH ×2 (08:35→16:32)
[2022-10-04] MEDS: ATORVASTATIN CALCIUM 20 MG TABLET PO SCH (08:35)
[2022-10-04] MEDS: NYSTATIN 30 GM CREAM TP SCH ×2 (08:36→17:17)
[2022-10-04] MEDS: FOLIC ACID/VIT B COMPLEX AND C TABLET PO SCH (08:36)
[2022-10-04] MEDS: DOCUSATE SODIUM 100 MG CAPSULE PO SCH ×2 (09:00→17:00)
[2022-10-04] MEDS: INSULIN LISPRO 100 UNITS/ML SQ PRN ×3 (11:53→20:41)
[2022-10-04 14:16] LABS: GLUCOMETER DEV NAME(LOC) 3E.I 2; GLUCOSE,POINT OF CARE 193 MG/DL (70-110)
[2022-10-04 14:56] VITALS: BP 150/80
[2022-10-04] MEDS: ACETAMINOPHEN 325 MG TABLET PO PRN (14:56)
[2022-10-04 16:16] LABS: GLUCOMETER DEV NAME(LOC) 3EX.2; GLUCOSE,POINT OF CARE 268 MG/DL (70-110)
[2022-10-04 17:12] VITALS: BP 141/72
[2022-10-04] MEDS: HALOPERIDOL 5 MG TABLET PO PRN (18:11)
[2022-10-04] MEDS: LORazepam 2 MG TABLET PO PRN (18:11)
[2022-10-04 20:13] VITALS: BP 164/88
[2022-10-04] MEDS: ZOLPIDEM TARTRATE 10 MG TABLET PO PRN (20:33)
[2022-10-04] MEDS: INSULIN GLARGINE,HUM.REC.ANLOG 100 UNITS/ML SQ SCH (20:40)
[2022-10-04 20:45] LABS: GLUCOMETER DEV NAME(LOC) 3E.I 2; GLUCOSE,POINT OF CARE 241 MG/DL (70-110)
[2022-10-05 00:30] VITALS: BP 152/79
[2022-10-05] MEDS: HALOPERIDOL 5 MG TABLET PO PRN ×2 (00:32→21:58)
[2022-10-05] MEDS: LORazepam 2 MG TABLET PO PRN ×2 (00:32→21:58)
[2022-10-05 06:36] LABS: GLUCOMETER DEV NAME(LOC) 3E.I 2; GLUCOSE,POINT OF CARE 103 MG/DL (70-110)
[2022-10-05] MEDS: LEVOTHYROXINE SODIUM 200 MCG TABLET PO SCH (06:54)
[2022-10-05 08:00] VITALS: BP 154/81
[2022-10-05] MEDS: DOCUSATE SODIUM 100 MG CAPSULE PO SCH ×3 (09:00→16:29)
[2022-10-05] MEDS: ATORVASTATIN CALCIUM 20 MG TABLET PO SCH (09:19)
[2022-10-05] MEDS: FUROSEMIDE 80 MG TABLET PO SCH ×2 (09:19→16:29)
[2022-10-05] MEDS: FOLIC ACID/VIT B COMPLEX AND C TABLET PO SCH (09:19)
[2022-10-05] MEDS: AmLODIPine BESYLATE 10 MG TABLET PO SCH (09:20)
[2022-10-05] MEDS: PANTOPRAZOLE SODIUM 40 MG DR TABLET PO SCH (09:20)
[2022-10-05] MEDS: DIVALPROEX SODIUM 250 MG DR TABLET PO SCH ×2 (09:20→16:29)
[2022-10-05] MEDS: NYSTATIN 30 GM CREAM TP SCH ×2 (09:22→16:30)
[2022-10-05] MEDS: EPOETIN ALFA 10,000 UNITS/ML VIAL SQ SCH (11:13)
[2022-10-05] MEDS: LOPERAMIDE HCL 2 MG CAPSULE PO PRN ×3 (11:18→21:58)
[2022-10-05 11:41] LABS: GLUCOMETER DEV NAME(LOC) 3E.I 2; GLUCOSE,POINT OF CARE 182 MG/DL (70-110)
[2022-10-05] MEDS: INSULIN LISPRO 100 UNITS/ML SQ PRN ×3 (12:00→21:46)
[2022-10-05 16:30] VITALS: BP 155/80
[2022-10-05 16:46] LABS: GLUCOMETER DEV NAME(LOC) 3E.I 2; GLUCOSE,POINT OF CARE 207 MG/DL (70-110)
[2022-10-05 21:01] LABS: GLUCOMETER DEV NAME(LOC) 3E.I 2; GLUCOSE,POINT OF CARE 183 MG/DL (70-110)
[2022-10-05] MEDS: INSULIN GLARGINE,HUM.REC.ANLOG 100 UNITS/ML SQ SCH (21:43)
[2022-10-06] VITALS (12 sets, daily range): BP systolic 120–155; BP diastolic 68–89
[2022-10-06] MEDS: ZOLPIDEM TARTRATE 10 MG TABLET PO PRN ×2 (00:39→20:09)
[2022-10-06] MEDS: LOPERAMIDE HCL 2 MG CAPSULE PO PRN ×3 (00:41→19:20)
[2022-10-06] MEDS: LORazepam 2 MG TABLET PO PRN ×2 (03:33→12:14)
[2022-10-06] MEDS: HALOPERIDOL 5 MG TABLET PO PRN (03:33)
[2022-10-06 06:21] LABS: GLUCOMETER DEV NAME(LOC) 3E.I 2; GLUCOSE,POINT OF CARE 111 MG/DL (70-110)
[2022-10-06] MEDS: INSULIN LISPRO 100 UNITS/ML SQ PRN ×2 (06:37→21:33)
[2022-10-06] MEDS: LEVOTHYROXINE SODIUM 200 MCG TABLET PO SCH (06:37)
[2022-10-06] MEDS: ATORVASTATIN CALCIUM 20 MG TABLET PO SCH (09:23)
[2022-10-06] MEDS: FOLIC ACID/VIT B COMPLEX AND C TABLET PO SCH (09:23)
[2022-10-06] MEDS: DIVALPROEX SODIUM 250 MG DR TABLET PO SCH ×2 (09:23→17:38)
[2022-10-06] MEDS: FUROSEMIDE 80 MG TABLET PO SCH ×2 (09:23→17:38)
[2022-10-06] MEDS: PANTOPRAZOLE SODIUM 40 MG DR TABLET PO SCH (09:23)
[2022-10-06] MEDS: DOCUSATE SODIUM 100 MG CAPSULE PO SCH ×2 (09:23→17:00)
[2022-10-06] MEDS: NYSTATIN 30 GM CREAM TP SCH ×2 (09:24→18:00)
[2022-10-06] MEDS: AmLODIPine BESYLATE 10 MG TABLET PO SCH (09:35)
[2022-10-06 12:25] LABS: GLUCOMETER DEV NAME(LOC) 3EX.2; GLUCOSE,POINT OF CARE 131 MG/DL (70-110)
[2022-10-06 18:31] LABS: GLUCOMETER DEV NAME(LOC) 3EX.2; GLUCOSE,POINT OF CARE 138 MG/DL (70-110)
[2022-10-06] MEDS: INSULIN GLARGINE,HUM.REC.ANLOG 100 UNITS/ML SQ SCH (20:57)
[2022-10-06 21:11] LABS: GLUCOMETER DEV NAME(LOC) 3E.I 2; GLUCOSE,POINT OF CARE 190 MG/DL (70-110)
[2022-10-07] MEDS: LEVOTHYROXINE SODIUM 200 MCG TABLET PO SCH (06:30)
[2022-10-07] MEDS: LOPERAMIDE HCL 2 MG CAPSULE PO PRN ×2 (06:32→10:08)
[2022-10-07 06:56] LABS: GLUCOMETER DEV NAME(LOC) 3E.C; GLUCOSE,POINT OF CARE 62 MG/DL (70-110)
[2022-10-07 06:56] LABS: GLUCOMETER DEV NAME(LOC) 3E.C; GLUCOSE,POINT OF CARE 107 MG/DL (70-110)
[2022-10-07] MEDS: FOLIC ACID/VIT B COMPLEX AND C TABLET PO SCH (08:42)
[2022-10-07] MEDS: PANTOPRAZOLE SODIUM 40 MG DR TABLET PO SCH (08:42)
[2022-10-07] MEDS: FUROSEMIDE 80 MG TABLET PO SCH ×2 (08:42→16:13)
[2022-10-07] MEDS: ATORVASTATIN CALCIUM 20 MG TABLET PO SCH (08:42)
[2022-10-07] MEDS: DIVALPROEX SODIUM 250 MG DR TABLET PO SCH ×2 (08:42→16:13)
[2022-10-07] MEDS: AmLODIPine BESYLATE 10 MG TABLET PO SCH (08:42)
[2022-10-07 08:57] VITALS: BP 158/70
[2022-10-07] MEDS: DOCUSATE SODIUM 100 MG CAPSULE PO SCH ×2 (09:00→16:14)
[2022-10-07] MEDS: NYSTATIN 30 GM CREAM TP SCH ×2 (09:10→16:15)
[2022-10-07] MEDS: EPOETIN ALFA 10,000 UNITS/ML VIAL SQ SCH (10:07)
[2022-10-07] MEDS: LORazepam 2 MG TABLET PO PRN ×2 (10:08→23:33)
[2022-10-07 11:52] LABS: GLUCOMETER DEV NAME(LOC) 3EX.2; GLUCOSE,POINT OF CARE 93 MG/DL (70-110)
[2022-10-07 16:18] VITALS: BP 147/76
[2022-10-07 16:46] LABS: GLUCOMETER DEV NAME(LOC) 3EX.2; GLUCOSE,POINT OF CARE 136 MG/DL (70-110)
[2022-10-07 20:16] LABS: GLUCOMETER DEV NAME(LOC) 3E.I 2; GLUCOSE,POINT OF CARE 177 MG/DL (70-110)
[2022-10-07 20:55] VITALS: BP 154/83
[2022-10-07] MEDS: INSULIN GLARGINE,HUM.REC.ANLOG 100 UNITS/ML SQ SCH (21:04)
[2022-10-07] MEDS: INSULIN LISPRO 100 UNITS/ML SQ PRN (21:05)
[2022-10-07] MEDS: ZOLPIDEM TARTRATE 10 MG TABLET PO PRN (21:28)
[2022-10-07] MEDS: ACETAMINOPHEN 325 MG TABLET PO PRN (23:33)
[2022-10-08] VITALS (13 sets, daily range): BP systolic 127–164; BP diastolic 65–92
[2022-10-08 05:37] LABS: GLUCOMETER DEV NAME(LOC) 3E.I 2; GLUCOSE,POINT OF CARE 91 MG/DL (70-110)
[2022-10-08] MEDS: LEVOTHYROXINE SODIUM 200 MCG TABLET PO SCH (07:00)
[2022-10-08] MEDS: FUROSEMIDE 80 MG TABLET PO SCH ×2 (12:30→16:06)
[2022-10-08] MEDS: FOLIC ACID/VIT B COMPLEX AND C TABLET PO SCH (12:32)
[2022-10-08] MEDS: DIVALPROEX SODIUM 250 MG DR TABLET PO SCH ×2 (12:32→16:06)
[2022-10-08] MEDS: ATORVASTATIN CALCIUM 20 MG TABLET PO SCH (12:32)
[2022-10-08] MEDS: PANTOPRAZOLE SODIUM 40 MG DR TABLET PO SCH (12:38)
[2022-10-08] MEDS: AmLODIPine BESYLATE 10 MG TABLET PO SCH (12:38)
[2022-10-08] MEDS: NYSTATIN 30 GM CREAM TP SCH ×2 (12:39→16:09)
[2022-10-08] MEDS: DOCUSATE SODIUM 100 MG CAPSULE PO SCH ×2 (12:40→16:28)
[2022-10-08 13:01] LABS: GLUCOMETER DEV NAME(LOC) 3EX.2; GLUCOSE,POINT OF CARE 126 MG/DL (70-110)
[2022-10-08] MEDS ORDERED: HEPARIN SODIUM,PORCINE 1,000 UNITS/ML VIAL IVCATH ONE ×2 (15:15)
[2022-10-08] MEDS ORDERED: DiphenhydrAMINE HCL 50 MG/ML VIAL IVP PRN (15:15)
[2022-10-08] MEDS ORDERED: DiphenhydrAMINE HCL 25 MG CAPSULE PO ONE (15:15)
[2022-10-08] MEDS: INSULIN LISPRO 100 UNITS/ML SQ PRN ×2 (16:28→21:30)
[2022-10-08 16:31] LABS: GLUCOMETER DEV NAME(LOC) 3EX.2; GLUCOSE,POINT OF CARE 151 MG/DL (70-110)
[2022-10-08] MEDS ORDERED: DiphenhydrAMINE HCL 50 MG/ML VIAL IM ONE (18:59)
[2022-10-08] MEDS ORDERED: HEPARIN SODIUM,PORCINE 1,000 UNITS/ML VIAL IVP ONE (18:59)
[2022-10-08] MEDS: LOPERAMIDE HCL 2 MG CAPSULE PO PRN (20:27)
[2022-10-08 20:46] LABS: GLUCOMETER DEV NAME(LOC) 3E.I 2; GLUCOSE,POINT OF CARE 148 MG/DL (70-110)
[2022-10-08] MEDS: HALOPERIDOL 5 MG TABLET PO PRN (20:54)
[2022-10-08] MEDS: LORazepam 2 MG TABLET PO PRN (20:54)
[2022-10-08] MEDS: INSULIN GLARGINE,HUM.REC.ANLOG 100 UNITS/ML SQ SCH (21:30)
[2022-10-08] MEDS: ZOLPIDEM TARTRATE 10 MG TABLET PO PRN (23:42)
[2022-10-09 00:12] VITALS: BP 141/79
[2022-10-09] MEDS: LOPERAMIDE HCL 2 MG CAPSULE PO PRN ×2 (02:55→08:20)
[2022-10-09] MEDS: LEVOTHYROXINE SODIUM 200 MCG TABLET PO SCH (06:11)
[2022-10-09 06:21] LABS: GLUCOMETER DEV NAME(LOC) 3E.I 2; GLUCOSE,POINT OF CARE 84 MG/DL (70-110)
[2022-10-09] MEDS: INSULIN LISPRO 100 UNITS/ML SQ PRN ×2 (07:03→20:21)
[2022-10-09] MEDS: FOLIC ACID/VIT B COMPLEX AND C TABLET PO SCH (08:15)
[2022-10-09] MEDS: DIVALPROEX SODIUM 250 MG DR TABLET PO SCH ×2 (08:15→16:05)
[2022-10-09] MEDS: DOCUSATE SODIUM 100 MG CAPSULE PO SCH ×2 (08:15→16:07)
[2022-10-09] MEDS: FUROSEMIDE 80 MG TABLET PO SCH ×2 (08:16→16:05)
[2022-10-09] MEDS: ATORVASTATIN CALCIUM 20 MG TABLET PO SCH (08:16)
[2022-10-09] MEDS: PANTOPRAZOLE SODIUM 40 MG DR TABLET PO SCH (08:17)
[2022-10-09] MEDS: AmLODIPine BESYLATE 10 MG TABLET PO SCH (08:17)
[2022-10-09] MEDS: NYSTATIN 30 GM CREAM TP SCH ×2 (08:22→16:05)
[2022-10-09 08:43] VITALS: BP 129/66
[2022-10-09] MEDS: EPOETIN ALFA 10,000 UNITS/ML VIAL SQ SCH (09:25)
[2022-10-09 11:31] LABS: GLUCOMETER DEV NAME(LOC) 3EX.2; GLUCOSE,POINT OF CARE 118 MG/DL (70-110)
[2022-10-09 16:17] LABS: GLUCOMETER DEV NAME(LOC) 3EX.2; GLUCOSE,POINT OF CARE 139 MG/DL (70-110)
[2022-10-09 17:00] VITALS: BP 131/75
[2022-10-09 20:21] LABS: GLUCOMETER DEV NAME(LOC) 3E.I 2; GLUCOSE,POINT OF CARE 174 MG/DL (70-110)
[2022-10-09] MEDS: INSULIN GLARGINE,HUM.REC.ANLOG 100 UNITS/ML SQ SCH (20:21)
[2022-10-09] MEDS: LORazepam 2 MG TABLET PO PRN (21:46)
[2022-10-09] MEDS: ZOLPIDEM TARTRATE 10 MG TABLET PO PRN (21:46)
[2022-10-10] VITALS (13 sets, daily range): BP systolic 126–152; BP diastolic 69–96
[2022-10-10] MEDS: LOPERAMIDE HCL 2 MG CAPSULE PO PRN ×3 (03:33→23:12)
[2022-10-10] MEDS: LEVOTHYROXINE SODIUM 200 MCG TABLET PO SCH (06:11)
[2022-10-10 06:16] LABS: GLUCOMETER DEV NAME(LOC) 3E.I 2; GLUCOSE,POINT OF CARE 81 MG/DL (70-110)
[2022-10-10] MEDS: FUROSEMIDE 80 MG TABLET PO SCH ×2 (09:00→16:36)
[2022-10-10] MEDS: NYSTATIN 30 GM CREAM TP SCH ×2 (09:00→16:36)
[2022-10-10] MEDS: DOCUSATE SODIUM 100 MG CAPSULE PO SCH ×2 (09:00→16:05)
[2022-10-10] MEDS: DIVALPROEX SODIUM 250 MG DR TABLET PO SCH ×2 (09:00→16:36)
[2022-10-10 14:04] LABS: BASOPHILS % (AUTO) 0.8 % (0.0-2.0); EOSINOPHILS % (AUTO) 2.1 % (1.0-6.0); HEMATOCRIT 30.7 % (36-46); HEMOGLOBIN 10.2 g/dL (12.0-16.0); LYMPHOCYTES # (AUTO) 1.4 K/uL (1.0-4.8); LYMPHOCYTES % (AUTO) 18.5 % (22.0-44.0); MEAN CORPUSCULAR HEMOGLOBIN 30.7 pg (26.0-34.0); MEAN CORPUSCULAR HGB CONC 33.1 G/dL (31.0-37.0); MEAN CORPUSCULAR VOLUME 93 fL (80-100); MONOCYTES # (AUTO) 0.6 K/uL (0.1-1.0); MONOCYTES % (AUTO) 8.2 % (2.0-9.0); NEUTROPHILS # (AUTO) 5.2 K/uL (1.8-7.7); NEUTROPHILS % (AUTO) 70.4 % (40.0-70.0); PLATELET COUNT (AUTO) 191 K/uL (150-450); RED BLOOD CELL COUNT(AUTO) 3.31 MIL/uL (4.00-5.20); RED CELL DISTRIBUTION WIDTH 18.7 % (11.5-14.5)
[2022-10-10 14:26] LABS: CALCIUM, TOTAL 8.7 mg/dL (8.8-10.5); CREATININE 2.2 mg/dL (0.60-1.30); MAGNESIUM 1.6 mg/dL (1.80-2.40); PHOSPHORUS 2.4 mg/dL (2.5-4.9); POTASSIUM 3.1 mmol/L (3.5-5.1)
[2022-10-10] MEDS ORDERED: DiphenhydrAMINE HCL 50 MG/ML VIAL IVP PRN (15:00)
[2022-10-10] MEDS ORDERED: HEPARIN SODIUM,PORCINE 1,000 UNITS/ML VIAL IVCATH ONE ×2 (15:00)
[2022-10-10] MEDS: ATORVASTATIN CALCIUM 20 MG TABLET PO SCH (15:10)
[2022-10-10] MEDS: PANTOPRAZOLE SODIUM 40 MG DR TABLET PO SCH (15:11)
[2022-10-10] MEDS: FOLIC ACID/VIT B COMPLEX AND C TABLET PO SCH (15:11)
[2022-10-10] MEDS: AmLODIPine BESYLATE 10 MG TABLET PO SCH (15:11)
[2022-10-10 17:01] LABS: GLUCOMETER DEV NAME(LOC) 3EX.2; GLUCOSE,POINT OF CARE 89 MG/DL (70-110)
[2022-10-10] MEDS: ZOLPIDEM TARTRATE 10 MG TABLET PO PRN (20:17)
[2022-10-10 20:21] LABS: GLUCOMETER DEV NAME(LOC) 3E.I 2; GLUCOSE,POINT OF CARE 172 MG/DL (70-110)
[2022-10-10] MEDS: INSULIN LISPRO 100 UNITS/ML SQ PRN (20:32)
[2022-10-10] MEDS: INSULIN GLARGINE,HUM.REC.ANLOG 100 UNITS/ML SQ SCH (20:32)
[2022-10-10] MEDS: LORazepam 2 MG TABLET PO PRN (21:38)
[2022-10-11 06:11] LABS: GLUCOMETER DEV NAME(LOC) 3E.I 2; GLUCOSE,POINT OF CARE 103 MG/DL (70-110)
[2022-10-11] MEDS: LEVOTHYROXINE SODIUM 200 MCG TABLET PO SCH (06:19)
[2022-10-11 08:46] VITALS: BP 132/71
[2022-10-11 08:54] LABS: COVID AG,FIA SOURCE NASAL SWAB
[2022-10-11] MEDS: DOCUSATE SODIUM 100 MG CAPSULE PO SCH ×2 (09:00→16:34)
[2022-10-11] MEDS: FUROSEMIDE 80 MG TABLET PO SCH ×2 (09:13→16:21)
[2022-10-11] MEDS: DIVALPROEX SODIUM 250 MG DR TABLET PO SCH ×2 (09:13→16:21)
[2022-10-11] MEDS: AmLODIPine BESYLATE 10 MG TABLET PO SCH (09:14)
[2022-10-11] MEDS: FOLIC ACID/VIT B COMPLEX AND C TABLET PO SCH (09:14)
[2022-10-11] MEDS: ATORVASTATIN CALCIUM 20 MG TABLET PO SCH (09:14)
[2022-10-11] MEDS: PANTOPRAZOLE SODIUM 40 MG DR TABLET PO SCH (09:14)
[2022-10-11] MEDS: NYSTATIN 30 GM CREAM TP SCH ×2 (09:17→16:22)
[2022-10-11 11:45] LABS: GLUCOMETER DEV NAME(LOC) 3E.I 2; GLUCOSE,POINT OF CARE 106 MG/DL (70-110)
[2022-10-11 16:30] VITALS: BP 155/90
[2022-10-11 16:47] LABS: GLUCOMETER DEV NAME(LOC) 3EX.2; GLUCOSE,POINT OF CARE 162 MG/DL (70-110)
[2022-10-11] MEDS: INSULIN LISPRO 100 UNITS/ML SQ PRN ×2 (17:29→23:16)
[2022-10-11 18:00] VITALS: BP 155/90
[2022-10-11 20:21] LABS: GLUCOMETER DEV NAME(LOC) 3E.I 2; GLUCOSE,POINT OF CARE 117 MG/DL (70-110)
[2022-10-11] MEDS: INSULIN GLARGINE,HUM.REC.ANLOG 100 UNITS/ML SQ SCH (21:22)
[2022-10-11] MEDS: ZOLPIDEM TARTRATE 10 MG TABLET PO PRN (21:38)
[2022-10-11] MEDS: LORazepam 2 MG TABLET PO PRN (22:25)
[2022-10-12] MEDS: LEVOTHYROXINE SODIUM 200 MCG TABLET PO SCH (06:20)
[2022-10-12 06:21] LABS: GLUCOMETER DEV NAME(LOC) 3E.I 2; GLUCOSE,POINT OF CARE 77 MG/DL (70-110)
[2022-10-12 08:00] VITALS: BP 130/55
[2022-10-12] MEDS: FOLIC ACID/VIT B COMPLEX AND C TABLET PO SCH (08:25)
[2022-10-12] MEDS: LORazepam 2 MG TABLET PO PRN ×2 (08:26→16:48)
[2022-10-12] MEDS: DIVALPROEX SODIUM 250 MG DR TABLET PO SCH ×2 (08:26→16:49)
[2022-10-12] MEDS: ATORVASTATIN CALCIUM 20 MG TABLET PO SCH (08:28)
[2022-10-12] MEDS: AmLODIPine BESYLATE 10 MG TABLET PO SCH (08:28)
[2022-10-12] MEDS: PANTOPRAZOLE SODIUM 40 MG DR TABLET PO SCH (08:28)
[2022-10-12] MEDS: FUROSEMIDE 80 MG TABLET PO SCH ×2 (08:28→16:48)
[2022-10-12] MEDS: NYSTATIN 30 GM CREAM TP SCH ×2 (09:00→16:50)
[2022-10-12] MEDS: DOCUSATE SODIUM 100 MG CAPSULE PO SCH ×2 (09:00→17:00)
[2022-10-12] MEDS: EPOETIN ALFA 10,000 UNITS/ML VIAL SQ SCH (09:00)
[2022-10-12] MEDS: LOPERAMIDE HCL 2 MG CAPSULE PO PRN ×4 (09:10→18:33)
[2022-10-12] MEDS: HALOPERIDOL 5 MG TABLET PO PRN (11:38)
[2022-10-12 11:45] LABS: GLUCOMETER DEV NAME(LOC) 3EX.2; GLUCOSE,POINT OF CARE 117 MG/DL (70-110)
[2022-10-12] MEDS: INSULIN LISPRO 100 UNITS/ML SQ PRN ×2 (11:46→17:07)
[2022-10-12 15:41] LABS: GLUCOMETER DEV NAME(LOC) 3EX.2; GLUCOSE,POINT OF CARE 155 MG/DL (70-110)
[2022-10-12 16:00] VITALS: BP 137/73
[2022-10-12 16:40] LABS: GLUCOMETER DEV NAME(LOC) 3EX.2; GLUCOSE,POINT OF CARE 163 MG/DL (70-110)
[2022-10-12] MEDS: INSULIN GLARGINE,HUM.REC.ANLOG 100 UNITS/ML SQ SCH (21:29)
[2022-10-12 21:40] LABS: GLUCOMETER DEV NAME(LOC) 3E.I 2; GLUCOSE,POINT OF CARE 133 MG/DL (70-110)
[2022-10-13] VITALS (14 sets, daily range): BP systolic 91–139; BP diastolic 46–82
[2022-10-13] MEDS: ZOLPIDEM TARTRATE 10 MG TABLET PO PRN ×2 (01:18→21:51)
[2022-10-13] MEDS: LOPERAMIDE HCL 2 MG CAPSULE PO PRN ×7 (01:55→23:37)
[2022-10-13] MEDS: HALOPERIDOL 5 MG TABLET PO PRN ×3 (02:29→16:42)
[2022-10-13] MEDS: LORazepam 2 MG TABLET PO PRN ×4 (02:29→23:37)
[2022-10-13 06:01] LABS: GLUCOMETER DEV NAME(LOC) 3E.I 2; GLUCOSE,POINT OF CARE 78 MG/DL (70-110)
[2022-10-13] MEDS: LEVOTHYROXINE SODIUM 200 MCG TABLET PO SCH (06:39)
[2022-10-13] MEDS: DIVALPROEX SODIUM 250 MG DR TABLET PO SCH ×2 (08:26→16:42)
[2022-10-13] MEDS: PANTOPRAZOLE SODIUM 40 MG DR TABLET PO SCH (08:28)
[2022-10-13] MEDS: FOLIC ACID/VIT B COMPLEX AND C TABLET PO SCH (08:28)
[2022-10-13] MEDS: ATORVASTATIN CALCIUM 20 MG TABLET PO SCH (08:28)
[2022-10-13] MEDS: FUROSEMIDE 80 MG TABLET PO SCH ×2 (08:28→16:42)
[2022-10-13] MEDS: DOCUSATE SODIUM 100 MG CAPSULE PO SCH ×2 (08:29→16:40)
[2022-10-13] MEDS: AmLODIPine BESYLATE 10 MG TABLET PO SCH (09:20)
[2022-10-13] MEDS: NYSTATIN 30 GM CREAM TP SCH ×2 (09:21→16:48)
[2022-10-13 16:46] LABS: GLUCOMETER DEV NAME(LOC) 3EX.2; GLUCOSE,POINT OF CARE 185 MG/DL (70-110)
[2022-10-13] MEDS: INSULIN LISPRO 100 UNITS/ML SQ PRN ×2 (17:14→21:26)
[2022-10-13] MEDS: ACETAMINOPHEN 325 MG TABLET PO PRN (17:48)
[2022-10-13 21:01] LABS: GLUCOMETER DEV NAME(LOC) 3E.I 2; GLUCOSE,POINT OF CARE 265 MG/DL (70-110)
[2022-10-13] MEDS: INSULIN GLARGINE,HUM.REC.ANLOG 100 UNITS/ML SQ SCH (21:30)
[2022-10-13 23:39] LABS: C.DIFF GDH ANTIGEN, Stool Negative (Negative); C.DIFF TOXINS A&B, Stool Negative (Negative)
[2022-10-14] MEDS: HALOPERIDOL 5 MG TABLET PO PRN ×2 (00:14→21:42)
[2022-10-14] MEDS: LEVOTHYROXINE SODIUM 200 MCG TABLET PO SCH (06:16)
[2022-10-14 06:26] LABS: GLUCOMETER DEV NAME(LOC) 3E.I 2; GLUCOSE,POINT OF CARE 88 MG/DL (70-110)
[2022-10-14] MEDS: INSULIN LISPRO 100 UNITS/ML SQ PRN ×3 (06:36→20:56)
[2022-10-14] MEDS: FUROSEMIDE 80 MG TABLET PO SCH ×2 (08:08→16:32)
[2022-10-14] MEDS: DIVALPROEX SODIUM 250 MG DR TABLET PO SCH ×2 (08:08→16:33)
[2022-10-14] MEDS: ATORVASTATIN CALCIUM 20 MG TABLET PO SCH (08:08)
[2022-10-14] MEDS: FOLIC ACID/VIT B COMPLEX AND C TABLET PO SCH (08:08)
[2022-10-14 08:09] VITALS: BP 158/74
[2022-10-14] MEDS: ACETAMINOPHEN 325 MG TABLET PO PRN ×2 (08:09→15:37)
[2022-10-14] MEDS: AmLODIPine BESYLATE 10 MG TABLET PO SCH (08:09)
[2022-10-14] MEDS: PANTOPRAZOLE SODIUM 40 MG DR TABLET PO SCH (08:09)
[2022-10-14] MEDS: LOPERAMIDE HCL 2 MG CAPSULE PO PRN ×2 (08:34→14:46)
[2022-10-14] MEDS: DOCUSATE SODIUM 100 MG CAPSULE PO SCH (08:45)
[2022-10-14 08:54] VITALS: BP 161/71
[2022-10-14] MEDS: EPOETIN ALFA 10,000 UNITS/ML VIAL SQ SCH (08:54)
[2022-10-14] MEDS: NYSTATIN 30 GM CREAM TP SCH ×2 (09:01→16:33)
[2022-10-14 11:45] LABS: GLUCOMETER DEV NAME(LOC) 3EX.2; GLUCOSE,POINT OF CARE 99 MG/DL (70-110)
[2022-10-14 15:37] VITALS: BP 139/78
[2022-10-14 16:40] LABS: GLUCOMETER DEV NAME(LOC) 3EX.2; GLUCOSE,POINT OF CARE 145 MG/DL (70-110)
[2022-10-14 16:41] VITALS: BP 142/86
[2022-10-14] MEDS: ZOLPIDEM TARTRATE 10 MG TABLET PO PRN (20:13)
[2022-10-14 21:01] LABS: GLUCOMETER DEV NAME(LOC) 3E.I 2; GLUCOSE,POINT OF CARE 177 MG/DL (70-110)
[2022-10-14] MEDS: INSULIN GLARGINE,HUM.REC.ANLOG 100 UNITS/ML SQ SCH (21:42)
[2022-10-14] MEDS: LORazepam 2 MG TABLET PO PRN (21:42)
[2022-10-15] MEDS: LEVOTHYROXINE SODIUM 200 MCG TABLET PO SCH (06:42)
[2022-10-15 06:46] LABS: GLUCOMETER DEV NAME(LOC) 3E.I 2; GLUCOSE,POINT OF CARE 79 MG/DL (70-110)
[2022-10-15 08:23] VITALS: BP 146/66
[2022-10-15] MEDS: AmLODIPine BESYLATE 10 MG TABLET PO SCH (08:28)
[2022-10-15] MEDS: FOLIC ACID/VIT B COMPLEX AND C TABLET PO SCH (08:29)
[2022-10-15] MEDS: ATORVASTATIN CALCIUM 20 MG TABLET PO SCH (08:29)
[2022-10-15] MEDS: FUROSEMIDE 80 MG TABLET PO SCH ×2 (08:29→16:17)
[2022-10-15] MEDS: PANTOPRAZOLE SODIUM 40 MG DR TABLET PO SCH (08:29)
[2022-10-15] MEDS: DIVALPROEX SODIUM 250 MG DR TABLET PO SCH ×2 (08:30→16:17)
[2022-10-15] MEDS: HALOPERIDOL 5 MG TABLET PO PRN ×3 (08:30→22:36)
[2022-10-15] MEDS: LORazepam 2 MG TABLET PO PRN ×3 (08:30→22:36)
[2022-10-15] MEDS: LOPERAMIDE HCL 2 MG CAPSULE PO PRN (08:30)
[2022-10-15] MEDS: NYSTATIN 30 GM CREAM TP SCH ×2 (09:00→16:18)
[2022-10-15] MEDS: INSULIN LISPRO 100 UNITS/ML SQ PRN ×3 (12:04→21:02)
[2022-10-15 12:16] LABS: GLUCOMETER DEV NAME(LOC) 3EX.2; GLUCOSE,POINT OF CARE 118 MG/DL (70-110)
[2022-10-15] MEDS: ACETAMINOPHEN 325 MG TABLET PO PRN (16:17)
[2022-10-15 16:31] LABS: GLUCOMETER DEV NAME(LOC) 3EX.2; GLUCOSE,POINT OF CARE 178 MG/DL (70-110)
[2022-10-15 20:16] VITALS: BP 135/71
[2022-10-15] MEDS: INSULIN GLARGINE,HUM.REC.ANLOG 100 UNITS/ML SQ SCH (21:00)
[2022-10-15] MEDS: ZOLPIDEM TARTRATE 10 MG TABLET PO PRN (21:01)
[2022-10-15 21:15] LABS: GLUCOMETER DEV NAME(LOC) 3E.I 2; GLUCOSE,POINT OF CARE 190 MG/DL (70-110)
[2022-10-16] VITALS (12 sets, daily range): BP systolic 109–152; BP diastolic 64–78
[2022-10-16] MEDS: LEVOTHYROXINE SODIUM 200 MCG TABLET PO SCH (06:26)
[2022-10-16] MEDS: FUROSEMIDE 80 MG TABLET PO SCH ×2 (09:00→16:40)
[2022-10-16] MEDS: DIVALPROEX SODIUM 250 MG DR TABLET PO SCH ×2 (09:00→16:40)
[2022-10-16] MEDS: FOLIC ACID/VIT B COMPLEX AND C TABLET PO SCH (09:01)
[2022-10-16] MEDS: NYSTATIN 30 GM CREAM TP SCH ×2 (09:01→16:41)
[2022-10-16] MEDS: ATORVASTATIN CALCIUM 20 MG TABLET PO SCH (09:01)
[2022-10-16] MEDS: AmLODIPine BESYLATE 10 MG TABLET PO SCH (09:02)
[2022-10-16] MEDS: PANTOPRAZOLE SODIUM 40 MG DR TABLET PO SCH (09:02)
[2022-10-16] MEDS: EPOETIN ALFA 10,000 UNITS/ML VIAL SQ SCH (09:09)
[2022-10-16] MEDS: LOPERAMIDE HCL 2 MG CAPSULE PO PRN (09:15)
[2022-10-16 16:21] LABS: GLUCOMETER DEV NAME(LOC) 3EX.2; GLUCOSE,POINT OF CARE 72 MG/DL (70-110)
[2022-10-16] MEDS: ZOLPIDEM TARTRATE 10 MG TABLET PO PRN (20:04)
[2022-10-16 20:11] LABS: GLUCOMETER DEV NAME(LOC) 3E.I 2; GLUCOSE,POINT OF CARE 270 MG/DL (70-110)
[2022-10-16] MEDS: INSULIN LISPRO 100 UNITS/ML SQ PRN (20:21)
[2022-10-16] MEDS: INSULIN GLARGINE,HUM.REC.ANLOG 100 UNITS/ML SQ SCH (20:22)
[2022-10-16] MEDS: LORazepam 2 MG TABLET PO PRN (21:31)
[2022-10-17] MEDS: HALOPERIDOL 5 MG TABLET PO PRN ×2 (01:07→20:03)
[2022-10-17 05:46] LABS: GLUCOMETER DEV NAME(LOC) 3E.I 2; GLUCOSE,POINT OF CARE 180 MG/DL (70-110)
[2022-10-17] MEDS: LEVOTHYROXINE SODIUM 200 MCG TABLET PO SCH (06:34)
[2022-10-17] MEDS: INSULIN LISPRO 100 UNITS/ML SQ PRN ×4 (06:35→20:51)
[2022-10-17] MEDS: FOLIC ACID/VIT B COMPLEX AND C TABLET PO SCH (08:23)
[2022-10-17] MEDS: DIVALPROEX SODIUM 250 MG DR TABLET PO SCH ×2 (08:23→16:05)
[2022-10-17] MEDS: FUROSEMIDE 80 MG TABLET PO SCH ×2 (08:23→16:05)
[2022-10-17] MEDS: ATORVASTATIN CALCIUM 20 MG TABLET PO SCH (08:23)
[2022-10-17] MEDS: PANTOPRAZOLE SODIUM 40 MG DR TABLET PO SCH (08:24)
[2022-10-17] MEDS: AmLODIPine BESYLATE 10 MG TABLET PO SCH (08:24)
[2022-10-17 08:35] VITALS: BP 156/80
[2022-10-17 12:06] LABS: GLUCOMETER DEV NAME(LOC) 3EX.2; GLUCOSE,POINT OF CARE 202 MG/DL (70-110)
[2022-10-17 16:00] VITALS: BP 139/66
[2022-10-17 16:26] LABS: GLUCOMETER DEV NAME(LOC) 3EX.2; GLUCOSE,POINT OF CARE 226 MG/DL (70-110)
[2022-10-17] MEDS: ZOLPIDEM TARTRATE 10 MG TABLET PO PRN (20:03)
[2022-10-17 20:26] LABS: GLUCOMETER DEV NAME(LOC) 3E.I 2; GLUCOSE,POINT OF CARE 156 MG/DL (70-110)
[2022-10-17] MEDS: INSULIN GLARGINE,HUM.REC.ANLOG 100 UNITS/ML SQ SCH (20:26)
[2022-10-17] MEDS: LORazepam 2 MG TABLET PO PRN (22:04)
[2022-10-18 05:46] LABS: GLUCOMETER DEV NAME(LOC) 3E.I 2; GLUCOSE,POINT OF CARE 142 MG/DL (70-110)
[2022-10-18] MEDS: INSULIN LISPRO 100 UNITS/ML SQ PRN ×4 (06:16→20:55)
[2022-10-18] MEDS: LEVOTHYROXINE SODIUM 200 MCG TABLET PO SCH (06:38)
[2022-10-18 08:00] VITALS: BP 164/80
[2022-10-18] MEDS: AmLODIPine BESYLATE 10 MG TABLET PO SCH (08:59)
[2022-10-18] MEDS: PANTOPRAZOLE SODIUM 40 MG DR TABLET PO SCH (08:59)
[2022-10-18] MEDS: FUROSEMIDE 80 MG TABLET PO SCH ×2 (09:00→16:19)
[2022-10-18] MEDS: DIVALPROEX SODIUM 250 MG DR TABLET PO SCH ×2 (09:00→16:19)
[2022-10-18] MEDS: ATORVASTATIN CALCIUM 20 MG TABLET PO SCH (09:00)
[2022-10-18] MEDS: FOLIC ACID/VIT B COMPLEX AND C TABLET PO SCH (09:01)
[2022-10-18 12:26] LABS: GLUCOMETER DEV NAME(LOC) 3EX.2; GLUCOSE,POINT OF CARE 214 MG/DL (70-110)
[2022-10-18] MEDS: LORazepam 2 MG TABLET PO PRN ×2 (14:09→23:20)
[2022-10-18 14:31] LABS: GLUCOMETER DEV NAME(LOC) 3E.I 2; GLUCOSE,POINT OF CARE 191 MG/DL (70-110)
[2022-10-18 15:51] LABS: GLUCOMETER DEV NAME(LOC) 3E.I 2; GLUCOSE,POINT OF CARE 188 MG/DL (70-110)
[2022-10-18 16:40] VITALS: BP 134/69
[2022-10-18] MEDS: ZOLPIDEM TARTRATE 10 MG TABLET PO PRN (20:31)
[2022-10-18] MEDS: LOPERAMIDE HCL 2 MG CAPSULE PO PRN (20:31)
[2022-10-18] MEDS: INSULIN GLARGINE,HUM.REC.ANLOG 100 UNITS/ML SQ SCH (20:31)
[2022-10-18 23:15] VITALS: BP 147/77
[2022-10-18] MEDS: ACETAMINOPHEN 325 MG TABLET PO PRN (23:21)
[2022-10-19] VITALS (14 sets, daily range): BP systolic 120–170; BP diastolic 63–101
[2022-10-19 03:11] LABS: GLUCOMETER DEV NAME(LOC) 3E.I 2; GLUCOSE,POINT OF CARE 175 MG/DL (70-110)
[2022-10-19] MEDS: INSULIN LISPRO 100 UNITS/ML SQ PRN ×3 (06:24→21:27)
[2022-10-19 06:27] LABS: GLUCOMETER DEV NAME(LOC) 3E.I 2; GLUCOSE,POINT OF CARE 135 MG/DL (70-110)
[2022-10-19] MEDS: LEVOTHYROXINE SODIUM 200 MCG TABLET PO SCH (07:03)
[2022-10-19] MEDS: ATORVASTATIN CALCIUM 20 MG TABLET PO SCH (08:29)
[2022-10-19] MEDS: AmLODIPine BESYLATE 10 MG TABLET PO SCH (08:29)
[2022-10-19] MEDS: FUROSEMIDE 80 MG TABLET PO SCH ×2 (08:29→16:13)
[2022-10-19] MEDS: FOLIC ACID/VIT B COMPLEX AND C TABLET PO SCH (08:29)
[2022-10-19] MEDS: PANTOPRAZOLE SODIUM 40 MG DR TABLET PO SCH (08:30)
[2022-10-19] MEDS: DIVALPROEX SODIUM 250 MG DR TABLET PO SCH ×2 (08:30→16:13)
[2022-10-19] MEDS ORDERED: DiphenhydrAMINE HCL 50 MG/ML VIAL IVP STA (12:20)
[2022-10-19] MEDS: EPOETIN ALFA 10,000 UNITS/ML VIAL SQ SCH (14:59)
[2022-10-19 16:26] LABS: GLUCOMETER DEV NAME(LOC) 3EX.2; GLUCOSE,POINT OF CARE 149 MG/DL (70-110)
[2022-10-19 20:46] LABS: GLUCOMETER DEV NAME(LOC) 3E.I 2; GLUCOSE,POINT OF CARE 213 MG/DL (70-110)
[2022-10-19] MEDS: LORazepam 2 MG TABLET PO PRN (21:22)
[2022-10-19] MEDS: HALOPERIDOL 5 MG TABLET PO PRN (21:22)
[2022-10-19] MEDS: INSULIN GLARGINE,HUM.REC.ANLOG 100 UNITS/ML SQ SCH (21:24)
[2022-10-19] MEDS: ZOLPIDEM TARTRATE 10 MG TABLET PO PRN (22:38)
[2022-10-19] MEDS: ACETAMINOPHEN 325 MG TABLET PO PRN (22:38)
[2022-10-20 06:06] LABS: GLUCOMETER DEV NAME(LOC) 3EX.2; GLUCOSE,POINT OF CARE 177 MG/DL (70-110)
[2022-10-20] MEDS: LEVOTHYROXINE SODIUM 200 MCG TABLET PO SCH (06:07)
[2022-10-20] MEDS: INSULIN LISPRO 100 UNITS/ML SQ PRN ×2 (07:23→21:22)
[2022-10-20 07:41] LABS: COVID AG,FIA SOURCE NASAL SWAB
[2022-10-20 08:08] VITALS: BP 142/75
[2022-10-20] MEDS: FOLIC ACID/VIT B COMPLEX AND C TABLET PO SCH (08:59)
[2022-10-20] MEDS: FUROSEMIDE 80 MG TABLET PO SCH ×2 (08:59→16:28)
[2022-10-20] MEDS: ATORVASTATIN CALCIUM 20 MG TABLET PO SCH (08:59)
[2022-10-20] MEDS: AmLODIPine BESYLATE 10 MG TABLET PO SCH (08:59)
[2022-10-20] MEDS: PANTOPRAZOLE SODIUM 40 MG DR TABLET PO SCH (08:59)
[2022-10-20] MEDS: DIVALPROEX SODIUM 250 MG DR TABLET PO SCH ×2 (08:59→16:28)
[2022-10-20 11:46] LABS: GLUCOMETER DEV NAME(LOC) 3EX.2; GLUCOSE,POINT OF CARE 107 MG/DL (70-110)
[2022-10-20] MEDS ORDERED: DiphenhydrAMINE HCL 50 MG/ML VIAL IVP ONE (12:00)
[2022-10-20 12:38] LABS: PROTHROMBIN TIME 10.9 SEC (9.4-11.6)
[2022-10-20] MEDS ORDERED: LIDOCAINE/PF 2% 5 ML VIAL ONE (14:30)
[2022-10-20 16:28] VITALS: BP 132/73
[2022-10-20] MEDS ORDERED: DiphenhydrAMINE HCL 50 MG/ML VIAL IM ONE (16:33)
[2022-10-20] MEDS: ACETAMINOPHEN 325 MG TABLET PO PRN ×2 (16:35→21:02)
[2022-10-20 17:26] LABS: GLUCOMETER DEV NAME(LOC) 3EX.2; GLUCOSE,POINT OF CARE 118 MG/DL (70-110)
[2022-10-20] MEDS: LORazepam 2 MG TABLET PO PRN (19:32)
[2022-10-20 21:00] VITALS: BP 129/81
[2022-10-20] MEDS: ZOLPIDEM TARTRATE 10 MG TABLET PO PRN (21:02)
[2022-10-20] MEDS: INSULIN GLARGINE,HUM.REC.ANLOG 100 UNITS/ML SQ SCH (21:21)
[2022-10-20 21:36] LABS: GLUCOMETER DEV NAME(LOC) 3E.I 2; GLUCOSE,POINT OF CARE 238 MG/DL (70-110)
[2022-10-21] VITALS (15 sets, daily range): BP systolic 133–150; BP diastolic 47–81
[2022-10-21 05:56] LABS: GLUCOMETER DEV NAME(LOC) 3E.I 2; GLUCOSE,POINT OF CARE 163 MG/DL (70-110)
[2022-10-21] MEDS: LEVOTHYROXINE SODIUM 200 MCG TABLET PO SCH (06:33)
[2022-10-21] MEDS: INSULIN LISPRO 100 UNITS/ML SQ PRN ×3 (06:56→20:35)
[2022-10-21] MEDS: AmLODIPine BESYLATE 10 MG TABLET PO SCH (08:44)
[2022-10-21] MEDS: PANTOPRAZOLE SODIUM 40 MG DR TABLET PO SCH (08:44)
[2022-10-21] MEDS: ATORVASTATIN CALCIUM 20 MG TABLET PO SCH (08:45)
[2022-10-21] MEDS: DIVALPROEX SODIUM 250 MG DR TABLET PO SCH ×2 (08:45→16:50)
[2022-10-21] MEDS: FOLIC ACID/VIT B COMPLEX AND C TABLET PO SCH (08:45)
[2022-10-21] MEDS: FUROSEMIDE 80 MG TABLET PO SCH ×2 (08:45→16:50)
[2022-10-21] MEDS ORDERED: DiphenhydrAMINE HCL 50 MG/ML VIAL IVP ONE (11:00)
[2022-10-21] MEDS: ACETAMINOPHEN 325 MG TABLET PO PRN (12:00)
[2022-10-21 14:31] LABS: GLUCOMETER DEV NAME(LOC) 3E.I 2; GLUCOSE,POINT OF CARE 112 MG/DL (70-110)
[2022-10-21] MEDS: EPOETIN ALFA 10,000 UNITS/ML VIAL SQ SCH (14:39)
[2022-10-21 16:31] LABS: GLUCOMETER DEV NAME(LOC) 3E.I 2; GLUCOSE,POINT OF CARE 135 MG/DL (70-110)
[2022-10-21 20:31] LABS: GLUCOMETER DEV NAME(LOC) 3E.I 2; GLUCOSE,POINT OF CARE 216 MG/DL (70-110)
[2022-10-21] MEDS: INSULIN GLARGINE,HUM.REC.ANLOG 100 UNITS/ML SQ SCH (20:34)
[2022-10-21] MEDS: LORazepam 2 MG TABLET PO PRN (20:36)
[2022-10-21] MEDS: HALOPERIDOL 5 MG TABLET PO PRN (21:11)
[2022-10-21] MEDS: ZOLPIDEM TARTRATE 10 MG TABLET PO PRN (22:33)
[2022-10-22 06:21] LABS: GLUCOMETER DEV NAME(LOC) 3E.I 2; GLUCOSE,POINT OF CARE 103 MG/DL (70-110)
[2022-10-22] MEDS: LEVOTHYROXINE SODIUM 200 MCG TABLET PO SCH (06:35)
[2022-10-22 08:05] VITALS: BP 161/70
[2022-10-22] MEDS: AmLODIPine BESYLATE 10 MG TABLET PO SCH (08:11)
[2022-10-22] MEDS: FOLIC ACID/VIT B COMPLEX AND C TABLET PO SCH (08:12)
[2022-10-22] MEDS: PANTOPRAZOLE SODIUM 40 MG DR TABLET PO SCH (08:12)
[2022-10-22] MEDS: FUROSEMIDE 80 MG TABLET PO SCH ×2 (08:12→16:17)
[2022-10-22] MEDS: DIVALPROEX SODIUM 250 MG DR TABLET PO SCH ×3 (08:12→16:16)
[2022-10-22] MEDS: ATORVASTATIN CALCIUM 20 MG TABLET PO SCH (08:13)
[2022-10-22] MEDS: INSULIN LISPRO 100 UNITS/ML SQ PRN ×2 (11:37→16:18)
[2022-10-22 11:56] LABS: GLUCOMETER DEV NAME(LOC) 3E.I 2; GLUCOSE,POINT OF CARE 130 MG/DL (70-110)
[2022-10-22 16:05] VITALS: BP 141/93
[2022-10-22 16:16] LABS: GLUCOMETER DEV NAME(LOC) 3E.I 2; GLUCOSE,POINT OF CARE 180 MG/DL (70-110)
[2022-10-22] MEDS: HALOPERIDOL 5 MG TABLET PO PRN (19:58)
[2022-10-22] MEDS: LORazepam 2 MG TABLET PO PRN (20:21)
[2022-10-22 20:26] LABS: GLUCOMETER DEV NAME(LOC) 3E.I 2; GLUCOSE,POINT OF CARE 137 MG/DL (70-110)
[2022-10-22] MEDS: INSULIN GLARGINE,HUM.REC.ANLOG 100 UNITS/ML SQ SCH (21:18)
[2022-10-22] MEDS: ZOLPIDEM TARTRATE 10 MG TABLET PO PRN (22:04)
[2022-10-23] VITALS (8 sets, daily range): BP systolic 127–157; BP diastolic 57–88
[2022-10-23] MEDS: HALOPERIDOL 5 MG TABLET PO PRN (03:35)
[2022-10-23] MEDS: LORazepam 2 MG TABLET PO PRN (03:35)
[2022-10-23 04:11] LABS: GLUCOMETER DEV NAME(LOC) 3E.I 2; GLUCOSE,POINT OF CARE 112 MG/DL (70-110)
[2022-10-23] MEDS: LOPERAMIDE HCL 2 MG CAPSULE PO PRN ×2 (04:20→09:10)
[2022-10-23] MEDS: LEVOTHYROXINE SODIUM 200 MCG TABLET PO SCH (06:02)
[2022-10-23] MEDS: FOLIC ACID/VIT B COMPLEX AND C TABLET PO SCH (09:03)
[2022-10-23] MEDS: DIVALPROEX SODIUM 250 MG DR TABLET PO SCH ×2 (09:03→17:01)
[2022-10-23] MEDS: ATORVASTATIN CALCIUM 20 MG TABLET PO SCH (09:03)
[2022-10-23] MEDS: FUROSEMIDE 80 MG TABLET PO SCH ×2 (09:03→17:01)
[2022-10-23] MEDS: PANTOPRAZOLE SODIUM 40 MG DR TABLET PO SCH (09:03)
[2022-10-23] MEDS: AmLODIPine BESYLATE 10 MG TABLET PO SCH (09:03)
[2022-10-23] MEDS: EPOETIN ALFA 10,000 UNITS/ML VIAL SQ SCH (13:48)
[2022-10-23 14:01] LABS: GLUCOMETER DEV NAME(LOC) 3EX.2; GLUCOSE,POINT OF CARE 106 MG/DL (70-110)
[2022-10-23 17:37] LABS: GLUCOMETER DEV NAME(LOC) 3EX.2; GLUCOSE,POINT OF CARE 204 MG/DL (70-110)
[2022-10-23] MEDS: INSULIN LISPRO 100 UNITS/ML SQ PRN ×2 (17:46→21:40)
[2022-10-23 19:44] LABS: C.DIFF GDH ANTIGEN, Stool Negative (Negative); C.DIFF TOXINS A&B, Stool Negative (Negative)
[2022-10-23 20:36] LABS: GLUCOMETER DEV NAME(LOC) 3E.I 2; GLUCOSE,POINT OF CARE 154 MG/DL (70-110)
[2022-10-23] MEDS: ZOLPIDEM TARTRATE 10 MG TABLET PO PRN (20:59)
[2022-10-23] MEDS: INSULIN GLARGINE,HUM.REC.ANLOG 100 UNITS/ML SQ SCH (21:39)
[2022-10-24] MEDS: LOPERAMIDE HCL 2 MG CAPSULE PO PRN (05:18)
[2022-10-24 06:16] LABS: GLUCOMETER DEV NAME(LOC) 3E.I 2; GLUCOSE,POINT OF CARE 68 MG/DL (70-110)
[2022-10-24 06:16] LABS: GLUCOMETER DEV NAME(LOC) 3E.I 2; GLUCOSE,POINT OF CARE 76 MG/DL (70-110)
[2022-10-24] MEDS: LEVOTHYROXINE SODIUM 200 MCG TABLET PO SCH (06:49)
[2022-10-24 08:18] VITALS: BP 165/79
[2022-10-24] MEDS: AmLODIPine BESYLATE 10 MG TABLET PO SCH (08:20)
[2022-10-24] MEDS: FUROSEMIDE 80 MG TABLET PO SCH ×2 (08:20→16:05)
[2022-10-24] MEDS: FOLIC ACID/VIT B COMPLEX AND C TABLET PO SCH (08:20)
[2022-10-24] MEDS: ATORVASTATIN CALCIUM 20 MG TABLET PO SCH (08:20)
[2022-10-24] MEDS: PANTOPRAZOLE SODIUM 40 MG DR TABLET PO SCH (08:20)
[2022-10-24] MEDS: DIVALPROEX SODIUM 250 MG DR TABLET PO SCH ×2 (08:20→16:04)
[2022-10-24 08:39] LABS: C.DIFF GDH ANTIGEN, Stool Negative (Negative); C.DIFF TOXINS A&B, Stool Negative (Negative)
[2022-10-24 11:21] LABS: GLUCOMETER DEV NAME(LOC) 3E.I 2; GLUCOSE,POINT OF CARE 84 MG/DL (70-110)
[2022-10-24 16:07] VITALS: BP 162/79
[2022-10-24 16:47] LABS: GLUCOMETER DEV NAME(LOC) 3E.I 2; GLUCOSE,POINT OF CARE 137 MG/DL (70-110)
[2022-10-24 17:54] VITALS: BP 154/75
[2022-10-24] MEDS: ACETAMINOPHEN 325 MG TABLET PO PRN (17:54)
[2022-10-24 18:54] VITALS: BP 152/78
[2022-10-24] MEDS: LORazepam 2 MG TABLET PO PRN (19:30)
[2022-10-24] MEDS: HALOPERIDOL 5 MG TABLET PO PRN (20:11)
[2022-10-24] MEDS: INSULIN GLARGINE,HUM.REC.ANLOG 100 UNITS/ML SQ SCH (20:12)
[2022-10-24] MEDS: INSULIN LISPRO 100 UNITS/ML SQ PRN (20:13)
[2022-10-24 20:21] LABS: GLUCOMETER DEV NAME(LOC) 3E.I 2; GLUCOSE,POINT OF CARE 162 MG/DL (70-110)
[2022-10-24] MEDS: ZOLPIDEM TARTRATE 10 MG TABLET PO PRN (21:10)
[2022-10-25] MEDS: HALOPERIDOL 5 MG TABLET PO PRN ×2 (03:12→08:12)
[2022-10-25] MEDS: LOPERAMIDE HCL 2 MG CAPSULE PO PRN ×3 (03:12→11:44)
[2022-10-25] MEDS: LORazepam 2 MG TABLET PO PRN ×2 (03:50→08:12)
[2022-10-25 06:16] LABS: GLUCOMETER DEV NAME(LOC) 3E.I 2; GLUCOSE,POINT OF CARE 72 MG/DL (70-110)
[2022-10-25] MEDS: LEVOTHYROXINE SODIUM 200 MCG TABLET PO SCH (06:23)
[2022-10-25] MEDS: FUROSEMIDE 80 MG TABLET PO SCH ×2 (08:12→17:30)
[2022-10-25] MEDS: DIVALPROEX SODIUM 250 MG DR TABLET PO SCH ×2 (08:12→17:30)
[2022-10-25] MEDS: ATORVASTATIN CALCIUM 20 MG TABLET PO SCH (08:12)
[2022-10-25] MEDS: PANTOPRAZOLE SODIUM 40 MG DR TABLET PO SCH (08:12)
[2022-10-25] MEDS: AmLODIPine BESYLATE 10 MG TABLET PO SCH (08:12)
[2022-10-25] MEDS: FOLIC ACID/VIT B COMPLEX AND C TABLET PO SCH (08:12)
[2022-10-25 08:17] VITALS: BP 141/99
[2022-10-25] MEDS: ACETAMINOPHEN 325 MG TABLET PO PRN ×2 (11:44→20:31)
[2022-10-25 11:56] LABS: GLUCOMETER DEV NAME(LOC) 3E.I 2; GLUCOSE,POINT OF CARE 110 MG/DL (70-110)
[2022-10-25] MEDS: INSULIN LISPRO 100 UNITS/ML SQ PRN ×3 (12:03→20:40)
[2022-10-25 17:23] VITALS: BP 144/71
[2022-10-25 17:26] LABS: GLUCOMETER DEV NAME(LOC) 3EX.2; GLUCOSE,POINT OF CARE 162 MG/DL (70-110)
[2022-10-25 20:16] LABS: GLUCOMETER DEV NAME(LOC) 3EX.2; GLUCOSE,POINT OF CARE 181 MG/DL (70-110)
[2022-10-25] MEDS: ZOLPIDEM TARTRATE 10 MG TABLET PO PRN (20:31)
[2022-10-25] MEDS: INSULIN GLARGINE,HUM.REC.ANLOG 100 UNITS/ML SQ SCH (20:39)
[2022-10-26 06:06] LABS: GLUCOMETER DEV NAME(LOC) 3E.I 2; GLUCOSE,POINT OF CARE 143 MG/DL (70-110)
[2022-10-26] MEDS: LEVOTHYROXINE SODIUM 200 MCG TABLET PO SCH (06:31)
[2022-10-26] MEDS: INSULIN LISPRO 100 UNITS/ML SQ PRN ×4 (06:32→20:42)
[2022-10-26 08:10] VITALS: BP 134/56
[2022-10-26] MEDS: FUROSEMIDE 80 MG TABLET PO SCH ×2 (08:50→16:07)
[2022-10-26] MEDS: HALOPERIDOL 5 MG TABLET PO PRN ×2 (08:50→16:07)
[2022-10-26] MEDS: PANTOPRAZOLE SODIUM 40 MG DR TABLET PO SCH (08:50)
[2022-10-26] MEDS: LORazepam 2 MG TABLET PO PRN ×2 (08:51→16:07)
[2022-10-26] MEDS: ATORVASTATIN CALCIUM 20 MG TABLET PO SCH (08:51)
[2022-10-26] MEDS: FOLIC ACID/VIT B COMPLEX AND C TABLET PO SCH (08:51)
[2022-10-26] MEDS: DIVALPROEX SODIUM 250 MG DR TABLET PO SCH ×2 (08:51→16:07)
[2022-10-26] MEDS: AmLODIPine BESYLATE 10 MG TABLET PO SCH (08:51)
[2022-10-26 12:11] LABS: GLUCOMETER DEV NAME(LOC) 3E.I 2; GLUCOSE,POINT OF CARE 116 MG/DL (70-110)
[2022-10-26] MEDS: EPOETIN ALFA 10,000 UNITS/ML VIAL SQ SCH (16:02)
[2022-10-26 16:16] LABS: GLUCOMETER DEV NAME(LOC) 3E.I 2; GLUCOSE,POINT OF CARE 151 MG/DL (70-110)
[2022-10-26 16:24] VITALS: BP 155/71
[2022-10-26] MEDS: ACETAMINOPHEN 325 MG TABLET PO PRN (17:40)
[2022-10-26] MEDS: INSULIN GLARGINE,HUM.REC.ANLOG 100 UNITS/ML SQ SCH (20:40)
[2022-10-26] MEDS: ZOLPIDEM TARTRATE 10 MG TABLET PO PRN (20:52)
[2022-10-26 20:56] LABS: GLUCOMETER DEV NAME(LOC) 3E.I 2; GLUCOSE,POINT OF CARE 172 MG/DL (70-110)
[2022-10-27] VITALS (9 sets, daily range): BP systolic 147–166; BP diastolic 56–98
[2022-10-27] MEDS: HALOPERIDOL 5 MG TABLET PO PRN ×3 (05:06→16:58)
[2022-10-27] MEDS: LEVOTHYROXINE SODIUM 200 MCG TABLET PO SCH (07:00)
[2022-10-27] MEDS: INSULIN LISPRO 100 UNITS/ML SQ PRN ×4 (07:06→21:40)
[2022-10-27 07:21] LABS: GLUCOMETER DEV NAME(LOC) 3E.I 2; GLUCOSE,POINT OF CARE 119 MG/DL (70-110)
[2022-10-27] MEDS: ATORVASTATIN CALCIUM 20 MG TABLET PO SCH (08:53)
[2022-10-27] MEDS: DIVALPROEX SODIUM 250 MG DR TABLET PO SCH ×2 (08:53→16:58)
[2022-10-27] MEDS: FOLIC ACID/VIT B COMPLEX AND C TABLET PO SCH (08:53)
[2022-10-27] MEDS: FUROSEMIDE 80 MG TABLET PO SCH ×2 (08:53→16:58)
[2022-10-27] MEDS: PANTOPRAZOLE SODIUM 40 MG DR TABLET PO SCH (08:55)
[2022-10-27] MEDS: LORazepam 2 MG TABLET PO PRN ×2 (08:56→16:58)
[2022-10-27] MEDS: ACETAMINOPHEN 325 MG TABLET PO PRN ×2 (08:57→16:58)
[2022-10-27] MEDS: AmLODIPine BESYLATE 10 MG TABLET PO SCH (08:59)
[2022-10-27 11:57] LABS: GLUCOMETER DEV NAME(LOC) 3E.I 2; GLUCOSE,POINT OF CARE 155 MG/DL (70-110)
[2022-10-27 17:06] LABS: GLUCOMETER DEV NAME(LOC) 3E.I 2; GLUCOSE,POINT OF CARE 114 MG/DL (70-110)
[2022-10-27] MEDS: INSULIN GLARGINE,HUM.REC.ANLOG 100 UNITS/ML SQ SCH (21:39)
[2022-10-27] MEDS: ZOLPIDEM TARTRATE 10 MG TABLET PO PRN (21:41)
[2022-10-27 21:51] LABS: GLUCOMETER DEV NAME(LOC) 3E.I 2; GLUCOSE,POINT OF CARE 184 MG/DL (70-110)
[2022-10-28] VITALS (10 sets, daily range): BP systolic 121–169; BP diastolic 65–85
[2022-10-28] MEDS: LOPERAMIDE HCL 2 MG CAPSULE PO PRN ×2 (02:25→09:18)
[2022-10-28 05:46] LABS: GLUCOMETER DEV NAME(LOC) 3E.I 2; GLUCOSE,POINT OF CARE 100 MG/DL (70-110)
[2022-10-28] MEDS: LEVOTHYROXINE SODIUM 200 MCG TABLET PO SCH (06:54)
[2022-10-28] MEDS: PANTOPRAZOLE SODIUM 40 MG DR TABLET PO SCH (08:46)
[2022-10-28] MEDS: ATORVASTATIN CALCIUM 20 MG TABLET PO SCH (08:46)
[2022-10-28] MEDS: FOLIC ACID/VIT B COMPLEX AND C TABLET PO SCH (08:46)
[2022-10-28] MEDS: DIVALPROEX SODIUM 250 MG DR TABLET PO SCH ×2 (08:46→17:00)
[2022-10-28] MEDS: FUROSEMIDE 80 MG TABLET PO SCH ×2 (08:46→17:00)
[2022-10-28] MEDS: AmLODIPine BESYLATE 10 MG TABLET PO SCH (08:46)
[2022-10-28 11:26] LABS: GLUCOMETER DEV NAME(LOC) 3E.I 2; GLUCOSE,POINT OF CARE 81 MG/DL (70-110)
[2022-10-28] MEDS ORDERED: DIVA-111 PO (12:42)
[2022-10-28 13:08] LABS: CALCIUM, TOTAL 9.3 mg/dL (8.8-10.5); CREATININE 4.1 mg/dL (0.60-1.30); MAGNESIUM 1.7 mg/dL (1.80-2.40); PHOSPHORUS 5.1 mg/dL (2.5-4.9)
[2022-10-28 18:26] LABS: ALBUMIN 3.3 g/dL (3.4-5.0); BILIRUBIN,TOTAL 0.4 mg/dL (0.1-1.0); TOTAL PROTEIN, SERUM 7.9 g/dL (6.4-8.2)
== END 2022-10-28 18:25 | DRG 885 ==
LOC: 3EX 17:15
PROVIDERS: ADMIT Psychiatry & Neurology Psychiatry; ATTEND Psychiatry & Neurology Psychiatry
PROC: 5A1D70Z Performance of Urinary Filtration, Intermittent, Less than 6 Hours Per Day (ICD-10-PCS; principal; 2022-10-01)
PROC: 5A1D70Z Performance of Urinary Filtration, Intermittent, Less than 6 Hours Per Day (ICD-10-PCS; 2022-10-03)
PROC: 5A1D70Z Performance of Urinary Filtration, Intermittent, Less than 6 Hours Per Day (ICD-10-PCS; 2022-10-06)
PROC: 5A1D70Z Performance of Urinary Filtration, Intermittent, Less than 6 Hours Per Day (ICD-10-PCS; 2022-10-08)
PROC: 5A1D70Z Performance of Urinary Filtration, Intermittent, Less than 6 Hours Per Day (ICD-10-PCS; 2022-10-13)
PROC: 5A1D70Z Performance of Urinary Filtration, Intermittent, Less than 6 Hours Per Day (ICD-10-PCS; 2022-10-16)
PROC: 5A1D70Z Performance of Urinary Filtration, Intermittent, Less than 6 Hours Per Day (ICD-10-PCS; 2022-10-19)
PROC: 5A1D70Z Performance of Urinary Filtration, Intermittent, Less than 6 Hours Per Day (ICD-10-PCS; 2022-10-21)
PROC: 5A1D70Z Performance of Urinary Filtration, Intermittent, Less than 6 Hours Per Day (ICD-10-PCS; 2022-10-23)
PROC: 5A1D70Z Performance of Urinary Filtration, Intermittent, Less than 6 Hours Per Day (ICD-10-PCS; 2022-10-27)
PROC: 5A1D70Z Performance of Urinary Filtration, Intermittent, Less than 6 Hours Per Day (ICD-10-PCS; 2022-10-28)
DX: F25.9 Schizoaffective disorder, unspecified (principal); I12.0 Hypertensive chronic kidney disease with stage 5 chronic kidney disease or end stage renal disease; N18.6 End stage renal disease; D63.1 Anemia in chronic kidney disease; E03.9 Hypothyroidism, unspecified; E11.22 Type 2 diabetes mellitus with diabetic chronic kidney disease; E11.319 Type 2 diabetes mellitus with unspecified diabetic retinopathy without macular edema; E11.621 Type 2 diabetes mellitus with foot ulcer; E78.5 Hyperlipidemia, unspecified; F31.9 Bipolar disorder, unspecified; F41.9 Anxiety disorder, unspecified; Z20.822 Contact with and (suspected) exposure to COVID-19; G40.909 Epilepsy, unspecified, not intractable, without status epilepticus; L97.529 Non-pressure chronic ulcer of other part of left foot with unspecified severity; G47.00 Insomnia, unspecified; K59.00 Constipation, unspecified; Z99.2 Dependence on renal dialysis
CPT/HCPCS: 70450; 70486; 71045; 80048; 80053; 80061; 82962; 83735; 84100; 85025; 85610; 87081; 87324; 87340; 87449; 89055; 90935; G0378; J0885; J1200; J1644; J1815; J3490; Q0162; 36415-L1; 36415-TC; U0003